=== PATIENT | female | born 1955 | race Caucasian/White ===

== ENCOUNTER → 2016-05-01 | Outpatient (CLI) | payer OTHER ==
[~2016-05-01] MED LIST: CONJ.6255 PO; HYZ/50125 PO
== END | disposition home or self-care (01) ==
LOC: C.LABSPEC 17:37
PROVIDERS: ATTEND Internal Medicine
DX: R39.9 Unspecified symptoms and signs involving the genitourinary system (principal)

== ENCOUNTER → 2016-05-29 | Outpatient (CLI) | payer OTHER | END | disposition home or self-care (01) | LOC: C.LABSPEC 17:26 | PROVIDERS: ATTEND Internal Medicine | DX: R35.0 Frequency of micturition (principal); R39.15 Urgency of urination; R39.9 Unspecified symptoms and signs involving the genitourinary system ==

== ENCOUNTER → 2016-07-30 | Outpatient (CLI) | payer OTHER ==
--- NOTE | 2016-07-31 12:48 | MAMMOGRAPHY REPORT ---
BILATERAL DIGITAL SCREENING MAMMOGRAM TOMOSYNTHESIS WITH CAD: 07/30/2016 CLINICAL HISTORY: Routine screening examination. TECHNIQUE: Breast tomosynthesis in addition to standard 2D mammography was performed. Current study was also evaluated with a Computer Aided Detection (CAD) system. COMPARISON: Comparison is made to exams dated: 07/27/2015 ultrasound, 07/27/2015 mammogram, 07/17/2015 m ammogram, 07/13/2014 mammogram, 07/12/2013 mammogram, and 07/08/2012 mammogram - [facility]. BREAST COMPOSITION: The tissue of both breasts is heterogeneously dense, which may obscure small ma sses. FINDINGS: The parenchymal pattern is unchanged. There are a few scattered and grouped punctate shree rocalcifications in the breasts. No developing mass, architectural distortion or cluster of suspici ous microcalcifications is seen in either breast. IMPRESSION: ACR BI-RADS CATEGORY 2: BENIGN There is no mammographic evidence of malignancy. A 1 year screening mammogram is recommended. The p atient will receive written notification of the results. Approximately 10% of breast cancers are not detected with mammography. A negative mammographic repor t should not delay biopsy if a clinically suggestive mass is present. Amanda Hill M.D. ay/:07/31/2016 07:39:46 Shot Tube Machine Tender: Shanta GREENBERG)(M), [facility] letter sent: Normal 1/2 BI-RADS Code: ACR BI-RADS Category 2: Benign
== END | disposition home or self-care (01) ==
LOC: C.MAMM 11:29
PROVIDERS: ATTEND Internal Medicine
DX: Z12.31 Encounter for screening mammogram for malignant neoplasm of breast (principal)

== ENCOUNTER → 2016-09-26 | Outpatient (CLI) | payer OTHER | END | disposition home or self-care (01) | LOC: C.PAPS 09:54 | PROVIDERS: ATTEND Obstetrics & Gynecology | DX: Z01.419 Encounter for gynecological examination (general) (routine) without abnormal findings (principal) ==

== ENCOUNTER → 2017-06-11 | Outpatient (CLI) | payer OTHER ==
--- NOTE | 2017-06-11 11:10 | DIAGNOSTIC IMAGING REPORT ---
CERVICAL SPINE 2 OR 3 VIEWS CLINICAL HISTORY: M54.2 Neck [id number] COMPARISON STUDY: No previous studies for comparison. FINDINGS: There is straightening of the normal cervical lordosis. There are moderate moderate multilevel degenerative changes. No fractures or traumatic subluxations are visualized. IMPRESSION: Moderate degenerative change. No fractures subluxations or destructive lesions are visualized Electronically signed by: Dayo Terrazas M.D. 06/11/2017 11:09 AM Dictated Date/Time: 06/11/2017 11:08 AM
== END | disposition home or self-care (01) ==
LOC: C.RAD1850 10:55
PROVIDERS: ATTEND Physician Assistant Medical
DX: M54.2 Cervicalgia (principal)

== ENCOUNTER → 2017-08-01 | Outpatient (CLI) | payer OTHER ==
[~2017-08-01] MED LIST changes: +OXYC1TAB3 PO; +PRED50TA PO
--- NOTE | 2017-08-04 07:44 | MAMMOGRAPHY REPORT ---
BILATERAL DIGITAL SCREENING MAMMOGRAM TOMOSYNTHESIS WITH CAD: 08/01/2017 CLINICAL HISTORY: Routine screening. Patient has no complaints. TECHNIQUE: Breast tomosynthesis in addition to standard 2D mammography was performed. Current study was also evaluated with a Computer Aided Detection (CAD) system. COMPARISON: Comparison is made to exams dated: 07/30/2016 mammogram, 07/27/2015 ultrasound, 07/27/2015 ma mmogram, 07/17/2015 mammogram, 07/13/2014 mammogram, and 07/12/2013 mammogram - [facility]. BREAST COMPOSITION: The tissue of both breasts is heterogeneously dense, which may obscure small mas ses. FINDINGS: There is a 7 mm focal asymmetry seen within the left inferior and slightly medial breast, f or which spot compression tomosynthesis views and possible breast ultrasound are recommended for furt her evaluation. The remainder of both breasts are stable compared to prior exams, without suspicious masses, calcific ations, or areas of architectural distortion noted. IMPRESSION: ACR BI-RADS CATEGORY 0: INCOMPLETE EVALUATION: NEED ADDITIONAL IMAGING EVALUATION Left breast focal asymmetry, for which additional imaging evaluation is recommended. The patient cal l be called to schedule an appointment. Approximately 10% of breast cancers are not detected with mammography. A negative mammographic report should not delay biopsy if a clinically suggestive mass is present. Daisy Bedoya M.D. /:08/01/2017 17:14:33 Law Writer: Shanta GREENBERG)(Agnes), [facility] letter sent: Addl Imaging 0 BI-RADS Code: ACR BI-RADS Category 0: Incomplete Evaluation: Need Additional Imaging Evaluation
== END | disposition home or self-care (01) ==
LOC: C.MAMM 11:12
PROVIDERS: ATTEND Internal Medicine
DX: Z12.31 Encounter for screening mammogram for malignant neoplasm of breast (principal); R92.8 Other abnormal and inconclusive findings on diagnostic imaging of breast

== ENCOUNTER 2017-08-11 19:52 | Emergency (ER) | payer OTHER ==
[~2017-08-11] VITALS: Ht 162.6 cm; Wt 51.1 kg
[~2017-08-11 19:52] MED LIST changes: -OXYC1TAB3 PO; -PRED50TA PO
[2017-08-11 20:05] VITALS: Ht 162.6 cm; Wt 51.1 kg
[2017-08-11 21:04] LABS: BASO % 0.3 %; BASO ABS # 0.02 K/uL (0-0.2); EOS % 1.2 %; EOS ABS # 0.09 K/uL (0-0.5); HEMATOCRIT 39.1 % (37-47); HEMOGLOBIN 13.4 g/dL (12.0-16.0); IG# 0.02 K/uL (0.00-0.02); LYMPH % 35.4 %; LYMPH ABS # 2.64 K/uL (1.2-3.4); MEAN CELL VOLUME 90.1 fL (80-100); MEAN CORPUSCULAR HEMOGLOBIN 30.9 pg (25-34); MEAN CORPUSCULAR HGB CONC 34.3 g/dl (32-36); MEAN PLATELET VOLUME 11.6 fL (7.4-10.4); MONO % 7.4 %; MONO ABS # 0.55 K/uL (0.11-0.59); NEUT % 55.4 %; NEUT ABS # 4.13 K/uL (1.4-6.5); PLATELET COUNT 199 K/uL (130-400); RED CELL DISTRIBUTION WIDTH CV 13.5 % (11.5-14.5); WHITE BLOOD COUNT 7.45 K/uL (4.8-10.8)
[2017-08-11 21:37] LABS: ALBUMIN 3.8 gm/dl (3.4-5.0); ALT/SGPT 15 U/L (12-78); AST/SGOT 11 U/L (15-37); BLOOD UREA NITROGEN 23 mg/dl (7-18); CALCIUM 8.6 mg/dl (8.5-10.1); CARBON DIOXIDE 32 mmol/L (21-32); CREATININE 0.74 mg/dl (0.60-1.20); GLUCOSE 93 mg/dl (70-99); LIPASE 172 U/L (73-393); POTASSIUM 3.4 mmol/L (3.5-5.1); SODIUM 140 mmol/L (136-145)
[2017-08-11 21:46] LABS: ALKALINE PHOSPHATASE 90 U/L (45-117); CKMB 0.5 ng/ml (0.5-3.6); TOTAL PROTEIN 7.3 gm/dl (6.4-8.2)
--- NOTE | 2017-08-11 21:58 | DIAGNOSTIC IMAGING REPORT ---
CERVICAL SPINE CT CT DOSE: 204.04 mGy.cm HISTORY: severe left arm pain, neck pain TECHNIQUE: Multiaxial CT images of the cervical spine were performed and reformatted in the sagittal and coronal plane without the use of contrast. A dose lowering technique was utilized adhering to the principles of ALARA. COMPARISON: None. FINDINGS: Fluid level within a single right mastoid air cells. Emphysema and biapical pleural-parenchymal scarlike densities are noted. No pneumothorax. Multinodular thyroid gland with the largest on the right measuring 6 mm. The visualized brain parenchyma is unremarkable. No fractures or subluxation within the cervical spine. Reversal of the normal lordotic curvature. Mild to moderate facet osteoarthritis throughout the cervical spine, left greater than right. There is mild disc space narrowing at C3-C4 and C5-C6. Moderate disc space narrowing at C4-C5 and C6-C7 with endplate osteophytes. This results in mild central canal narrowing at the C4-C5 and C6-C7 levels. Mild left-sided neural foraminal narrowing at C3-C4, C4-C5, and C6-C7. IMPRESSION: 1. No fracture or subluxation within the cervical spine. 2. Reversal of the normal lordotic curvature. 3. Degenerative changes as described above. 4. Additional findings as described above. Electronically signed by: Cesar Bolivar M.D. 08/11/2017 9:57 PM Dictated Date/Time: 08/11/2017 9:51 PM
[2017-08-11] MEDS ORDERED: PRED50TA PO (22:26)
[2017-08-11] MEDS ORDERED: OXYC1TAB3 PO (22:26)
[2017-08-11] MEDS ORDERED: OXYCODONE IR HOME PACK PO ONE (22:30)
--- NOTE | 2017-08-11 22:39 | EMERGENCY ROOM VISIT NOTE ---
History Report prepared by Katrina: Lorena Whalen Under the Supervision of: Dr. Tra Shin M.D. First contact with patient: 20:09 Chief Complaint: ARM PAIN Stated Complaint: ARM PAIN, BACK PAIN, NECK PAIN History of Present Illness The patient is a 62 year old female who presents to the Emergency Room with complaints of constant left arm pain beginning 2 weeks ago. The patient rates her pain at a 9/10. She describes the pain as an ache. The patient also complains of back pain and neck pain. She reports trying to use a heating pad, ice, and Biofreeze roll-on for the pain but that none of this has helped to alleviate her pain. The patient states that she has seen Dr. Canchola for her neck pain and had X-Rays done last month and was told she has arthritis in her neck. Pt denies LOC, headache, fevers, chills, diaphoresis, visual changes, chest pain, breathing difficulties, nausea, vomiting, abdominal pain, melena, hematochezia, urinary symptoms, numbness, weakness, lymphadenopathy, rash, or other complaints. Source of History: patient Onset: 2 weeks ago Position: arm (left) Symptom Intensity: rated at a 9/10 Quality: ache Timing: constant Associated Symptoms: + neck pain, + back pain, No fevers Review of Systems See HPI for pertinent positives and negatives. A total of ten systems were reviewed and were otherwise negative. Past Medical & Surgical Medical Problems: (1) Closed head injury (2) Hypertension Nos (3) Personal History Of Urinary Calculi Family History Cancer Diabetes mellitus Heart disease Hypertension Kidney disease Kidney stones Social History Smoking Status: Current Every Day Smoker Alcohol Use: none Drug Use: none Marital Status: single Housing Status: lives alone Occupation Status: retired Current/Historical Medications Scheduled Estrog Conj/Medryoxyprog Acet (Prempro 0.625MG/2.5MG), 1 TAB PO QPM Hctz/Losartan (Hyzaar 12.5MG/50MG), 1 TAB PO QAM Prednisone (Prednisone), 50 MG PO DAILY Scheduled PRN Oxycodone Ir (Roxicodone Ir), 1-2 TAB PO Q4H PRN for Pain Allergies Coded Allergies: Latex1 -Allergic Contact Dermititis (Verified Allergy, Unknown, SKIN IRRITATION, 03/24/16) Morphine (Verified Allergy, Unknown, ITCHING AND LUMP ON HAND, 03/24/16) [place] (Verified Allergy, Unknown, HIVES, 03/24/16) FROZEN STRAWBERRY Aspirin (Verified Adverse Reaction, Unknown, GI UPSET, 03/24/16) Physical Exam Vital Signs Date Time Temp Pulse Resp B/P (MAP) Pulse Ox O2 Delivery O2 Flow Rate FiO2 08/11/17 21:44 59 16 142/81 97 Room Air 08/11/17 20:50 63 08/11/17 20:49 Room Air 08/11/17 20:05 36.8 70 16 138/91 95 Room Air Physical Exam GENERAL: Awake, alert, mildly uncomfortable-appearing, in no distress HENT: Normocephalic, atraumatic. Oropharynx unremarkable. EYES: Normal conjunctiva. Sclera non-icteric. NECK: Supple but some discomfort noted with range of motion testing especially on the left side. No nuchal rigidity. FROM. No masses. RESPIRATORY: Clear to auscultation. No wheezes. No rales. Normal respiratory effort. CARDIAC: Normal rate. Normal rhythm. No murmurs. No rubs. Extremities warm and well perfused. Pulses equal. No JVD. GI: Soft, non-distended. No tenderness to palpation. No rebound or guarding. No masses. MUSCULOSKELETAL: Atraumatic. Chest examination reveals no tenderness. The back is symmetrical on inspection without obvious abnormality. There is no CVA tenderness to palpation. No joint edema. Normal range of motion of the left arm and left shoulder. No visible abnormality of the left bicep. LOWER EXTREMITIES: Calves are equal size bilaterally and non-tender. No edema. No discoloration. NEURO: Normal sensorium. No sensory or motor deficits noted. SKIN: No rash or jaundice noted. Medical Decision & Procedures ER Provider Diagnostic Interpretation: Radiology results as stated below per my review and radiologist interpretation: CERVICAL SPINE CT CT DOSE: 204.04 mGy.cm HISTORY: severe left arm pain, neck pain TECHNIQUE: Multiaxial CT images of the cervical spine were performed and reformatted in the sagittal and coronal plane without the use of contrast. A dose lowering technique was utilized adhering to the principles of ALARA. COMPARISON: None. FINDINGS: Fluid level within a single right mastoid air cells. Emphysema and biapical pleural-parenchymal scarlike densities are noted. No pneumothorax. Multinodular thyroid gland with the largest on the right measuring 6 mm. The visualized brain parenchyma is unremarkable. No fractures or subluxation within the cervical spine. Reversal of the normal lordotic curvature. Mild to moderate facet osteoarthritis throughout the cervical spine, left greater than right. There is mild disc space narrowing at C3-C4 and C5-C6. Moderate disc space narrowing at C4-C5 and C6-C7 with endplate osteophytes. This results in mild central canal narrowing at the C4-C5 and C6-C7 levels. Mild left-sided neural foraminal narrowing at C3-C4, C4-C5, and C6-C7. IMPRESSION: 1. No fracture or subluxation within the cervical spine. 2. Reversal of the normal lordotic curvature. 3. Degenerative changes as described above. 4. Additional findings as described above. Electronically signed by: Cesar Bolivar M.D. 08/11/2017 9:57 PM Dictated Date/Time: 08/11/2017 9:51 PM Laboratory Results 08/11/17 20:44 Red Blood Count 4.34, Mean Corpuscular Volume 90.1, Mean Corpuscular Hemoglobin 30.9, Mean Corpuscular Hemoglobin Concent 34.3, Mean Platelet Volume 11.6, Neutrophils (%) (Auto) 55.4, Lymphocytes (%) (Auto) 35.4, Monocytes (%) (Auto) 7.4, Eosinophils (%) (Auto) 1.2, Basophils (%) (Auto) 0.3, Neutrophils # (Auto) 4.13, Lymphocytes # (Auto) 2.64, Monocytes # (Auto) 0.55, Eosinophils # (Auto) 0.09, Basophils # (Auto) 0.02 08/11/17 20:44 Test 08/11/17 20:44 White Blood Count 7.45 K/uL (4.8-10.8) Red Blood Count 4.34 M/uL (4.2-5.4) Hemoglobin 13.4 g/dL (12.0-16.0) Hematocrit 39.1 % (37-47) Mean Corpuscular Volume 90.1 fL (80-100) Mean Corpuscular Hemoglobin 30.9 pg (25-34) Mean Corpuscular Hemoglobin Concent 34.3 g/dl (32-36) Platelet Count 199 K/uL (130-400) Mean Platelet Volume 11.6 fL (7.4-10.4) Neutrophils (%) (Auto) 55.4 % Lymphocytes (%) (Auto) 35.4 % Monocytes (%) (Auto) 7.4 % Eosinophils (%) (Auto) 1.2 % Basophils (%) (Auto) 0.3 % Neutrophils # (Auto) 4.13 K/uL (1.4-6.5) Lymphocytes # (Auto) 2.64 K/uL (1.2-3.4) Monocytes # (Auto) 0.55 K/uL (0.11-0.59) Eosinophils # (Auto) 0.09 K/uL (0-0.5) Basophils # (Auto) 0.02 K/uL (0-0.2) RDW Standard Deviation 45.0 fL (36.4-46.3) RDW Coefficient of Variation 13.5 % (11.5-14.5) Immature Granulocyte % (Auto) 0.3 % Immature Granulocyte # (Auto) 0.02 K/uL (0.00-0.02) Anion Gap 3.0 mmol/L (3-11) Est Creatinine Clear Calc Drug Dose 64.4 ml/min Estimated GFR () 101.3 Estimated GFR (Non- 87.4 BUN/Creatinine Ratio 30.3 (10-20) Calcium Level 8.6 mg/dl (8.5-10.1) Magnesium Level 1.9 mg/dl (1.8-2.4) Total Bilirubin 0.2 mg/dl (0.2-1) Direct Bilirubin < 0.1 mg/dl (0-0.2) Aspartate Amino Transf (AST/SGOT) 11 U/L (15-37) Alanine Aminotransferase (ALT/SGPT) 15 U/L (12-78) Alkaline Phosphatase 90 U/L (45-117) Total Creatine Kinase 52 U/L (26-192) Creatine Kinase MB 0.5 ng/ml (0.5-3.6) Creatine Kinase MB Ratio 1.0 (0-3.0) Troponin I < 0.015 ng/ml (0-0.045) Total Protein 7.3 gm/dl (6.4-8.2) Albumin 3.8 gm/dl (3.4-5.0) Lipase 172 U/L (73-393) Thyroid Stimulating Hormone (TSH) 2.220 uIu/ml (0.300-4.500) Laboratory results reviewed by me Medications Administered Medications (Trade) Dose Ordered Sig/Malik Route Start Time Stop Time Status Last Admin Dose Admin Prednisone (PredniSONE TAB) 60 mg NOW STAT PO 08/11/17 22:23 08/11/17 22:24 DC 08/11/17 22:43 60 MG ECG Per My Interpretation Indication: other (neck and arm pain ) Rate (beats per minute): 61 Rhythm: normal sinus Findings: no acute ischemic change, no ectopy ED Course 2019: The patient was evaluated in room C1B. A complete history and physical exam was performed. 2149: I checked on the patient. 2222: Ordered Prednisone 60 mg PO. 2229: Ordered Oxycodone HCl 1 homepack PO. 2235: I reevaluated the patient. Discussed results and discharge instructions: She verbalized understanding and agreement. The patient is ready for discharge. Medical Decision Prior records/ancillary studies reviewed. Outpatient x-ray imaging from the office revealed moderate degenerative changes. Triage Nursing notes reviewed and agree them. The patient's history was concerning for neck pain. Differential diagnosis: Etiologies such as degenerative disc disease, nerve radiculopathy, fracture, aortic disease, metastatic disease, cord compression, discitis, infection, renal colic, gastrointestinal, as well as others were entertained. Physical findings: As above. ER treatment provided: Oral prednisone Diagnostics interpreted by me: ECG: Normal The labs revealed a normal CBC and chemistry panel. Normal cardiac markers. Imaging studies: CT scan The patient has significant degenerative changes in the cervical spine. Given the pain in her neck, shoulder and into the upper arm I suspect that she has a radiculopathy. She does have neural foraminal narrowing on the left side. Steroids, pain medication and close follow-up with her PCP was recommended. The patient felt comfortable. I did review her images with her. By the evaluation outlined above emergent etiologies such as fracture, cardiac s as well as others were deemed relatively unlikely. The patient was informed about the findings as listed above. All questions were answered and she was pleased with the treatment. Return instructions were outlined and the patient was discharged in stable condition. Outpatient prescription management: Oxy IR 5mg 1-2 po Q4 hrs prn Prednisone Referral: The patient was referred back to her primary care physician for follow-up for a recheck of the current condition. [place] Drug Monitoring Program Search Results: patient reviewed within database, no issues identified Medication Reconcilliation Current Medication List: was personally reviewed by me Blood Pressure Screening Patient's blood pressure: Elevated blood pressure Blood pressure disposition: Referred to PCP Impression Primary Impression: Left arm pain Additional Impressions: DJD (degenerative joint disease) of cervical spine Radiculopathy Scribe Attestation The scribe's documentation has been prepared under my direction and personally reviewed by me in its entirety. I confirm that the note above accurately reflects all work, treatment, procedures, and medical decision making performed by me. Departure Information Dispostion Home / Self-Care Prescriptions Prednisone (Prednisone) 50 Mg Tab 50 MG PO DAILY for 4 Days, #4 TAB Prov: Tra Shin MD 08/11/17 Oxycodone Ir (Roxicodone Ir) 5 Mg Tab 1-2 TAB PO Q4H Y for Pain, #15 TAB Prov: Tra Shin MD 08/11/17 Referrals Allen Suresh M.D. (PCP) Forms HOME CARE DOCUMENTATION FORM, IMPORTANT VISIT INFORMATION Patient Instructions My [facility] Additional Instructions Prednisone 50mg: Once daily until the prescription is finished. It is best to take this earlier in the day as some patients note occasional difficulty falling asleep when taken in the late evening. Oxycodone (OxyIR) 5mg: Take 1-2 pills every four hours for breakthrough pain. Avoid alcohol, operating machinery or dangerous equipment, working on ladders or roofs, DRIVING, or situations where being under the influence may be dangerous. It is recommended to use an gvhb-eim-bixomqr stool softener such as Colace, 100mg twice daily while taking this medication to avoid constipation. Acetaminophen(Tylenol) may be used for fever or pain. Use 1000mg every six hours as needed. Avoid using more than 4000mg in a 24 hour period. This medication can be taken if you need to drive, work, or perform activities which may be dangerous when taking narcotic pain medication. Rest and avoid heavy lifting until your symptoms resolve and then gradually return to full activity. A heating pad, warm compresses, or a hot shower may help with tight muscles and can be done several times a day as needed. Continue current medications. Return to the ER immediately for any numbness, tingling, severe pain, loss of control of your bowels or bladder, inability to walk, worsening arm or neck pain , or as needed. Follow up with your primary care physician within 3-5 days for a recheck of your current condition. Problem Qualifiers
[2017-08-11 23:00] VITALS: BP 142/81; PULSE 59; TEMP 36.8; O2SAT 97
== END 2017-08-11 23:01 | disposition home or self-care (01) ==
LOC: C.EDB 19:53 → C.EDC 23:01
DX: M79.602 Pain in left arm (principal); M47.22 Other spondylosis with radiculopathy, cervical region; I10 Essential (primary) hypertension; F17.200 Nicotine dependence, unspecified, uncomplicated; Z87.442 Personal history of urinary calculi; Z91.040 Latex allergy status; Z88.5 Allergy status to narcotic agent; Z88.6 Allergy status to analgesic agent; Z91.018 Allergy to other foods; Z83.3 Family history of diabetes mellitus; Z82.49 Family history of ischemic heart disease and other diseases of the circulatory system; Z84.1 Family history of disorders of kidney and ureter

== ENCOUNTER → 2017-08-12 | Outpatient (CLI) | payer OTHER ==
[~2017-08-12] MED LIST changes: +OXYC1TAB3 PO; +PRED50TA PO
--- NOTE | 2017-08-12 14:24 | MAMMOGRAPHY REPORT ---
UNILATERAL LEFT DIGITAL DIAGNOSTIC MAMMOGRAM TOMOSYNTHESIS AND TARGETED LEFT ULTRASOUND: 08/12/2017 CLINICAL HISTORY: 62-year-old woman called back from screening mammography for a 7 mm focal asymmetry in the left inferior and slightly medial posterior breast. TECHNIQUE: Left CC and MLO tomosynthesis images were obtained. COMPARISON: Comparison is made to exams dated: 08/01/2017 mammogram, 07/30/2016 mammogram, 07/27/2015 ma mmogram, 07/17/2015 mammogram, and 07/12/2013 mammogram - [facility]. BREAST COMPOSITION: There are scattered areas of fibroglandular density in the left breast. FINDINGS: The supplemental spot compression tomosynthesis views of the left breast demonstrate a less conspicuous focal asymmetry in the slightly medial and inferior, posterior left breast. There is no definite focal area of architectural distortion, asymmetry or suspicious calcifications. Given the conspicuous nature on the 08/01/2017 screening exam, further evaluation with ultrasound was performed in the left breast. Real-time high resolution ultrasound was performed in the left breast. In the 6:00 axis, 1 cm from t he nipple, there is an oval, gently lobulated parallel hypoechoic solid versus cystic mass with mild posterior acoustic enhancement and no internal vascularity. This mass measures 4.5 x 2.1 x 4.6 mm. This most likely represents a cyst or complicated cyst and could possibly explain the mammographic fi nding. There is another anechoic benign simple cyst in the 6:00 periareolar left breast measuring 2. 4 x 3.2 x 2.4 mm, and a third probable cyst in the 2:00 left breast, 2 cm from the nipple which is ov al, circumscribed and parallel in orientation without internal vascularity. This cyst measures 3.9 x 1.8 x 4.0 mm. These findings are most compatible with benign fibrocystic changes. IMPRESSION: ACR-BI-RADS CATEGORY 3: PROBABLY BENIGN, TARGETED ULTRASOUND ACR-BI-RADS CATEGORY 3: PRO BABLY BENIGN There are scattered cysts/fibrocystic changes in the left breast seen on ultrasound. A probable comp licated cyst in the 6:00 left breast is thought to correspond with the mammographic focal asymmetry. Given that this lesion does not fit all of the criteria for a benign simple cyst on ultrasound, and the conspicuous nature of the mammographic finding, a short interval follow-up left diagnostic tomosy nthesis mammogram and possible repeat ultrasound is recommended to ensure stability in 6 months. These results and recommendations were discussed with the patient at the time of the exam. Approximately 10% of breast cancers are not detected with mammography. A negative mammographic report should not delay biopsy if a clinically suggestive mass is present. Amanda Hill M.D. ay/:08/12/2017 11:08:36 Load Dispatcher: Shanta SCHWAB(R)(M), [facility] letter sent: Follow Up Recommended 3 BI-RADS Code: ACR-BI-RADS Category 3: Probably Benign Ultrasound BI-RADS: ACR-BI-RADS Category 3: Pr obably Benign
== END | disposition home or self-care (01) ==
LOC: C.MAMM 09:44
PROVIDERS: ATTEND Internal Medicine
DX: N64.89 Other specified disorders of breast (principal)

== ENCOUNTER → 2017-11-27 | Outpatient (CLI) | payer OTHER ==
[~2017-11-27] MED LIST changes: +OXYC-90 PO; -OXYC1TAB3 PO; -PRED50TA PO
[2017-11-27 12:34] LABS: HEMATOCRIT 42.8 % (37-47); HEMOGLOBIN 14.9 g/dL (12.0-16.0); MEAN CELL VOLUME 90.1 fL (80-100); MEAN CORPUSCULAR HEMOGLOBIN 31.4 pg (25-34); MEAN CORPUSCULAR HGB CONC 34.8 g/dl (32-36); MEAN PLATELET VOLUME 12.5 fL (7.4-10.4); PLATELET COUNT 206 K/uL (130-400); RED CELL DISTRIBUTION WIDTH CV 13.5 % (11.5-14.5); RED CELL DISTRIBUTION WIDTH SD 44.8 fL (36.4-46.3); WHITE BLOOD COUNT 7.91 K/uL (4.8-10.8)
[2017-11-27 12:42] LABS: BLOOD UREA NITROGEN 13 mg/dl (7-18); CALCIUM 9.3 mg/dl (8.5-10.1); CARBON DIOXIDE 31 mmol/L (21-32); CREATININE 0.69 mg/dl (0.60-1.20); GLUCOSE 95 mg/dl (70-99); POTASSIUM 3.9 mmol/L (3.5-5.1); SODIUM 139 mmol/L (136-145)
== END | disposition home or self-care (01) ==
LOC: C.LABBFT 10:46
PROVIDERS: ATTEND Nurse Practitioner
DX: R07.89 Other chest pain (principal)

== ENCOUNTER → 2017-12-01 | Outpatient (CLI) | payer OTHER ==
--- NOTE | 2017-12-01 09:50 | DIAGNOSTIC IMAGING REPORT ---
CHEST 2 VIEWS ROUTINE CLINICAL HISTORY: R07.89 Chest [id number] dyspnea COMPARISON STUDY: 03/24/2016 FINDINGS: Moderate emphysematous change. No focal infiltrate. Diaphragms are flattened. A parenchymal density left pulmonary apex unchanged. IMPRESSION: Emphysematous change. Chronic change. No acute process. The above report was generated using voice recognition software. It may contain grammatical, syntax or spelling errors. Electronically signed by: Modesto Narayanan M.D. 12/01/2017 9:49 AM Dictated Date/Time: 12/01/2017 9:48 AM
== END | disposition home or self-care (01) ==
LOC: C.RAD1850 09:33
PROVIDERS: ATTEND Nurse Practitioner
DX: R07.89 Other chest pain (principal)

== ENCOUNTER 2018-11-04 08:29 | Inpatient (IN) ==
[2018-11-04] MEDS ORDERED: HYDROCODONE/ACETAMOPHEN 5/325MG TAB PO STA (08:48)
--- NOTE | 2018-11-04 08:53 | Emergency Department Note ---
History of Present Illness General Chief complaint: Ear Pain/Problem Stated complaint: BILAT EAR INFECTIONS Source: patient Mode of arrival: ambulatory Limitations: no limitations History of Present Illness Maximum Pain Intensity: 9 This patient is a 63-year-old female who presents to the emergency department complaining of bilateral ear pain and low back pain. The patient states that she has had pain in both of her ears for the past 2 weeks. She states that she saw her primary care provider and was placed on antibiotics which she completed 1 week ago. She states that there was no change in her pain when taking the antibiotics. She is unsure what antibiotic she was started on. She reports she was also treated for an upper respiratory infection and those symptoms have begun to improve. Patient additionally states that she injured her low back 2 months ago while at [facility]. She states that she tried to pull out a cart and the cart had no wheels and "went down." She states this caused her to twist and she has had gradually worsening back pain since then. She has been going to the chiropractor for this. She states the pain radiates across her lower back. There is no radiation into the legs. There is no numbness, weakness, bowel/bladder incontinence or urinary symptoms. Patient has been taking Aleve for her pain without significant improvement. She rates her discomfort a 9/10. She denies headaches, dizziness, neck pain, fevers, chest pain or shortness of breath. Home Medications Home Medications Medication Instructions Recorded Confirmed Type albuterol sulfate HFA 90 2 puff INHALATION QID PRN #1 gm 10/13/18 11/04/18 History mcg/actuation aerosol inhaler cetirizine 5 mg tablet 5 mg PO DAILY tab 10/13/18 11/04/18 History conj estrogen-medroxyprogesterone 1 tab PO DAILY 10/13/18 11/04/18 History 0.625 mg-2.5 mg tablet losartan 50 mg-hydrochlorothiazide 1 tab PO QAM #90 tab 10/13/18 11/04/18 History 12.5 mg tablet naproxen sodium [Aleve] 220 mg PO BID PRN 11/04/18 11/04/18 History Allergies Allergy/AdvReac Type Severity Reaction Status Date / Time latex Allergy Unknown SKIN Verified 11/04/18 09:14 IRRITATION morphine Allergy Unknown ITCHING Verified 11/04/18 09:14 AND LUMP ON HAND strawberry Allergy Unknown HIVES Verified 11/04/18 09:14 aspirin AdvReac Unknown GI UPSET Verified 11/04/18 09:14 Past Med/Surg History Medical History Hypertension (Chronic) Surgical History History of hemorrhoidectomy History of lithotripsy Renal Family History Brother Colon cancer Prostate cancer Colorectal cancer Sister Cervical cancer History of kidney cancer Ovarian cancer Lung cancer Family/Other Breast cancer Social History Preferred Language: Cambodian Communication Ability: Effective 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 Beliefs That Will Affect Care: None marital status: Single Current Living Situation: Alone current occupational status: disabled Other Information That Helps Us Care for You: No Feels Safe at Home: Yes Safety Concerns: Feels Safe At This Time Smoking Status: Current every day smoker Tobacco Type: cigarettes Cigarettes Per Day: 10 Do You Dip or Chew Tobacco: No Second Hand Exposure: No Tobacco Cessation Education Requested by Patient: No Hx Alcohol Use: No Hx Substance Use: No Childhood Exposure to Second-Hand Smoke: No caffeine: Yes Physical Activity Frequency: Does not Exercise Review of Systems A total of 10 systems reviewed and were otherwise negative Physical Exam Vital Signs Vital Signs - 24 hr 11/04/18 08:32 11/04/18 10:25 11/04/18 12:26 Temperature 36.8 C Temperature Source Oral Sepsis Recent Fever Within 48 Hours No Sepsis New/Unexplained Change in Mental Status No Sepsis Action Taken by Nursing No Action Required Pulse Rate 87 Pulse Rate [Right Finger] 78 78 Pulse Rhythm [Right Finger] Regular Pulse Strength [Right Finger] Normal Respiratory Rate 16 20 18 Respiratory Effort / Characteristics Non-Labored Spontaneous Non-Labored Spontaneous Respiratory Depth Normal Respiratory Pattern Regular Blood Pressure 162/95 H Blood Pressure [Right Arm] 170/90 H 165/94 H Blood Pressure Mean 117 Blood Pressure Mean [Right Arm] 116 117 Blood Pressure Position Sitting Pulse Oximetry 98 98 98 Oxygen Delivery Method Room Air Room Air Room Air VITALS: Vitals are noted on the nurse's note and reviewed by myself. Vital signs stable. GENERAL: This is a 63-year-old female, in no acute distress, nondiaphoretic, well-developed well-nourished. SKIN: The skin was without rashes. HEAD: Normocephalic atraumatic. EARS: There is a small amount of cerumen in the right external auditory canal. External auditory canals otherwise clear, tympanic membranes with mild effusion, no erythema and good light reflex bilaterally. EYES: Pupils equal round and reactive to light and accommodation. Conjunctivae without injection. NOSE: Patent, turbinates without inflammation or discharge. MOUTH: Mucous membranes moist. Tonsils are not enlarged. Pharynx without erythema or exudate. NECK: Supple without nuchal rigidity. No lymphadenopathy. HEART: Regular rate and rhythm without murmurs gallops or rubs. LUNGS: Clear to auscultation bilaterally without wheezes, rales or rhonchi. No retractions or accessory muscle use. MUSCULOSKELETAL: Generalized tenderness to palpation across the lumbar region of the back. Full range of motion throughout. NEURO: Patient was alert and oriented to person place and time. Distal sensation intact. Course Reevaluation(s) Reevaluation #1: I spoke with the patient regarding her x-ray results. She is agreeable to further work-up with CT scan. Reevaluation #2: Patient was informed of the findings on her CT scans. I recommended admission and patient was agreeable to this. Consultations Consultation #1: Dr. Albert - oncology I spoke with the oncologist on-call, who recommended that the patient be admitted for further evaluation. Consultation #2: Dr. Peña - [facility] [place] [facility] hospitalist Administered Medications Discontinued Medications Hydrocodone Bitart/Acetaminophen ([place] 5/325) 1 tab PO NOW STA Stop: 11/04/18 08:49 Last Admin: 11/04/18 08:53 Dose: 1 tab Documented by: [id number] Ioversol (Optiray 320 125ml) 90 ml IV ONCE PRN PRN Reason: Interaction Checking Stop: 11/08/18 11:24 Last Admin: 11/04/18 11:25 Dose: 90 ml Documented by: [id number] Medical Decision Making Differential Diagnosis Differential diagnosis includes upper respiratory infection, pneumonia, malignancy, lumbar back strain, compression fracture, among others. Home Medications Current Medication List: was personally reviewed by me Laboratory Data Attestation: I reviewed the patient's lab results. Result diagrams: 11/04/18 10:41 11/04/18 10:41 Lab Results 11/04/18 11/04/18 11/04/18 Range/Units 10:41 10:41 10:41 WBC 10.92 H (4.8-10.8) K/uL RBC 4.92 (4.2-5.4) M/uL Hgb 15.2 (12.0-16.0) g/dL POC Hgb (12.0-16.0) g/dl Hct 43.5 (37-47) % POC Hct (37-47) % MCV 88.4 (80-100) fL MCH 30.9 (25-34) pg MCHC 34.9 (32-36) g/dL RDW Std Deviation 43.9 (36.4-46.3) fL RDW Coeff of [place] 13.4 (11.5-14.5) % Plt Count 240 (130-400) K/uL MPV 11.3 H (7.4-10.4) fL Immature Gran % (Auto) 0.3 % Neut % (Auto) 77.6 % Lymph % (Auto) 12.6 % [place] % (Auto) 8.8 % Eos % (Auto) 0.5 % Baso % (Auto) 0.2 % Immature Gran # (Auto) 0.03 H (0.00-0.02) K/uL Neut # (Auto) 8.48 H (1.4-6.5) K/uL Lymph # (Auto) 1.38 (1.2-3.4) K/uL [place] # (Auto) 0.96 H (0.11-0.59) K/uL Eos # (Auto) 0.05 (0-0.5) K/uL Baso # (Auto) 0.02 (0-0.2) K/uL PT 10.6 (9.0-12.0) Seconds INR 1.0 (0.9-1.1) APTT 24.5 (21.0-31.0) Seconds PTT Ratio 0.9 POC Sodium (135-144) mEq/L Sodium 140 (136-145) mmol/L POC Potassium (3.3-5.0) mEq/L Potassium 3.9 (3.5-5.1) mmol/L POC Chloride (101-112) mEq/L Chloride 104 (98-107) mmol/L Carbon Dioxide 34 H (21-32) mmol/L POC Total CO2 (24-31) mEq/l Anion Gap 2.0 L (3-11) POC Anion Gap (16-25) mmol/L POC BUN (7-18) mg/dl BUN 19 H (7-18) mg/dl Creatinine 0.55 L (0.6-1.2) mg/dl POC Creatinine (0.6-1.3) mg/dl Est Cr Clr Drug Dosing 75.3 ml/min Est GFR ( Amer) 116.5 Est GFR (Non-Af Amer) 100.5 BUN/Creatinine Ratio 33.7 H (10-20) Glucose 89 (70-99) mg/dl POC Glucose (other) (70-99) mg/dl Calcium 9.6 (8.5-10.1) mg/dl POC Ioniz Calcium Ade (1.12-1.32) mmol/l Total Bilirubin 0.4 (0.2-1) mg/dl AST 20 (15-37) U/L ALT 22 (12-78) U/L Alkaline Phosphatase 152 H (45-117) U/L Total Protein 8.4 H (6.4-8.2) gm/dl Albumin 3.8 (3.4-5.0) gm/dl Globulin 4.6 H (2.5-4.0) gm/dl Albumin/Globulin Ratio 0.8 L (0.9-2) 11/04/18 Range/Units 10:49 WBC (4.8-10.8) K/uL RBC (4.2-5.4) M/uL Hgb (12.0-16.0) g/dL POC Hgb 16.0 (12.0-16.0) g/dl Hct (37-47) % POC Hct 47 (37-47) % MCV (80-100) fL MCH (25-34) pg MCHC (32-36) g/dL RDW Std Deviation (36.4-46.3) fL RDW Coeff of [place] (11.5-14.5) % Plt Count (130-400) K/uL MPV (7.4-10.4) fL Immature Gran % (Auto) % Neut % (Auto) % Lymph % (Auto) % [place] % (Auto) % Eos % (Auto) % Baso % (Auto) % Immature Gran # (Auto) (0.00-0.02) K/uL Neut # (Auto) (1.4-6.5) K/uL Lymph # (Auto) (1.2-3.4) K/uL [place] # (Auto) (0.11-0.59) K/uL Eos # (Auto) (0-0.5) K/uL Baso # (Auto) (0-0.2) K/uL PT (9.0-12.0) Seconds INR (0.9-1.1) APTT (21.0-31.0) Seconds PTT Ratio POC Sodium 141 (135-144) mEq/L Sodium (136-145) mmol/L POC Potassium 3.9 (3.3-5.0) mEq/L Potassium (3.5-5.1) mmol/L POC Chloride 100 L (101-112) mEq/L Chloride (98-107) mmol/L Carbon Dioxide (21-32) mmol/L POC Total CO2 29 (24-31) mEq/l Anion Gap (3-11) POC Anion Gap 17.0 (16-25) mmol/L POC BUN 19 H (7-18) mg/dl BUN (7-18) mg/dl Creatinine (0.6-1.2) mg/dl POC Creatinine 0.5 L (0.6-1.3) mg/dl Est Cr Clr Drug Dosing ml/min Est GFR ( Amer) Est GFR (Non-Af Amer) BUN/Creatinine Ratio (10-20) Glucose (70-99) mg/dl POC Glucose (other) 89 (70-99) mg/dl Calcium (8.5-10.1) mg/dl POC Ioniz Calcium Ade 1.21 (1.12-1.32) mmol/l Total Bilirubin (0.2-1) mg/dl AST (15-37) U/L ALT (12-78) U/L Alkaline Phosphatase (45-117) U/L Total Protein (6.4-8.2) gm/dl Albumin (3.4-5.0) gm/dl Globulin (2.5-4.0) gm/dl Albumin/Globulin Ratio (0.9-2) Imaging Data Attestation: I personally reviewed and interpreted this imaging study as follows: Radiologist's Impression: XR chest 2V routine FINDINGS: Consolidative infiltrate left upper lung. Slight parenchymal peribronchial prominence bilaterally. IMPRESSION: Consolidative left upper and left suprahilar parenchymal infiltrate. Follow-up to complete resolution is indicated. CT ANGIOGRAM OF THE CHEST FINDINGS: Within the upper abdomen, there are multiple space-occupying hepatic masses measuring up to 3.5 cm in diameter. Metastatic disease is felt likely.. There is mediastinal and bilateral hilar lymphadenopathy. There was no evidence of thoracic aortic dilatation. There were no pulmonary artery filling defects to indicate acute pulmonary embolism. There is a small left pleural effusion. There is a left upper lobe pulmonary mass with marked secondary narrowing of the left upper lobe bronchus. The mass is difficult to visualize due to adjacent pulmonary consolidation. The mass likely measures in excess of 4 cm. There is encasement and attenuation of left pulmonary artery and venous branches. There is a postobstructive left upper lobe pneumonia. There is underlying pulmonary emphysema. There is an irregular marginated pleural-based 13 mm right middle lobe pulmonary nodule. There is a second irregular marginated 11 mm right middle lobe pulmonary nodule. There is an 8 mm right lower lobe pulmonary nodule. There is additional 6 mm right lower lobe pulmonary nodule. There is a 5 mm subpleural left lower lobe pulmonary nodule There are lytic bone lesions present at the L2, L1, and T10 levels. Bony metastatic disease is deemed likely IMPRESSION: 1. Left upper lobe pulmonary mass measuring in excess of 4 cm with pulmonary artery and venous encasement with secondary narrowing. Marked narrowing of the left upper lobe bronchus with a postobstructive left upper lobe pneumonia 2. Pathologic mediastinal and hilar lymphadenopathy 3. Small left pleural effusion 4. Lytic bone disease is highly suspicious for skeletal metastasis 5. Hepatic masses highly suspicious for hepatic metastasis 6. Indeterminate right lung pulmonary nodules 7. No evidence of acute pulmonary embolism CT OF THE LUMBAR SPINE FINDINGS: Please note that the chest CT will be reported separately. A small left pleural effusion is noted. For purposes of numbering on this exam, the L5- S1 disc space is assigned to axial image 310 of 375. Alignment of lumbar spine is anatomic. Note is made of a lytic 2.4 cm lesion within the anterior aspect of the L2 vertebral body. There is additional smaller lytic lesion within the right upper aspect of the L2 vertebral body. There is a lytic lesion along the inferior endplate of L1 with mild loss of vertebral body height. There is also a 1.4 cm L3 lytic lesion. The central canal and neural foramen are suboptimally assessed by CT but there is no CT evidence for epidural extension of tumor. The sacroiliac joints are intact. There are multiple mild disc bulges. There is mild multilevel facet arthrosis. Several hepatic masses are partially imaged on this exam a right hepatic lobe mass measures at least 3.9 cm. A caudate lobe lesion is noted. There are small bilateral renal calculi. IMPRESSION: 1. Lytic lesions within the L1, L2 and L3 vertebral bodies consistent with metas tatic disease. Mild loss of height of the L1 vertebral body suggests a pathologic fracture. No epidural extension of tumor by CT. 2. Several hepatic metastases. Blood Pressure Blood Pressure Findings: Elevated blood pressure Blood Pressure Disposition: further management by hospitalist BIB Brower The patient is a 63-year-old female who presents today complaining of persistent earaches, URI symptoms and low back pain. Chest x-ray was initially performed which shows a left upper lobe infiltrate. Given the suspicious location as well as recent treatment with antibiotics, I did choose to further evaluate this area with a CT scan. This was performed which unfortunately shows a left upper lung mass with postobstructive pneumonia as well as evidence of bony and hepatic metastasis. CT of the lumbar spine was performed which also shows evidence of bony metastasis and pathologic fracture. Patient was informed of all of these findings. I spoke with the oncologist, who recommended the patient be admitted for biopsy and further work-up of this new diagnosis. Patient was agreeable with this. She was admitted to the [facility] medicine service for further evaluation and care. Impression & Plan Mass of left lung, Lumbar back pain, Postobstructive pneumonia Discharge Plan Visit Data *Final* Discharge Date/Time: 11/04/18 15:25 Chief Complaint: Ear Pain/Problem Stated Complaint: BILAT EAR INFECTIONS ED Provider: Lul Mac ED Midlevel Provider: Sabine Walls Discharge Problem: Mass of left lung, Lumbar back pain, Postobstructive pneumonia Patient Disposition: Admitted As Inpatient Discharge Instructions Interventions: ED Discharge Assessment Last Done: 11/04/18 15:25
--- NOTE | 2018-11-04 09:17 | XRay Report ---
XR chest 2V routine CLINICAL HISTORY: rib pain, cough dyspnea COMPARISON STUDY: 04/20/2012 FINDINGS: Consolidative infiltrate left upper lung. Slight parenchymal peribronchial prominence bilat erally. IMPRESSION: Consolidative left upper and left suprahilar parenchymal infiltrate. Follow-up to comple te resolution is indicated. The above report was generated using voice recognition software. It may contain grammatical, syntax or spelling errors. Electronically signed by: Modesto Narayanan M.D. 11/04/2018 9:16 AM
[2018-11-04 10:56] LABS: Basophils # (auto) 0.02 K/uL (0-0.2); Basophils % (auto) 0.2 %; Eosinophils # (auto) 0.05 K/uL (0-0.5); Eosinophils % (auto) 0.5 %; Hematocrit (blood only) 43.5 % (37-47); Hemoglobin 15.2 g/dL (12.0-16.0); Immature Granulocytes # (auto) 0.03 K/uL (0.00-0.02); Immature Granulocytes % (auto) 0.3 %; Lymphocytes # (auto) 1.38 K/uL (1.2-3.4); Lymphocytes % (auto) 12.6 %; Mean Corpuscular Hgb Conc 34.9 g/dL (32-36); Mean Corpuscular Volume 88.4 fL (80-100); Mean Platelet Volume 11.3 fL (7.4-10.4); Monocytes # (auto) 0.96 K/uL (0.11-0.59); Monocytes % (auto) 8.8 %; Neutrophils # (auto) 8.48 K/uL (1.4-6.5); Neutrophils % (auto) 77.6 %; Platelet Count 240 K/uL (130-400); RDW Coefficient of Variation 13.4 % (11.5-14.5); RDW Standard Deviation 43.9 fL (36.4-46.3); Red Blood Count 4.92 M/uL (4.2-5.4); White Blood Count 10.92 K/uL (4.8-10.8)
[2018-11-04 11:03] LABS: iSTAT Ionized Calcium 1.21 mmol/l (1.12-1.32)
[2018-11-04 11:07] LABS: Partial Thromboplastin Ratio 0.9; Partial Thromboplastin Time 24.5 Seconds (21.0-31.0); Prothrombin Time 10.6 Seconds (9.0-12.0)
[2018-11-04 11:14] LABS: Albumin Level 3.8 gm/dl (3.4-5.0); BUN Creatinine Ratio 33.7 (10-20); Calcium 9.6 mg/dl (8.5-10.1); Creatinine Clr Calc Pharmacy 75.3 ml/min; Est GFR (African American) 116.5; Est GFR (Non-African American) 100.5; Potassium 3.9 mmol/L (3.5-5.1)
[2018-11-04 11:16] LABS: Albumin Globulin Ratio 0.8 (0.9-2); Bilirubin,Total 0.4 mg/dl (0.2-1); Globulin 4.6 gm/dl (2.5-4.0); Total Protein 8.4 gm/dl (6.4-8.2)
[2018-11-04] MEDS ORDERED: OPTIRAY 320 125ml IV PRN (11:25)
--- NOTE | 2018-11-04 11:44 | CT Scan Report ---
CT ANGIOGRAM OF THE CHEST CLINICAL HISTORY: Abnormal chest x-ray. Cough. Shortness of breath. Pneumonia versus neoplasm versus pulmonary embolism. COMPARISON STUDY: Chest x-ray dated 11/04/2018 TECHNIQUE: Following the IV administration of 90 mL of Optiray-320, CT angiogram of the thorax was pe rformed from the thoracic inlet to the lung bases utilizing the pulmonary embolus protocol. Images ar e reviewed in the axial, sagittal, and coronal planes. IV contrast was administered without complicat ion. MIP imaging was performed. A dose lowering technique was utilized adhering to the principles of ALARA. CT DOSE: FINDINGS: Within the upper abdomen, there are multiple space-occupying hepatic masses measuring up to 3.5 cm in diameter. Metastatic disease is felt likely.. There is mediastinal and bilateral hilar lymphadenopathy. There was no evidence of thoracic aortic dilatation. There were no pulmonary artery filling defects to indicate acute pulmonary embolism. There is a small left pleural effusion. There is a left upper lobe pulmonary mass with marked secondary narrowing of the left upper lobe bron chus. The mass is difficult to visualize due to adjacent pulmonary consolidation. The mass likely remedios sures in excess of 4 cm. There is encasement and attenuation of left pulmonary artery and venous bran ches. There is a postobstructive left upper lobe pneumonia. There is underlying pulmonary emphysema. There is an irregular marginated pleural-based 13 mm right middle lobe pulmonary nodule. There is a s econd irregular marginated 11 mm right middle lobe pulmonary nodule. There is an 8 mm right lower lob e pulmonary nodule. There is additional 6 mm right lower lobe pulmonary nodule. There is a 5 mm subpl eural left lower lobe pulmonary nodule There are lytic bone lesions present at the L2, L1, and T10 levels. Bony metastatic disease is deemed likely IMPRESSION: 1. Left upper lobe pulmonary mass measuring in excess of 4 cm with pulmonary artery and venous encase ment with secondary narrowing. Marked narrowing of the left upper lobe bronchus with a postobstructiv e left upper lobe pneumonia 2. Pathologic mediastinal and hilar lymphadenopathy 3. Small left pleural effusion 4. Lytic bone disease is highly suspicious for skeletal metastasis 5. Hepatic masses highly suspicious for hepatic metastasis 6. Indeterminate right lung pulmonary nodules 7. No evidence of acute pulmonary embolism Electronically signed by: Dayo Terrazas M.D. 11/04/2018 11:43 AM
--- NOTE | 2018-11-04 11:50 | CT Scan Report ---
CT OF THE LUMBAR SPINE CLINICAL HISTORY: Low back pain. COMPARISON STUDY: Lumbar spine radiographs October 24, 2018. TECHNIQUE: Helical axial images of the lumbar spine were obtained without intravenous contrast. Sag ittal and coronal reconstructions were viewed. Automated exposure control was utilized for the study . A dose lowering technique was utilized adhering to the principles of ALARA. FINDINGS: Please note that the chest CT will be reported separately. A small left pleural effusion is noted. For purposes of numbering on this exam, the L5-S1 disc space is assigned to axial image 310 o f 375. Alignment of lumbar spine is anatomic. Note is made of a lytic 2.4 cm lesion within the anteri or aspect of the L2 vertebral body. There is additional smaller lytic lesion within the right upper a spect of the L2 vertebral body. There is a lytic lesion along the inferior endplate of L1 with mild l oss of vertebral body height. There is also a 1.4 cm L3 lytic lesion. The central canal and neural fo ramen are suboptimally assessed by CT but there is no CT evidence for epidural extension of tumor. Th e sacroiliac joints are intact. There are multiple mild disc bulges. There is mild multilevel facet a rthrosis. Several hepatic masses are partially imaged on this exam a right hepatic lobe mass measures at least 3.9 cm. A caudate lobe lesion is noted. There are small bilateral renal calculi. IMPRESSION: 1. Lytic lesions within the L1, L2 and L3 vertebral bodies consistent with metastatic disease. Mild l oss of height of the L1 vertebral body suggests a pathologic fracture. No epidural extension of tumor by CT. 2. Several hepatic metastases. Electronically signed by: Eriberto Buckley M.D. 11/04/2018 11:49 AM
--- NOTE | 2018-11-04 14:00 | History & Physical Report ---
Date of Service November 04, 2018 Assessment & Plan (1) Mass of left lung: CT findings highly concerning for malignancy, lung mass noted in EVE with additional lesions in liver and spine. Patient is an active smoker, 1/2 ppd x 40 years. She has a very strong family history of malignancy. She is one of 15 children and has multiple siblings with cancer. Patient was informed of all findings. Case discussed with her daughter, Stacy as well. CT suggests encasement of the pulmonary vasculature. Patient hemodynamically stable with adequate oxygenation on RA, no distress. Does not report hemoptysis. No clinical evidence of SVC syndrome or other oncologic emergency at this time. -Admit to medical floor -Control of pain and nausea -Contact Dr. Wilson for possible lung biopsy in AM. Patient is to be NPO after midnight. Holding DVT chemo-prophylaxis for now -Consult Oncology - appreciate assistance with this case -Nicotine patch provided Present on Admission?: Yes (2) Lumbar back pain: Most likely secondary to metastatic lesions. Patient is neurologically intact. Pathologic fracture of L1 -Consider Ortho referral outpatient for stabilization -Pain control with Oxy IR and Morphine PRN -Neuro checks - no evidence of cord compression at present Present on Admission?: Yes (3) Postobstructive pneumonia: Patient afebrile, hemodynamically stable, no respiratory distress -Levaquin 750mg daily -Thoracic consult as above for bronchoscopy. ?stenting Present on Admission?: Yes (4) Hypertension: Blood pressure elevated at present. Patient did not take her AM medication -Give Losartan/HCTZ now -Continue to monitor F/E/N - Heplock. Monitor electrolytes. Regular diet, NPO after midnight Ppx - SCDs and TEDS until biopsy then Lovenox Code - Full Dispo - Admit to medical floor History of Present Illness Chief Complaint: ear pain Primary Care Provider: Allen Suresh MD Margaux Gonsalez is a pleasant 63yo female presenting with bilateral ear pain that has been persistent for approximately 2 weeks. She denies hearing loss/tinnitus/drainage or fullness. She was seen by her PCP on 10/13/18 for this complaint and was prescribed Augmentin for bilateral otitis media with no improvement. Patient also with complaint of low back pain that has been present for 3-4 months. She states that she initially injured her back 2 months ago at [facility] after a fall and has been using Aleve to manage her pain. Also complaining of dry cough x 3 months, no sputum/hemoptysis. Upon arrival to the ER she was afebrile, hemodynamically stable, NAD. A CXR was obtained which revealed a consolidation in the EVE. A CT of the chest was obtained that revealed a 4cm EVE pulmonary mass with pulmonary artery and venous encasement with secondary narrowing. Marked narrowing of the EVE bronchus with a postobstructive EVE PNA. Concern for malignancy Er Course: Hydrocodone Allergies Allergy/AdvReac Type Severity Reaction Status Date / Time latex Allergy Unknown SKIN Verified 11/04/18 09:14 IRRITATION morphine Allergy Unknown ITCHING Verified 11/04/18 09:14 AND LUMP ON HAND strawberry Allergy Unknown HIVES Verified 11/04/18 09:14 aspirin AdvReac Unknown GI UPSET Verified 11/04/18 09:14 Home Medications Home Medications Medication Instructions Recorded Confirmed Type albuterol sulfate HFA 90 2 puff INHALATION QID PRN #1 gm 10/13/18 11/04/18 History mcg/actuation aerosol inhaler cetirizine 5 mg tablet 5 mg PO DAILY tab 10/13/18 11/04/18 History conj estrogen-medroxyprogesterone 1 tab PO DAILY 10/13/18 11/04/18 History 0.625 mg-2.5 mg tablet losartan 50 mg-hydrochlorothiazide 1 tab PO QAM #90 tab 10/13/18 11/04/18 History 12.5 mg tablet naproxen sodium [Aleve] 220 mg PO BID PRN 11/04/18 11/04/18 History Past Med/Surg History Medical History Hypertension (Chronic) Surgical History History of rhinoplasty History of hemorrhoidectomy History of lithotripsy Renal Family History Brother Colon cancer Prostate cancer Colorectal cancer Sister Cervical cancer History of kidney cancer Ovarian cancer Lung cancer Family/Other Breast cancer Sister Cholangiocarcinoma Social History Preferred Language: Amharic Communication Ability: Effective Non Clinical Advisor Required: No Beliefs That Will Affect Care: None marital status: Single Current Living Situation: Alone current occupational status: disabled Other Information That Helps Us Care for You: No Feels Safe at Home: Yes Safety Concerns: Feels Safe At This Time Smoking Status: Current every day smoker Tobacco Type: cigarettes Cigarettes Per Day: 10 Do You Dip or Chew Tobacco: No Second Hand Exposure: No Tobacco Cessation Education Requested by Patient: No Hx Alcohol Use: No Hx Substance Use: No Childhood Exposure to Second-Hand Smoke: No caffeine: Yes Physical Activity Frequency: Does not Exercise Review of Systems Review of Systems: +Dry cough +Pain in back Physical Exam Physical Exam: General: patient resting comfortably, NAD, non-toxic in appearance, AA&O x 4 Skin: warm, dry, intact, no rashes or lesions HEENT: NC/AT, PERRL, EOMI, anicteric sclera, conjunctiva without injection, external ear normal to inspection and nontender, nares patent, moist mucus membranes, dentition intact, no oropharyngeal lesions, neck supple, trachea midline, no LAD, no thyromegaly, no JVD Heart: +S1/S2, regular, no m/r/g Lungs: equal air entry bilaterally, no rales/rhonchi/wheezes Abd: +BS, soft, NT/ND, no masses/organomegaly/ascites Ext: warm, 2+ pulses in UE/LE bilaterally, no clubbing/cyanosis or edema Neuro: nonfocal, patient AA&O x 4, speech intact, no facial droop, moving all extremities on command with equal strength 5/5 Results & Data Vital Signs (Past 12 Hours) Vital Signs Temp Pulse Pulse Resp BP BP Pulse Ox 11/04/18 12:26 78 18 165/94 H 98 11/04/18 10:25 78 20 170/90 H 98 11/04/18 08:32 36.8 C 87 16 162/95 H 98 Laboratory Results Lab Results 11/04/18 11/04/18 11/04/18 Range/Units 10:41 10:41 10:41 WBC 10.92 H (4.8-10.8) K/uL RBC 4.92 (4.2-5.4) M/uL Hgb 15.2 (12.0-16.0) g/dL POC Hgb (12.0-16.0) g/dl Hct 43.5 (37-47) % POC Hct (37-47) % MCV 88.4 (80-100) fL MCH 30.9 (25-34) pg MCHC 34.9 (32-36) g/dL RDW Std Deviation 43.9 (36.4-46.3) fL RDW Coeff of [place] 13.4 (11.5-14.5) % Plt Count 240 (130-400) K/uL MPV 11.3 H (7.4-10.4) fL Immature Gran % (Auto) 0.3 % Neut % (Auto) 77.6 % Lymph % (Auto) 12.6 % Bond % (Auto) 8.8 % Eos % (Auto) 0.5 % Baso % (Auto) 0.2 % Immature Gran # (Auto) 0.03 H (0.00-0.02) K/uL Neut # (Auto) 8.48 H (1.4-6.5) K/uL Lymph # (Auto) 1.38 (1.2-3.4) K/uL Bond # (Auto) 0.96 H (0.11-0.59) K/uL Eos # (Auto) 0.05 (0-0.5) K/uL Baso # (Auto) 0.02 (0-0.2) K/uL PT 10.6 (9.0-12.0) Seconds INR 1.0 (0.9-1.1) APTT 24.5 (21.0-31.0) Seconds PTT Ratio 0.9 POC Sodium (135-144) mEq/L Sodium 140 (136-145) mmol/L POC Potassium (3.3-5.0) mEq/L Potassium 3.9 (3.5-5.1) mmol/L POC Chloride (101-112) mEq/L Chloride 104 (98-107) mmol/L Carbon Dioxide 34 H (21-32) mmol/L POC Total CO2 (24-31) mEq/l Anion Gap 2.0 L (3-11) POC Anion Gap (16-25) mmol/L POC BUN (7-18) mg/dl BUN 19 H (7-18) mg/dl Creatinine 0.55 L (0.6-1.2) mg/dl POC Creatinine (0.6-1.3) mg/dl Est Cr Clr Drug Dosing 75.3 ml/min Est GFR ( Amer) 116.5 Est GFR (Non-Af Amer) 100.5 BUN/Creatinine Ratio 33.7 H (10-20) Glucose 89 (70-99) mg/dl POC Glucose (other) (70-99) mg/dl Calcium 9.6 (8.5-10.1) mg/dl POC Ioniz Calcium Ade (1.12-1.32) mmol/l Total Bilirubin 0.4 (0.2-1) mg/dl AST 20 (15-37) U/L ALT 22 (12-78) U/L Alkaline Phosphatase 152 H (45-117) U/L Total Protein 8.4 H (6.4-8.2) gm/dl Albumin 3.8 (3.4-5.0) gm/dl Globulin 4.6 H (2.5-4.0) gm/dl Albumin/Globulin Ratio 0.8 L (0.9-2) // Range/Units 10:49 WBC (4.8-10.8) K/uL RBC (4.2-5.4) M/uL Hgb (12.0-16.0) g/dL POC Hgb 16.0 (12.0-16.0) g/dl Hct (37-47) % POC Hct 47 (37-47) % MCV (80-100) fL MCH (25-34) pg MCHC (32-36) g/dL RDW Std Deviation (36.4-46.3) fL RDW Coeff of [place] (11.5-14.5) % Plt Count (130-400) K/uL MPV (7.4-10.4) fL Immature Gran % (Auto) % Neut % (Auto) % Lymph % (Auto) % Bond % (Auto) % Eos % (Auto) % Baso % (Auto) % Immature Gran # (Auto) (0.00-0.02) K/uL Neut # (Auto) (1.4-6.5) K/uL Lymph # (Auto) (1.2-3.4) K/uL Bond # (Auto) (0.11-0.59) K/uL Eos # (Auto) (0-0.5) K/uL Baso # (Auto) (0-0.2) K/uL PT (9.0-12.0) Seconds INR (0.9-1.1) APTT (21.0-31.0) Seconds PTT Ratio POC Sodium 141 (135-144) mEq/L Sodium (136-145) mmol/L POC Potassium 3.9 (3.3-5.0) mEq/L Potassium (3.5-5.1) mmol/L POC Chloride 100 L (101-112) mEq/L Chloride (98-107) mmol/L Carbon Dioxide (21-32) mmol/L POC Total CO2 29 (24-31) mEq/l Anion Gap (3-11) POC Anion Gap 17.0 (16-25) mmol/L POC BUN 19 H (7-18) mg/dl BUN (7-18) mg/dl Creatinine (0.6-1.2) mg/dl POC Creatinine 0.5 L (0.6-1.3) mg/dl Est Cr Clr Drug Dosing ml/min Est GFR ( Amer) Est GFR (Non-Af Amer) BUN/Creatinine Ratio (10-20) Glucose (70-99) mg/dl POC Glucose (other) 89 (70-99) mg/dl Calcium (8.5-10.1) mg/dl POC Ioniz Calcium Ade 1.21 (1.12-1.32) mmol/l Total Bilirubin (0.2-1) mg/dl AST (15-37) U/L ALT (12-78) U/L Alkaline Phosphatase (45-117) U/L Total Protein (6.4-8.2) gm/dl Albumin (3.4-5.0) gm/dl Globulin (2.5-4.0) gm/dl Albumin/Globulin Ratio (0.9-2) Diagnostic Findings CT OF THE LUMBAR SPINE CLINICAL HISTORY: Low back pain. COMPARISON STUDY: Lumbar spine radiographs October 24, 2018. TECHNIQUE: Helical axial images of the lumbar spine were obtained without intravenous contrast. Sagittal and coronal reconstructions were viewed. Automated exposure control was utilized for the study. A dose lowering technique was utilized adhering to the principles of ALARA. FINDINGS: Please note that the chest CT will be reported separately. A small left pleural effusion is noted. For purposes of numbering on this exam, the L5- S1 disc space is assigned to axial image 310 of 375. Alignment of lumbar spine is anatomic. Note is made of a lytic 2.4 cm lesion within the anterior aspect of the L2 vertebral body. There is additional smaller lytic lesion within the right upper aspect of the L2 vertebral body. There is a lytic lesion along the inferior endplate of L1 with mild loss of vertebral body height. There is also a 1.4 cm L3 lytic lesion. The central canal and neural foramen are suboptimally assessed by CT but there is no CT evidence for epidural extension of tumor. The sacroiliac joints are intact. There are multiple mild disc bulges. There is mild multilevel facet arthrosis. Several hepatic masses are partially imaged on this exam a right hepatic lobe mass measures at least 3.9 cm. A caudate lobe lesion is noted. There are small bilateral renal calculi. IMPRESSION: 1. Lytic lesions within the L1, L2 and L3 vertebral bodies consistent with metastatic disease. Mild loss of height of the L1 vertebral body suggests a pathologic fracture. No epidural extension of tumor by CT. 2. Several hepatic metastases. Electronically signed by: Eriberto Buckley M.D. 11/04/2018 11:[address] ANGIOGRAM OF THE CHEST CLINICAL HISTORY: Abnormal chest x-ray. Cough. Shortness of breath. Pneumonia versus neoplasm versus pulmonary embolism. COMPARISON STUDY: Chest x-ray dated 11/04/2018 TECHNIQUE: Following the IV administration of 90 mL of Optiray-320, CT angiogram of the thorax was performed from the thoracic inlet to the lung bases utilizing the pulmonary embolus protocol. Images are reviewed in the axial, sagittal, and coronal planes. IV contrast was administered without complication. MIP imaging was performed. A dose lowering technique was utilized adhering to the principles of ALARA. CT DOSE: FINDINGS: Within the upper abdomen, there are multiple space-occupying hepatic masses measuring up to 3.5 cm in diameter. Metastatic disease is felt likely.. There is mediastinal and bilateral hilar lymphadenopathy. There was no evidence of thoracic aortic dilatation. There were no pulmonary artery filling defects to indicate acute pulmonary embolism. There is a small left pleural effusion. There is a left upper lobe pulmonary mass with marked secondary narrowing of the left upper lobe bronchus. The mass is difficult to visualize due to adjacent pulmonary consolidation. The mass likely measures in excess of 4 cm. There is encasement and attenuation of left pulmonary artery and venous branches. There is a postobstructive left upper lobe pneumonia. There is underlying pulmonary emphysema. There is an irregular marginated pleural-based 13 mm right middle lobe pulmonary nodule. There is a second irregular marginated 11 mm right middle lobe pulmonary nodule. There is an 8 mm right lower lobe pulmonary nodule. There is additional 6 mm right lower lobe pulmonary nodule. There is a 5 mm subpleural left lower lobe pulmonary nodule There are lytic bone lesions present at the L2, L1, and T10 levels. Bony metastatic disease is deemed likely IMPRESSION: 1. Left upper lobe pulmonary mass measuring in excess of 4 cm with pulmonary artery and venous encasement with secondary narrowing. Marked narrowing of the left upper lobe bronchus with a postobstructive left upper lobe pneumonia 2. Pathologic mediastinal and hilar lymphadenopathy 3. Small left pleural effusion 4. Lytic bone disease is highly suspicious for skeletal metastasis 5. Hepatic masses highly suspicious for hepatic metastasis 6. Indeterminate right lung pulmonary nodules 7. No evidence of acute pulmonary embolism Electronically signed by: Dayo Terrazas M.D. 11/04/2018 11:43 AM Dictated: 11/04/18 1127 Transcribed: 11/04/181126 XR chest 2V routine CLINICAL HISTORY: rib pain, cough dyspnea COMPARISON STUDY: 04/20/2012 FINDINGS: Consolidative infiltrate left upper lung. Slight parenchymal peribronchial prominence bilaterally. IMPRESSION: Consolidative left upper and left suprahilar parenchymal infiltrate. Follow-up to complete resolution is indicated. The above report was generated using voice recognition software. It may contain grammatical, syntax or spelling errors. Electronically signed by: Mdoesto Narayanan M.D. 11/04/2018 9:16 AM Dictated: 11/04/18913 Transcribed: 11/04/18913 Code Status & VTE Plan Code Status FULL VTE Prophylaxis Plan VTE Prophylaxis will be ordered: Yes PG Care Time/CCT Total # of Minutes Spent Total Time Spent with Patient: Total time spent is greater than 50% in coordination of care (as documented) at patient's floor/unit and/or counseling patient: 50 (1) Hypertension Hypertension type: essential hypertension Qualified Code(s): I10 - Essential (primary) hypertension
[2018-11-04] MEDS ORDERED: LOSARTAN/HCTZ 50/12.5MG TAB PO STA (16:51)
[2018-11-04] MEDS ORDERED: LOSARTAN/HCTZ 50/12.5MG TAB PO SCH (17:00)
[2018-11-04] MEDS ORDERED: ACETAMINOPHEN 325 MG TAB PO PRN (17:02)
[2018-11-04] MEDS: LEVOFLOXACIN/D5W 750 MG/150 ML BAG IV SCH (17:43)
[2018-11-04] MEDS: NICOTINE 21 MG/24 HR TDSY TD SCH (18:54)
--- NOTE | 2018-11-05 01:45 | Consultation Report ---
DATE OF CONSULTATION: 11/04/2018 REASON FOR CONSULTATION: Evaluate for lung mass. HISTORY OF PRESENT ILLNESS: This patient is a 63-year-old female who I actually know. She accompanies her sister who is a patient of mine to the office. The patient presented to the Emergency Room with bilateral fullness of her ears and also was complaining of a dry cough for the last 3-4 months with weight loss and back pain. The patient underwent a workup and has not only a large left upper lobe lung mass with marked mediastinal adenopathy, but also hepatic metastasis and bone metastasis to her lumbar spine and a right upper lobe lesion. I have been asked to evaluate her and to aid in diagnosis and management. The patient is a lifetime smoker. She started smoking 47 years ago and has smoked as much as a pack to a pack and a half although currently is smoking half a pack per day. She does not really have any symptoms of chronic obstructive pulmonary disease. The patient's really only history is hypertension. She also smoked cigarettes. She has had some minor surgeries including hemorrhoidectomy and "operation on my nose." She is normally followed by Dr. Allen Suresh. PAST MEDICAL HISTORY: 1. Hypertension. 2. Nephrolithiasis. 3. Hemorrhoids. 4. Long history of cigarette smoking. PAST SURGICAL HISTORY: 1. Hemorrhoidectomy. 2. Nasal surgery. MEDICATIONS: 1. Albuterol. 2. Cetirizine. 3. Estrogen and medroxyprogesterone. 4. Losartan and hydrochlorothiazide. 5. Naprosyn. ALLERGIES: LATEX CAUSES SKIN IRRITATION, MORPHINE CAUSES ITCHING, AND ASPIRIN CAUSES GASTROINTESTINAL UPSET. SOCIAL HISTORY: The patient lives alone. She has been raising her grandchildren. She grew up in the area. She is currently disabled although is unclear to the etiology. FAMILY MEDICAL HISTORY: The patient has 3 children and 5 grandchildren who are all healthy. The patient's mother and father both lived into their 80s although her father apparently had leukemia and then per medical problems. Her aunts and uncles on her father's side all lived into their 90s. Her mother in her late 80s from apparent congestive heart failure. The patient has several siblings who have . She had a brother with prostate cancer, a brother with colon cancer, another brother with a colorectal carcinoma, another sister with cervical cancer, another sister with ovarian cancer and I take care of her sister who has cancer. REVIEW OF SYSTEMS: The patient has not weighed herself, but states that she has lost a considerable amount of weight and this has concerned her. She is a fairly small woman. She has complained of back pain for the last few months and had attributed to a fall. She has also been on Augmentin for her bilateral otitis media. She has had a dry cough for about 3 months. She denies dyspnea on exertion or productive cough. This patient has had no skin breakdown. She had decreased hearing acuity because of apparent otitis media in both ears. She has had no visual changes. She denies palpitations. She really does not have chest pain. She does complain of some low back pain. She has had no gastrointestinal or genitourinary complaints. She has had no peripheral edema. She has had no joint swelling. She denies claudication. She has no chest pain. Neurologically, she is completely intact. She denies seizures or transient ischemic attacks or focal weakness. PHYSICAL EXAMINATION: GENERAL: This is a 5 feet 4 inches, 100-pound female who is awake, alert and oriented. HEENT: Her extraocular movements are intact. Pupils are equal, round and reactive. Sclerae are anicteric. Her teeth are in excellent repair. She has no oral mucosal lesions and her tongue is midline. Her oral mucosa is moist. NECK: Supple. I do not detect supraclavicular, cervical or axillary adenopathy. She has no carotid bruits. LUNGS: Actually do not sound bad to listen to. HEART: She has a regular rate and rhythm of her heart. ABDOMEN: Soft and nontender. She has no peripheral edema with excellent dorsalis pedis pulses. No joint effusions. NEUROLOGIC: She is completely intact. ASSESSMENT AND PLAN: Probable primary lung cancer with metastasis to bone and liver. I will discuss this case with radiology as it appears to me that she would probably be a candidate for a CT guided biopsy. If not, we can always do an endobronchial ultrasound. I did tell the patient that it does appear to me that she is dealing with a lung cancer.
[2018-11-05] MEDS: OXYCODONE HCL IR 5 MG TAB (IMMEDIATE RELEASE) PO PRN ×2 (08:00→15:42)
[2018-11-05] MEDS: LOSARTAN/HCTZ 50/12.5MG TAB PO SCH (08:00)
[2018-11-05] MEDS: NICOTINE 21 MG/24 HR TDSY TD SCH (08:02)
[2018-11-05] MEDS: fentaNYL 12 MCG/HR TDSY TD SCH (09:04)
[2018-11-05] MEDS: SENNA 8.6 MG TAB PO SCH (09:23)
[2018-11-05] MEDS ORDERED: LORazepam 0.5 MG/1 ML VIAL IV STA (09:33)
--- NOTE | 2018-11-05 09:44 | Progress Note ---
DATE: 11/05/2018 Margaux was seen today with a friend at the bedside. I have discussed this case with Dr. Dejan Albert from medical oncology as well as Dr. Humphrey Buckley from radiology. Dr. Buckley feels that a biopsy of the liver could be performed and we will do that under ultrasound guidance this afternoon. If we do not get any answer from that, I believe we should proceed with an endobronchial ultrasound which should give us an answer quite readily. When we do that, will depend on timing. I may be able to do it today if the OR has time.
--- NOTE | 2018-11-05 10:17 | Radiation OncologyConsultation ---
Date of Consultation November 05, 2018 Assessment & Plan (1) Mass of left lung: Assessment: Ms. Gonsalez is a 63-year-old female with likely metastatic lung cancer to liver with bone metastasis. The patient is scheduled to undergo a liver biopsy today to determine the pathologic tissue diagnosis. Dr. Albert from medical oncology has seen the patient and has recommended completion of the staging work-up including obtaining a tissue diagnosis and consideration of palliative external beam radiation therapy to the lumbar spine. Recommendation/Plan: 1. Completion of staging work-up including MRI of brain and obtaining tissue diagnosis. 2. Consideration of palliative external beam radiation therapy to lumbar spine after confirming diagnosis of metastatic lung cancer. Patient would like further time before making a decision. Radiation oncology team will come tomorrow morning to determine patient's decision. A tentative CT simulation will be scheduled if the patient is agreeable to radiation therapy. Radiation therapy would commence after at least a preliminary diagnosis. Additionally, we will review the MRI of brain results to determine if any other radiation therapy is indicated. 3. Medical oncology input appreciated. 4. Continue with current pain medication management given her lower back pain. 5. Continue all other medical management as per primary medical team. Rationale/Explanation of Treatment: We did explain the indications, alternatives, benefits, risks and side effects of external beam radiation therapy. We did explain the most common side effects including, but not limited to, skin erythema, skin breakdown, hyperpigmentation, telangiectasia, wound complications, perianal fistula development, fistula formation, bowel obstruction, bowel perforation, vaginal dryness, vaginal stenosis, dyspareunia, dysuria, increased urinary frequency, urgency, diarrhea, constipation, melena, hematochezia, hematuria, radiation cystitis, radiation proctitis, fatigue, decreased blood counts, wound complications from surgery, rectal incontinence, secondary malignancy development. We did explain the procedures and daily process of radiation therapy. The patient understands and would be willing to c onsent to treatment. The patient had multiple questions which were answered to their full satisfaction. Thank you for allowing us to participate in the care of this patient. This chart was completed in part utilizing [employer] Speech Voice Recognition software. Attempts were made to minimize the grammatical errors, random word insertions, pronoun errors and incomplete sentences. Any formal questions or concerns about the content, text or information contained within the body of this dictation should be directly addressed to the provider for clarification. Toni Napoles MD Department of Radiation Oncology [facility] History of Present Illness Attending Physician: Robbin Cruz History of Present Illness 10/24/2018. Lumbar spine x-ray. IMPRESSION: No fracture or subluxation within the lumbar spine. Slight progression of the mild degenerative changes as described above. 11/04/2018. Patient presents to emergency room with complaints of bilateral ear pain and low back pain. Patient previously went to primary care provider and was started on antibiotics and did have imaging studies which did not reveal any findings. Patient admitted to hospital for further work-up and evaluation. 11/04/2018. Chest x-ray. IMPRESSION: Consolidative left upper and left suprahilar parenchymal infiltrate. Follow-up to complete resolution is indicated. 11/04/2018. CTA of chest. IMPRESSION: 1. Left upper lobe pulmonary mass measuring in excess of 4 cm with pulmonary artery and venous encasement with secondary narrowing. Marked narrowing of the left upper lobe bronchus with a postobstructive left upper lobe pneumonia 2. Pathologic mediastinal and hilar lymphadenopathy 3. Small left pleural effusion 4. Lytic bone disease is highly suspicious for skeletal metastasis 5. Hepatic masses highly suspicious for h epatic metastasis 6. Indeterminate right lung pulmonary nodules 7. No evidence of acute pulmonary embolism. 11/04/2018. CT of lumbar spine. IMPRESSION: 1. Lytic lesions within the L1, L2 and L3 vertebral bodies consistent with metastatic disease. Mild loss of height of the L1 vertebral body suggests a pathologic fracture. No epidural extension of tumor by CT. 2. Several hepatic metastases. 11/04/2018. Thoracic surgery consultation by Dr. Wilson. Dr. Wilson has recommended CT-guided biopsy of liver metastasis or bronchoscopic biopsy. 11/05/2018. Medical oncology consultation by Dr. Albert, note pending. Dr. Albert has recommended obtaining a tissue diagnosis and consideration of palliative external beam radiation therapy to the lumbar spine. Currently, the patient does have some mid lower back pain which is much more well-tolerated since she has been started on pain medications. Patient otherwise has no significant complaints including dysphagia, fevers, chills, night sweats, cough, hemoptysis, dyspnea, weight loss. Allergies Allergy/AdvReac Type Severity Reaction Status Date / Time latex Allergy Unknown SKIN Verified 11/04/18 09:14 IRRITATION morphine Allergy Unknown ITCHING Verified 11/04/18 09:14 AND LUMP ON HAND strawberry Allergy Unknown HIVES Verified 11/04/18 09:14 aspirin AdvReac Unknown GI UPSET Verified 11/04/18 09:14 Home Medications Home Medications Medication Instructions Recorded Confirmed Type albuterol sulfate HFA 90 2 puff INHALATION QID PRN #1 gm 10/13/18 11/04/18 History mcg/actuation aerosol inhaler cetirizine 5 mg tablet 5 mg PO DAILY tab 10/13/18 11/04/18 History conj estrogen-medroxyprogesterone 1 tab PO DAILY 10/13/18 11/04/18 History 0.625 mg-2.5 mg tablet losartan 50 mg-hydrochlorothiazide 1 tab PO QAM #90 tab 10/13/18 11/04/18 History 12.5 mg tablet naproxen sodium [Aleve] 220 mg PO BID PRN 11/04/18 11/04/18 History Patient History Medical History Hypertension (Chronic) Surgical History History of rhinoplasty History of hemorrhoidectomy History of lithotripsy Renal Family History Brother Colon cancer Prostate cancer Colorectal cancer Sister Cervical cancer History of kidney cancer Ovarian cancer Lung cancer Family/Other Breast cancer Sister Cholangiocarcinoma Social History Preferred Language: Hebrew Communication Ability: Effective Beliefs That Will Affect Care: None marital status: Single Current Living Situation: Alone current occupational status: disabled Feels Safe at Home: Yes Smoking Status: Current every day smoker Tobacco Type: cigarettes Cigarettes Per Day: 10 Second Hand Exposure: No Hx Alcohol Use: No Hx Substance Use: No Childhood Exposure to Second-Hand Smoke: No caffeine: Yes Physical Activity Frequency: Does not Exercise Physical Exam Constitutional: WD/WN, vitals as above Eyes: PERRL, conjunctivae normal, anicteric sclerae ENMT: external ear and nose normal, oropharynx normal Neck: trachea midline, no thyromegaly Respiratory: normal respiratory effort, lungs clear to auscultation Cardiovascular: RRR, no murmur, no edema Musculoskeletal: no cyanosis or clubbing, extremities motor strength 5/5 Minimal tenderness to palpation in the lower lumbar spine Skin: no rashes, warm and dry Neurologic: patellar DTR's 2+ bilat, sensation intact and PERRL, EOMI, accommodation nl, no face palsy, no dysarthria Psychiatric: A+Ox3, euthymic affect Results Additional Studies 11/04/18 08:48 XR chest 2V routine Stat 11/04/18 10:36 CT angio chest PE protocol Stat 11/04/18 10:59 CT lumbar spine wo con Stat 11/05/18 08:17 MR brain wo/w con Routine 11/05/18 08:38 US FNA w/img 1st lesion Routine Time Spent Attending I spent 35 minutes for this consultation, which included obtaining clinical information, performing a physical exam, recommending a plan of action and answering questions. Greater than 50% of the time spent was direct face to face interaction with the patient.
[2018-11-05] MEDS ORDERED: GADOBUTROL 65ML VIAL IV PRN (11:15)
--- NOTE | 2018-11-05 11:42 | Magnetic Resonance Report ---
MR brain wo/w con CLINICAL HISTORY: Possible metastatic disease metastatic disease COMPARISON STUDY: No previous studies for comparison. TECHNIQUE: Utilizing a 1.5 Teresa magnet and dedicated coil, multiplanar, multiecho imaging of the br ain was performed pre and postcontrast administration. IV administration of 8.5 mL of Gadavist contr ast was uneventful. FINDINGS: Somewhat compromised exam due to patient motion. There are findings of mild age-related chr onic small vessel as well as cerebral atrophy. There is a 5 mm peripherally enhancing nodule anterior aspect right thalamus. This is consistent with a metastatic deposit. It shows partial postcontrast peripheral enhancement. The coronal images suggest the possibility of punctate foci of postcontrast enhancement in the fronta l lobe regions bilaterally. These are not duplicated, however on the transaxial postcontrast images s uggesting vascular artifact. The ventricular system is midline. There is slight bone marrow inhomogeneity although definite postco ntrast enhancement is not seen. IMPRESSION: 1. 5 mm enhancing lesion anterior right thalamus. 2. A metastatic composite is the diagnosis of exclusion. 3. Subtle bone marrow inhomogeneity with punctate foci of postcontrast enhancement of the frontal lob e regions bilaterally. These findings are most likely artifactual although this study again is compro mised due to motion artifact. The above report was generated using voice recognition software. It may contain grammatical, syntax or spelling errors. Electronically signed by: Modesto Narayanan M.D. 11/05/2018 11:41 AM
--- NOTE | 2018-11-05 14:17 | Consultation Report ---
DATE OF CONSULTATION: 11/05/2018 REASON FOR CONSULTATION: Metastatic carcinoma, primary unknown, suspect underlying lung cancer. HISTORY OF PRESENT ILLNESS: The patient is a very pleasant 63-year-old female who presents to [facility] Emergency Room with bilateral otalgia and low back pain. She was diagnosed with bilateral otitis media and prescribed Augmentin with no improvement. She also admits to lumbosacral pain which has persisted over the past 3-4 months. She utilized [id number] nonsteroidal anti-inflammatories for relief. The patient admits to diminished appetite and loss of at least 5 pounds over the past month or so. Upon presentation, a chest x-ray was performed revealing a consolidation in the left lower lobe. CTA of the chest again confirmed a 4 cm left lower lobe lesion as well as hepatic and bony metastatic disease. MRI of the lumbar spine was also performed revealing multiple bony lesions involving L1, L2, L3 vertebral bodies and loss of height of L1 suggesting a pathologic fracture which is most likely the origin of her current discomfort. Several hepatic lesions were also noted. I was contacted by the Emergency Room PA taking care of this unfortunate lady and advised her to admit to medical service and consult Dr. Rommel Wilson to pursue biopsy. I spoke to Dr. Wilson this morning. He discussed the case with Radiology and my understanding is they will attempt hepatic biopsy and if unsuccessful, then Dr. Wilson will have her undergo endobronchial ultrasound with biopsy. She is a lifelong smoker and thus the suspicion for underlying lung cancer is high. Lastly, the patient states that recently she has developed a persistent headache, but denies any gait disturbance or neurologic deficit otherwise. We will pursue MRI of the brain while she is here as well. PAST MEDICAL HISTORY: Positive for hypertension. PAST SURGICAL HISTORY: Status post rhinoplasty, hemorrhoidectomy and lithotripsy for renal lithiasis. MEDICATIONS: Prior to admission include albuterol 2 puffs inhaled q.i.d. p.r.n., cetirizine 5 mg p.o. daily, estrogen 1 tablet p.o. daily, losartan 50 mg p.o. daily, Naproxen Sodium p.o. b.i.d. p.r.n. ALLERGIES: INCLUDE LASIX, MORPHINE, STRAWBERRY AND ASPIRIN. 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 She is single. She is a current every day smoker, estimated 40-pack year history. Negative for alcohol or illicit drugs. FAMILY HISTORY: Sister suffers from lung cancer and brother with colorectal cancer. Mother succumbed to complications of congestive heart failure. REVIEW OF SYSTEMS: GENERAL: Positive for anorexia and weight loss. Denies fevers, chills or night sweats. SKIN: No rashes or lesions. No history of dermatoses. HEENT: She does confirm a bifrontal headache. No dizziness or vertigo. She has no acute visual or hearing deficits; however, she does complain of otalgia bilaterally. No history of sinusitis. No dysphagia or sore throat reported. LYMPH: No history of lymphoproliferative disease. CARDIAC: No history of coronary artery disease. No current angina or palpitations. PULMONARY: No history of COPD. Occasional nonproductive cough. No hemoptysis reported. She is not short of breath or dyspneic on exertion. GASTROINTESTINAL: Negative for abdominal pain, nausea, vomiting, diarrhea or constipation, hematochezia or melena stools. GENITOURINARY: No hematuria, dysuria, urinary incontinence. PSYCHIATRIC: Negative for anxiety, depression or psychoses. MUSCULOSKELETAL: Positive for persistent lumbosacral pain. No arthralgias by history. ENDOCRINE: Negative for diabetes or thyroid disease. NEUROLOGIC: Negative for seizure, stroke or migraine headaches. HEMATOLOGIC: Negative for anemia, thrombophilia or bleeding diathesis. PHYSICAL EXAMINATION: GENERAL: Thin 63-year-old female, in no acute distress. VITAL SIGNS: Temperature 36.8, pulse 78, respiratory rate 16, blood pressure 159/96. SKIN: Warm, dry, noncyanotic without petechia, rash or ecchymosis. HEENT: Head is atraumatic, normocephalic. Eyes: PERRLA, EOMI. Sclerae nonicteric. No conjunctival injection. Nares are patent without rhinorrhea or discharge. Throat is clear. Tongue is midline. Mucous membranes are moist. NECK: Supple. Trachea midline. No JVD or thyromegaly noted. LYMPH: No cervical or supraclavicular palpable nodes. HEART: Regular rate and rhythm. No clicks, rubs, murmurs or gallops. LUNGS: Clear to auscultation bilaterally. ABDOMEN: Firm, soft, nontender, nondistended, without palpable hepatosplenomegaly. EXTREMITIES: Musculoskeletal strength and pulses are equal in all 4 quadrants. No clubbing, cyanosis or edema otherwise. NEUROLOGICAL: She is awake, alert and oriented x3. Cranial nerves are grossly intact. LABORATORY DATA: WBC count 10,920, hemoglobin 15.2, platelet count 240,000. Sodium 140, potassium 3.9, chloride 104, carbon dioxide 34, BUN 19, creatinine 0.55. RADIOGRAPHIC DATA: As discussed in the HPI include CTA of the chest which reveals a 4 cm left lower lobe lesion. Lumbar spine MRI reveals multiple osseous lesions involving L1 through L3 with compression fracture of L1. Multiple hepatic mets are also noted. IMPRESSION: 1. Metastatic carcinoma, primary unknown, suspect underlying lung CA. 2. Lumbosacral pain. 3. Anorexia/weight loss. 4. Hypertension. PLAN: I visited with the patient at bedside this morning. This very pleasant but unfortunate lady has been battling with back pain and bilateral ear pain for several weeks. From a radiographic perspective, the patient is suffering from disseminated metastatic disease most likely lung in origin. Advised to consult for Dr. Wilson to obtain tissue for diagnosis. He has spoken with Radiology and plans are underway to obtain tissue from the patient's liver. Thus, I could not be definitive until diagnosis is confirmed and biomarkers obtained. In the meantime, focus should be on nutrition and pain management. I have taken the liberty of ordering a low dose fentanyl patch 12 mcg topically q. 72 hours. Additionally, I would like Radiation to consider palliative therapy to the lumbosacral spine. I have also recommended MRI of the brain to rule out intracerebral metastatic disease. Ultimately a plan to reconvene with the patient as outpatient within the next week or two to discuss therapeutic options. We will continue to follow her closely during admission. Thank you very much for allowing me to participate in her care. KAMILLE
--- NOTE | 2018-11-05 14:40 | Ultrasound Report ---
ULTRASOUND GUIDED FINE NEEDLE ASPIRATION OF A 3.7 CM RIGHT HEPATIC LOBE MASS CLINICAL HISTORY: liver mets COMPARISON STUDY: Chest CT November 04, 2018. PROCEDURE: Sonography of the liver demonstrated a 3.7 cm right hepatic lobe mass and a smaller caudat e lobe lesion. The right hepatic lobe mass was targeted for fine-needle aspiration. Procedure, risks and benefits were discussed with the patient and informed written consent was obtained. The procedure was performed by Dr. Buckley following a timeout. Skin was prepped and draped in sterile fashion a nd local anesthesia was achieved with 1% lidocaine. Under direct ultrasound guidance, 2 22-gauge fine needle aspirations utilizing Mason needles were performed. Malignant cells were noted on prelimin alejandro pathology. Samples were deemed preliminarily adequate. The patient tolerated the procedure well a nd no immediate complications were evident. IMPRESSION: Successful ultrasound guided fine needle aspiration of a 3.7 cm right hepatic lobe mass. Electronically signed by: Eriberto Buckley M.D. 11/05/2018 2:38 PM
[2018-11-05] MEDS: CHECK FENTANYL PATCH PLACEMENT SCH ×2 (15:44→23:56)
[2018-11-05] MEDS: LEVOFLOXACIN/D5W 750 MG/150 ML BAG IV SCH (15:45)
[2018-11-05] MEDS ORDERED: ONDANSETRON INJ 2 MG/ML 2 ML VIAL IV STA (18:38)
[2018-11-05] MEDS ORDERED: ONDANSETRON INJ 2 MG/ML 2 ML VIAL IV PRN (18:38)
[2018-11-05] MEDS ORDERED: ONDANSETRON INJ 2 MG/ML 2 ML VIAL ONE (18:41)
--- NOTE | 2018-11-05 23:05 | Hospitalist Progress Note ---
Date of Service November 05, 2018 Assessment & Plan (1) Mass of left lung: CT findings highly concerning for malignancy, lung mass noted in EVE with additional lesions in liver and spine. Patient is an active smoker, 1/2 ppd x 40 years. She has a very strong family history of malignancy. She is one of 15 children and has multiple siblings with cancer. Patient was informed of all findings. Case discussed with her daughter, Stacy as well. CT suggests encasement of the pulmonary vasculature. Patient hemodynamically stable with adequate oxygenation on RA, no distress. Does not report hemoptysis. No clinical evidence of SVC syndrome or other oncologic emergency at this time. -Admit to medical floor -Control of pain and nausea -Contact Dr. Wilson for possible lung biopsy in AM. Patient is to be NPO after midnight. Holding DVT chemo-prophylaxis for now -Consult Oncology - appreciate assistance with this case -Nicotine patch provided MRI of brain confirms possible mets. Patient has lesions in liver, lung as well as bone lesions. 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 Sadly given that patient has provided history of half pack a year of smoking she did not qualify for low dose ct scan screening. (I did not share this with patient as this would only make her feel worse). (2) Lumbar back pain: Most likely secondary to metastatic lesions. Patient is neurologically intact. Pathologic fracture of L1 -Consider Ortho referral outpatient for stabilization -Pain control with Oxy IR and Morphine PRN -Neuro checks - no evidence of cord compression at present (3) Postobstructive pneumonia: Patient afebrile, hemodynamically stable, no respiratory distress -Levaquin 750mg daily -Thoracic consult as above for bronchoscopy. ?stenting (4) Hypertension: Blood pressure elevated at present. Patient did not take her AM medication -Give Losartan/HCTZ now -Continue to monitor F/E/N - Heplock. Monitor electrolytes. Regular diet, NPO after midnight Ppx - SCDs and TEDS until biopsy then Lovenox Code - Full Subjective Patient reports no new complaints today. She is concerned about possiblity of cancer. Her daughter is at bedside. Patient states she smokes for half a pack a day for about 50 years whcih would equate to 25 pack years. Daughter states it is more likely 1 pack a year. Review of Systems Review of Systems: All systems reviewed & are unremarkable except as noted in HPI & below Physical Exam Physical Exam: General: patient resting comfortably, NAD, non-toxic in appe arance, AA&O x 4 Skin: warm, dry, intact, no rashes or lesions HEENT: NC/AT, PERRL, EOMI, anicteric sclera, conjunctiva without injection, external ear normal to inspection and nontender, nares patent, moist mucus membranes, dentition intact, no oropharyngeal lesions, neck supple, trachea midline, no LAD, no thyromegaly, no JVD Heart: +S1/S2, regular, no m/r/g Lungs: equal air entry bilaterally, no rales/rhonchi/wheezes Abd: +BS, soft, NT/ND, no masses/organomegaly/ascites Ext: warm, 2+ pulses in UE/LE bilaterally, no clubbing/cyanosis or edema Neuro: nonfocal, patient AA&O x 4, speech intact, no facial droop, moving all extremities on command with equal strength 5/5 Results & Data Vital Signs (Past 12 Hours) Vital Signs Temp Pulse Resp BP BP Pulse Ox 11/05/18 20:00 80 18 135/84 92 11/05/18 17:30 36.6 C 76 20 117/79 92 11/05/18 17:08 80 18 106/70 92 11/05/18 16:32 37.0 C 82 18 114/79 94 11/05/18 16:02 36.7 C 78 20 121/79 94 11/05/18 15:32 36.9 C 82 20 120/82 93 11/05/18 15:15 36.6 C 83 20 139/91 97 11/05/18 15:02 36.6 C 79 20 137/77 94 11/05/18 14:44 85 145/93 H 11/05/18 14:32 36.8 C 78 16 156/89 H 93 11/05/18 11:35 36.8 C 68 16 151/87 H 94 PG Care Time/CCT Total # of Minutes Spent Total Time Spent with Patient: Total time spent is greater than 50% in coordination of care (as documented) at patient's floor/unit and/or counseling patient: (1) Hypertension Hypertension type: essential hypertension Qualified Code(s): I10 - Essential (primary) hypertension
[2018-11-06] MEDS: SENNA 8.6 MG TAB PO SCH (07:54)
[2018-11-06] MEDS: CHECK FENTANYL PATCH PLACEMENT SCH ×3 (07:54→23:50)
[2018-11-06] MEDS: LOSARTAN/HCTZ 50/12.5MG TAB PO SCH (07:54)
[2018-11-06] MEDS: NICOTINE 21 MG/24 HR TDSY TD SCH (07:55)
--- NOTE | 2018-11-06 08:14 | Radiation Oncology Progress Nt ---
Date of Service November 06, 2018 Subjective The patient was seen today. She had been seen yesterday and offered her radiation therapy for palliation of pain of the spine. She had requested more time to make a decision. When seen today she once again stated that she would like more time to decide. She plans to talk to her family. She also stated that she may be moving to [place] to be with her sister and have treatment in [place]. I reported this to the nursing staff. Also stated that should she change her mind she can let us know and we could begin the process of treatment. Results & Data Vital Signs (Past 12 Hours) Vital Signs Temp Pulse Resp BP BP Pulse Ox 11/06/18 07:35 36.8 C 78 18 117/73 93 11/06/18 04:06 36.8 C 67 18 118/73 93 11/05/18 23:26 36.8 C 72 18 108/72 95
--- NOTE | 2018-11-06 09:17 | Progress Note ---
DATE: 11/06/2018 DIAGNOSES: 1. Metastatic nonsmall cell lung cancer. 2. Lumbosacral pain. 3. Anorexia/weight loss. 4. Hypertension. 5. Intracerebral metastatic disease. SUBJECTIVE: Margaux is a pleasant but unfortunate 63-year-old female patient who was admitted to [facility] in the last couple of days with bilateral otalgia and low back pain. She was worked up radiographically and found to have disseminated metastatic disease. Biopsy was carried out by radiology yesterday and preliminary indications she suffers from metastatic nonsmall cell lung cancer. Biomarkers are pending and thus cannot make definitive recommendations. MRI of the brain was performed revealing a 5 mm amina-thalamic lesion which is suspicious for mets. Additionally, radiation oncology is evaluating Margaux for palliative radiation therapy at lumbar spine. She was started on opioids which had been effecting and controlling her pain. She reports having an appetite today which is encouraging. Margaux is also contemplating moving to [place] to be with her sister. Nursing reports no overnight difficulties. PHYSICAL EXAMINATION: GENERAL: Very pleasant 63-year-old female in no acute distress. VITAL SIGNS: Temperature 36.8, pulse 78, respiratory rate 18, blood pressure 117/73. SKIN: Without rash or lesion. HEENT: Oral mucosa is moist without buccal lesions or ulcerations. NECK: Supple. Trachea midline. HEART: Regular rate and rhythm. LUNGS: Few scattered wheezes throughout all diaz. ABDOMEN: Soft, nontender, nondistended. EXTREMITIES: No clubbing, cyanosis or edema. NEUROLOGIC: Grossly intact. RADIOGRAPHIC DATA: Brain MRI, positive for a 5 mm enhancing lesion in the anterior right thalamus. IMPRESSION: 1. Stage IV nonsmall cell lung cancer. 2. Right thalamic brain met. 3. Osseous metastatic disease. 4. Lumbosacral pain. 5. Anorexia/weight loss. PLAN: Margaux is a pleasant 63-year-old female patient, recently diagnosed with nonsmall cell lung cancer. Biomarkers are pending. Hopefully, the lesion is a PD-L1-avid. Margaux states today she may be moving out of the area to be with her sister perhaps in [place]. She will let us know of her long-term plans and gather her medical data to transfer care to an oncology service where she will reside. For now, continue to manage her pain. We will ask radiation to consider SBRT on the solitary amina-thalamic met. Otherwise, continue medical management as ordered. We will continue to follow her and be more than happy to care for her once. She makes a decision to proceed. KAMILLE
--- NOTE | 2018-11-06 09:31 | Progress Note ---
DATE: 11/06/2018 Ms. Gonsalez underwent a liver biopsy yesterday which showed metastatic adenocarcinoma, which is poorly differentiated. This appears to be a lung primary with metastases to her bone and her spine as well as to her liver. She may also have metastases to her right thalamus. The patient states that she is considering relocating to [place] where she will have her treatment for this metastatic lung cancer.
[2018-11-06] MEDS: OXYCODONE HCL IR 5 MG TAB (IMMEDIATE RELEASE) PO PRN ×2 (09:48→19:45)
[2018-11-06] MEDS: LEVOFLOXACIN/D5W 750 MG/150 ML BAG IV SCH (16:36)
--- NOTE | 2018-11-06 18:11 | Hospitalist Progress Note ---
Date of Service November 06, 2018 Assessment & Plan (1) Mass of left lung: CT findings highly concerning for malignancy, lung mass noted in EVE with additional lesions in liver and spine. Patient is an active smoker, 1/2 ppd x 40 years. She has a very strong family history of malignancy. She is one of 15 children and has multiple siblings with cancer. Patient was informed of all findings. CT suggests encasement of the pulmonary vasculature. Patient hemodynamically stable with adequate oxygenation on RA, no distress. Does not report hemoptysis. No clinical evidence of SVC syndrome or other oncologic emergency at this time. -Control of pain and nausea - Ms. Gonsalez underwent a liver biopsy yesterday which showed metastatic adenocarcinoma, which is poorly differentiated. This appears to be a lung primary with metastases to her bone and her spine as well as to her liver. She may also have metastases to her right thalamus. The patient states that she is considering relocating to [place] where she will have her treatment for this metastatic lung cancer. -Consult Oncology - appreciate assistance with this case -Nicotine patch provided MRI of brain confirms possible mets. Patient has lesions in liver, lung as well as bone lesions. 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 Sadly given that patient has provided history of half pack a year of smoking she did not qualify for low dose ct scan screening. (I did not share this with patient as this would only make her feel worse). (2) Lumbar back pain: Most likely secondary to metastatic lesions. Patient is neurologically intact. Pathologic fracture of L1 -Consider Ortho referral outpatient for stabilization -Pain control with Oxy IR and Morphine PRN -Neuro checks - no evidence of cord compression at present (3) Postobstructive pneumonia: Patient afebrile, hemodynamically stable, no respiratory distress -Levaquin 750mg daily -Thoracic consult as above for bronchoscopy. ?stenting (4) Hypertension: Blood pressure elevated at present. Patient did not take her AM medication -Give Losartan/HCTZ now -Continue to monitor F/E/N - Heplock. Monitor electrolytes. Regular diet, NPO after midnight Ppx - SCDs and TEDS until biopsy then Lovenox Code - Full Subjective Pt seen and examined at the bedside. She is resting, apperas to be weak. Pt said she lost 7-10 lbs in the past several months. Pt appetite is . Pt denies fever, chills, chest pain, SOB, abdominal pain, frequency and urgency. Review of Systems Review of Systems: All systems reviewed & are unremarkable except as noted in HPI & below Physical Exam Constitutional: WD/WN, vitals as above + cachectic and + frail appearing Eyes: PERRL, conjunctivae normal, anicteric sclerae ENMT: external ear and nose normal, oropharynx normal Neck: trachea midline, no thyromegaly Respiratory: normal respiratory effort, + hyperresonance to percussion and + cough Auscultation: + wheezes Cardiovascular: RRR, no murmur, no edema Chest (Breasts): normal inspection/palpation of breasts Gastrointestinal (Abdomen): normal bowel sounds, soft, nontender, no hepatosplenomegaly Musculoskeletal: no cyanosis or clubbing, extremities motor strength 5/5 Skin: no rashes, warm and dry Neurologic: patellar DTR's 2+ bilat, sensation intact Psychiatric: A+Ox3, euthymic affect Genitourinary: no vaginal lesions, no adnexal mass Lymphatic: no cervical or axillary lymphadenopathy Results & Data Vital Signs (Past 12 Hours) Vital Signs Temp Pulse Resp BP BP Pulse Ox 11/06/18 15:13 37.0 C 70 18 107/69 94 11/06/18 07:35 36.8 C 78 18 117/73 93 PG Care Time/CCT Total # of Minutes Spent Total Time Spent with Patient: Total time spent is greater than 50% in coordination of care (as documented) at patient's floor/unit and/or counseling patient: (1) Hypertension Hypertension type: essential hypertension Qualified Code(s): I10 - Essential (primary) hypertension
[2018-11-06] MEDS ORDERED: LORazepam 0.5 MG TAB PO PRN (19:54)
[2018-11-06] MEDS ORDERED: LORazepam 0.5 MG TAB ONE (19:58)
[2018-11-06] MEDS: DOCUSATE SODIUM 100 MG CAP PO SCH (20:02)
[2018-11-07] MEDS ORDERED: SODIUM CHLORIDE 0.65% NA SOLN 45 ML (OCEAN) ONE (07:53)
[2018-11-07] MEDS: OXYCODONE HCL IR 5 MG TAB (IMMEDIATE RELEASE) PO PRN ×2 (07:55→17:18)
[2018-11-07] MEDS: LOSARTAN/HCTZ 50/12.5MG TAB PO SCH (08:51)
[2018-11-07] MEDS: SENNA 8.6 MG TAB PO SCH (08:52)
[2018-11-07] MEDS: DOCUSATE SODIUM 100 MG CAP PO SCH (08:52)
[2018-11-07] MEDS: CHECK FENTANYL PATCH PLACEMENT SCH ×2 (08:54→16:10)
[2018-11-07] MEDS: NICOTINE 21 MG/24 HR TDSY TD SCH (08:55)
--- NOTE | 2018-11-07 09:05 | Hospitalist Progress Note ---
Date of Service November 07, 2018 Assessment & Plan (1) Mass of left lung: CT findings highly concerning for malignancy, lung mass noted in EVE with additional lesions in liver and spine. Patient is an active smoker, 1/2 ppd x 40 years. She has a very strong family history of malignancy. She is one of 15 children and has multiple siblings with cancer. Patient was informed of all findings. CT suggests encasement of the pulmonary vasculature. Patient hemodynamically stable with adequate oxygenation on RA, no distress. Does reports small amount of hemoptysis today. 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 markers are still pending and the result will be available most likely on . Depending which markers are positive pt is going to be either on immunotherapy or chemo ( if none of the markers are positive)She will need radiation therapy to be scheduled next week for painful lesions in her spine. Pt is now accepting it. adenocarcinoma, which is poorly differentiated. -stat CXR for hemoptysis and CBC -Stat sputum cultures -Control of pain and nausea -Nicotine patch provided (2) Lumbar back pain: Secondary to metastatic lesions. Patient is neurologically intact. Pathologic fracture of L1 -Pt is referred to radiation therapy -which needs to be scheduled next week. -Pain control with Oxy IR and Morphine PRN -Neuro checks - no evidence of cord compression at present (3) Postobstructive pneumonia: Patient afebrile, hemodynamically stable, no respiratory distress -Levaquin 750mg daily (4) Hypertension: Blood pressure elevated at present. Patient did not take her AM medication -Give Losartan/HCTZ now -Continue to monitor -Discontinued Lovenox since pt has hemoptysis. Placed SCD-s bilaterally - F/E/N - Heplock. Monitor electrolytes. Regular diet, NPO after midnight - Ppx - SCDs and TEDS Code - Full Subjective Pt seen and examined at the bedside.Discussed in details options of treatment in consideration that markers are still pending from the liver biopsy. Discussed with medical oncology who will see the pt again today at 10 am. Pt and her family are in denial that she has a metastatic lung cancer diagnosis and t hey have difficult time to accept it. Pt is not prepared for it.No matter how much time we spend with her and her family explaining the findings of the liver biopsy, pt has doubts in it. Slowly improving PO intake. Pt is able to ambulate. Pt denies fever, chills, chest pain, SOB abdominal pain, frequency and urgency. Pt states that she most likely will not go to [place] for cancer treatment and will stay here. Pt also postponed yesterday radiation oncology recommendations stating that she needs to think about it. Today pt stated that she wants everything to be done after discussing her case with -oncologist including immunotherapy and radiation therapy. Pt said that she cough up some blood today, but it was very small amount. Review of Systems Review of Systems: All systems reviewed & are unremarkable except as noted in HPI & below Physical Exam Constitutional: WD/WN, vitals as above + cachectic and + frail appearing Eyes: PERRL, conjunctivae normal, anicteric sclerae ENMT: external ear and nose normal, oropharynx normal Neck: trachea midline, no thyromegaly Respiratory: normal respiratory effort, + hyperresonance to percussion and + cough Auscultation: + wheezes Cardiovascular: RRR, no murmur, no edema Chest (Breasts): normal inspection/palpation of breasts Gastrointestinal (Abdomen): normal bowel sounds, soft, nontender, no hepatosplenomegaly Musculoskeletal: no cyanosis or clubbing, extremities motor strength 5/5 Skin: no rashes, warm and dry Neurologic: patellar DTR's 2+ bilat, sensation intact Psychiatric: A+Ox3, euthymic affect Genitourinary: no vaginal lesions, no adnexal mass Lymphatic: no cervical or axillary lymphadenopathy Results & Data Vital Signs (Past 12 Hours) Vital Signs Temp Pulse Resp BP Pulse Ox 11/07/18 07:00 37.1 C 79 20 131/85 90 11/07/18 04:00 37 C 84 20 127/85 90 11/06/18 23:00 36.9 C 85 18 122/80 90 PG Care Time/CCT Total # of Minutes Spent Total Time Spent with Patient: Total time spent is greater than 50% in coordination of care (as documented) at patient's floor/unit and/or counseling patient: (1) Hypertension Hypertension type: essential hypertension Qualified Code(s): I10 - Essential (primary) hypertension
[2018-11-07] MEDS ORDERED: ENOXAPARIN INJ 40 MG/0.4 ML SYR SQ SCH (11:30)
[2018-11-07] MEDS: LEVOFLOXACIN/D5W 750 MG/150 ML BAG IV SCH (16:09)
[2018-11-07 17:45] LABS: Basophils # (auto) 0.01 K/uL (0-0.2); Basophils % (auto) 0.1 %; Eosinophils # (auto) 0.06 K/uL (0-0.5); Eosinophils % (auto) 0.5 %; Hematocrit (blood only) 40.9 % (37-47); Hemoglobin 14.2 g/dL (12.0-16.0); Immature Granulocytes # (auto) 0.04 K/uL (0.00-0.02); Immature Granulocytes % (auto) 0.3 %; Lymphocytes # (auto) 1.74 K/uL (1.2-3.4); Lymphocytes % (auto) 14.7 %; Mean Corpuscular Volume 87.6 fL (80-100); Mean Platelet Volume 10.8 fL (7.4-10.4); Neutrophils # (auto) 8.68 K/uL (1.4-6.5); Neutrophils % (auto) 73.4 %; Platelet Count 243 K/uL (130-400); RDW Coefficient of Variation 13.2 % (11.5-14.5); RDW Standard Deviation 42.3 fL (36.4-46.3); Red Blood Count 4.67 M/uL (4.2-5.4); White Blood Count 11.83 K/uL (4.8-10.8)
[2018-11-07 17:51] LABS: Mean Corpuscular Hgb Conc 34.7 g/dL (32-36)
--- NOTE | 2018-11-07 18:42 | XRay Report ---
XR chest PA, lat, obliques (4 views) CLINICAL HISTORY: Hemoptysis COMPARISON STUDY: 11/04/2018 FINDINGS: The cardiac and mediastinal contours remain stable. There is a persistent left upper lobe c entral pulmonary mass with a postobstructive pneumonia. There is an increasing left pleural effusion. There are developing interstitial opacities at the left lung base. The right lung remains clear.[ IMPRESSION: 1. Left upper lobe opacity consistent with the patient's known left upper lobe mass and postobstructi ve pneumonia 2. Increasing left pleural effusion 3. Developing interstitial left basilar opacities Electronically signed by: Dayo Terrazas M.D. 11/07/2018 6:40 PM
[2018-11-07] MEDS: cefTRIAXone SODIUM 2,000 MG in DEXTROSE 5% 50 ML IV SCH (20:04)
[2018-11-08] MEDS: CHECK FENTANYL PATCH PLACEMENT SCH ×3 (00:59→16:31)
[2018-11-08 07:00] LABS: Hematocrit (blood only) 44.7 % (37-47); Hemoglobin 15.8 g/dL (12.0-16.0); Mean Corpuscular Hgb Conc 35.3 g/dL (32-36); Mean Corpuscular Volume 88.5 fL (80-100); Mean Platelet Volume 11.7 fL (7.4-10.4); Platelet Count 247 K/uL (130-400); RDW Coefficient of Variation 13.1 % (11.5-14.5); RDW Standard Deviation 41.8 fL (36.4-46.3); Red Blood Count 5.05 M/uL (4.2-5.4); White Blood Count 11.98 K/uL (4.8-10.8)
[2018-11-08 07:24] LABS: Albumin Level 3.2 gm/dl (3.4-5.0); BUN Creatinine Ratio 29.5 (10-20); Calcium 9.7 mg/dl (8.5-10.1); Creatinine Clr Calc Pharmacy 69.1 ml/min; Est GFR (Non-African American) 96.6; Potassium 3.7 mmol/L (3.5-5.1)
[2018-11-08 07:27] LABS: Albumin Globulin Ratio 0.7 (0.9-2); Bilirubin,Total 0.6 mg/dl (0.2-1); Globulin 4.9 gm/dl (2.5-4.0); Total Protein 8.1 gm/dl (6.4-8.2)
[2018-11-08] MEDS: OXYCODONE HCL IR 5 MG TAB (IMMEDIATE RELEASE) PO PRN ×2 (07:37→18:04)
[2018-11-08] MEDS: LOSARTAN/HCTZ 50/12.5MG TAB PO SCH (07:38)
[2018-11-08] MEDS: SENNA 8.6 MG TAB PO SCH (07:39)
[2018-11-08] MEDS: DOCUSATE SODIUM 100 MG CAP PO SCH (07:40)
[2018-11-08] MEDS: PREMPRO PO SCH (07:40)
[2018-11-08] MEDS: NICOTINE 21 MG/24 HR TDSY TD SCH (07:40)
[2018-11-08] MEDS ORDERED: POLYETHYLENE (MIRALAX) 17 GM PACK PO PRN (08:21)
[2018-11-08] MEDS: fentaNYL 12 MCG/HR TDSY TD SCH (09:24)
--- NOTE | 2018-11-08 11:18 | Progress Note ---
DATE: 11/08/2018 MEDICAL ONCOLOGY PROGRESS NOTE DIAGNOSES: 1. Metastatic nonsmall cell lung cancer. 2. Lumbosacral pain. 3. Anorexia/weight loss. 4. Constipation. 5. Intracerebral metastatic disease. SUBJECTIVE: Margaux is a pleasant but unfortunate 63-year-old female patient admitted to [facility] with intractable back pain. She was subsequently diagnosed with nonsmall cell lung cancer. Margaux initially was considering moving to [place] with her sister, but has since decided to stay in the area. I engaged her and family members yesterday to discuss her diagnosis, prognosis and treatment options. Clinically, she is holding her own. Pain seems to be well controlled on opioids at present. She is constipated and thus will need a bowel regimen moving forward. She offers no complaints today otherwise. PHYSICAL EXAMINATION: GENERAL: Very pleasant, thin, 63-year-old female patient in no acute distress. VITAL SIGNS: Temperature 36.9, pulse 87, respiratory rate 18, blood pressure 106/70. SKIN: Without rash or lesion. HEENT: Oral mucosa without erythema or ulceration. HEART: Regular rate and rhythm. LUNGS: Clear to auscultation bilaterally. ABDOMEN: Soft, nontender, nondistended. EXTREMITIES: No clubbing, cyanosis or edema. NEUROLOGIC: Grossly intact. LABORATORY DATA: 11,980, hemoglobin 15.8, platelet count 247,000. Sodium 135, potassium 3.7, chloride 98, carbon dioxide 31, BUN 18, creatinine 0.62, albumin 3.2. IMPRESSION: 1. Metastatic nonsmall cell lung cancer. 2. Intractable lumbosacral pain. 3. Anorexia/weight loss. 4. Intracerebral metastatic disease. PLAN: As previously stated engaged Margaux and family members yesterday regarding her diagnosis, prognosis and treatment options. Margaux fully understands her disease is not curable and the goal of therapy moving forward is to extend her life while maintaining quality. I await biomarkers to decide the best therapeutic approach. If her disease is PD-L1 avid, we will most likely proceed with pembrolizumab. Her pain seems to be reasonably well controlled. She does need a bowel regimen. I would also maintain follow up with radiation oncology. In my opinion, she could probably be discharged home today and I will make arrangements for her to follow up in my office later on this week. Additionally, I have requested MediPort be placed to facilitate frequent laboratory draw and administration of chemotherapy. Thank you very much for allowing me to participate in her care.
--- NOTE | 2018-11-08 14:10 | Hospitalist Progress Note ---
Date of Service November 08, 2018 Assessment & Plan (1) Mass of left lung: CT findings highly concerning for malignancy, lung mass noted in EVE with additional lesions in liver and spine. Patient is an active smoker, 1/2 ppd x 40 years. She has a very strong family history of malignancy. She is one of 15 children and has multiple siblings with cancer. Patient was informed of all findings. CT suggests encasement of the pulmonary vasculature. Patient hemodynamically stable with adequate oxygenation on RA, no distress. 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 markers are still pending and the result will be available most likely on . Depending which markers are positive pt is going to be either on immunotherapy or chemo ( if none of the markers are positive).She will need radiation therapy to be scheduled next week for painful lesions in her spine and radiation onc informed to schedule her tomorrow. Referred to general surgery to place a Mediport tomorrow . NPO after midnight for the procedure. Allowed to take meds. adenocarcinoma, which is poorly differentiated. -Control of pain and nausea -Nicotine patch provided (2) Lumbar back pain: Secondary to metastatic lesions. Patient is neurologically intact. Pathologic fracture of L1 -Pt is referred to radiation therapy -which needs to be scheduled next week. -Pain control with Oxy IR and Morphine PRN -Neuro checks - no evidence of cord compression at present. (3) Postobstructive pneumonia: Patient afebrile, hemodynamically stable, no respiratory distress -Growing left pleural effusion(on the PA/Lat CXR)with hemoptysis. Discussed with , no intervention necessary at this time , but he will follow closely. -Hold Lovenox for hemoptysis. Encourage ambulation. Pt is aware that she is at risk of DVT and hypercoagulation due to the malignancy but in situation when she has hemoptysis , it is reasonable to hold anticoagulation to prevent hemotorax. -Levaquin 750mg daily (4) Hypertension: Blood pressure elevated at present. Patient did not take her AM medication -Give Losartan/HCTZ now -Continue to monitor -Discontinued Lovenox since pt has hemoptysis. Placed SCD-s bilaterally - F/E/N - Heplock. Monitor electrolytes. Regular diet, NPO after midnight - Ppx - SCDs and TEDS Code - Full Subjective Pt seen and examined at the bedside. She said she continued to have hemoptysis on several occasion,but very small amount of blood.Pt is active and ambulate with a walker. Po intake is somewhat better. Pt said she slept better last night. She did not have BM for 2 days, but passing gas. Pt denies fever, chills, chest pain, SOB, abdominal pain, Frequency and urgency. She is cachectic. We had family meeting yesterday with pt present her daughter Magnus and family friend with . Pt knows she has metastatic nonsmall cell lung cancer. she also knows that for Intractable lumbosacral pain she will need radiation therapy and she knows she has intracerebral metastatic disease. Pt fully understands her disease is not curable and the goal of therapy moving forward is to extend her life while maintaining quality. We are waiting for biomarkers to decide the best therapeutic approach. Per hem/onc if her disease is PD-L1 avid, the most likely he will proceed with pembrolizumab.Called -radiation onc and informed that pt is willing to have setup treatments. Also paged -general surgery for MediPort be placed to facilitate frequent laboratory draw and administration of chemotherapy and placed consult. Pt is NPO after midnight for the procedure. Pt states that she wants to go a full force with the all treatments necessary to prolong her life. Review of Systems Review of Systems: All systems reviewed & are unremarkable except as noted in HPI & below Physical Exam Constitutional: WD/WN, vitals as above + cachectic and + frail appearing Eyes: PERRL, conjunctivae normal, anicteric sclerae ENMT: external ear and nose normal, oropharynx normal Neck: trachea midline, no thyromegaly Respiratory: normal respiratory effort, + hyperresonance to percussion and + cough Auscultation: + wheezes Cardiovascular: RRR, no murmur, no edema Chest (Breasts): normal inspection/palpation of breasts Gastrointestinal (Abdomen): normal bowel sounds, soft, nontender, no hepatosplenomegaly Musculoskeletal: no cyanosis or clubbing, extremities motor strength 5/5 Skin: no rashes, warm and dry Neurologic: patellar DTR's 2+ bilat, sensation intact Psychiatric: A+Ox3, euthymic affect Genitourinary: no vaginal lesions, no adnexal mass Lymphatic: no cervical or axillary lymphadenopathy Results & Data Vital Signs (Past 12 Hours) Vital Signs Temp Pulse Resp BP Pulse Ox 11/08/18 07:24 36.9 C 87 18 106/70 90 11/08/18 04:00 37.3 C 83 18 133/85 90 PG Care Time/CCT Total # of Minutes Spent Total Time Spent with Patient: Total time spent is greater than 50% in coordination of care (as documented) at patient's floor/unit and/or counseling patient: (1) Hypertension Hypertension type: essential hypertension Qualified Code(s): I10 - Essential (primary) hypertension
--- NOTE | 2018-11-08 14:54 | Surgery Progress Note ---
Date of Service November 08, 2018 Subjective 63 y/o female with metastatic lung cancer. Is to see oncology later this week to discuss treatment. Would recommend A-port placement as an outpatient, can be seen in Dr. Mooney's clinic this week. Results & Data Vital Signs (Past 12 Hours) Vital Signs Temp Pulse Resp BP Pulse Ox 11/08/18 07:24 36.9 C 87 18 106/70 90 11/08/18 04:00 37.3 C 83 18 133/85 90
[2018-11-08] MEDS: LEVOFLOXACIN/D5W 750 MG/150 ML BAG IV SCH (16:30)
[2018-11-08] MEDS: cefTRIAXone SODIUM 2,000 MG in DEXTROSE 5% 50 ML IV SCH (19:26)
[2018-11-08] MEDS ORDERED: BISACODYL 10 MG SUPP PR PRN (19:43)
[2018-11-08] MEDS ORDERED: MIRTAZAPINE TAB 15 MG TAB PO SCH (21:00)
[2018-11-09] MEDS: CHECK FENTANYL PATCH PLACEMENT SCH ×2 (00:29→07:28)
[2018-11-09 06:35] LABS: Albumin Level 2.9 gm/dl (3.4-5.0); BUN Creatinine Ratio 30.4 (10-20); Calcium 9.4 mg/dl (8.5-10.1); Creatinine Clr Calc Pharmacy 76.5 ml/min; Est GFR (African American) 115.8; Est GFR (Non-African American) 99.9; Potassium 4.1 mmol/L (3.5-5.1)
[2018-11-09 06:38] LABS: Albumin Globulin Ratio 0.6 (0.9-2); Bilirubin,Total 0.5 mg/dl (0.2-1); Globulin 4.5 gm/dl (2.5-4.0); Total Protein 7.4 gm/dl (6.4-8.2)
[2018-11-09] MEDS: LOSARTAN/HCTZ 50/12.5MG TAB PO SCH (07:28)
[2018-11-09] MEDS: DOCUSATE SODIUM 100 MG CAP PO SCH (07:28)
[2018-11-09] MEDS: PREMPRO PO SCH (07:29)
[2018-11-09] MEDS: NICOTINE 21 MG/24 HR TDSY TD SCH (07:29)
[2018-11-09] MEDS: OXYCODONE HCL IR 5 MG TAB (IMMEDIATE RELEASE) PO PRN ×2 (07:32→14:19)
--- NOTE | 2018-11-09 08:12 | Progress Note ---
DATE: 11/09/2018 Ms. Gonsalez was seen today. She is having some sputum mixed with some blood. Her hemoglobin of course is stable. She is complaining of back pain. Hopefully, we will get her radiation therapy starting quickly with that. She is also going to have a Port-A-Cath placed soon. We are still waiting for genomic studies and in particular her PD-L1 will be very important. If we do not get enough tissue for that, we would consider an endobronchial ultrasound, but I do not think is going to come to that. We discussed that today.
[2018-11-09] MEDS: SENNA 8.6 MG TAB PO SCH (08:51)
[2018-11-09] MEDS ORDERED: POLYETHYLENE (MIRALAX) 17 GM PACK PO SCH (09:00)
[2018-11-09 09:43] LABS: Hematocrit (blood only) 39.9 % (37-47); Mean Corpuscular Hgb Conc 35.1 g/dL (32-36); Mean Corpuscular Volume 86.7 fL (80-100); Mean Platelet Volume 11.8 fL (7.4-10.4); Platelet Count 250 K/uL (130-400); RDW Coefficient of Variation 12.9 % (11.5-14.5)
--- NOTE | 2018-11-09 13:02 | Palliative Care Consultation ---
Date of Consultation November 09, 2018 Assessment & Plan (1) Palliative care encounter: Patient is a 63-year-old female with a past medical history of hypertension who presented to the ER with bilateral ear pain and low back pain that has been going on for a few months. Patient had x-ray performed which was abnormal and underwent CT scan. CT scan showed a left upper lobe mass of right upper lobe lesion as well as increased adenopathy, liver mets, bone mets and spine mets. Patient underwent liver biopsy on 11/05-was positive for adenocarcinoma. Patient was seen by Dr. Albert-she will follow-up as an outpatient once cancer markers are completed. Patient is a lifelong smoker, has multiple family members including siblings with cancer. 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 She has 3 children ages 34-40, describes herself as single, live s alone. Patient complains of left hip pain-radiates across her back. Patient describes it as "pulling". Pain is constant, increases with certain movements, some relief with opioid pain medications. Patient reports pain has been present approximately 4 to 5 months and has been getting worse. Patient with newly diagnosed non-small cell lung cancer, She is planned to start radiation therapy to her spinal mets. Patient to follow-up with oncology once tumor markers are completed-to review chemotherapy options. Patient given information regarding setting up outpatient follow-up in the palliative care clinic-discussed role of palliative care with management of pain and symptoms due to chemo as well as advanced care planning. - Palliative encounter-discussed with patient role of palliative medicine. Gave patient information to make follow-up appointment as needed in palliative clinic. - Cancer related pain-patient with mets to nodes, liver, bone, spine-L1-L3. Pain under control with fentanyl patch and PRN oxycodone. Patient to receive XRT to lumbar spinal mets. Can follow-up in outpatient clinic for further pain control if needed - Left lung mass-positive for non-small cell lung cancer-tumor markers pending. Further plans per oncology - Postobstructive pneumonia-patient on Rocephin-will be transition to p.o. Levaquin - Current smoker-encourage smoking cessation, continue nicotine patch - Constipation-patient will need to continue her regular bowel regime while on opioids. (2) Mass of left lung: (3) Postobstructive pneumonia: (4) Lumbar back pain: (5) Pain due to malignant neoplasm metastatic to bone: History of Present Illness Reason for Consultation: Established palliative care for outpatient pain management and follow-up Requesting Physician: SUSANNA Augustine Attending Physician: Praful Welch MD History of Present Illness Patient is a 63-year-old female with a past medical history of hypertension who presented to the ER with bilateral ear pain and low back pain that has been going on for a few months. Patient had x-ray performed which was abnormal and underwent CT scan. CT scan showed a left upper lobe mass of right upper lobe lesion as well as increased adenopathy, liver mets, bone mets and spine mets. Patient underwent liver biopsy on 11/05-was positive for adenocarcinoma. Patient was seen by Dr. Albert-she will follow-up as an outpatient once cancer markers are completed. Patient is a lifelong smoker, has multiple family members including siblings with cancer. 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 She has 3 children ages 34-40, describes herself as single, lives alone. Patient complains of left hip pain-radiates across her back. Patient describes it as "pulling". Pain is constant, increases with certain movements, some relief with opioid pain medications. Patient reports pain has been present approximately 4 to 5 months and has been getting worse. Patient was started on a Fentanyl patch on 11/05-pain is well controlled, she required only 2 PRN oxycodone at 5 mg in the past 24 hours. Patient with newly diagnosed non-small cell lung cancer, She is planned to start radiation therapy to her spinal mets. Patient to follow-up with oncology once tumor markers are completed-to review chemotherapy options. Patient given information regarding setting up outpatient follow-up in the palliative care clinic-discussed role of palliative care with management of pain and symptoms due to chemo as well as advanced care planning. Allergies Allergy/AdvReac Type Severity Reaction Status Date / Time latex Allergy Unknown SKIN Verified 11/04/18 09:14 IRRITATION morphine Allergy Unknown ITCHING Verified 11/04/18 09:14 AND LUMP ON HAND strawberry Allergy Unknown HIVES Verified 11/04/18 09:14 aspirin AdvReac Unknown GI UPSET Verified 11/04/18 09:14 Home Medications Home Medications Medication Instructions Recorded Confirmed Type albuterol sulfate HFA 90 2 puff INHALATION QID PRN #1 gm 10/13/18 11/04/18 History mcg/actuation aerosol inhaler cetirizine 5 mg tablet 5 mg PO DAILY tab 10/13/18 11/04/18 History conj estrogen-medroxyprogesterone 1 tab PO DAILY 10/13/18 11/04/18 History 0.625 mg-2.5 mg tablet losartan 50 mg-hydrochlorothiazide 1 tab PO QAM #90 tab 10/13/18 11/04/18 History 12.5 mg tablet naproxen sodium [Aleve] 220 mg PO BID PRN 11/04/18 11/04/18 History Patient History Medical History Hypertension (Chronic) Surgical History History of rhinoplasty History of hemorrhoidectomy History of lithotripsy Renal Family History Brother Colon cancer Prostate cancer Colorectal cancer Sister Cervical cancer History of kidney cancer Ovarian cancer Lung cancer Family/Other Breast cancer Sister Cholangiocarcinoma Social History Preferred Language: Guinean Communication Ability: Effective Beliefs That Will Affect Care: None marital status: Single Current Living Situation: Alone current occupational status: disabled Feels Safe at Home: Yes Smoking Status: Current every day smoker (HAS SMOKED FOR 47 YEARS) Tobacco Type: cigarettes Cigarettes Per Day: 10 Second Hand Exposure: No Hx Alcohol Use: No Hx Substance Use: No Childhood Exposure to Second-Hand Smoke: No caffeine: Yes Physical Activity Frequency: Does not Exercise Review of Systems Review of Systems: Negative for fever, chills, chest pain, increased shortness of breath, or abdominal pain Positive for weight loss Physical Exam Physical Exam: PE: NAD HEENT: EOMI, hearing within normal limits Neck: Supple Respirations: Clear breath sounds bilaterally CV: Regular rate, no edema Abdomen: Not distended Extremities: FROM, normal strength Neuro: Alert and oriented Psych:Appropriate mood, positive outlook Results & Data Vital Signs (Past 12 Hours) Vital Signs Temp Pulse Resp BP BP Pulse Ox 11/09/18 07:31 98.2 F 92 H 18 130/84 92 11/09/18 03:51 99.0 F 78 18 120/75 90 PG Care Time/CCT Total # of Minutes Spent Total Time Spent with Patient: Total time spent is greater than 50% in coordination of care (as documented) at patient's floor/unit and/or counseling patient: Time Spent Attending Total time spent 55 minutes with greater than 50% of the time spent at bedside discussing role of palliative care, assessing patient's pain control. Patient given information for outpatient follow-up.
--- NOTE | 2018-11-09 14:41 | Discharge Summary ---
Date of Service November 09, 2018 Admission HPI Per Admitting Provider Margaux Gonsalez is a pleasant 63yo female presenting with bilateral ear pain that has been persistent for approximately 2 weeks. She denies hearing loss/tinnitus/drainage or fullness. She was seen by her PCP on 10/13/18 for this complaint and was prescribed Augmentin for bilateral otitis media with no improvement. Patient also with complaint of low back pain that has been present for 3-4 months. She states that she initially injured her back 2 months ago at [facility] after a fall and has been using Aleve to manage her pain. Also complaining of dry cough x 3 months, no sputum/hemoptysis. Upon arrival to the ER she was afebrile, hemodynamically stable, NAD. A CXR was obtained which revealed a consolidation in the EVE. A CT of the chest was obtained that revealed a 4cm EVE pulmonary mass with pulmonary artery and venous encasement with secondary narrowing. Marked narrowing of the EVE bronchus with a postobstructive EVE PNA. Concern for malignancy Er Course: Hydrocodone Principal Diagnosis Lung cancer Discharge Exam Constitutional WD/WN, vitals as above Respiratory normal respiratory effort, lungs clear to auscultation Cardiovascular RRR, no murmur, no edema Gastrointestinal (Abdomen) Inspection/Auscultation: abdomen normal to inspection and normal bowel sounds; abdomen not distended Percussion/Palpation: abdomen soft; abdomen nontender Musculoskeletal no cyanosis or clubbing, extremities motor strength 5/5 Skin no rashes, warm and dry Neurologic moves all extremities and awake Psychiatric A+Ox3, euthymic affect Discharge Data Allergies Allergy/AdvReac Type Severity Reaction Status Date / Time latex Allergy Unknown SKIN Verified 11/04/18 09:14 IRRITATION morphine Allergy Unknown ITCHING Verified 11/04/18 09:14 AND LUMP ON HAND strawberry Allergy Unknown HIVES Verified 11/04/18 09:14 aspirin AdvReac Unknown GI UPSET Verified 11/04/18 09:14 Consultations 11/04/18 16:00 Consult Oncology Routine Consult Thoracic Surgery Routine 11/05/18 08:13 Consult Radiation Oncology Routine 11/07/18 17:33 Consult Nutrition Routine 11/08/18 14:10 Consult General Surgery Routine 11/09/18 12:04 Consult Palliative Care Routine Ordered Studies 11/04/18 10:36 CT angio chest PE protocol Stat 11/04/18 10:59 CT lumbar spine wo con Stat 11/05/18 08:17 MR brain wo/w con Routine 11/05/18 08:38 US FNA w/img 1st lesion Routine 11/09/18 CT guide rad therapy pelvis Routine Hospital Course (1) Mass of left lung: CT findings highly concerning for malignancy, lung mass noted in EVE with additional lesions in liver and spine. Patient is an active smoker, 1/2 ppd x 40 years. She has a very strong family history of malignancy. She is one of 15 children and has multiple siblings with cancer. Patient was informed of all findings. CT suggests encasement of the pulmonary vasculature. Patient hemodynamically stable with adequate oxygenation on RA, no distress. 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 markers are still pending and the result will be available most likely on . Depending which markers are positive pt is going to be either on immunotherapy or chemo ( if none of the markers are positive).She will need radiation therapy to be scheduled next week for painful lesions in her spine and radiation onc informed to schedule her tomorrow. Referred to general surgery to place a Med[facility] outpatient. -Control of pain and nausea -Nicotine patch provided - palliative care consulted - agree with current pain management regimen and will continue to see patient outpatient as well. - Dr. Albert was consulted and felt patient was ok to discharge - he will continue to follow her outpatient (2) Lumbar back pain: Secondary to metastatic lesions. Patient is neurologically intact. Pathologic fracture of L1 -Pt is referred to radiation therapy -which needs to be scheduled next week. -Pain control with Oxy IR and fentanyl patch. -Neuro checks - no evidence of cord compression at present. Ambulating independently without difficulty (3) Postobstructive pneumonia: Patient afebrile, hemodynamically stable, no respiratory distress. No leukocytosis. -Growing left pleural effusion(on the PA/Lat CXR)with hemoptysis. Discussed with , no intervention necessary at this time , but he will follow closely. Will have her follow outpatient with him. -Hold Lovenox for hemoptysis. Encourage ambulation. Pt is aware that she is at risk of DVT and hypercoagulation due to the malignancy but in situation when she has hemoptysis, it is reasonable to hold anticoagulation to prevent hemotorax. -Levaquin 750mg daily - tomorrow is the last day. (4) Hypertension: Blood pressure stable -Give Losartan/HCTZ now -Continue to monitor -Discontinued Lovenox since pt has hemoptysis. Placed SCD-s bilaterally - Ppx - SCDs and TEDS Code - Full Total Time Total Time Spent Total Time Spent (In Minutes): greater than 30 minutes Discharge Plan Discharge Items Reason For Visit: NEW MALIGNANCY ? Follow-up/Referrals: Allen Suresh III, MD [Primary Care Provider] - Rupesh Mooney MD [Surgeon] - (Call on Friday to make an appt to be seen for A-port placement) Marley Martinez MD [Physician] - 11/10/18 2:00 pm (Please, follow up with Dr. Marley Martinez, TOMORROW, FridayNovember 10 at 2:00 pm. *The office is located in the rear of this [facility]. You will park BEHIND the hospital in [address] and enter via [facility]. If you need to reschedule this appointment, call the office at [phone].) Diet: Regular Addtl Provider Instructions: You are due for your next fentanyl patch on Friday the . Please refer to the enclosed information concerning patch use and disposal. Heat can increase the amount of medicine released from the patch. Do not get the patch hot by using heating pads, heated water beds, electric blankets, and heat lamps. You can bathe or swim while using the patch. But, do not use a sauna or hot tub. Tell you doctor or health plant health care technician if you get a fever. Do not apply the patch to oily, broken, burned, cut, or irritated skin. Use only water to clean the area. Do not use soap or alcohol to clean the skin because this can increase the effects of the medicine. Please see your primary care provider this week. You will also need to see Dr. Albert with [facility] at the [facility]. If you don't hear from his office in the next couple of days, please call for an appt. You will need to follow with Dr. Napoles from [facility] for your next radiation treatment. Prescriptions: New nicotine [Nicoderm CQ] 21 mg/24 hr Patch 24 Hour 21 mg transdermal QAM Qty: 7 RF: 0 mirtazapine 15 mg Tablet 15 mg PO HS Qty: 30 RF: 0 levofloxacin 750 mg Tablet 750 mg PO Q24H Qty: 1 RF: 0 sennosides [Senokot] 8.6 mg Tablet 8.6 mg PO QAM Qty: 30 RF: 0 docusate sodium 100 mg Capsule 100 mg PO BID Qty: 30 RF: 0 oxycodone 5 mg Tablet 5 mg PO Q8H PRN (Reason: pain) Qty: 15 RF: 0 Continued Prempro 0.625-2.5 mg tablet 1 tab PO DAILY RF: 0 cetirizine 5 mg tablet 5 mg PO DAILY RF: 0 losartan-hydrochlorothiazide 50-12.5 mg tablet 1 tab PO QAM Qty: 90 RF: 0 albuterol sulfate 90 mcg/actuation HFA aerosol inhaler 2 puff inhalation QID PRN (Reason: shortness of breath/ wheezing) Qty: 1 RF: 0 naproxen sodium [Aleve] 220 mg Capsule 220 mg PO BID PRN (Reason: Pain) RF: 0 Stand-Alone Forms: [facility]/Other Patient Handouts: Fentanyl Transdermal patch - 72 hour, Oxycodone Hydrochloride Ibuprofen Oral tablet Admission Data Admit Date/Time: 11/04/18 13:50 Attending Provider: Praful Welch Admit Provider: Abby Peña Primary Care Provider: Allen Suresh III Other Providers: Dejan Albert V ; Rommel Wilson ; Danial Albright ; Lyly Padron ; Marley Martinez ; Rupesh Mooney ; Nicole Araiza Service: Medical
[2018-11-09] MEDS ORDERED: levoFLOXacin 750 MG TAB PO SCH (16:30)
== END 2018-11-09 16:45 | disposition home or self-care (01) | DRG 180 ==
LOC: ED 08:29 → SUATTDRO 13:50 → 4W 13:50

== ENCOUNTER 2018-11-23 08:39 | Inpatient (IN) ==
[2018-11-23] MEDS ORDERED: ONDANSETRON INJ 2 MG/ML 2 ML VIAL IV STA (09:16)
[2018-11-23 09:22] LABS: Basophils # (auto) 0.03 K/uL (0-0.2); Basophils % (auto) 0.3 %; Eosinophils # (auto) 0.16 K/uL (0-0.5); Eosinophils % (auto) 1.7 %; Hematocrit (blood only) 41.6 % (37-47); Hemoglobin 14.4 g/dL (12.0-16.0); Immature Granulocytes # (auto) 0.01 K/uL (0.00-0.02); Immature Granulocytes % (auto) 0.1 %; Lymphocytes % (auto) 7.3 %; Mean Corpuscular Hgb Conc 34.6 g/dL (32-36); Mean Corpuscular Volume 87.2 fL (80-100); Mean Platelet Volume 11.3 fL (7.4-10.4); Monocytes # (auto) 1.07 K/uL (0.11-0.59); Monocytes % (auto) 11.1 %; Neutrophils # (auto) 7.63 K/uL (1.4-6.5); Neutrophils % (auto) 79.5 %; Platelet Count 292 K/uL (130-400); RDW Coefficient of Variation 12.6 % (11.5-14.5); RDW Standard Deviation 40.6 fL (36.4-46.3); Red Blood Count 4.77 M/uL (4.2-5.4)
[2018-11-23] MEDS: SODIUM CHLORIDE 0.9% 1000ML 1,000 ML IV SCH ×3 (09:29→16:42)
[2018-11-23] MEDS: fentaNYL citrate 100 MCG/2 ML VIAL IV PRN ×3 (09:30→14:00)
[2018-11-23 09:38] LABS: Alanine Aminotransferase 13 U/L (12-78); Albumin Level 2.9 gm/dl (3.4-5.0); Aspartate Aminotransferase 21 U/L (15-37); BUN Creatinine Ratio 31.3 (10-20); Blood Urea Nitrogen 17 mg/dl (7-18); Calcium 9.3 mg/dl (8.5-10.1); Carbon Dioxide 31 mmol/L (21-32); Chloride 101 mmol/L (98-107); Est GFR (African American) 116.5; Est GFR (Non-African American) 100.5; Glucose 115 mg/dl (70-99); Potassium 3.8 mmol/L (3.5-5.1); Sodium 139 mmol/L (136-145)
--- NOTE | 2018-11-23 09:47 | XRay Report ---
XR chest 1V portable CLINICAL HISTORY: Dyspnea. Metastatic lung cancer. COMPARISON STUDY: Chest CT November 04, 2018. Chest radiograph November 07, 2018. FINDINGS: The known left upper lobe mass is obscured by left upper lobe airspace opacity which has in creased. There is left lung volume loss. A moderate left pleural effusion has increased in size. Ther e is no pneumothorax. There is no evidence for pulmonary edema. IMPRESSION: 1. Increasing hazy left upper lung opacity which may reflect postobstructive pneumonia or left upper lobe atelectasis due to the known left upper lobe mass. 2. Increase in size of a moderate left pleural effusion. Electronically signed by: Eriberto Buckley M.D. 11/23/2018 9:46 AM
[2018-11-23 09:49] LABS: Albumin Globulin Ratio 0.6 (0.9-2); Alkaline Phosphatase 130 U/L (45-117); Bilirubin,Total 0.6 mg/dl (0.2-1); Globulin 4.7 gm/dl (2.5-4.0); Total Protein 7.6 gm/dl (6.4-8.2); Troponin I < 0.015 ng/ml (0-0.045)
[2018-11-23 09:52] LABS: INR 1.2 (0.9-1.1); Partial Thromboplastin Time 26.2 Seconds (21.0-31.0); Prothrombin Time 11.8 Seconds (9.0-12.0)
[2018-11-23] MEDS ORDERED: OPTIRAY 320 125ml IV PRN (10:02)
--- NOTE | 2018-11-23 10:32 | CT Scan Report ---
CT ANGIOGRAPHY OF THE CHEST, PULMONARY EMBOLUS PROTOCOL CLINICAL HISTORY: Hemoptysis. Metastatic lung cancer. COMPARISON STUDY: Chest CT dated November 04, 2018. Chest radiograph performed earlier today. TECHNIQUE: Following IV administration of 120 mL of Optiray-320, helical axial images of the chest we re obtained utilizing the pulmonary embolus protocol. Maximal intensity projections and sagittal and coronal reformats were viewed on an independent 3D workstation. IV contrast was administered withou t complication. Automated exposure control was utilized for the study. A dose lowering technique wa s utilized adhering to the principles of ALARA. CT DOSE: 266.01 mGy.cm FINDINGS: No pulmonary emboli are identified. However, the left upper lobe mass results in narrowing of the left pulmonary artery and multiple branches of the left pulmonary artery. The mass is difficu lt to measure on this exam but measures approximately 5.3 cm. Extensive left upper lobe airspace opac ity has increased since exam of November 04, 2018. Occlusion of the left upper lobe bronchus is again not ed. Narrowing of the left lower lobe bronchus is noted. A moderate to large malignant left pleural ef fusion has significantly increased in size since CT of November 04, 2018. There is no pneumothorax. Moder ate emphysema is noted. A few right lung nodules have increased in size since prior CT. A right middl e lobe nodule measures 1.9 cm previously measured 1.3 cm. Enlarged mediastinal and bilateral hilar ly mph nodes are similar to prior exam. A small pericardial effusion is similar to prior exam. Multiple skeletal metastases have increased since exam of November 04, 2018. Pathologic fractures of T11 and L1 ar e noted. Several hepatic metastases have mildly increased in size since CT of November 04, 2018. Index ri ght hepatic lobe lesion measures 4.8 cm. It previously measured 4 cm. There is a possible left adrena l metastasis. IMPRESSION: 1. No pulmonary emboli identified. 2. Redemonstration of the left upper lobe lung cancer which measures approximately 5.3 cm. Increase i n extensive left upper lobe airspace opacity which suggests postobstructive pneumonia since CT of Oct. This mass narrows the left pulmonary artery and multiple branches and occludes the left s uperior pulmonary vein. 3. Significant increase in size of a moderate to large malignant left pleural effusion. 4. Mild increase in hepatic and skeletal metastases. Pathologic fractures of T11 and L1. 5. No change in mediastinal and bilateral hilar lymphadenopathy. Slight increase in several right luisa g nodules which favor metastatic disease. Electronically signed by: Eriberto Buckley M.D. 11/23/2018 10:30 AM
--- NOTE | 2018-11-23 12:46 | Emergency Department Note ---
Entered by Shannan Singleton acting as a scribe for History of Present Illness General Chief complaint: Vomiting Stated complaint: VOMITING Source: patient History of Present Illness Provider complaint: Coughing up blood Onset (ago): day(s) 3 Pain Consistency: + constant Maximum Pain Intensity: 7 Quality: + constant Associated symptoms: + cough (with blood), + loss of appetite and + other (Positive: difficulty swallowing. Negative: leg swelling ); no fever/chills (fever) and no nausea/vomiting (vomiting ) The patient is a 63 year old female who presents to the ED with complaints of constant cough with blood that started 3 days ago. Patient states she called her oncologist because the blood became more significant today. She was referred to the emergency department by Dr. Marshall. The patient reports she has difficulty swallowing. She notes she was recently diagnosed 2 weeks ago with metastatic lung cancer. Patient is receiving some radiation treatments and is scheduled to begin chemotherapy this coming week. The patient states she has loss of appetite. She reports she does not have history of blood transfusion. The patient denies vomiting, fever, or leg swelling. Home Medications Home Medications Medication Instructions Recorded Confirmed Type cetirizine 5 mg tablet 5 mg PO QAM tab 10/13/18 11/23/18 History conj estrogen-medroxyprogesterone 1 tab PO QAM 10/13/18 11/23/18 History 0.625 mg-2.5 mg tablet losartan 50 mg-hydrochlorothiazide 1 tab PO QAM #90 tab 10/13/18 11/23/18 History 12.5 mg tablet docusate sodium 100 mg PO BID #30 cap 11/09/18 11/23/18 Rx oxycodone 5 mg PO Q8H PRN #15 tab 11/09/18 11/23/18 Rx sennosides [Senokot] 8.6 mg PO QAM #30 tab 11/09/18 11/23/18 Rx promethazine 25 mg tablet 25 mg PO Q6H PRN #60 tab 11/11/18 11/23/18 Rx Allergies Allergy/AdvReac Type Severity Reaction Status Date / Time latex Allergy Unknown SKIN Verified 11/23/18 10:04 IRRITATION morphine Allergy Unknown ITCHING Verified 11/23/18 10:04 AND LUMP ON HAND strawberry Allergy Unknown HIVES Verified 11/23/18 10:04 aspirin AdvReac Unknown GI UPSET Verified 11/23/18 10:04 Past Med/Surg History Medical History Hemoptysis (Acute) Metastatic cancer to lung (Acute) Bony metastasis (Acute) Pathologic compression fracture of spine (Acute) Pleural effusion, left (Acute) 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) Hypertension (Chronic) Non-small cell carcinoma of lung Surgical History History of hemorrhoidectomy History of lithotripsy Renal History of rhinoplasty Family History Brother Colon cancer Prostate cancer Colorectal cancer Sister Cervical cancer History of kidney cancer Ovarian cancer Lung cancer Family/Other Breast cancer Sister Cholangiocarcinoma Social History Preferred Language: [place] Islander Communication Ability: Effective 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 Beliefs That Will Affect Care: None marital status: Single Current Living Situation: Alone current occupational status: disabled Other Information That Helps Us Care for You: No Feels Safe at Home: Yes Safety Concerns: Feels Safe At This Time Smoking Status: Former smoker (QUIT 10/2018; SMOKED FOR 47 YEARS) Tobacco Type: cigarettes ; Cigarettes Per Day: 10 ; Do You Dip or Chew Tobacco: No ; Second Hand Exposure: No ; Tobacco Cessation Education Requested by Patient: No Hx Alcohol Use: No Hx Substance Use: No Childhood Exposure to Second-Hand Smoke: No caffeine: Yes Physical Activity Frequency: Does not Exercise Review of Systems See HPI for pertinent positives & negatives. and A total of 10 systems reviewed and were otherwise negative Physical Exam Vital Signs Vital Signs - 24 hr 11/23/18 08:50 11/23/18 09:48 11/23/18 10:39 Temperature 37.0 C Temperature Source Oral Sepsis Recent Fever Within 48 Hours No Sepsis New/Unexplained Change in Mental Status No Sepsis Action Taken by Nursing No Action Required Pulse Rate 91 H Pulse Rate [Apical] 75 Respiratory Rate 16 16 Respiratory Effort / Characteristics Non-Labored Respiratory Depth Normal Blood Pressure 113/75 Blood Pressure [Left Arm] 114/67 Blood Pressure Mean 87 Blood Pressure Mean [Left Arm] 82 Blood Pressure Position Sitting Pulse Oximetry 92 96 96 Oxygen Delivery Method Room Air Nasal Cannula Nasal Cannula Oxygen Flow Rate 2 2 11/23/18 12:00 Temperature Temperature Source Sepsis Recent Fever Within 48 Hours Sepsis New/Unexplained Change in Mental Status Sepsis Action Taken by Nursing Pulse Rate Pulse Rate [Apical] 78 Respiratory Rate 16 Respiratory Effort / Characteristics Respiratory Depth Blood Pressure Blood Pressure [Left Arm] 114/67 Blood Pressure Mean Blood Pressure Mean [Left Arm] 82 Blood Pressure Position Pulse Oximetry 96 Oxygen Delivery Method Nasal Cannula Oxygen Flow Rate 2 Vital signs reviewed. General: chronically ill-appearing female, in no significant distress. HEENT: No scleral icterus, PERRLA, neck supple. Atraumatic. Cardiovascular: Regular rate and rhythm, no extra sounds. Pulmonary: Coarse breath sounds with diminished left breath sounds, normal work of breathing. Abdomen: Soft, nontender, nondistended, positive bowel sounds. Musculoskeletal: Atraumatic, no peripheral edema. Patient does have pain primarily in the back with movements. Neurologic: Patient awake alert and oriented x 3, full strength in all 4 extremities. Cranial nerves 2 through 12 grossly intact. Skin: Warm, dry, no rash Course 0909: The patient was evaluated in room A4B. A complete history and physical exam was performed. 1108: I discussed the patients case with Dr. Batres, [facility] Hospitalist. She will evaluate the patient for further management. 1113: Upon reevaluation, the patient is resting comfortably. I discussed laboratory and radiographic results with her. The patient verbalized agreement of the treatment plan. The patient will be evaluated for further management and care. Consultations Consultation #1: I discussed the patients case with Dr. Batres [facility] Hospitalist. She will evaluate the patient for further management. Time: 11:08 Administered Medications Cetirizine HCl (Zyrtec) 5 mg PO QAM PREM Stop: 12/23/18 15:59 Last Admin: 11/23/18 16:44 Dose: Not Given Documented by: [id number] Docusate Sodium (Colace) 100 mg PO BID PREM Stop: 12/23/18 20:59 Last Admin: 11/23/18 21:52 Dose: 100 mg Documented by: [id number] Sodium Chloride (Nss 1000ml) 1,000 mls @ 100 mls/hr IV .Q10H PREM Stop: 12/23/18 16:29 Last Admin: 11/24/18 02:21 Dose: 100 mls/hr Documented by: [id number] Infusion: 11/24/18 02:21 Dose: 100 mls/hr Documented by: [id number] Admin: 11/23/18 16:42 Dose: 100 mls/hr Documented by: [id number] Miscellaneous (Order Awaiting Action) 1 ea N/A QS [facility] Stop: 12/23/18 15:59 Last Admin: 11/23/18 23:48 Dose: Not Given Documented by: [id number] Admin: 11/23/18 15:59 Dose: Not Given Documented by: [id number] Oxycodone HCl (Roxicodone Immediate Rel) 5 mg PO Q4H PRN PRN Reason: moderate pain Stop: 12/07/18 21:32 Last Admin: 11/24/18 06:01 Dose: 5 mg Documented by: [id number] Admin: 11/24/18 02:21 Dose: 5 mg Documented by: [id number] Admin: 11/23/18 21:52 Dose: 5 mg Documented by: [id number] Sennosides (Senokot) 8.6 mg PO QAM [facility] Stop: 12/23/18 15:59 Last Admin: 11/23/18 16:43 Dose: 8.6 mg Documented by: [id number] Discontinued Medications Fentanyl Citrate (Fentanyl Citrate) 50 mcg IV Q15M PRN PRN Reason: Pain Stop: 12/07/18 09:16 Last Admin: 11/23/18 14:00 Dose: 50 mcg Documented by: [id number] Admin: 11/23/18 11:24 Dose: 50 mcg Documented by: [id number] Admin: 11/23/18 09:30 Dose: 50 mcg Documented by: [id number] Sodium Chloride (Nss 1000ml) 1,000 mls @ 100 mls/hr IV .Q10H [facility] Stop: 11/23/18 19:14 Last Admin: 11/23/18 16:29 Dose: Not Given Documented by: [id number] Infusion: 11/23/18 15:57 Dose: 0 mls/hr Documented by: [id number] Admin: 11/23/18 09:29 Dose: 150 mls/hr Documented by: [id number] Ioversol (Optiray 320 125ml) 120 ml IV ONCE PRN PRN Reason: Interaction Checking Stop: 11/27/18 10:01 Last Admin: 11/23/18 10:03 Dose: 120 ml Documented by: [id number] Ondansetron HCl (Zofran) 4 mg IV NOW STA Stop: 11/23/18 09:17 Last Admin: 11/23/18 09:30 Dose: 4 mg Documented by: [id number] Oxycodone HCl (Roxicodone Immediate Rel) 5 mg PO Q8H PRN PRN Reason: pain Stop: 12/07/18 15:15 Last Admin: 11/23/18 17:34 Dose: 5 mg Documented by: [id number] Medical Decision Making Differential Diagnosis Differential diagnosis: Etiologies such as infections, reactive airway disease, COPD, pneumonia, pleural effusion, pulmonary edema, ARDS, pneumothorax, CHF, cardiac ischemia, cardiac tamponade, dysrhythmia, anemia, pulmonary embolism, musculoskeletal, gastrointestinal process, bleeding lung mass, as well as others were entertained. Medical Records Attestation: I reviewed the patient's medical records. Home Medications Current Medication List: was personally reviewed by me Laboratory Data Attestation: I reviewed the patient's lab results. Result diagrams: 11/24/18 05:51 11/24/18 05:51 Lab Results 11/23/18 11/23/18 11/23/18 Range/Units 09:05 09:05 09:05 WBC 9.60 (4.8-10.8) K/uL RBC 4.77 (4.2-5.4) M/uL Hgb 14.4 (12.0-16.0) g/dL Hct 41.6 (37-47) % MCV 87.2 (80-100) fL MCH 30.2 (25-34) pg MCHC 34.6 (32-36) g/dL RDW Std Deviation 40.6 (36.4-46.3) fL RDW Coeff of [place] 12.6 (11.5-14.5) % Plt Count 292 (130-400) K/uL MPV 11.3 H (7.4-10.4) fL Immature Gran % (Auto) 0.1 % Neut % (Auto) 79.5 % Lymph % (Auto) 7.3 % [place] % (Auto) 11.1 % Eos % (Auto) 1.7 % Baso % (Auto) 0.3 % Immature Gran # (Auto) 0.01 (0.00-0.02) K/uL Neut # (Auto) 7.63 H (1.4-6.5) K/uL Lymph # (Auto) 0.70 L (1.2-3.4) K/uL [place] # (Auto) 1.07 H (0.11-0.59) K/uL Eos # (Auto) 0.16 (0-0.5) K/uL Baso # (Auto) 0.03 (0-0.2) K/uL PT Cancelled INR Cancelled APTT Cancelled PTT Ratio Cancelled Sodium 139 (136-145) mmol/L Potassium 3.8 (3.5-5.1) mmol/L Chloride 101 (98-107) mmol/L Carbon Dioxide 31 (21-32) mmol/L Anion Gap 7.0 (3-11) BUN 17 (7-18) mg/dl Creatinine 0.55 L (0.6-1.2) mg/dl Est Cr Clr Drug Dosing Not Reportable Est GFR ( Amer) 116.5 Est GFR (Non-Af Amer) 100.5 BUN/Creatinine Ratio 31.3 H (10-20) Glucose 115 H (70-99) mg/dl Calcium 9.3 (8.5-10.1) mg/dl Total Bilirubin 0.6 (0.2-1) mg/dl AST 21 (15-37) U/L ALT 13 (12-78) U/L Alkaline Phosphatase 130 H (45-117) U/L Troponin I < 0.015 (0-0.045) ng/ml Total Protein 7.6 (6.4-8.2) gm/dl Albumin 2.9 L (3.4-5.0) gm/dl Globulin 4.7 H (2.5-4.0) gm/dl Albumin/Globulin Ratio 0.6 L (0.9-2) Blood Type Antibody Screen 11/23/18 11/23/18 Range/Units 09:24 09:28 WBC (4.8-10.8) K/uL RBC (4.2-5.4) M/uL Hgb (12.0-16.0) g/dL Hct (37-47) % MCV (80-100) fL MCH (25-34) pg MCHC (32-36) g/dL RDW Std Deviation (36.4-46.3) fL RDW Coeff of [place] (11.5-14.5) % Plt Count (130-400) K/uL MPV (7.4-10.4) fL Immature Gran % (Auto) % Neut % (Auto) % Lymph % (Auto) % [place] % (Auto) % Eos % (Auto) % Baso % (Auto) % Immature Gran # (Auto) (0.00-0.02) K/uL Neut # (Auto) (1.4-6.5) K/uL Lymph # (Auto) (1.2-3.4) K/uL [place] # (Auto) (0.11-0.59) K/uL Eos # (Auto) (0-0.5) K/uL Baso # (Auto) (0-0.2) K/uL PT 11.8 INR 1.2 H APTT 26.2 PTT Ratio 1.0 Sodium (136-145) mmol/L Potassium (3.5-5.1) mmol/L Chloride (98-107) mmol/L Carbon Dioxide (21-32) mmol/L Anion Gap (3-11) BUN (7-18) mg/dl Creatinine (0.6-1.2) mg/dl Est Cr Clr Drug Dosing Est GFR ( Amer) Est GFR (Non-Af Amer) BUN/Creatinine Ratio (10-20) Glucose (70-99) mg/dl Calcium (8.5-10.1) mg/dl Total Bilirubin (0.2-1) mg/dl AST (15-37) U/L ALT (12-78) U/L Alkaline Phosphatase (45-117) U/L Troponin I (0-0.045) ng/ml Total Protein (6.4-8.2) gm/dl Albumin (3.4-5.0) gm/dl Globulin (2.5-4.0) gm/dl Albumin/Globulin Ratio (0.9-2) Blood Type B Positive Antibody Screen NEGATIVE Imaging Data Radiologist's Impression: Radiology results as stated below per my review and the radiologist's interpretation: XR chest 1V portable CLINICAL HISTORY: Dyspnea. Metastatic lung cancer. COMPARISON STUDY: Chest CT November 04, 2018. Chest radiograph November 07, 2018. FINDINGS: The known left upper lobe mass is obscured by left upper lobe airspace opacity which has increased. There is left lung volume loss. A moderate left pleural effusion has increased in size. There is no pneumothorax. There is no evidence for pulmonary edema. IMPRESSION: 1. Increasing hazy left upper lung opacity which may reflect postobstructive pneumonia or left upper lobe atelectasis due to the known left upper lobe mass. 2. Increase in size of a moderate left pleural effusion. Electronically signed by: Eriberto Buckley M.D. 11/23/2018 9:[address] ANGIOGRAPHY OF THE CHEST, PULMONARY EMBOLUS PROTOCOL CLINICAL HISTORY: Hemoptysis. Metastatic lung cancer. COMPARISON STUDY: Chest CT dated November 04, 2018. Chest radiograph performed earlier today. TECHNIQUE: Following IV administration of 120 mL of Optiray-320, helical axial images of the chest were obtained utilizing the pulmonary embolus protocol. Maximal intensity projections and sagittal and coronal reformats were viewed on an independent 3D workstation. IV contrast was administered without complication. Automated exposure control was utilized for the study. A dose lowering technique was utilized adhering to the principles of ALARA. CT DOSE: 266.01 mGy.cm FINDINGS: No pulmonary emboli are identified. However, the left upper lobe mass results in narrowing of the left pulmonary artery and multiple branches of the left pulmonary artery. The mass is difficult to measure on this exam but measures approximately 5.3 cm. Extensive left upper lobe airspace opacity has increased since exam of November 04, 2018. Occlusion of the left upper lobe bronchus is again noted. Narrowing of the left lower lobe bronchus is noted. A moderate to large malignant left pleural effusion has significantly increased in size since CT of November 04, 2018. There is no pneumothorax. Moderate emphysema is n oted. A few right lung nodules have increased in size since prior CT. A right middle lobe nodule measures 1.9 cm previously measured 1.3 cm. Enlarged mediastinal and bilateral hilar lymph nodes are similar to prior exam. A small pericardial effusion is similar to prior exam. Multiple skeletal metastases have increased since exam of November 04, 2018. Pathologic fractures of T11 and L1 are noted. Several hepatic metastases have mildly increased in size since CT of November 04, 2018. Index right hepatic lobe lesion measures 4.8 cm. It previously measured 4 cm. There is a possible left adrenal metastasis. IMPRESSION: 1. No pulmonary emboli identified. 2. Redemonstration of the left upper lobe lung cancer which measures approximately 5.3 cm. Increase in extensive left upper lobe airspace opacity which suggests postobstructive pneumonia since CT of November 04, 2018. This mass narrows the left pulmonary artery and multiple branches and occludes the left superior pulmonary vein. 3. Significant increase in size of a moderate to large malignant left pleural effusion. 4. Mild increase in hepatic and skeletal metastases. Pathologic fractures of T11 and L1. 5. No change in mediastinal and bilateral hilar lymphadenopathy. Slight increase in several right lung nodules which favor metastatic disease. Electronically signed by: Eriberto Buckley M.D. 11/23/2018 10:30 AM ECG Data Attestation: I personally reviewed and interpreted this ECG as follows: Indication: SOB/dyspnea Rate (beats per minute): 81 Rhythm: sinus rhythm Findings: + other (Short [place] interval) and + T-wave inversion (Anterior); no acute ischemic change and no ectopy Comparison ECG Date: from (08/11/17) Change: the following changes noted (Anterior T wave inversions are new ) Blood Pressure Blood Pressure Findings: Normal blood pressure Blood Pressure Disposition: did not require urgent referral MDM Narrative This patient was evaluated and appeared to be in no significant distress. Patient's vital signs were stable. Patient was able to maintain oxygen saturations on room air but was eventually placed on minimal nasal cannula supplementation. Patient is afebrile. Chest x-ray is read as above. CT with IV contrast was ordered in follow-up. Pulmonary mass is redemonstrated with left upper lobe airspace opacity as the mass narrows the left pulmonary artery and occludes the left superior pulmonary vein. Patient is afebrile and has no significant symptoms of pneumonia. She does have a large left pleural effusion. Case was discussed with the hospitalist service, Dr. Marshall of oncology and subsequently Dr. Wilson of thoracic surgery. She was evaluated for admission and further management. Patient is aware of the plan and agrees. Impression & Plan Hemoptysis, Metastatic cancer to lung, Bony metastasis, Pathologic compression fracture of spine, Pleural effusion, left Discharge Plan Visit Data *Final* Discharge Date/Time: 11/23/18 13:54 Chief Complaint: Vomiting Stated Complaint: VOMITING ED Provider: Anastasia Barraza Discharge Problem: Hemoptysis, Metastatic cancer to lung, Bony metastasis, Pathologic compression fracture of spine, Pleural effusion, left Patient Disposition: Admitted As Inpatient Discharge Instructions Interventions: ED Discharge Assessment Last Done: 11/23/18 13:54 Discharge Problem: Metastatic cancer to lung Qualifiers: Laterality: unspecified laterality Qualified Code(s): C78.00 - Secondary malignant neoplasm of unspecified lung Pathologic compression fracture of spine Qualifiers: Encounter type: initial encounter Qualified Code(s): M48.50XA - Collapsed vertebra, not elsewhere classified, site unspecified, initial encounter for fracture The scribe's documentation has been prepared under my direction and personally reviewed by me in its entirety. I confirm that the note above accurately reflects all work, treatment, procedures, and medical decision making performed by me.
[2018-11-23] MEDS ORDERED: PROMETHAZINE HCL 25 MG TAB PO PRN (15:16)
[2018-11-23] MEDS ORDERED: OXYCODONE HCL IR 5 MG TAB (IMMEDIATE RELEASE) PO PRN (15:16)
[2018-11-23] MEDS: SENNA 8.6 MG TAB PO SCH (16:43)
[2018-11-23] MEDS: CETIRIZINE HCL 10 MG TABLET PO SCH (16:44)
--- NOTE | 2018-11-23 19:34 | History & Physical Report ---
Date of Service November 23, 2018 Assessment & Plan (1) Hemoptysis: 63 y/o female with metastatic non-small cell ca of the lungs with hemoptysis. Pt has completed radiation therapy last week for the pathological fractures and pain caused by the growing metastatic tumor to her bones.She suppose to have placed a Port-A-Cath for chemo vs immunotherapy depending on the pathology report. Placement of a Port-A Cath is delayed since pt underwent radiation therapy and it was difficult to place the radiation beam to the lesions with having a port placed as well. Pathology report only partially resulted and showed :TTF-1 staining is strongly positive and this is consistent with a metastatic adenocarcinoma of lung primary. FISH analysis for ALK1, ROS1, EGFR and immunohistochemistry for PDL-1 is pending and will be reported separately. There are too few malignant cells for molecular analysis. Placed consult with oncology and GI -general surgery for a Port-A-cath placement( which was scheduled a week ago and then postponed). Present on Admission?: Yes (2) Metastatic cancer to lung: as the above Present on Admission?: Yes (3) Bony metastasis: as the above Present on Admission?: Yes (4) Pathologic compression fracture of spine: Present on Admission?: Yes (5) Pleural effusion, left: as the above Present on Admission?: Yes (6) Pain due to malignant neoplasm metastatic to bone: Present on Admission?: Yes (7) Hypertension: radiation therapy completed, continue pain management and bowel regimen Present on Admission?: Yes History of Present Illness Primary Care Provider: Allen Suresh MD Patient is a 63-year-old female with a past medical history of hypertension and metastatic non-small cell carcinoma of lung presents to the ER with c/o of ongoing hemoptysis. Pt just completed the radiation therapy for metastatic Pt has been coughing up blood for 2-3 weeks and it is approximately a teaspoonful each time 2-3 times a day. to the ER with bilateral ear pain and low back pain that has been going on for a few months. Patient had x-ray performed which was abnormal and underwent CT scan. CT scan showed a left upper lobe mass of right upper lobe lesion as well as increased adenopathy, liver mets, bone mets and spine mets. Patient underwent liver biopsy on 11/05-was positive for ad enocarcinoma. Patient was seen by Dr. Albert-she will follow-up as an outpatient once cancer markers are completed. Patient is a lifelong smoker, has multiple family members including siblings with cancer. 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 She has 3 children ages 34-40, describes herself as single, lives alone. Patient complains of left hip pain-radiates across her back. Patient describes it as "pulling". Pain is constant, increases with certain movements, some relief with opioid pain medications. Patient reports pain has been present approximately 4 to 5 months and has been getting worse. Patient with newly diagnosed non-small cell lung cancer, She is planned to start radiation therapy to her spinal mets. Patient to follow-up with oncology once tumor markers are completed-to review chemotherapy options. Patient given information regarding setting up outpatient follow-up in the palliative care clinic-discussed role of palliative care with management of pain and symptoms due to chemo as well as advanced care planning. - Palliative encounter-discussed with patient role of palliative medicine. Gave patient information to make follow-up appointment as needed in palliative clinic. - Cancer related pain-patient with mets to nodes, liver, bone, spine-L1-L3. Pain under control with fentanyl patch and PRN oxycodone. Patient to receive XRT to lumbar spinal mets. Can follow-up in outpatient clinic for further pain control if needed - Left lung mass-positive for non-small cell lung cancer-tumor markers pending. Further plans per oncology - Postobstructive pneumonia-patient on Rocephin-will be transition to p.o. Levaquin - Current smoker-encourage smoking cessation, continue nicotine patch - Constipation-patient will need to continue her regular bowel regime while on opioids. (2) Mass of left lung: (3) Postobstructive pneumonia: (4) Lumbar back pain: (5) Pain due to malignant neoplasm metastatic to bone: Allergies Allergy/AdvReac Type Severity Reaction Status Date / Time latex Allergy Unknown SKIN Verified 11/23/18 10:04 IRRITATION morphine Allergy Unknown ITCHING Verified 11/23/18 10:04 AND LUMP ON HAND strawberry Allergy Unknown HIVES Verified 11/23/18 10:04 aspirin AdvReac Unknown GI UPSET Verified 11/23/18 10:04 Home Medications Home Medications Medication Instructions Recorded Confirmed Type cetirizine 5 mg tablet 5 mg PO QAM tab 10/13/18 11/23/18 History conj estrogen-medroxyprogesterone 1 tab PO QAM 10/13/18 11/23/18 History 0.625 mg-2.5 mg tablet losartan 50 mg-hydrochlorothiazide 1 tab PO QAM #90 tab 10/13/18 11/23/18 Hi story 12.5 mg tablet docusate sodium 100 mg PO BID #30 cap 11/09/18 11/23/18 Rx oxycodone 5 mg PO Q8H PRN #15 tab 11/09/18 11/23/18 Rx sennosides [Senokot] 8.6 mg PO QAM #30 tab 11/09/18 11/23/18 Rx promethazine 25 mg tablet 25 mg PO Q6H PRN #60 tab 11/11/18 11/23/18 Rx Past Med/Surg History Medical History Hypertension (Chronic) Non-small cell carcinoma of lung Surgical History History of hemorrhoidectomy History of lithotripsy Renal History of rhinoplasty Family History Brother Colon cancer Prostate cancer Colorectal cancer Sister Cervical cancer History of kidney cancer Ovarian cancer Lung cancer Family/Other Breast cancer Sister Cholangiocarcinoma Social History Preferred Language: [place]ese Communication Ability: Effective Pathology Technologist Required: No Beliefs That Will Affect Care: None marital status: Single Current Living Situation: Alone current occupational status: disabled Other Information That Helps Us Care for You: No Feels Safe at Home: Yes Safety Concerns: Feels Safe At This Time Smoking Status: Current every day smoker Tobacco Type: cigarettes ; Cigarettes Per Day: 10 ; Do You Dip or Chew Tobacco: No ; Second Hand Exposure: No ; Tobacco Cessation Education Requested by Patient: No Hx Alcohol Use: No Hx Substance Use: No Childhood Exposure to Second-Hand Smoke: No caffeine: Yes Physical Activity Frequency: Does not Exercise Review of Systems Review of Systems: All systems reviewed & are unremarkable except as noted in HPI & below Pt reports cough Constitutional: + body aches, + fatigue, + malaise, + weakness and + weight loss Respiratory: + cough, + change in sputum and + hemoptysis Physical Exam Constitutional: WD/WN, vitals as above + cachectic, comfortable and + malnourished Eyes: PERRL, conjunctivae normal, anicteric sclerae ENMT: external ear and nose normal, oropharynx normal Neck: trachea midline, no thyromegaly Respiratory: normal respiratory effort Auscultation: + crackles, + rhonchi and + wheezes bilateral wheezes and crackles Cardiovascular: RRR, no murmur, no edema Chest (Breasts): normal inspection/palpation of breasts Gastrointestinal (Abdomen): normal bowel sounds, soft, nontender, no hepatosplenomegaly Musculoskeletal: no cyanosis or clubbing, extremities motor strength 5/5 Skin: no rashes, warm and dry Neurologic: patellar DTR's 2+ bilat, sensation intact Psychiatric: A+Ox3, euthymic affect Genitourinary: no vaginal lesions, no adnexal mass Lymphatic: no cervical or axillary lymphadenopathy Results & Data Vital Signs (Past 12 Hours) Vital Signs Temp Pulse Pulse Pulse Pulse Resp BP 11/23/18 19:18 37.1 C 70 18 11/23/18 17:20 81 11/23/18 15:12 36.7 C 76 18 11/23/18 12:00 78 16 11/23/18 10:39 75 16 11/23/18 09:48 11/23/18 08:50 37.0 C 91 H 16 113/75 BP Pulse Ox 11/23/18 19:18 119/79 95 11/23/18 17:20 11/23/18 15:12 119/75 97 11/23/18 12:00 114/67 96 11/23/18 10:39 114/67 96 11/23/18 09:48 96 11/23/18 08:50 92 Code Status & VTE Plan Code Status Full code VTE Prophylaxis Plan VTE Prophylaxis will be ordered: No Reason for no VTE drug order: Contraindicated (pt reports hemoptysis) PG Care Time/CCT Total # of Minutes Spent Total Time Spent with Patient: Total time spent is greater than 50% in coordination of care (as documented) at patient's floor/unit and/or counseling patient: (1) Metastatic cancer to lung Laterality: unspecified laterality Qualified Code(s): C78.00 - Secondary malignant neoplasm of unspecified lung (2) Pathologic compression fracture of spine Encounter type: initial encounter Qualified Code(s): M48.50XA - Collapsed vertebra, not elsewhere classified, site unspecified, initial encounter for fracture (3) Hypertension Hypertension type: essential hypertension Qualified Code(s): I10 - Essential (primary) hypertension
[2018-11-23] MEDS: OXYCODONE HCL IR 5 MG TAB (IMMEDIATE RELEASE) PO PRN (21:52)
[2018-11-23] MEDS: DOCUSATE SODIUM 100 MG CAP PO SCH (21:52)
[2018-11-24] MEDS: OXYCODONE HCL IR 5 MG TAB (IMMEDIATE RELEASE) PO PRN ×4 (02:21→19:18)
[2018-11-24] MEDS: SODIUM CHLORIDE 0.9% 1000ML 1,000 ML IV SCH ×3 (02:21→20:55)
[2018-11-24 06:34] LABS: Basophils # (auto) 0.04 K/uL (0-0.2); Basophils % (auto) 0.5 %; Eosinophils # (auto) 0.31 K/uL (0-0.5); Eosinophils % (auto) 3.8 %; Hematocrit (blood only) 35.8 % (37-47); Immature Granulocytes # (auto) 0.01 K/uL (0.00-0.02); Immature Granulocytes % (auto) 0.1 %; Lymphocytes % (auto) 9.8 %; Mean Corpuscular Hgb Conc 33.5 g/dL (32-36); Mean Corpuscular Volume 89.9 fL (80-100); Mean Platelet Volume 11.3 fL (7.4-10.4); Monocytes # (auto) 1.09 K/uL (0.11-0.59); Monocytes % (auto) 13.3 %; Neutrophils # (auto) 5.95 K/uL (1.4-6.5); Neutrophils % (auto) 72.5 %; Platelet Count 248 K/uL (130-400); RDW Coefficient of Variation 12.7 % (11.5-14.5); RDW Standard Deviation 42.2 fL (36.4-46.3); Red Blood Count 3.98 M/uL (4.2-5.4)
[2018-11-24 07:09] LABS: Albumin Level 2.5 gm/dl (3.4-5.0); BUN Creatinine Ratio 34.8 (10-20); Calcium 8.5 mg/dl (8.5-10.1); Creatinine Clr Calc Pharmacy 118.7 ml/min; Est GFR (African American) 132.7; Est GFR (Non-African American) 114.5; Potassium 4.3 mmol/L (3.5-5.1)
[2018-11-24 07:12] LABS: Albumin Globulin Ratio 0.6 (0.9-2); Bilirubin,Total 0.5 mg/dl (0.2-1); Globulin 3.9 gm/dl (2.5-4.0); Total Protein 6.4 gm/dl (6.4-8.2)
[2018-11-24] MEDS: SENNA 8.6 MG TAB PO SCH (08:19)
[2018-11-24] MEDS: DOCUSATE SODIUM 100 MG CAP PO SCH ×2 (08:19→20:56)
[2018-11-24] MEDS: CETIRIZINE HCL 10 MG TABLET PO SCH (08:19)
[2018-11-24] MEDS: LOSARTAN/HCTZ 50/12.5MG TAB PO SCH (08:20)
[2018-11-24] MEDS ORDERED: fentaNYL 25 MCG/HR TDSY TD SCH (09:00)
[2018-11-24] MEDS ORDERED: PIPERACILL/TAZOBAC CONSULT ACTIVE PRN (09:05)
[2018-11-24] MEDS ORDERED: HYDROmorphone INJ 1 MG/ML SYRINGE IV STA (09:13)
[2018-11-24] MEDS ORDERED: GUAIFENESIN/CODEINE 200MG/20MG 10ML UDC PO PRN (09:13)
[2018-11-24] MEDS ORDERED: PIPERACILLIN/TAZOBACTAM 3.375 GM in DEXTROSE 5% 100 ML IV ONE (09:45)
--- NOTE | 2018-11-24 10:39 | Consultation Report ---
DATE OF CONSULTATION: 11/24/2018 MEDICAL ONCOLOGY CONSULTATION HISTORY OF PRESENT ILLNESS: A 63-year-old female patient with recent diagnosis of metastatic nonsmall cell lung cancer presents to [facility] with subacute onset hemoptysis. Margaux was initially seen via consultation back in mid October when she was diagnosed with metastatic nonsmall cell lung cancer including osseous and hepatic mets. Biopsy of the liver confirmed the diagnosis. Awaiting biomarkers. Proposing to treat Margaux with pembrolizumab once PD-L1 status is confirmed. In the meantime, she had been receiving palliative radiation therapy to various painful osseous sites. I received a call on the day before admission with Margaux complaining of what appeared to be mild hemoptysis. Apparently, blood volume in her sputum increased significantly in the past 24 hours prompting her to visit our Emergency Room. Margaux also continues to struggle with skeletal pain. During her previous admission, was placed on fentanyl pain patch and unfortunately despite being ordered, she did not flower picker her pain patches and thus I believe her exacerbation is a manifestation of her not utilizing the pain medicines prescribed. Again, the patient recently completed palliative radiation therapy to various bony areas. Primary service is requesting assistance and guidance moving forward to control hemoptysis and once again regain control of Margaux's pain. PAST MEDICAL HISTORY: Essentially negative except for metastatic nonsmall cell lung cancer. PAST SURGICAL HISTORY: Ultrasound-guided FNA of the liver, lithotripsy, rhinoplasty, hemorrhoidectomy. MEDICATIONS: Prior to admission include cetirizine 5 mg p.o. q.a.m., Prempro 1 tablet p.o. q.a.m., losartan/hydrochlorothiazide 50/12.5 mg 1 p.o. q. daily, docusate sodium 100 mg b.i.d., oxycodone 5 mg p.o. q. 8 hours p.r.n., promethazine 25 mg q. 6 hours p.r.n., Senokot 8.6 mg p.o. q.a.m. ALLERGIES: LATEX, MORPHINE, STRAWBERRY AND ASPIRIN. 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 She is single. She is an everyday smoker until diagnosis, quit cold turkey on the day she was discharged from hospital, estimated at 71-ncty-obir history. Negative for alcohol or illicit drugs. FAMILY HISTORY: Sister also suffers from lung cancer, brother with colorectal cancer. Mother succumbed to complications of CHF. REVIEW OF SYSTEMS: As per HPI, most notably for intractable back pain and persistent cough with hemoptysis. GENERAL: Positive for anorexia and continued weight loss. No fevers, chills or sweats. SKIN: No rashes or lesions. No history of dermatoses. HEENT: Negative for headaches, lightheadedness or dizziness. No dysphagia or sore throat. LYMPH: No history of lymphadenopathy. CARDIAC: Negative for coronary artery disease, no angina or palpitations. PULMONARY: Negative for COPD formally, positive for occasional shortness of breath. Positive for hemoptysis. GASTROINTESTINAL: Negative for abdominal pain, nausea, vomiting, diarrhea or constipation. Positive for liver metastatic disease. No hematochezia or melena stools. GENITOURINARY: No hematuria, dysuria or urinary incontinence. PSYCHIATRIC: Negative for anxiety, depression or psychoses by history. MUSCULOSKELETAL: Positive for osseous metastatic disease. No arthralgias. NEUROLOGIC: Negative for seizure, stroke, or migraine headache. ENDOCRINE: Negative for diabetes or thyroid disease. HEMATOLOGIC: Positive for mild anemia. PHYSICAL EXAMINATION: GENERAL: A very pleasant 63-year-old thin-appearing female patient, awake, alert and appropriate, in no acute distress. VITAL SIGNS: Temperature 36.6, pulse 71, respiratory rate 16, blood pressure 106/69. SKIN: Without rash or lesion. HEENT: Oral mucosa without erythema or ulceration. HEAD: Atraumatic, normocephalic. Eyes: PERRLA, EOMI. Sclerae nonicteric. Nares are patent without rhinorrhea or discharge. Throat clear. Tongue midline. NECK: Supple without JVD or thyromegaly. LYMPH: No cervical or supraclavicular palpable nodes. HEART: Regular rate and rhythm. LUNGS: Clear to auscultation bilaterally. ABDOMEN: Soft, nontender, nondistended, without palpable hepatosplenomegaly. EXTREMITIES: No calf tenderness or swelling. No clubbing, cyanosis or edema. Pulses and strength are equal in all 4 quadrants. NEUROLOGICAL: She is awake, alert and oriented x3. Cranial nerves II-XII are intact. LABORATORY DATA: WBC count 8200, hemoglobin 12.0, platelet count 248,000. Coags are within normal limits. Sodium 140, potassium 4.3, chloride 105, carbon dioxide 32, creatinine 0.37, BUN 13, albumin 2.5. RADIOGRAPHIC DATA: CTA of the chest done on admission, negative for pulmonary emboli, but redemonstration of the left upper lobe lung cancer measuring 5.3, increase in extensive left upper lobe airspace opacities suggesting postobstructive pneumonia. This mass narrows the left pulmonary artery and multiple branches includes the left superior pulmonary vein, significant increase in size, moderate to large malignant left pleural effusion, mild increase in hepatic and skeletal metastasis, pathologic fractures of T11 and L1. IMPRESSION: 1. Hemoptysis. 2. Metastatic small cell lung cancer. 3. Hypoalbuminemia. 4. Moderate to large malignant left pleural effusion. PLAN: In summary, Margaux is a very pleasant 63-year-old unfortunate female recently diagnosed with disseminated metastatic nonsmall cell lung cancer, roughly 2 weeks ago, seen initially via inpatient consultation. At that time, she was receiving palliative radiation therapy and started on opioids to control her pain. Biopsy of the liver confirmed nonsmall cell lung cancer and await formal biomarkers. Proposing pembrolizumab as salvage. She was tentatively to begin tomorrow. Unfortunately, developed hemoptysis couple of days ago which has worsened. Clearly from a radiographic perspective, her disease has progressed now with the presence of pleural effusion, would strongly recommend having Dr. Wilson visit with Margaux to effectively take care of the effusion as well as consider bronchoscopy, sclerosing any active intrapulmonary hemorrhage. Her pain is poorly controlled. Apparently, there was some confusion upon discharge, she was prescribed fentanyl patches which were never picked up and therefore she has been maintained on p.r.n. oxycodone. I have restarted her fentanyl patch 25 mcg topical patch every 72 hours. Once she is squared away medically, we will begin salvage therapy. Her prognosis remains quite poor at the rate of progression, I do not suspect she will do well long-term. We will continue to follow her periodically during her stay. Thank you very much for allowing me to participate in her care. KAMILLE
--- NOTE | 2018-11-24 11:18 | Hospitalist Progress Note ---
Date of Service November 24, 2018 Assessment & Plan (1) Non-small cell lung cancer with metastasis: advancing quickly, d/w Dr. Albert, very aggressive cancer very poor prognosis now with hemoptysis, pneumonia, effusion, mets to spine, lung, liver plan for Port placement while inpatient, need to start salvage chemotherapy will discuss palliative consult with patient, perhaps get one tomorrow would help to determine goals of care, code status going forward, pain management (2) Hemoptysis: due to metastatic non small cell lung CA CT chest shows encroachment of the pulmonary arteries consult Dr. Wilson to consider bronchoscopy, cauterizing bleeding sites? will provide Robitussin to help patient sleep start on Zosyn to treat possible post obstructive pneumonia (3) Metastatic cancer to lung: evidence of local spread with pleural effusion plan to start salvage chemotherapy this week (4) Postobstructive pneumonia: left upper lobe no fever, normal WBC will treat with Zosyn for 5-7 days (5) Bony metastasis: just completed palliative radiation in severe pain resume Fentanyl 25mcg patch, Oxycodone PRN give a dose of Dilaudid this morning (6) Pathologic compression fracture of spine: pain control, see above (7) Pleural effusion, left: due to malignancy consult Dr. Wilson for recommendations, thoracentesis (8) Pain due to malignant neoplasm metastatic to bone: Fentanyl patch and Oxycodone will discuss palliative consult with patient to at least discuss pain control hold for today (9) Hypertension: (10) Anxiety: Subjective patient laying in bed today, coughing a lot, no hemoptysis this morning but she says it does happen every day discussed with Dr. Albert, he plans to try to start chemo this week, salvage and palliative in nature he is concerned with how rapidly her disease is progressing spoke with Dr. Napoles with radiation oncology, she has one more treatment for her spine, however, patient declined due to frequent cough going to have Dr. Wilson see the patient for pleural effusion, also see if she would be amenable to cauterizing bleeding patient in a lot of pain in spine, will give Dilaudid IV while waiting for Fentanyl patch discussed possible pneumonia, post obstructive, will start on Zosyn added Robitussin checked labs, Hb stable at 12 today, BMP shows normal Cr and stable electrolytes Review of Systems Review of Systems: All systems reviewed & are unremarkable except as noted in HPI & below Constitutional: no fever Respiratory: + cough, + hemoptysis and + pain with cough; no dyspnea and no dyspnea on exertion Cardiovascular: no chest pain and no edema Gastrointestinal: no abdominal pain, no nausea, no vomiting, no constipation and no diarrhea/loose stools Musculoskeletal: + back pain (severe, constant) Physical Exam Constitutional: well developed and + thin; no acute distress Eyes: PERRL, conjunctivae normal, anicteric sclerae ENMT: external ear and nose normal, oropharynx normal Neck: trachea midline, no thyromegaly Respiratory: normal respiratory effort; no respiratory distress Auscultation: + diminished lung sounds (left base) and + rhonchi (bilaterally); no rales and no wheezes Cardiovascular: RRR, no murmur, no edema Gastrointestinal (Abdomen): normal bowel sounds, soft, nontender, no hepatosplenomegaly Musculoskeletal: Head/Neck/Chest: normocephalic and head atraumatic Spine: + limited thoraco-lumbar ROM (due to pain) Extremities: extremities normal to inspection and strength 5/5 throughout Skin: no rashes, warm and dry Neurologic: patellar DTR's 2+ bilat, sensation intact and PERRL, EOMI, accommodation nl, no face palsy, no dysarthria Psychiatric: A+Ox3, euthymic affect Lymphatic: no cervical or axillary lymphadenopathy Results & Data Vital Signs (Past 12 Hours) Vital Signs Temp Pulse Pulse Resp BP BP Pulse Ox 11/24/18 07:49 36.6 C 71 16 106/69 94 11/24/18 03:00 36.8 C 75 18 94/61 L 94 11/23/18 23:33 82 Laboratory Results Laboratory Results - last 24 hr 11/24/18 11/24/18 05:51 05:51 WBC 8.20 RBC 3.98 L Hgb 12.0 Hct 35.8 L MCV 89.9 MCH 30.2 MCHC 33.5 RDW Std Deviation 42.2 RDW Coeff of [place] 12.7 Plt Count 248 MPV 11.3 H Immature Gran % (Auto) 0.1 Neut % (Auto) 72.5 Lymph % (Auto) 9.8 [place] % (Auto) 13.3 Eos % (Auto) 3.8 Baso % (Auto) 0.5 Immature Gran # (Auto) 0.01 Neut # (Auto) 5.95 Lymph # (Auto) 0.80 L [place] # (Auto) 1.09 H Eos # (Auto) 0.31 Baso # (Auto) 0.04 Sodium 140 Potassium 4.3 Chloride 105 Carbon Dioxide 32 Anion Gap 3.0 BUN 13 Creatinine 0.37 L Est Cr Clr Drug Dosing 118.7 Est GFR ( Amer) 132.7 Est GFR (Non-Af Amer) 114.5 BUN/Creatinine Ratio 34.8 H Glucose 88 Calcium 8.5 Total Bilirubin 0.5 AST 14 L ALT 12 Alkaline Phosphatase 102 Total Protein 6.4 Albumin 2.5 L Globulin 3.9 Albumin/Globulin Ratio 0.6 L Medications Administered Current Inpatient Medications Cetirizine HCl (Zyrtec) 5 mg PO QAM [facility] Stop: 12/23/18 15:59 Last Admin: 11/24/18 08:19 Dose: 5 mg Documented by: Docusate Sodium (Colace) 100 mg PO BID [facility] Stop: 12/23/18 20:59 Last Admin: 11/24/18 08:19 Dose: 100 mg Documented by: Fentanyl (Duragesic) 25 mcg TD Q3D@0900 [facility] Stop: 12/08/18 08:59 Last Admin: 11/24/18 09:27 Dose: 25 mcg Documented by: Guaifenesin/Codeine Phosphate (Robitussin-Ac Sugar Free) 10 ml PO Q6H PRN PRN Reason: Cough Stop: 12/24/18 09:12 HCTZ/Losartan Potassium (Hyzaar 50/12.5mg) 1 tab PO QAM [facility] Stop: 12/24/18 08:59 Last Admin: 11/24/18 08:20 Dose: 1 tab Documented by: Sodium Chloride (Nss 1000ml) 1,000 mls @ 100 mls/hr IV .Q10H [facility] Stop: 12/23/18 16:29 Last Admin: 11/24/18 02:21 Dose: 100 mls/hr Documented by: Piperacillin Sod/Tazobactam (Sod 3.375 gm/ Dextrose) 115 mls @ 28.75 mls/hr IV Q8H [facility]; Protocol Stop: 12/01/18 15:59 Miscellaneous (Order Awaiting Action) 1 ea N/A QS [facility] Stop: 12/23/18 15:59 Last Admin: 11/24/18 08:11 Dose: Not Given Documented by: Miscellaneous (Fentanyl Patch Check Placement) 1 ea N/A QS [facility] Stop: 12/24/18 15:59 Miscellaneous (Fentanyl Patch Remove & Waste) 1 ea N/A Q3D@0859 [facility] Stop: 12/27/18 08:58 Miscellaneous Information (Consult) 1 ea N/A UD PRN PRN Reason: Consult Stop: 12/24/18 09:04 Oxycodone HCl (Roxicodone Immediate Rel) 5 mg PO Q4H PRN PRN Reason: moderate pain Stop: 12/07/18 21:32 Last Admin: 11/24/18 06:01 Dose: 5 mg Documented by: Promethazine HCl (Phenergan) 25 mg PO Q6H PRN PRN Reason: nausea and vomiting Stop: 12/23/18 15:15 Sennosides (Senokot) 8.6 mg PO QAM [facility] Stop: 12/23/18 15:59 Last Admin: 11/24/18 08:19 Dose: 8.6 mg Documented by: PG Care Time/CCT Total # of Minutes Spent Total Time Spent with Patient: Total time spent is greater than 50% in coordination of care (as documented) at patient's floor/unit and/or counseling patient: (1) Metastatic cancer to lung Laterality: unspecified laterality Qualified Code(s): C78.00 - Secondary malignant neoplasm of unspecified lung (2) Pathologic compression fracture of spine Encounter type: initial encounter Qualified Code(s): M48.50XA - Collapsed vertebra, not elsewhere classified, site unspecified, initial encounter for fracture (3) Hypertension Hypertension type: essential hypertension Qualified Code(s): I10 - Essential (primary) hypertension
--- NOTE | 2018-11-24 11:31 | Pulmonary Consultation ---
Date of Consultation November 24, 2018 Assessment & Plan (1) Hemoptysis: Impression: A 63-year-old female with advanced non-small cell lung cancer status post palliative radiation to spinal mets presenting now with 3 to 4 days of hemoptysis, shortness of breath, cough, and increasing left pleural effusion. Plan: 1. Suspect hemoptysis is related to the pneumonic process in the patient's left upper lobe. We will pursue fiberoptic bronchoscopy in the a.m to define a source of bleeding and ensure no endobronchial lesion although I suspect that is less likely.. Patient n.p.o. after midnight. Agree with antibiotics for now as infection may be superimposed on the patient's current process. Consider holding anticoagulation. (2) Pleural effusion, left: Plan: 1. Suspect related to malignant process. Will perform diagnostic and therapeutic thoracentesis on the left. Fluid will be checked for cytology/malignancy. If the patient experiences relief, long-term solution such as a Pleurx catheter may be entertained. (3) Acute hypoxemic respiratory failure: Plan: 1. Related to lung cancer, malignancy, pleural effusion. Wean oxygen as tolerated. (4) Abnormal CT scan of lung: Plan: 1. See above. The patient is apparently pending initiation of chemothera py/immunotherapy under the direction of medical oncology. Palliative care input would be appropriate. History of Present Illness Reason for Consultation: Hemoptysis, pleural effusion, hypoxemic respiratory failure Requesting Physician: Rommel Wilson Attending Physician: Asim Basilio DO History of Present Illness Patient seen at the request of thoracic surgery for evaluation management of hemoptysis and pleural effusion with hypoxemic respiratory failure. History is obtained from discussion with the patient, discussion with Dr. Wilson and review of the electronic medical record. The patient is a pleasant 63-year-old female with a recent diagnosis of metastatic non-small cell cancer. She was diagnosed approximately 1 month ago when she presented with painful bony metastases and liver lesion. Biopsy of the liver lesion confirmed adenocarcinoma likely of a lung etiology. The patient has been seen by medical oncology and radiation oncology. She has been un dergoing radiation therapy to a right upper lobe lesion. She was to complete her last radiation therapy session yesterday but felt too ill to complete it. She is pending initiation of pembrolizumab therapy. The patient has had submassive hemoptysis going on for approximately 3 to 4 days. She states that she coughs fairly constantly throughout the day and night. Her cough tends to be worse when she is in a supine position. Total volume of hemoptysis is difficult to quantitate although it appears to be less than 100 mL's per day. She has not had any significant shortness of breath and denies any fevers chills or night sweats. Her appetite is been good. She is plagued by significant back pain which has been problematic to control and is definitely worse when she is coughing. Due to her hemoptysis and respiratory symptoms that she sought care in the emergency room and was admitted to the hospitalist. Thoracic surgery was consulted for consideration of drainage of an increasing pleural effusion and hemoptysis and has requested pulmonary evaluation. The patient is not undergone bronchoscopy or thoracentesis previously. Allergies Allergy/AdvReac Type Severity Reaction Status Date / Time latex Allergy Unknown SKIN Verified 11/23/18 10:04 IRRITATION morphine Allergy Unknown ITCHING Verified 11/23/18 10:04 AND LUMP ON HAND strawberry Allergy Unknown HIVES Verified 11/23/18 10:04 aspirin AdvReac Unknown GI UPSET Verified 11/23/18 10:04 Home Medications Home Medications Medication Instructions Recorded Confirmed Type cetirizine 5 mg tablet 5 mg PO QAM tab 10/13/18 11/23/18 History conj estrogen-medroxyprogesterone 1 tab PO QAM 10/13/18 11/23/18 History 0.625 mg-2.5 mg tablet losartan 50 mg-hydrochlorothiazide 1 tab PO QAM #90 tab 10/13/18 11/23/18 History 12.5 mg tablet docusate sodium 100 mg PO BID #30 cap 11/09/18 11/23/18 Rx oxycodone 5 mg PO Q8H PRN #15 tab 11/09/18 11/23/18 Rx sennosides [Senokot] 8.6 mg PO QAM #30 tab 11/09/18 11/23/18 Rx promethazine 25 mg tablet 25 mg PO Q6H PRN #60 tab 11/11/18 11/23/18 Rx Patient History Medical History Hemoptysis (Acute) Metastatic cancer to lung (Acute) Bony metastasis (Acute) Pathologic compression fracture of spine (Acute) Pleural effusion, left (Acute) 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) Hypertension (Chronic) Non-small cell carcinoma of lung Surgical History History of hemorrhoidectomy History of lithotripsy Renal History of rhinoplasty Family History Brother Colon cancer Prostate cancer Colorectal cancer Sister Cervical cancer History of kidney cancer Ovarian cancer Lung cancer Family/Other Breast cancer Sister Cholangiocarcinoma Social History Preferred Language: [place] Communication Ability: Effective Individual Small Group Instructor Required: No Beliefs That Will Affect Care: None marital status: Single Current Living Situation: Alone current occupational status: disabled Feels Safe at Home: Yes Smoking Status: Former smoker (QUIT 10/2018; SMOKED FOR 47 YEARS) Tobacco Type: cigarettes ; Cigarettes Per Day: 10 ; Second Hand Exposure: No ; Hx Alcohol Use: No Hx Substance Use: No Childhood Exposure to Second-Hand Smoke: No caffeine: Yes Physical Activity Frequency: Does not Exercise Review of Systems Review of Systems: All systems reviewed & are unremarkable except as noted in HPI & below Physical Exam Constitutional: well developed and + ill appearing ENMT: Mallampati Class: I Some old blood noted on the tongue. No evidence of bleeding in the mouth Neck: trachea midline, no thyromegaly Respiratory: Coarse breath sounds right upper lung diaz. No wheezing. Cardiovascular: RRR, no murmur, no edema Gastrointestinal (Abdomen): normal bowel sounds, soft, nontender, no hepatosplenomegaly Skin: no rashes, warm and dry Neurologic: Nonfocal exam Results & Data Vital Signs (Past 12 Hours) Vital Signs Temp Pulse Pulse Resp BP BP Pulse Ox 11/24/18 07:49 36.6 C 71 16 106/69 94 11/24/18 03:00 36.8 C 75 18 94/61 L 94 11/23/18 23:33 82 Laboratory Results 11/24/18 05:51 11/24/18 05:[address] ANGIOGRAPHY OF THE CHEST, PULMONARY EMBOLUS PROTOCOL CLINICAL HISTORY: Hemoptysis. Metastatic lung cancer. COMPARISON STUDY: Chest CT dated November 04, 2018. Chest radiograph performed earlier today. TECHNIQUE: Following IV administration of 120 mL of Optiray-320, helical axial images of the chest were obtained utilizing the pulmonary embolus protocol. Maximal intensity projections and sagittal and coronal reformats were viewed on an independent 3D workstation. IV contrast was administered without comp lication. Automated exposure control was utilized for the study. A dose lowering technique was utilized adhering to the principles of ALARA. CT DOSE: 266.01 mGy.cm FINDINGS: No pulmonary emboli are identified. However, the left upper lobe mass results in narrowing of the left pulmonary artery and multiple branches of the left pulmonary artery. The mass is difficult to measure on this exam but measures approximately 5.3 cm. Extensive left upper lobe airspace opacity has increased since exam of November 04, 2018. Occlusion of the left upper lobe bronchus is again noted. Narrowing of the left lower lobe bronchus is noted. A moderate to large malignant left pleural effusion has significantly increased in size since CT of November 04, 2018. There is no pneumothorax. Moderate emphysema is noted. A few right lung nodules have increased in size since prior CT. A right middle lobe nodule measures 1.9 cm previously measured 1.3 cm. Enlarged mediastinal and bilateral hilar lymph nodes are similar to prior exam. A small pericardial effusion is similar to prior exam. Multiple skeletal metastases have increased since exam of November 04, 2018. Pathologic fractures of T11 and L1 are noted. Several hepatic metastases have mildly increased in size since CT of November 04, 2018. Index right hepatic lobe lesion measures 4.8 cm. It previously measured 4 cm. There is a possible left adrenal metastasis. IMPRESSION: 1. No pulmonary emboli identified. 2. Redemonstration of the left upper lobe lung cancer which measures approximately 5.3 cm. Increase in extensive left upper lobe airspace opacity which suggests postobstructive pneumonia since CT of November 04, 2018. This mass narrows the left pulmonary artery and multiple branches and occludes the left superior pulmonary vein. 3. Significant increase in size of a moderate to large malignant left pleural effusion. 4. Mild increase in hepatic and skeletal metastases. Pathologic fractures of T11 and L1. 5. No change in mediastinal and bilateral hilar lymphadenopathy. Slight increase in several right lung nodules which favor metastatic disease. Electronically signed by: Eriberto Buckley M.D. 11/23/2018 10:30 AM PG Care Time/CCT Total # of Minutes Spent Total Time Spent with Patient: Total time spent is greater than 50% in coordination of care (as documented) at patient's floor/unit and/or counseling patient: 45 min exclusive of procedures
--- NOTE | 2018-11-24 11:55 | Surgery Consultation ---
Date of Consultation November 24, 2018 Assessment & Plan (1) Non-small cell lung cancer with metastasis: Will try to coordinate port placement during this admission either around her other procedures or along with if she will be going to the OR. Dr Nuno- discussed with pt, family and Dr Albert- pt requires urgent chemo- for tomorrow. we will see how she does and proceed with port next week at earliest. can follow as outpt if she goes earlier. follow for now Dr nuno History of Present Illness Attending Physician: Asim Basilio DO History of Present Illness 63 y/o female with metastatic lung CA has previously seen Dr. Mooney in clinic for scheduling of A-port, now admitted with hemoptysis, left pleural effusion. Allergies Allergy/AdvReac Type Severity Reaction Status Date / Time latex Allergy Unknown SKIN Verified 11/23/18 10:04 IRRITATION morphine Allergy Unknown ITCHING Verified 11/23/18 10:04 AND LUMP ON HAND strawberry Allergy Unknown HIVES Verified 11/23/18 10:04 aspirin AdvReac Unknown GI UPSET Verified 11/23/18 10:04 Home Medications Home Medications Medication Instructions Recorded Confirmed Type cetirizine 5 mg tablet 5 mg PO QAM tab 10/13/18 11/23/18 History conj estrogen-medroxyprogesterone 1 tab PO QAM 10/13/18 11/23/18 History 0.625 mg-2.5 mg tablet losartan 50 mg-hydrochlorothiazide 1 tab PO QAM #90 tab 10/13/18 11/23/18 History 12.5 mg tablet docusate sodium 100 mg PO BID #30 cap 11/09/18 11/23/18 Rx oxycodone 5 mg PO Q8H PRN #15 tab 11/09/18 11/23/18 Rx sennosides [Senokot] 8.6 mg PO QAM #30 tab 11/09/18 11/23/18 Rx promethazine 25 mg tablet 25 mg PO Q6H PRN #60 tab 11/11/18 11/23/18 Rx Patient History Medical History Hemoptysis (Acute) Metastatic cancer to lung (Acute) Bony metastasis (Acute) Pathologic compression fracture of spine (Acute) Pleural effusion, left (Acute) 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) Hypertension (Chronic) Non-small cell carcinoma of lung Surgical History History of hemorrhoidectomy History of lithotripsy Renal History of rhinoplasty Family History Brother Colon cancer Prostate cancer Colorectal cancer Sister Cervical cancer History of kidney cancer Ovarian cancer Lung cancer Family/Other Breast cancer Sister Cholangiocarcinoma Social History Preferred Language: Malawian Communication Ability: Effective Social Media Assistant Required: No Beliefs That Will Affect Care: None marital status: Single Current Living Situation: Alone current occupational status: disabled Feels Safe at Home: Yes Smoking Status: Former smoker (QUIT 10/2018; SMOKED FOR 47 YEARS) Tobacco Type: cigarettes ; Cigarettes Per Day: 10 ; Second Hand Exposure: No ; Hx Alcohol Use: No Hx Substance Use: No Childhood Exposure to Second-Hand Smoke: No caffeine: Yes Physical Activity Frequency: Does not Exercise Physical Exam Constitutional: + frail appearing Results & Data Vital Signs (Past 12 Hours) Vital Signs Temp Pulse Resp BP BP Pulse Ox 11/24/18 07:49 36.6 C 71 16 106/69 94 11/24/18 03:00 36.8 C 75 18 94/61 L 94 PG Care Time/CCT Total # of Minutes Spent Total Time Spent with Patient: Total time spent is greater than 50% in coordination of care (as documented) at patient's floor/unit and/or counseling patient:
--- NOTE | 2018-11-24 12:16 | XRay Report ---
SINGLE VIEW CHEST CLINICAL HISTORY: Status post thoracentesis. FINDINGS: An AP, portable, upright chest radiograph is compared to chest x-ray and chest CT dated 11/23. The examination is degraded by portable technique and patient rotation. The heart is enlarged and there is atherosclerotic calcification of the thoracic aorta. Pulmonary vasculature is nonconges angus. Advanced emphysema and chronic interstitial thickening are similar to previous. There is a layer ing left pleural effusion with associated consolidation. There is also dense airspace consolidation a nd pleural fluid at the left apex. The left pleural effusion has modestly decreased in size from yest erday. No definite pneumothorax is seen. The skeletal structures are osteopenic. The bony thorax is g rossly intact. IMPRESSION: 1. Cardiomegaly and emphysema. 2. Layering left pleural effusion with associated consolidation. The pleural effusion has modestly de creased in size as compared to yesterday. 3. No definite pneumothorax is seen post procedure. 4. Consolidation and pleural fluid is identified at the left apex. Electronically signed by: Froylan Muñiz M.D. 11/24/2018 12:15 PM
--- NOTE | 2018-11-24 13:29 | Procedure Note ---
Procedure Note Date of Service November 24, 2018 Procedure: Ultrasound-guided catheter thoracentesis on the left Consent: Signed by patient, obtained by physician Indication: Pleural effusion in patient with history of advanced non-small cell lung cancer Proceduralist: Liam Anesthesia: 10 mL's 1% lidocaine without epinephrine locally Procedure: Informed consent was obtained. This was verified with a timeout. Appropriate imaging studies have been reviewed prior to the procedure. The patient was placed in a seated position of the bedside. Limited thoracic ultrasound was performed bilaterally which demonstrated a moderate sized left pleural effusion. No significant right pleural effusion was identified. The site appropriate for thoracentesis was marked. Skin was cleaned with ChloraPrep and sterile field established. Skin was anesthetized with lidocaine and pleural fluid was aspirated using a finder needle without difficulty. A small skin kylee was made with the scalpel and the over the catheter needle apparatus was advanced through the skin into the pleural space. The needle was withdrawn and the catheter left indwelling in the pleural space. Using the syringe one-way valve system, a total of 900 mL's of serous yellow fluid was removed. The patient then complained of some slight chest pain and tightness. It was elected not to pursue any additional removal of fluid. The catheter was removed and observed to be intact. A sterile dressing was applied. Post procedure chest x- ray demonstrated persistent left pleural effusion with no evidence of pneumothorax. The patient tolerated the procedure well with no obvious complications. Estimated blood loss, less than 5 mL's Coding CPT Codes Pulmonary/Thoracic - Pulmonary and Thoracic: US, Chest, real time with imaging documentation ([id number]) Pulmonary/Thoracic - Pulmonary and Thoracic: Thoracentesis w imaging ([id number])
[2018-11-24] MEDS: CHECK FENTANYL PATCH PLACEMENT SCH ×2 (16:18→23:56)
[2018-11-24] MEDS: PIPERACILLIN/TAZOBACTAM 3.375 GM in DEXTROSE 5% 100 ML IV SCH ×2 (16:18→23:56)
--- NOTE | 2018-11-24 21:48 | Consultation Report ---
DATE OF CONSULTATION: 11/24/2018 DATE OF CONSULTATION: 11/24/2018 REASON FOR CONSULTATION: Hemoptysis in the setting of lung cancer. HISTORY OF PRESENT ILLNESS: This is a patient who is known to Dr. Wilson. The patient was seen in the past by Dr. Wilson and was found to have a large mass of the left upper lobe with a marked mediastinal adenopathy along with hepatic and bony metastasis. This was diagnosed by CT-guided needle biopsy on 11/05/2018. The patient was ultimately referred to Dr. Dejan Albert for oncologic care. The patient has been admitted to [facility] yesterday secondary to hemoptysis. She notes that her mouth has been going on for approximately 3-4 days and she has been having nearly constant cough with some associated shortness of breath. She was unable to quantitate the amount of hemoptysis but does note that has decreased since her hospitalization. In addition, she has been noting some significant back pain. Due to her hemoptysis and shortness of breath, she presented to the Emergency Department yesterday. In the Emergency Department, the patient did undergo a CT scan, which did not identify any evidence of pulmonary emboli. She was noted to have a moderate to large right pleural effusion and again the left upper lobe lung mass was noted. Skeletal and hepatic mets were noted. Again, the patient was admitted to the hospital. Laboratory studies included a CBC where hemoglobin and white blood cell count normal, platelet count noted to be within normal range. INR was noted to be 1.2. Chemistry profile showed sodium, potassium and BUN were normal. Creatinine was actually low at 0.37. At the time of my exam, the patient was resting comfortably in bed. PAST MEDICAL HISTORY: Includes 1. Nonsmall cell lung cancer with metastases to the bone and liver. 2. Hypertension. PAST SURGICAL HISTORY: Includes: 1. Hemorrhoidectomy. 2. History of lithotripsy. 3. Rhinoplasty. 4. History of a CT guided needle biopsy of the liver. FAMILY HISTORY: Includes colon and prostate cancer. SOCIAL HISTORY: The patient quit smoking in 2019, but did smoke for 47 years. PHYSICAL EXAMINATION: VITAL SIGNS: The patient states blood pressure is 102/74, pulse 72 and regular, respirations are 20 and unlabored. She is afebrile, temperature 37.1. Her pulse ox 94% on 1 liter. GENERAL: She is alert. She is oriented x3. She did appear anxious, but was in no distress. HEENT: There are no signs of head trauma. EYES: Her sclerae were nonicteric. Her mouth had moist mucous membranes. NECK: Supple without tracheal shift. CARDIOVASCULAR: Regular rate and rhythm. LUNGS: Revealed she was not using accessory muscles to aid in respiration. ABDOMEN: Nondistended. DIAGNOSTIC DATA: As noted above. IMPRESSION: A 63-year-old female with metastatic non-small cell lung cancer. PLAN: The patient has been seen by Dr. Wheeler of pulmonary. She has undergone a thoracentesis already. We will continue to follow along for reaccumulation of fluid and will be available to place a PleurX if needed. Due to her hemoptysis, pulmonary has tentatively been asked to do a bronchoscopy and this is planned for tomorrow. In addition, she will continue to follow along with Dr. Albert for oncologic care and general surgery has been asked to see to place a port, so her chemotherapy can be initiated. We will continue to follow along while she is in the hospital. KAMILLE
[2018-11-25 06:06] LABS: Basophils # (auto) 0.03 K/uL (0-0.2); Basophils % (auto) 0.4 %; Eosinophils # (auto) 0.21 K/uL (0-0.5); Eosinophils % (auto) 2.6 %; Hematocrit (blood only) 34.2 % (37-47); Hemoglobin 11.4 g/dL (12.0-16.0); Immature Granulocytes # (auto) 0.02 K/uL (0.00-0.02); Immature Granulocytes % (auto) 0.2 %; Lymphocytes # (auto) 0.53 K/uL (1.2-3.4); Lymphocytes % (auto) 6.5 %; Mean Corpuscular Hgb Conc 33.3 g/dL (32-36); Mean Corpuscular Volume 88.8 fL (80-100); Monocytes % (auto) 13.5 %; Neutrophils # (auto) 6.25 K/uL (1.4-6.5); Neutrophils % (auto) 76.8 %; Platelet Count 216 K/uL (130-400); RDW Coefficient of Variation 12.7 % (11.5-14.5); RDW Standard Deviation 41.1 fL (36.4-46.3); Red Blood Count 3.85 M/uL (4.2-5.4); White Blood Count 8.14 K/uL (4.8-10.8)
[2018-11-25] MEDS: SODIUM CHLORIDE 0.9% 1000ML 1,000 ML IV SCH (06:41)
[2018-11-25 06:51] LABS: Albumin Level 2.1 gm/dl (3.4-5.0); BUN Creatinine Ratio 21.3 (10-20); Calcium 8.1 mg/dl (8.5-10.1); Creatinine Clr Calc Pharmacy 138.4 ml/min; Est GFR (African American) 139.2; Est GFR (Non-African American) 120.1; Potassium 3.3 mmol/L (3.5-5.1)
[2018-11-25 06:54] LABS: Albumin Globulin Ratio 0.6 (0.9-2); Bilirubin,Total 0.5 mg/dl (0.2-1); Globulin 3.4 gm/dl (2.5-4.0); Total Protein 5.5 gm/dl (6.4-8.2)
[2018-11-25] MEDS: POTASSIUM CHLORIDE 40 MEQ in SODIUM CHLORIDE 0.9% 1000ML 1,000 ML IV SCH ×2 (07:44→22:53)
[2018-11-25] MEDS: PIPERACILLIN/TAZOBACTAM 3.375 GM in DEXTROSE 5% 100 ML IV SCH ×2 (07:44→16:17)
[2018-11-25] MEDS: CHECK FENTANYL PATCH PLACEMENT SCH ×2 (07:44→16:18)
[2018-11-25] MEDS: SENNA 8.6 MG TAB PO SCH (08:41)
[2018-11-25] MEDS: DOCUSATE SODIUM 100 MG CAP PO SCH ×2 (08:41→21:10)
[2018-11-25] MEDS: LOSARTAN/HCTZ 50/12.5MG TAB PO SCH (08:41)
[2018-11-25] MEDS: CETIRIZINE HCL 10 MG TABLET PO SCH (08:41)
[2018-11-25 08:45] LABS: Appearance Urine Clear (Clear); Bacteria Urine Automated Negative (Negative); Bilirubin Urine Negative (Negative); Blood Urine Trace (Negative); Color Urine Yellow; Epithelial Cell Urine Auto >30 /lpf (0-5); Glucose Urine UA Negative (Negative); Ketones Urine 2+ (Negative); Leukocyte Esterase Urine Negative (Negative); Nitrite Urine Negative (Negative); Protein Urine Negative (Negative); RBC Urine Automated 0-4 /hpf (0-4); Specific Gravity Urine 1.018 (1.000-1.030); Urobilinogen Urine Negative (Negative)
--- NOTE | 2018-11-25 09:53 | Pre Anesthesia Assessment ---
Date of Service November 25, 2018 Pre Sedation Assessment Vital Signs Temp Pulse Pulse Resp BP BP Pulse Ox 11/25/18 09:50 83 16 139/88 97 11/25/18 09:45 84 20 146/79 H 98 11/25/18 09:35 84 18 124/79 96 11/25/18 06:59 37.0 C 79 20 103/67 93 11/25/18 03:52 36.4 C L 72 18 114/71 93 11/25/18 00:31 64 11/24/18 22:56 37.1 C 65 18 110/71 95 11/24/18 19:19 37.0 C 71 20 104/69 94 11/24/18 15:41 84 11/24/18 15:40 36.9 C 71 18 124/83 94 11/24/18 12:21 37.1 C 73 20 102/74 94 Cardiovascular RRR, no murmur, no edema Respiratory Additional Comments: coarse BS on R Pre-Sedation Airway Assessment Smoking Status: Former smoker (QUIT 10/2018; SMOKED FOR 47 YEARS) Hx Sleep Apnea: No Short, Thick Neck: No Thyromental Distance: > or= 3.5 Finger Breadths Oral Cavity: + WNL Mallampati Class: II ASA: ASA2 NPO Status Date of Last Intake of Fluids: 11/24/18 Time of Last Intake of Fluids: 17:00 Date of Last Intake of Solid Food: 11/24/18 Time of Last Intake of Solid Foods: 17:00 Procedure Planning Contraindications for Sedation: none Current Medications Reviewed: Yes Notes The planned sedation has been discussed with the patient. Informed Consent was obtained. I have identified the patient, determined the appropriateness of sedation and have assessed the patient immediately prior to the procedure. All medicine(s) and interventions are by my order.
[2018-11-25] MEDS ORDERED: LIDOCAINE HCL VISCOUS SOLN 2% 15 ML UDC TOP ONE (10:10)
[2018-11-25] MEDS ORDERED: OXYMETAZOLINE 0.05% 30 ML BTL NAE ONE (10:10)
[2018-11-25] MEDS ORDERED: MIDAZOLAM HCL 1 MG/ML 2ML VIAL IV STA (10:10)
[2018-11-25] MEDS ORDERED: fentaNYL citrate 100 MCG/2 ML VIAL IV ONE (10:10)
[2018-11-25] MEDS ORDERED: LIDOCAINE 4% INH SOLN 4 ML BTL NAE ONE (10:10)
[2018-11-25] MEDS ORDERED: LIDOCAINE HCL 2% (LOCAL) INJ 50 ML VIAL INSTIL ONE (10:10)
--- NOTE | 2018-11-25 10:18 | Procedure Note ---
Procedure Note Date of Service November 25, 2018 Note Procedure: Fiberoptic bronchoscopy Conscious sedation Provider: Srinivas Wheeler MD Consent: Signed by patient and timeout verified prior to procedure. Sedation start: 949 Sedation end: 1005 Conscious sedation: 3 mg versed, 75 mcg fent, topical lidocaine per RT protocol Procedure: Patient was brought to the bronchoscopy suite. Consent was verified. Appropriate radiographic studies had been reviewed prior to the procedure. Standard monitoring was applied. Oxygen was administered. After topical anesthesia of the airways per respiratory therapy protocol, the fiberoptic scope was advanced through the . Oropharynx was unremarkable. Vocal cords were visualized and were abnormal, L cord paretic and fixed. Topical anesthesia of the cords was achieved with instillation of lidocaine through the scope. Scope was then passed through the vocal cords. The trachea was midline and significant blood was noted in the trachea. Main brant was normal. Anesthesia of the lower airways was achieved with instillation of lidocaine through the scope. A sequential and systematic examination of the lower airways was conducted. The right-sided airways were filled with bloody secretions which were aspirated free. Once the airways were cleared, the mucosa was evaluated and the mucosa appeared normal. Once the right-sided examination was completed, the scope was directed into the left-sided airways. Significant bloody se cretions were noted throughout the left mainstem bronchus extending down into the left lower lobe. These were cleared with extensive saline lavage. Once the airways were cleared, and and inspection revealed markedly abnormal mucosa extending from the left mainstem bronchus down. There appeared to be submucosal lymphatic involvement of malignancy. The left upper lobe and secondary brant between the left upper lobe and left lower lobe were significantly splayed and abnormal. Bleeding appeared to be emanating from the left lower lobe as well as the left upper lower. No active ongoing bleeding was identified however the mucosa was extremely friable. The bronchoscope was then removed from the airways. The patient tolerated the procedure well without obvious complication. Patient was returned to the recovery room. Impression: 1. 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 2. Extensive left-sided malignancy involving the LC 1 and extending into the left upper lobe and left lower lobe with significant extrinsic compression. No endobronchial lesions were identified. Srinivas Wheeler MD Coding CPT Codes Sedation/Anesthesia - Sedation/Anesthesia: Mod Sedation by the same physician;Init15 Min Child Age 5 & Up ([id number]) Sedation/Anesthesia - Sedation/Anesthesia: Mod Sedation by the same physician; Ea [id number] Minutes ([id number]) Pulmonary/Thoracic - Pulmonary and Thoracic: Dx bronchoscopy/wash ([id number])
--- NOTE | 2018-11-25 10:21 | Post Anesthesia Assessment ---
Date of Service November 25, 2018 Post Sedation Assessment Vital Signs Temp Pulse Pulse Resp BP BP Pulse Ox 11/25/18 10:10 76 16 103/66 96 11/25/18 10:05 79 18 102/71 97 11/25/18 10:00 79 16 106/68 97 11/25/18 09:55 79 16 90/58 L 96 11/25/18 09:50 83 16 139/88 97 11/25/18 09:45 84 20 146/79 H 98 11/25/18 09:35 84 18 124/79 96 11/25/18 06:59 37.0 C 79 20 103/67 93 11/25/18 03:52 36.4 C L 72 18 114/71 93 11/25/18 00:31 64 11/24/18 22:56 37.1 C 65 18 110/71 95 11/24/18 19:19 37.0 C 71 20 104/69 94 11/24/18 15:41 84 11/24/18 15:40 36.9 C 71 18 124/83 94 11/24/18 12:21 37.1 C 73 20 102/74 94 Recovery Score Activity: Moves 4 extremities Respiration: Deep Breath/Cough Circulation: +/-20-49% PreAnes Value Consciousness: Arouseable (by name) Oxygen Saturation: O2 needed for >90% Post Anesthesia Score: 7 Post Sedation Plan On clinical assessment, the patient appears to have tolerated the sedation w ithout complications. Patient is recovering as anticipated. Patient will continue to be monitored by nursing and may be discharged when sedation discharge criteria are met per below protocol. Upon Completions of procedure and additional 15 minutes continue every 5 minute vital signs and the P.A.R. score; then discharge to a Phase I or Fast Track to Phase II per the following guidelines: * Discharge Patient to appropriate Phase II area if PAR is 8 or greater or return to pre- procedure baseline. The post - procedure orders will be as directed. * If PAR score is less than 8 or not return to pre-procedure baseline then patient will follow Phase I monitoring till PAR is reached for Phase II. The Phase I may be done in procedure room or may call to secure a Phase I area. * If naloxone or flumazenil are used for reversal, hold in Phase I for continued monitoring from when last reversal dose was given for a minimum of 60 minutes or longer pending the nurse and/or physician discretion of patient condition before discharge to Phase II. Please call the Sedation Physician to re-evaluate and complete post-note for discharge to Phase II area. Do NOT discharge from procedure sedation or Phase 1 until post- sedation evaluation note is complete by procedure /sedation MD Sedation Discharge Instructions to be given to the patient at discharge to home.
[2018-11-25] MEDS ORDERED: LIDOCAINE HCL 2% (LOCAL) INJ 50 ML VIAL INSTIL STA (10:33)
[2018-11-25] MEDS ORDERED: LIDOCAINE 4% INH SOLN 4 ML BTL NAE STA (10:33)
[2018-11-25] MEDS ORDERED: LIDOCAINE HCL VISCOUS SOLN 2% 15 ML UDC TOP STA (10:33)
[2018-11-25] MEDS ORDERED: SODIUM CHLORIDE 0.9% 1000ML 1,000 ML IV ONE (10:44)
--- NOTE | 2018-11-25 10:56 | Pulmonology Progress Note ---
Date of Service November 25, 2018 Assessment & Plan (1) Hemoptysis: Impression: A 63-year-old female with advanced non-small cell lung cancer status post palliative radiation to spinal mets presenting now with 3 to 4 days of hemoptysis, shortness of breath, cough, and increasing left pleural effusion. Plan: 1. Bronchoscopy today revealed bleeding emanating from the left upper lobe and left lower lobe with no evidence of an endobronchial lesion. There is extensive submucosal involvement of tumor extending up through the left mainstem bronchus. There is no significant intervention available from an endobronchial standpoint as the bleeding appears fairly diffuse. Recommend holding all anticoagulation and following. If bleeding continues to be problematic, may consider evaluation by interventional radiology with a guided angiogram and possible embolization. I doubt radiation therapy would be beneficial. (2) Pleural effusion, left: Plan: 1. Suspect related to malignant process. Will perform diagnostic and therapeutic thoracentesis on the left. Fluid will be checked for cytology/malignancy. If the patient experiences relief, long-term solution such as a Pleurx catheter may be entertained. (3) Acute hypoxemic respiratory failure: Plan: 1. Awaiting cytology on pleural fluid. If it [place] accumulates, consideration for a Pleurx catheter as palliative treatment may be appropriate. (4) Abnormal CT scan of lung: Plan: 1. See above. Would strongly consider palliative medicine consultation and defining goals of therapy. Subjective No significant changes overnight. Patient continues to experience mild hemoptysis. She did feel better after the thoracentesis. She had some referred left shoulder pain. Review of Systems Review of Systems: Unchanged from prior Physical Exam Constitutional: well developed and + ill appearing ENMT: Mallampati Class: II Neck: trachea midline, no thyromegaly Cardiovascular: RRR, no murmur, no edema Gastrointestinal (Abdomen): normal bowel sounds, soft, nontender, no hepatosplenomegaly Skin: no rashes, warm and dry Results & Data Vital Signs (Past 12 Hours) Vital Signs Temp Pulse Pulse Resp BP BP Pulse Ox 11/25/18 10:30 84 18 99/62 L 96 11/25/18 10:20 80 18 94/61 L 96 11/25/18 10:15 80 18 91/58 L 96 11/25/18 10:10 76 16 103/66 96 11/25/18 10:05 79 18 102/71 97 11/25/18 10:00 79 16 106/68 97 11/25/18 09:55 79 16 90/58 L 96 11/25/18 09:50 83 16 139/88 97 11/25/18 09:45 84 20 146/79 H 98 11/25/18 09:35 84 18 124/79 96 11/25/18 06:59 37.0 C 79 20 103/67 93 11/25/18 03:52 36.4 C L 72 18 114/71 93 11/25/18 00:31 64 11/24/18 22:56 37.1 C 65 18 110/71 95 Laboratory Results 11/25/18 05:48 11/25/18 05:48 Diagnostic Findings See bronchoscopy note PG Care Time/CCT Total # of Minutes Spent Total Time Spent with Patient: Total time spent is greater than 50% in coordination of care (as documented) at patient's floor/unit and/or counseling patient:
--- NOTE | 2018-11-25 11:19 | Progress Note ---
DATE: 11/25/2018 DIAGNOSES: 1. Hemoptysis. 2. Intractable skeletal pain. 3. Progressing metastatic small cell lung cancer. 4. Hypoalbuminemia. 5. Moderate to large malignant left pleural effusion. SUBJECTIVE: The patient was seen and examined at bedside. Pain seems to be reasonably well controlled. She underwent thoracentesis yielding 900 mL of fluid. She also is pending bronchoscopy today to investigate ongoing hemoptysis. CTA of the chest was performed, rapidly progressive disease including the primary lesion in the left upper lobe measuring 5.3 cm. Tumor is actually encroaching the left pulmonary artery at multiple branches and occludes the left superior pulmonary vein. There was also a moderate to large malignant left pleural effusion noted, which is progressive since diagnosis. Finally obtained PD-L1 information. The patient unfortunately is a low expresser of PD-L1 and thus have decided not to proceed with pembrolizumab; however, I believe she does need to be treated expediently and I have decided to proceed with combination of paclitaxel, carboplatin and bevacizumab. The patient offers no specific complaints today again. Reviewed side effect profile and treatment schedule with the patient. Informed consent was signed and will begin chemotherapy after her procedure today. Nursing reports no overnight difficulties. OBJECTIVE: GENERAL: The patient is in no acute distress. VITAL SIGNS: Temperature 37, pulse 84, respiratory rate 18, blood pressure 99/62. SKIN: Without rash or lesion. HEENT: Oral mucosa without erythema or ulceration. NECK: Supple. Trachea midline. HEART: Regular rate and rhythm. LUNGS: Breath sounds have improved specifically in the left. ABDOMEN: Soft, nontender, nondistended. EXTREMITIES: No clubbing, cyanosis or edema. NEUROLOGIC: Grossly intact. LABORATORY DATA: WBC count 8140, hemoglobin 11.4, platelet count 216,000. Sodium 138, potassium 3.3, chloride 102, carbon dioxide 31, creatinine 0.32, BUN 7. Her albumin measures 2.1 today. IMPRESSION: 1. Rapidly progressing metastatic nonsmall cell lung cancer. 2. Hemoptysis. 3. Malignant pleural effusion. 4. Hypoalbuminemia. 5. Intractable skeletal pain. PLAN: Based on CTA done during admission, her disease is rapidly progressing. My fear is erosion into one of the major pulmonary vessels and treatment should be administered immediately. PD-L1 expression is 1%. Therefore, I prefer not to chance minimal response utilizing pembrolizumab, a novel anti PD-L1 inhibitor and thus will proceed with combination of carboplatin, paclitaxel and bevacizumab. Side effects including alopecia, myelosuppression, peripheral neuropathy, nausea and vomiting, thrombocytopenia, and infusion reaction were discussed in detail. She will receive premedications, particularly corticosteroids and H2 blockers as well as IV antiemetics to avoid side effects. The patient unfortunately suffers from aggressive disease and there are many issues that need to be addressed including pain management and nutritional support. I anticipate the patient remain hospitalized for the next 2-3 days. We will continue to monitor daily post chemotherapy until discharge. The patient understands the risks of high dose paclitaxel and carboplatin. She has signed informed consent and has agreed to proceed. Family members have been engaged to understand the gravity of her situation. Thank you very much for allowing us to participate in her care. MTDD
[2018-11-25] MEDS ORDERED: HYDROmorphone INJ 1 MG/ML SYRINGE ONE ×2 (11:53→11:59)
[2018-11-25] MEDS ORDERED: HYDROmorphone INJ 1 MG/ML SYRINGE IV PRN (11:54)
[2018-11-25] MEDS ORDERED: HYDROmorphone INJ 1 MG/ML SYRINGE IV STA (12:01)
[2018-11-25] MEDS: fentaNYL 50 MCG/HR TDSY TD SCH (12:53)
--- NOTE | 2018-11-25 14:31 | Hospitalist Progress Note ---
Date of Service November 25, 2018 Assessment & Plan (1) Non-small cell lung cancer with metastasis: advancing quickly, d/w Dr. Albert, very aggressive cancer very poor prognosis now with hemoptysis, pneumonia, effusion, mets to spine, lung, liver and brain will start salvage chemotherapy today, see how she tolerates if she does okay then plan on placing Port while here will formally involve palliative care starting tomorrow patient is DNR status will assist in POLST completion, hospice/support at home, answering questions for family members (2) Hemoptysis: due to metastatic non small cell lung CA CT chest shows encroachment of the pulmonary arteries bronchoscopy by Dr. Wheeler today, extensive malignant tissue blood oozing in several areas will continue to have hemoptysis will provide Robitussin to help patient sleep continue Zosyn to treat possible post obstructive pneumonia (3) Metastatic cancer to lung: evidence of local spread with pleural effusion salvage chemo starting today (4) Postobstructive pneumonia: left upper lobe no fever, normal WBC yesterday and today will treat with Zosyn for 7 days, today is day 2 (5) Bony metastasis: just completed palliative radiation still in severe pain increase Fentanyl to 50mcg patch, Oxycodone PRN Dilaudid 1mg IV PRN for breakthrough palliative consult tomorrow, can assist in pain control (6) Pathologic compression fracture of spine: pain control, see above (7) Pleural effusion, left: due to malignancy Dr. Wheeler with pulmonary drained 900mL yesterday patient had pain so procedure stopped may be candidate for PleurX (8) Pain due to malignant neoplasm metastatic to bone: Fentanyl patch and Oxycodone Dilaudid PRN (9) Hypertension: radiation therapy completed, continue pain management and bowel regimen (10) Anxiety: (11) Hypotension: occurred after bronch allow patient to lay flat NSS bolus given stop Losartan/HCTZ (12) Hypokalemia: 3.3, will add K to IV fluids Subjective patient seen this morning after bronchoscopy she was sleepy after anesthesia she complained of pain in back no dyspnea but continues with cough, hemoptysis discussed case with Dr. Wheeler with pulmonary who performed thoracentesis and bronchoscopy poor prognosis, any treatment is palliative he agreed with plan to formally involve palliative care discussed with Dr. Albert, he agreed with this as well, will go forward with first chemotherapy treatment this afternoon spoke with Mellisa Sims with palliative team, she will see patient tomorrow long talk with the patient's daughter she and family aware that the situation is grim, no hope for cure her mom has repeatedly stated that her priority is quality of life, not quantity she states that she is a DNR, DNI the patient has a sister who also has cancer the patient plans to live with her sister and other family members after discharge arranging for hospital bed at home Review of Systems Review of Systems: All systems reviewed & are unremarkable except as noted in HPI & below Constitutional: + fatigue and + weakness; no fever Respiratory: + cough, + dyspnea, + dyspnea on exertion, + hemoptysis, + pain with cough and + sputum production Cardiovascular: no chest pain, no syncope and no edema Gastrointestinal: no abdominal pain, no nausea, no vomiting, no constipation and no diarrhea/loose stools Musculoskeletal: + back pain (severe) Physical Exam Constitutional: well developed and + thin; no acute distress Eyes: PERRL, conjunctivae normal, anicteric sclerae ENMT: external ear and nose normal, oropharynx normal Neck: trachea midline, no thyromegaly Respiratory: normal respiratory effort; no respiratory distress Auscultation: + diminished lung sounds (left base) and + rhonchi (bilaterally); no rales and no wheezes Cardiovascular: RRR, no murmur, no edema Gastrointestinal (Abdomen): normal bowel sounds, soft, nontender, no hepatosp lenomegaly Musculoskeletal: Head/Neck/Chest: normocephalic and head atraumatic Spine: + limited thoraco-lumbar ROM (due to pain) Extremities: extremities normal to inspection and strength 5/5 throughout Skin: no rashes, warm and dry Neurologic: patellar DTR's 2+ bilat, sensation intact and PERRL, EOMI, accommodation nl, no face palsy, no dysarthria Psychiatric: A+Ox3, euthymic affect Lymphatic: no cervical or axillary lymphadenopathy Results & Data Vital Signs (Past 12 Hours) Vital Signs Temp Pulse Pulse Resp BP BP Pulse Ox 11/25/18 13:07 74 20 96/61 L 96 11/25/18 12:37 36.9 C 73 16 95/60 L 90 11/25/18 11:15 37.1 C 75 20 104/66 95 11/25/18 10:30 84 18 99/62 L 96 11/25/18 10:20 80 18 94/61 L 96 11/25/18 10:15 80 18 91/58 L 96 11/25/18 10:10 76 16 103/66 96 11/25/18 10:05 79 18 102/71 97 11/25/18 10:00 79 16 106/68 97 11/25/18 09:55 79 16 90/58 L 96 11/25/18 09:50 83 16 139/88 97 11/25/18 09:45 84 20 146/79 H 98 11/25/18 09:35 84 18 124/79 96 11/25/18 06:59 37.0 C 79 20 103/67 93 11/25/18 03:52 36.4 C L 72 18 114/71 93 Laboratory Results Laboratory Results - last 24 hr 11/25/18 11/25/18 11/25/18 05:48 05:48 08:20 WBC 8.14 RBC 3.85 L Hgb 11.4 L Hct 34.2 L MCV 88.8 MCH 29.6 MCHC 33.3 RDW Std Deviation 41.1 RDW Coeff of [place] 12.7 Plt Count 216 MPV 11.0 H Immature Gran % (Auto) 0.2 Neut % (Auto) 76.8 Lymph % (Auto) 6.5 [place] % (Auto) 13.5 Eos % (Auto) 2.6 Baso % (Auto) 0.4 Immature Gran # (Auto) 0.02 Neut # (Auto) 6.25 Lymph # (Auto) 0.53 L [place] # (Auto) 1.10 H Eos # (Auto) 0.21 Baso # (Auto) 0.03 Sodium 138 Potassium 3.3 L D Chloride 102 Carbon Dioxide 31 Anion Gap 5.0 BUN 7 D Creatinine 0.32 L Est Cr Clr Drug Dosing 138.4 Est GFR ( Amer) 139.2 Est GFR (Non-Af Amer) 120.1 BUN/Creatinine Ratio 21.3 H Glucose 87 Calcium 8.1 L Total Bilirubin 0.5 AST 15 ALT 10 L Alkaline Phosphatase 94 Total Protein 5.5 L Albumin 2.1 L Globulin 3.4 Albumin/Globulin Ratio 0.6 L Urine Color Yellow Urine Appearance Clear Urine pH 5.0 Ur Specific [place] 1.018 Urine Protein Negative Urine Glucose (UA) Negative Urine Ketones 2+ H Urine Blood Trace H Urine Nitrite Negative Urine Bilirubin Negative Urine Urobilinogen Negative Ur Leukocyte Esterase Negative Urine WBC (Auto) 1-5 Urine RBC (Auto) 0-4 U Hyaline Cast (Auto) 1-5 U Epithel Cells (Auto) >30 H Urine Bacteria (Auto) Negative Medications Administered Current Inpatient Medications Cetirizine HCl (Zyrtec) 5 mg PO QAM [facility] Stop: 12/23/18 15:59 Last Admin: 11/25/18 08:41 Dose: Not Given Documented by: Diphenhydramine HCl (Benadryl) 50 mg IV TODAY@1600 [facility] Stop: 11/25/18 23:59 Docusate Sodium (Colace) 100 mg PO BID [facility] Stop: 12/23/18 20:59 Last Admin: 11/25/18 08:41 Dose: Not Given Documented by: Estrogens Conjugated (Premarin) 0.625 mg PO DAILY [facility] Stop: 12/26/18 08:59 Fentanyl (Duragesic) 50 mcg TD Q3D@1230 [facility] Stop: 12/09/18 12:29 Last Admin: 11/25/18 12:53 Dose: 50 mcg Documented by: Guaifenesin/Codeine Phosphate (Robitussin-Ac Sugar Free) 10 ml PO Q6H PRN PRN Reason: Cough Stop: 12/24/18 09:12 HCTZ/Losartan Potassium (Hyzaar 50/12.5mg) 1 tab PO [facility] Stop: 12/24/18 08:59 Last Admin: 11/25/18 08:41 Dose: Not Given Documented by: Hydromorphone HCl (Dilaudid) 1 mg IV Q4 PRN PRN Reason: Pain Stop: 12/09/18 11:53 Piperacillin Sod/Tazobactam (Sod 3.375 gm/ Dextrose) 115 mls @ 28.75 mls/hr IV Q8H [facility]; Protocol Stop: 12/01/18 15:59 Last Infusion: 11/25/18 12:04 Dose: Infused Documented by: Potassium Chloride 40 meq/ (Sodium Chloride) 1,020 mls @ 80 mls/hr IV .[id number] [facility] Stop: 12/25/18 07:29 Last Admin: 11/25/18 07:44 Dose: 80 mls/hr Documented by: Palonosetron 0.25 mg/ Syringe 5 mls @ 10 mls/min IV TODAY@1600 [facility] Stop: 11/25/18 23:59 Dexamethasone 20 mg/ Dextrose 27 mls @ 0.833 mls/min IV TODAY@1600 [facility] Stop: 11/25/18 23:59 Famotidine 20 mg/ Syringe 5 mls @ 2.5 mls/min IV TODAY@1600 [facility] Stop: 11/25/18 23:59 Bevacizumab 690 mg/ Sodium (Chloride) 100 mls @ 200 mls/hr IV TODAY@1700 [facility]; Protocol Stop: 11/25/18 23:59 Paclitaxel 245 mg/ Sodium (Chloride) 590.8333 mls @ 197 mls/hr IV TODAY@1730 [facility]; Protocol Stop: 11/25/18 23:59 Carboplatin 600 mg/ Sodium (Chloride) 560 mls @ 999 mls/hr IV TODAY@2030 [facility]; Protocol Stop: 11/26/18 04:00 Medroxyprogesterone Acetate (Provera) 2.5 mg PO DAILY [facility] Stop: 12/26/18 08:59 Miscellaneous (Fentanyl Patch Check Placement) 1 ea N/A QS [facility] Stop: 12/24/18 15:59 Last Admin: 11/25/18 07:44 Dose: 1 ea Documented by: Miscellaneous (Fentanyl Patch Remove & Waste) 1 ea N/A Q3D@1229 [facility] Stop: 12/28/18 12:28 Miscellaneous Information (Consult) 1 ea N/A UD PRN PRN Reason: Consult Stop: 12/24/18 09:04 Oxycodone HCl (Roxicodone Immediate Rel) 5 mg PO Q4H PRN PRN Reason: moderate pain Stop: 12/07/18 21:32 Last Admin: 11/24/18 19:18 Dose: 5 mg Documented by: Promethazine HCl (Phenergan) 25 mg PO Q6H PRN PRN Reason: nausea and vomiting Stop: 12/23/18 15:15 Sennosides (Senokot) 8.6 mg PO QAM [facility] Stop: 12/23/18 15:59 Last Admin: 11/25/18 08:41 Dose: Not Given Documented by: PG Care Time/CCT Total # of Minutes Spent Total Time Spent with Patient: Total time spent is greater than 50% in coordination of care (as documented) at patient's floor/unit and/or counseling patient: (1) Metastatic cancer to lung Laterality: unspecified laterality Qualified Code(s): C78.00 - Secondary malignant neoplasm of unspecified lung (2) Pathologic compression fracture of spine Encounter type: initial encounter Qualified Code(s): M48.50XA - Collapsed vertebra, not elsewhere classified, site unspecified, initial encounter for fracture (3) Hypertension Hypertension type: essential hypertension Qualified Code(s): I10 - Essential (primary) hypertension
[2018-11-25] MEDS ORDERED: DiphenhydrAMINE HCL 50 MG/ML VIAL IV SCH (16:00)
[2018-11-25] MEDS ORDERED: dexAMETHasone 20 MG in DEXTROSE 5% 25 ML IV SCH (16:00)
[2018-11-25] MEDS ORDERED: PALONOSETRON 0.25 MG in SYRINGE 0 ML IV SCH (16:00)
[2018-11-25] MEDS ORDERED: FAMOTIDINE 20 MG in SYRINGE 3 ML IV SCH (16:00)
[2018-11-25] MEDS ORDERED: BISACODYL 10 MG SUPP PR STA (16:09)
[2018-11-25] MEDS ORDERED: HYDROmorphone INJ 0.5 MG/0.5 ML SYR IV PRN (16:09)
--- NOTE | 2018-11-25 16:28 | Progress Note ---
DATE: 11/25/2018 Ms. Gonsalez started chemotherapy under the direction of Dr. Albert today. I have discussed this case with Dr. Albert as well as Dr. Srinivas Wheeler from Pulmonary. The results of today's bronchoscopy are worrisome. Not surprisingly, her pleural fluid is positive for metastatic adenocarcinoma. I would like to wait to see her response to the chemotherapy before deciding whether or not to put a PleurX catheter and unless her symptoms warrant such. She has rapidly progressive disease and has had dismal prognosis.
[2018-11-25] MEDS ORDERED: SODIUM CHLORIDE 0.9% IV SCH ×2 (17:00→20:30)
[2018-11-25] MEDS ORDERED: BEVACIZUMAB IV SCH (17:00)
[2018-11-25] MEDS ORDERED: SOD CHL IV SCH (17:30)
[2018-11-25] MEDS ORDERED: POLYOLEFIN IV SCH (17:30)
[2018-11-25] MEDS ORDERED: PACLITAXEL IV SCH (17:30)
[2018-11-25] MEDS ORDERED: CARBOPLATIN IV SCH (20:30)
[2018-11-26] MEDS: CHECK FENTANYL PATCH PLACEMENT SCH ×4 (00:04→23:33)
[2018-11-26] MEDS: PIPERACILLIN/TAZOBACTAM 3.375 GM in DEXTROSE 5% 100 ML IV SCH ×2 (00:04→08:04)
[2018-11-26 07:36] LABS: Hematocrit (blood only) 33.9 % (37-47); Hemoglobin 11.6 g/dL (12.0-16.0); Immature Granulocytes # (auto) 0.01 K/uL (0.00-0.02); Immature Granulocytes % (auto) 0.1 %; Lymphocytes # (auto) 0.24 K/uL (1.2-3.4); Lymphocytes % (auto) 3.6 %; Mean Corpuscular Hgb Conc 34.2 g/dL (32-36); Mean Corpuscular Volume 86.3 fL (80-100); Mean Platelet Volume 11.8 fL (7.4-10.4); Monocytes # (auto) 0.41 K/uL (0.11-0.59); Monocytes % (auto) 6.1 %; Neutrophils # (auto) 6.05 K/uL (1.4-6.5); Neutrophils % (auto) 90.2 %; Platelet Count 226 K/uL (130-400); RDW Coefficient of Variation 12.5 % (11.5-14.5); RDW Standard Deviation 39.8 fL (36.4-46.3); Red Blood Count 3.93 M/uL (4.2-5.4); White Blood Count 6.71 K/uL (4.8-10.8)
[2018-11-26] MEDS: POTASSIUM CHLORIDE 40 MEQ in SODIUM CHLORIDE 0.9% 1000ML 1,000 ML IV SCH (08:04)
[2018-11-26] MEDS: ESTROGENS, CONJUGATED 0.625 MG TAB PO SCH (08:05)
[2018-11-26] MEDS: SENNA 8.6 MG TAB PO SCH (08:05)
[2018-11-26] MEDS: DOCUSATE SODIUM 100 MG CAP PO SCH ×2 (08:05→20:13)
[2018-11-26] MEDS: MEDROXYPROGESTERONE ACETATE 2.5 MG TAB PO SCH (08:05)
[2018-11-26 08:07] LABS: Albumin Level 2.1 gm/dl (3.4-5.0); BUN Creatinine Ratio 18.3 (10-20); Calcium 8.4 mg/dl (8.5-10.1); Creatinine Clr Calc Pharmacy 114.9 ml/min; Est GFR (African American) 129.4; Est GFR (Non-African American) 111.6; Potassium 3.7 mmol/L (3.5-5.1)
[2018-11-26 08:10] LABS: Albumin Globulin Ratio 0.5 (0.9-2); Bilirubin,Total 0.5 mg/dl (0.2-1); Total Protein 6.1 gm/dl (6.4-8.2)
[2018-11-26] MEDS: CETIRIZINE HCL 10 MG TABLET PO SCH (08:42)
--- NOTE | 2018-11-26 10:09 | Palliative Care Consultation ---
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 Patient was just recently in the hospital for original complaint of ear pain and back pain. X-ray was abnormal so she underwent a CT scan. CT scan showed a left upper lobe mass of right upper lobe lesion as well as increased adenopathy, liver mets, bone mets and spine mets. Patient underwent liver biopsy on 11/05-was positive for adenocarcinoma of the lung primary. Patient was seen by Dr. Albert, was waiting for biomarkers to result and was sent home. Patient had another CTA chest during this admission which showed large left pleural effusion and progression of disease. She has been seen by our bakery worker conveyor line who performed thoracentesis and bronchoscopy. Bronch revealed very friable tissue but no active bleeding during the procedure. She is now being monitored for any further bleeding, reaccumulation of fluid, or any discomfort. Patient was started on chemotherapy while inpatient yesterday 11/25. She received carboplatin, Bevacizumab, and paclitaxel. She tolerated well so far. Patient has been experiencing back pain from the metastatic disease as well, she is now on fentanyl patch. Given patient's extensive and incurable disease, palliative care is consulted to discuss goals and help manage symptoms. -Met with patient this morning after she had a visit from Dr. Wheeler. Patient awake, alert and oriented x4. It has been noted by nursing staff that patient is somewhat forgetful. -Patient stated to me that she received some bad news-- that her cancer is not curable and will eventually take her life. Stated, "I thought I was going to go into remission." Patient has two adult sisters who she will be living will. She also has two daughters and a son. -Patient is requesting to not know her prognosis as far as time frame. Her daughter has been updated by providers about patient's prognosis given patient's slight "wiftiness" and forgetfulness. -Patient's goal is to continue to fight this disease. She states that her mikel in God is strong and she is leaving it in his hands. Patient wants to continue treatment as long as she is able to. -We did discuss CODE STATUS, but patient is not ready to make a decision on that. Dr. Wheeler also addressed code status with her. At some point, preferably sooner than later, a discussion with patient and her family is warranted to discuss such things. -Continue fentanyl patch at 50mcg/hr as patient's pain level is 0/10 today and she is not drowsy at all. -Palliative care will certainly following during any hospitalization. Palliative care is available as outpatient if her pain/symptoms worsen. Addendum: Of note, patient was completed AA&O x4 during my visit. However, just a few hours later, she could not recall my visit and told the heel caser that she didn't remember speaking with me. (2) Non-small cell lung cancer with metastasis: (3) Bony metastasis: (4) Hemoptysis: Supervising Physician Co-Signing Physician Notes Pt known to our service from prior admission. Chart reviewed, pt seen and briefly examined - Case management at bedside Collaborated with SUSANNA Martini PE: NAD, awake and alert HEENT: EOMI, hearing WNL Resp: unlabored CV: appears well perfused Neuro: + memory deficits Agree with above note, assessment and plan as per SUSANNA Martini - will cont to follow while inpt, offered outpt f/u History of Present Illness Reason for Consultation: Goals of care Requesting Physician: Dr. 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 Patient was just recently in the hospital for original complaint of ear pain and back pain. X-ray was abnormal so she underwent a CT scan. CT scan showed a left upper lobe mass of right upper lobe lesion as well as increased adenopathy, liver mets, bone mets and spine mets. Patient underwent liver biopsy on 11/05-was positive for adenocarcinoma of the lung primary. Patient was seen by Dr. Albert, was waiting for biomarkers to result and was sent home. Patient had another CTA chest during this admission which showed large left pleural effusion and progression of disease. She has been seen by our bakery worker conveyor line who performed thoracentesis and bronchoscopy. Bronch revealed very friable tissue but no active bleeding during the procedure. She is now being monitored for any further bleeding, reaccumulation of fluid, or any discomfort. Patient was started on chemotherapy while inpatient yesterday 11/25. She received carboplatin, Bevacizumab, and paclitaxel. She tolerated well so far. Patient has been experiencing back pain from the metastatic disease as well, she is now on fentanyl patch. Given patient's extensive and incurable disease, palliative care is consulted to discuss goals and help manage symptoms. Thank you kindly for this consult. I will follow as needed. Allergies Allergy/AdvReac Type Severity Reaction Status Date / Time latex Allergy Unknown SKIN Verified 11/23/18 10:04 IRRITATION morphine Allergy Unknown ITCHING Verified 11/23/18 10:04 AND LUMP ON HAND strawberry Allergy Unknown HIVES Verified 11/23/18 10:04 aspirin AdvReac Unknown GI UPSET Verified 11/23/18 10:04 Home Medications Home Medications Medication Instructions Recorded Confirmed Type cetirizine 5 mg tablet 5 mg PO QAM tab 10/13/18 11/23/18 History conj estrogen-medroxyprogesterone 1 tab PO QAM 10/13/18 11/23/18 History 0.625 mg-2.5 mg tablet losartan 50 mg-hydrochlorothiazide 1 tab PO QAM #90 tab 10/13/18 11/23/18 History 12.5 mg tablet docusate sodium 100 mg PO BID #30 cap 11/09/18 11/23/18 Rx oxycodone 5 mg PO Q8H PRN #15 tab 11/09/18 11/23/18 Rx sennosides [Senokot] 8.6 mg PO QAM #30 tab 11/09/18 11/23/18 Rx promethazine 25 mg tablet 25 mg PO Q6H PRN #60 tab 11/11/18 11/23/18 Rx Patient History Medical History Hemoptysis (Acute) Metastatic cancer to lung (Acute) Bony metastasis (Acute) Pathologic compression fracture of spine (Acute) Pleural effusion, left (Acute) 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) Hypertension (Chronic) Non-small cell carcinoma of lung Surgical History History of hemorrhoidectomy History of lithotripsy Renal History of rhinoplasty Family History Brother Colon cancer Prostate cancer Colorectal cancer Sister Cervical cancer History of kidney cancer Ovarian cancer Lung cancer Family/Other Breast cancer Sister Cholangiocarcinoma Social History Preferred Language: Bruneian Communication Ability: Effective 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 Beliefs That Will Affect Care: None marital status: Single Current Living Situation: Alone current occupational status: disabled Feels Safe at Home: Yes Smoking Status: Former smoker (QUIT 10/2018; SMOKED FOR 47 YEARS) Tobacco Type: cigarettes ; Cigarettes Per Day: 10 ; Second Hand Exposure: No ; Hx Alcohol Use: No Hx Substance Use: No Childhood Exposure to Second-Hand Smoke: No caffeine: Yes Physical Activity Frequency: Does not Exercise Review of Systems Constitutional: no weakness and no anorexia Ear, Nose, Mouth, Throat: no dysphagia Respiratory: + cough and + hemoptysis; no dyspnea Cardiovascular: no chest pain and no edema Gastrointestinal: no abdominal pain and no nausea Musculoskeletal: + back pain Neurologic: no confusion Psychiatric: no anxiety Physical Exam Constitutional: + thin ENMT: external ear and nose normal, oropharynx normal Neck: normal visual inspection Respiratory: normal respiratory effort; no labored breathing Auscultation: + diminished lung sounds Cardiovascular: RRR, no murmur, no edema Gastrointestinal (Abdomen): Inspection/Auscultation: abdomen normal to inspection Percussion/Palpation: abdomen soft Skin: normal turgor Neurologic: moves all extremities and awake Psychiatric: Orientation: alert and oriented x 3 Results & Data Vital Signs (Past 12 Hours) Vital Signs Temp Pulse Pulse Resp BP BP Pulse Ox 11/26/18 07:07 36.7 C 75 18 148/90 H 93 11/26/18 04:00 36.7 C 78 20 165/89 H 92 11/26/18 01:10 70 11/25/18 23:00 36.7 C 62 18 145/85 H 95 PG Care Time/CCT Total # of Minutes Spent Total Time Spent with Patient: Total time spent is greater than 50% in coordination of care (as documented) at patient's floor/unit and/or counseling patient: Time Spent Midlevel 50 minutes with >50% of the time spent at bedside with patient discussing condition and GOC.
--- NOTE | 2018-11-26 11:09 | Progress Note ---
DATE: 11/26/2018 MEDICAL ONCOLOGY PROGRESS NOTE DIAGNOSES: 1. Hemoptysis. 2. Intractable skeletal pain. 3. Progressing metastatic nonsmall cell lung cancer. 4. Hypoalbuminemia. 5. Moderate to large malignant left pleural effusion. SUBJECTIVE: Margaux was seen and examined at bedside this morning. She received her first course of salvage paclitaxel, carboplatin and bevacizumab yesterday. Surprisingly, she was up eating breakfast and actually reports feeling quite well. I appreciate pulmonary services clinical note and findings on bronchoscopy. Apparently, there is diffuse bleeding throughout her lung diaz. Areas are too numerous to manage through a local means. It is also felt radiation would be of little benefit moving forward. Appropriately, all anticoagulants for potential blood thinners have been discontinued. Again, I opted to go with traditional chemotherapy because of low PD-L1 expression. Time will tell whether this maneuver was beneficial. The patient feels well today. Nursing reports no overnight difficulties otherwise. Her pain seems to be reasonably controlled as well. OBJECTIVE: GENERAL: Very pleasant 63-year-old female patient in no acute distress. VITAL SIGNS: Temperature 36.7, pulse 75, respiratory rate 18, blood pressure 148/90. SKIN: Without rash or lesion. HEENT: Oral mucosa without erythema or ulceration. HEART: Regular rate and rhythm. LUNGS: Clear to auscultation. ABDOMEN: Soft, nontender, nondistended. EXTREMITIES: No clubbing, cyanosis or edema. NEUROLOGIC: Grossly intact. LABORATORY DATA: WBC count, 6710, hemoglobin 11.6, platelet count 226,000. Sodium 140, potassium 3.7, chloride 106, carbon dioxide 31, creatinine 0.4, BUN 7, albumin 2.1. IMPRESSION: 1. Status post cycle 1 carboplatin, paclitaxel and bevacizumab. 2. Hemoptysis. 3. Rapidly progressing metastatic nonsmall cell lung cancer. 4. Hypoalbuminemia. 5. Malignant pleural effusion. 6. Intractable skeletal pain. PLAN: Margaux received her initial course of chemotherapy. As long as she is stable in the next 24 hours, would recommend sending her home with the appropriate antiemetics, Zofran 8 mg p.o. t.i.d. p.r.n. and provide Compazine 10 mg p.o. q. 6 hours as well. Again, Margaux and family members were informed of the severity and potential risk of disease progression, particularly exsanguination. Agree with pulmonary service, probably very little can be done and hopefully starting cytotoxic chemotherapy will prove to be beneficial. Her pain seems to be well controlled and again I was surprised how well she appeared this morning, which I think some of that may be dexamethasone effect. That said, we will continue to follow her closely during her stay. Dr. Calloway will cover over the weekend should she remain in house. I have nothing further to add at this time. Thank you again for allowing me to participate in her care.
--- NOTE | 2018-11-26 12:54 | Hospitalist Progress Note ---
Date of Service November 26, 2018 Assessment & Plan (1) Non-small cell lung cancer with metastasis: advancing quickly, d/w Dr. Albert, very aggressive cancer very poor prognosis now with hemoptysis, pneumonia, effusion, mets to spine, lung, liver and brain received initial dose of chemotherapy on 11/25, tolerated well, no immediate side effects would not need further treatment for 3 weeks can follow up with Dr. Albert for port placement okay with Dr. Albert if she goes home tomorrow morning, follow up with Dr. Albert in the office palliative care to see today patient is DNR status will assist in POLST completion, hospice/support at home, answering questions for family members (2) Hemoptysis: due to metastatic non small cell lung CA CT chest shows encroachment of the pulmonary arteries bronchoscopy by Dr. Wheeler today, extensive malignant tissue blood oozing in several areas will continue to have hemoptysis will provide Robitussin to help patient sleep continue Zosyn to treat possible post obstructive pneumonia (3) Metastatic cancer to lung: evidence of local spread with pleural effusion salvage chemo given on 11/25 (4) Postobstructive pneumonia: left upper lobe no fever, normal WBC yesterday and today will treat with Zosyn for 7 days, today is day 3 change to Augmentin BID on discharge (5) Bony metastasis: just completed palliative radiation still in severe pain increased Fentanyl to 50mcg patch, Oxycodone PRN Dilaudid 1mg IV PRN for breakthrough pain is much improved today, likely from Fentanyl patch palliative will see today, can give further recs (6) Pathologic compression fracture of spine: pain control, see above (7) Pleural effusion, left: due to malignancy Dr. Wheeler with pulmonary drained 900mL on 11/24 patient had pain so procedure stopped may be candidate for PleurX in future since effusion will continue to accumulate (8) Pain due to malignant neoplasm metastatic to bone: Fentanyl patch and Oxycodone Dilaudid PRN (9) Hypertension: radiation therapy completed, continue pain management and bowel regimen (10) Anxiety: (11) Hypotension: occurred after bronch allow patient to lay flat NSS bolus given stop Losartan/HCTZ BP better today likely stop at least the HCTZ on discharge, perhaps Losartan as well if BP acceptable she will be prone to dehydration with chemo and want to avoid TREVA (12) Hypokalemia: resolved, up to 3.7 today stop IV fluids Subjective patient feeling better today, says pain is improved RN said that she got up OOB today without issues, walked to bathroom patient wants to take a walk in the hallway today still with cough and hemoptysis, sputum a little thinner today she tolerated chemotherapy well yesterday, no immediate side effects reviewed labs, CBC shows normal WBC and Hb is 11, stable BMP shows normal Cr and electrolytes discussed with Dr. Albert, would observe patient additional 24 hours and if still feeling well would send home will discuss with Dr. Wheeler discussed with patient that palliative care will see today discuss plans for POLST, goals of care patient understands that any treatment is palliative in nature, trying to give her more time she agrees with quality over quantity of life Review of Systems Review of Systems: All systems reviewed & are unremarkable except as noted in HPI & below Constitutional: + weight loss; no fever, no chills, no sweats, no fatigue, no weakness and no anorexia Respiratory: + cough, + dyspnea on exertion, + hemoptysis and + sputum production Cardiovascular: no chest pain and no edema Gastrointestinal: no abdominal pain, no nausea, no vomiting, no constipation and no diarrhea/loose stools Musculoskeletal: + back pain (better today) Physical Exam Constitutional: well developed and + thin; no acute distress Eyes: PERRL, conjunctivae normal, anicteric sclerae ENMT: external ear and nose normal, oropharynx normal Neck: trachea midline, no thyromegaly Respiratory: normal respiratory effort; no respiratory distress Auscultation: + diminished lung sounds (left base) and + rhonchi (bilaterally); no rales and no wheezes Cardiovascular: RRR, no murmur, no edema Gastrointestinal (Abdomen): normal bowel sounds, soft, nontender, no hepatosplenomegaly Musculoskeletal: Head/Neck/Chest: normocephalic and head atraumatic Spine: + limited thoraco-lumbar ROM (due to pain) Extremities: extremities normal to inspection and strength 5/5 throughout Skin: no rashes, warm and dry Neurologic: patellar DTR's 2+ bilat, sensation intact and PERRL, EOMI, accommodation nl, no face palsy, no dysarthria Psychiatric: A+Ox3, euthymic affect Lymphatic: no cervical or axillary lymphadenopathy Results & Data Vital Signs (Past 12 Hours) Vital Signs Temp Pulse Pulse Resp BP BP Pulse Ox 11/26/18 11:29 36.7 C 66 20 119/76 93 11/26/18 07:07 36.7 C 75 18 148/90 H 93 11/26/18 04:00 36.7 C 78 20 165/89 H 92 11/26/18 01:10 70 Laboratory Results Laboratory Results - last 24 hr 11/26/18 11/26/18 07:11 07:11 WBC 6.71 RBC 3.93 L Hgb 11.6 L Hct 33.9 L MCV 86.3 MCH 29.5 MCHC 34.2 RDW Std Deviation 39.8 RDW Coeff of [place] 12.5 Plt Count 226 MPV 11.8 H Immature Gran % (Auto) 0.1 Neut % (Auto) 90.2 Lymph % (Auto) 3.6 [place] % (Auto) 6.1 Eos % (Auto) 0.0 Baso % (Auto) 0.0 Immature Gran # (Auto) 0.01 Neut # (Auto) 6.05 Lymph # (Auto) 0.24 L [place] # (Auto) 0.41 Eos # (Auto) 0.00 Baso # (Auto) 0.00 Sodium 140 Potassium 3.7 Chloride 106 Carbon Dioxide 31 Anion Gap 3.0 BUN 7 Creatinine 0.40 L Est Cr Clr Drug Dosing 114.9 Est GFR ( Amer) 129.4 Est GFR (Non-Af Amer) 111.6 BUN/Creatinine Ratio 18.3 Glucose 113 H Calcium 8.4 L Total Bilirubin 0.5 AST 21 ALT 13 Alkaline Phosphatase 125 H Total Protein 6.1 L Albumin 2.1 L Globulin 4.0 Albumin/Globulin Ratio 0.5 L Medications Administered Current Inpatient Medications Cetirizine HCl (Zyrtec) 5 mg PO QAM [facility] Stop: 12/23/18 15:59 Last Admin: 11/26/18 08:42 Dose: Not Given Documented by: Docusate Sodium (Colace) 100 mg PO BID PREM Stop: 12/23/18 20:59 Last Admin: 11/26/18 08:05 Dose: 100 mg Documented by: Estrogens Conjugated (Premarin) 0.625 mg PO DAILY PREM Stop: 12/26/18 08:59 Last Admin: 11/26/18 08:05 Dose: 0.625 mg Documented by: Fentanyl (Duragesic) 50 mcg TD Q3D@1230 [facility] Stop: 12/09/18 12:29 Last Admin: 11/25/18 12:53 Dose: 50 mcg Documented by: Guaifenesin/Codeine Phosphate (Robitussin-Ac Sugar Free) 10 ml PO Q6H PRN PRN Reason: Cough Stop: 12/24/18 09:12 Hydromorphone HCl (Dilaudid) 0.5 mg IV Q4 PRN PRN Reason: Pain Stop: 12/09/18 11:53 Piperacillin Sod/Tazobactam (Sod 3.375 gm/ Dextrose) 115 mls @ 28.75 mls/hr IV Q8H [facility]; Protocol Stop: 12/01/18 15:59 Last Infusion: 11/26/18 12:44 Dose: Infused Documented by: Medroxyprogesterone Acetate (Provera) 2.5 mg PO DAILY [facility] Stop: 12/26/18 08:59 Last Admin: 11/26/18 08:05 Dose: 2.5 mg Documented by: Miscellaneous (Fentanyl Patch Check Placement) 1 ea N/A QS [facility] Stop: 12/24/18 15:59 Last Admin: 11/26/18 08:04 Dose: 1 ea Documented by: Miscellaneous (Fentanyl Patch Remove & Waste) 1 ea N/A Q3D@1229 [facility] Stop: 12/28/18 12:28 Miscellaneous Information (Consult) 1 ea N/A UD PRN PRN Reason: Consult Stop: 12/24/18 09:04 Oxycodone HCl (Roxicodone Immediate Rel) 5 mg PO Q4H PRN PRN Reason: moderate pain Stop: 12/07/18 21:32 Last Admin: 11/24/18 19:18 Dose: 5 mg Documented by: Promethazine HCl (Phenergan) 25 mg PO Q6H PRN PRN Reason: nausea and vomiting Stop: 12/23/18 15:15 Sennosides (Senokot) 8.6 mg PO QAM [facility] Stop: 12/23/18 15:59 Last Admin: 11/26/18 08:05 Dose: 8.6 mg Documented by: PG Care Time/CCT Total # of Minutes Spent Total Time Spent with Patient: Total time spent is greater than 50% in coordination of care (as documented) at patient's floor/unit and/or counseling patient: (1) Metastatic cancer to lung Laterality: unspecified laterality Qualified Code(s): C78.00 - Secondary malignant neoplasm of unspecified lung (2) Pathologic compression fracture of spine Encounter type: initial encounter Qualified Code(s): M48.50XA - Collapsed vertebra, not elsewhere classified, site unspecified, initial encounter for fracture (3) Hypertension Hypertension type: essential hypertension Qualified Code(s): I10 - Essential (primary) hypertension
--- NOTE | 2018-11-26 13:43 | Pulmonology Progress Note ---
Date of Service November 26, 2018 Assessment & Plan (1) Hemoptysis: Impression: A 63-year-old female with advanced non-small cell lung cancer status post palliative radiation to spinal mets presenting now with 3 to 4 days of hemoptysis, shortness of breath, cough, and increasing left pleural effusion. Plan: 1. Unfortunately limited options exist for the patient's hemoptysis. If it becomes severe progressive, consideration for angiography with potential embolization may be appropriate although that is not available at this facility and would require transfer which the patient is not particularly enthusiastic about. Continue to avoid anticoagulation at this point in time. It does seem reasonable to complete a course of oral antibiotics in the event there is infection. The patient is at risk for postobstructive pneumonia. A 10-day course of Augmentin would be appropriate.. (2) Pleural effusion, left: Plan: 1. Malignant cells identified on pleural fluid. We discussed options to include Pleurx catheter placement versus serial thoracentesis. The patient states that she feels well currently and does not want to avoid additional procedures for now. This seems reasonable. I would be happy to see her back in clinic and arrange for an outpatient Pleurx catheter if needed. (3) Acute hypoxemic respiratory failure: Plan: 1. Wean oxygen as tolerated. The patient may require supplemental oxygen at discharge. (4) Abnormal CT scan of lung: Plan: 1. Palliative care meeting with patient. I discussed with the patient that her malignancy is not curable but is treatable. It is reasonable to pursue palliation of symptoms especially her back pain. She expressed understanding that this malignancy will likely take her life. She is contemplating CODE STATUS and will discuss with her family. Subjective Patient states that she is feeling markedly better. She continues to experience mild intermittent hemoptysis. This is not significantly changed from pre- bronchoscopy. She feels her shortness of breath is better and she is ambulating. She received her first dose of chemotherapy and tolerated it well. Her medical history and review of systems are otherwise unchanged. Review of Systems Review of Systems: Unchanged from prior Physical Exam Constitutional: well developed and + ill appearing ENMT: Mallampati Class: II Neck: trachea midline, no thyromegaly Cardiovascular: RRR, no murmur, no edema Gastrointestinal (Abdomen): normal bowel sounds, soft, nontender, no hepatosplenomegaly Skin: no rashes, warm and dry Results & Data Vital Signs (Past 12 Hours) Vital Signs Temp Pulse Resp BP BP Pulse Ox 11/26/18 11:29 36.7 C 66 20 119/76 93 11/26/18 07:07 36.7 C 75 18 148/90 H 93 11/26/18 04:00 36.7 C 78 20 165/89 H 92 PG Care Time/CCT Total # of Minutes Spent Total Time Spent with Patient: Total time spent is greater than 50% in coordination of care (as documented) at patient's floor/unit and/or counseling patient: Critical Care Time: Yes Total Critical Care Time: 40 40 minutes critical care time including end-of-life discussions.
[2018-11-26] MEDS ORDERED: TRAMADOL HCL 50 MG TABLET PO PRN (14:27)
[2018-11-26] MEDS ORDERED: TRAMADOL HCL 50 MG TABLET ONE (14:31)
[2018-11-26] MEDS: AMOXICILLIN/CLAVULANATE 875 MG TAB PO SCH (18:01)
--- NOTE | 2018-11-26 20:33 | Progress Note ---
DATE: 11/26/2018 Ms. Gonsalez was seen today on 11/26/2018. I discussed this case in detail with Dr. Albert. The patient is going to be treated with chemotherapy for palliation. I discussed her hemoptysis and stated that there would be very little for us to do. At this point, I really do not have anything to offer her other than offering her a PleurX catheter if necessary. We will follow along.
[2018-11-27] MEDS: AMOXICILLIN/CLAVULANATE 875 MG TAB PO SCH (05:51)
[2018-11-27 06:44] LABS: Eosinophils # (auto) 0.04 K/uL (0-0.5); Eosinophils % (auto) 0.5 %; Hematocrit (blood only) 33.1 % (37-47); Hemoglobin 11.3 g/dL (12.0-16.0); Immature Granulocytes # (auto) 0.02 K/uL (0.00-0.02); Immature Granulocytes % (auto) 0.2 %; Lymphocytes # (auto) 0.46 K/uL (1.2-3.4); Lymphocytes % (auto) 5.3 %; Mean Corpuscular Hgb Conc 34.1 g/dL (32-36); Mean Corpuscular Volume 88.5 fL (80-100); Mean Platelet Volume 11.8 fL (7.4-10.4); Monocytes # (auto) 0.22 K/uL (0.11-0.59); Monocytes % (auto) 2.5 %; Neutrophils # (auto) 7.98 K/uL (1.4-6.5); Neutrophils % (auto) 91.5 %; Platelet Count 179 K/uL (130-400); RDW Coefficient of Variation 12.7 % (11.5-14.5); RDW Standard Deviation 40.9 fL (36.4-46.3); Red Blood Count 3.74 M/uL (4.2-5.4); White Blood Count 8.72 K/uL (4.8-10.8)
[2018-11-27 07:21] LABS: BUN Creatinine Ratio 37.6 (10-20); Calcium 8.1 mg/dl (8.5-10.1); Creatinine Clr Calc Pharmacy 179.2 ml/min; Est GFR (African American) 149.1; Est GFR (Non-African American) 128.6; Potassium 3.3 mmol/L (3.5-5.1)
[2018-11-27 07:24] LABS: Albumin Globulin Ratio 0.6 (0.9-2); Bilirubin,Total 0.4 mg/dl (0.2-1); Globulin 3.5 gm/dl (2.5-4.0); Total Protein 5.5 gm/dl (6.4-8.2)
[2018-11-27] MEDS: DOCUSATE SODIUM 100 MG CAP PO SCH ×2 (07:55→20:13)
[2018-11-27] MEDS: SENNA 8.6 MG TAB PO SCH (07:56)
[2018-11-27] MEDS: CETIRIZINE HCL 10 MG TABLET PO SCH (07:56)
[2018-11-27] MEDS: MEDROXYPROGESTERONE ACETATE 2.5 MG TAB PO SCH (07:56)
[2018-11-27] MEDS: ESTROGENS, CONJUGATED 0.625 MG TAB PO SCH (07:56)
--- NOTE | 2018-11-27 07:58 | XRay Report ---
XR chest 1V portable HISTORY: 63 years-old Female Hypoxia increased congestion? Acute hypoxia COMPARISON: Chest radiograph 11/24/2018, CTA of the chest 11/23/2018. TECHNIQUE: Portable AP view of the chest FINDINGS: Progressive opacities of the left hemithorax, now with near complete opacification. Midline mediastin al structures. Calcified plaque of the thoracic aorta. Additionally, there are progressive alveolar o pacities of the right upper lobe. Emphysema. No pneumothorax. Unchanged subtle opacities of the media l right lung base redemonstrated. Cardiac silhouette is unchanged. Bones appear grossly intact. IMPRESSION: 1. Progressive opacities of the left hemithorax, now with near complete opacification secondary to an admixture of alveolar disease with pleural effusion. 2. Worsened alveolar opacities of the right upper lobe. 3. Emphysema. The above report was generated using voice recognition software. It may contain grammatical, syntax o r spelling errors. Electronically signed by: Francesco Lazar M.D. 11/27/2018 7:57 AM
[2018-11-27] MEDS: CHECK FENTANYL PATCH PLACEMENT SCH ×3 (09:06→23:26)
--- NOTE | 2018-11-27 10:04 | Palliative Care Progress Note ---
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 Patient was just recently in the hospital for original complaint of ear pain and back pain. X-ray was abnormal so she underwent a CT scan. CT scan showed a left upper lobe mass of right upper lobe lesion as well as increased adenopathy, liver mets, bone mets and spine mets. Patient underwent liver biopsy on 11/05-was positive for adenocarcinoma of the lung primary. Patient was seen by Dr. Albert, was waiting for biomarkers to result and was sent home. Patient had another CTA chest during this admission which showed large left pleural effusion and progression of disease. She has been seen by our slat basket maker machine who performed thoracentesis and bronchoscopy. Bronch revealed very friable tissue but no active bleeding during the procedure. She is now being monitored for any further bleeding, reaccumulation of fluid, or any discomfort. Patient was started on chemotherapy while inpatient yesterday 11/25. She received carboplatin, Bevacizumab, and paclitaxel. She tolerated well so far. Patient has been experiencing back pain from the metastatic disease as well, she is now on fentanyl patch. Given patient's extensive and incurable disease, palliative care is consulted to discuss goals and help manage symptoms. -I met with patient in room 251-1. Patient had just ambulated from the bathroom with the PAPER GRADER and returned to her bed. -Patient states "Some days I feel like I am getting better, and some days I feel that I am getting worse" -Patient states that her pain continues to be well controlled - continue Fentanyl patch 50mcg/hour . Would be hesitant at this point to decrease Fentanyl patch to determine if it is causing drowsiness since her pain is well controlled. Will monitor. -Patient is on oxymask at 9L which is an increased need from yesterday. Pt SPO2 90% at rest. Patient having intermittent hemoptysis. -We discussed CODE STATUS, explaining DNR, etc. Patient asked "do you want to make me comfortable now?" Expressed we would not resuscitate in the event she lost a pulse or was not breathing and make her comfortable, but right now she is a full code and explained what that means. She paused and stated she wanted to talk to her daughters about it. She did phone one of her daughters and requested privacy, hospitalist spoke with the daughters thereafter along with one of the sisters and confirmed DNR status. -Patient does not have an official POA documented; however, had a discussion with the hospitalist appointing Stacy as her appointed decision maker. Although the patient can have meaningful conversation, the complexity of her illness appears to be causing confusion for her. -Patient appears oriented today, but mostly talking with her eyes closed. -Plan was for discharge today, with her worsening breathing and oxygen needs, I see that she has declined more rapidly than anticipated, with a likely demise in the hospital. -The patients CXR is worsening and pulmonary saw the patient and performed a thoracentesis with a pleur-x catheter placement. -The patients condition has shown marked decline, although patient is relatively comfortable with her breathing. -As the patient has Morphine listed as an allergy, could consider Roxicodone 5mg SL Q2 PRN for pain/air hunger if needed. Likely, unless Morphine caused anaphylaxis, could be used towards end of life. -Would have a low threshold to start a Morphine (if patient family is comfortable) or Dilaudid drip if the PRN does not provide relief. -PPS: 20% (2) Non-small cell lung cancer with metastasis: (3) Bony metastasis: (4) Hemoptysis: Subjective Patient states today that she is 'really tired'. She does not have an appetite today and continues to experience intermittent hemoptysis. Patient received her first dose of chemotherapy on 11/25 Patient states her breathing is no worse nor better in her opinion today. No family at bedside for visit. See A/P for further details. Review of Systems Respiratory: + cough and + hemoptysis Musculoskeletal: + back pain Physical Exam Constitutional: + ill appearing, + thin and + lethargic Eyes: PERRL, conjunctivae normal, anicteric sclerae ENMT: external ear and nose normal, oropharynx normal Respiratory: symmetric chest movement Auscultation: + rhonchi Cardiovascular: RRR, no murmur, no edema Gastrointestinal (Abdomen): normal bowel sounds, soft, nontender, no hepatosplenomegaly Skin: normal turgor Psychiatric: Orientation: alert, oriented x 3 and cooperative Affect: + flat affect Insight: + limited insight Judgement: + limited judgement Genitourinary: DTV ambulates to bathroom Lymphatic: no cervical or axillary lymphadenopathy Results & Data Vital Signs (Past 12 Hours) Vital Signs Temp Pulse Pulse Resp BP BP Pulse Ox 11/27/18 06:52 37.2 C 77 17 123/73 90 11/27/18 04:05 91 11/27/18 03:10 20 90 11/27/18 02:44 36.8 C 88 16 135/75 79 L 11/26/18 23:35 68 11/26/18 23:15 37.2 C 76 19 127/72 91 Supervising Physician Co-Signing Physician Notes Patient seen and examined on 2 separate occasions today. On first visit patient had her sister and 2 nieces at bedside, and second visit she had 3 sisters present and a niece. Patient's medical decision maker is her daughter Stacy, patient's sisters may receive information and provide support for the daughter. Offered to show the sisters her x-rays if they wished-the did want to see them-reviewed her chest x- ray from October compared to her CT angiogram as well as her x-rays from earlier this morning and after her pleural tap. Her x-rays illustrate the rapid progression of her disease. Patient's sisters were appreciative of the information and have a better understanding of her current condition and prognosis. This allowed the family to make decisions as far as providing support and staying locally at this time. PE: Patient arousable, appears comfortable on O2 at 9 L via oxygen mask HEENT: EOMI, hearing within normal limits Respirations: Unlabored, diminished breath sounds all diaz CV: Regular rate Agree with above note, assessment and plan as per SUSANNA Booth-will provide support to family with medical decision making. Dr. Basilio spoke with daughter regarding CODE STATUS-patient is now a DNR. PG Care Time/CCT Total # of Minutes Spent Total Time Spent with Patient: Total time spent is greater than 50% in coordination of care (as documented) at patient's floor/unit and/or counseling patient: 35 Prolonged Care Time Prolonged Care Time: Yes Total Prolonged Care Time: 40 Time Spent Midlevel Total time spent 35 minutes with > 50% of that time spent assessing the patient and discussing symptom management Attending Spent 40 minutes on 2 separate visits in addition to the 35 minutes spent by INTERNET DESIGNER for a total of 75 minutes with greater than 50% of the time spent at bedside discussing patient's current condition and prognosis with family. Critical Care Time Prolonged Care Time Prolonged Care Time: Yes Total Prolonged Care Time: 40 75
--- NOTE | 2018-11-27 11:07 | Progress Note ---
DATE: 11/27/2018 MEDICAL ONCOLOGY PROGRESS NOTE DIAGNOSES: 1. Hemoptysis. 2. Intractable skeletal pain, improved. 3. Progressing metastatic pmg-ohabm-udou lung cancer. 4. Hypoalbuminemia. 5. Malignant left pleural effusion. SUBJECTIVE: Margaux was seen and examined at bedside this morning. According to Margaux, had a rough night with persistent cough, production of bloody sputum. She was also put on a nonrebreather. Pulse ox presently in the low 90s. The patient is now status post day 2 of carboplatin, paclitaxel, and bevacizumab. She admits to not sleeping well overnight because of persistent cough. Patient reports no overnight difficulties. OBJECTIVE: GENERAL: Pleasant 63-year-old female in no acute distress. VITAL SIGNS: Temperature WNL,pulse 77, respiratory rate 17, pulse ox 90% on 9 liters per minute, blood pressure 123/73. SKIN: Without rash. HEENT: Oral mucosa is dry. No buccal lesions or ulcerations. HEART: Regular rate and rhythm. LUNGS: Coarse rhonchi heard throughout all lung diaz, more prevalently in the right. ABDOMEN: Soft, nontender, nondistended. EXTREMITIES: No clubbing, cyanosis, or edema. NEUROLOGIC: Grossly intact. LABORATORY DATA: WBC count 8720, hemoglobin 10.3, platelet count 179, sodium 142, potassium 3.3, chloride 105, carbon dioxide 33, BUN 10, creatinine 0.26, albumin 2. IMPRESSION: 1. Hypoxia. 2. Worsening hemoptysis. 3. Intractable skeletal pain. 4. Progressive metastatic zgn-ielas-nwnk lung cancer. 5. Hypoalbuminemia. 6. Malignant left pleural effusion. PLAN: Margaux had a rough evening with persistent cough and watery hemoptysis as she describes it. Her auscultated exam is markedly abnormal today. We will obtain stat chest x-ray. Perhaps bronchodilators, nebulized, may be helpful. She denies feeling nauseated. No overnight fever is reported. Continue supportive care including supplemental oxygen as prescribed. We will discuss with hospitalist service sometime today. Thank you again for allowing me to participate in her care. KAMILLE
--- NOTE | 2018-11-27 12:09 | Pre Anesthesia Assessment ---
Date of Service November 27, 2018 Pre Sedation Assessment Vital Signs Temp Pulse Pulse Pulse Pulse Pulse Pulse 11/27/18 12:00 81 11/27/18 11:55 82 11/27/18 11:50 83 11/27/18 11:45 82 11/27/18 11:40 81 11/27/18 11:35 81 11/27/18 11:30 80 11/27/18 11:25 81 11/27/18 11:23 82 11/27/18 11:16 36.9 C 89 11/27/18 06:52 37.2 C 77 11/27/18 04:05 11/27/18 03:10 11/27/18 02:44 36.8 C 88 11/26/18 23:35 68 11/26/18 23:15 37.2 C 76 11/26/18 19:00 36.7 C 83 11/26/18 17:19 72 11/26/18 16:13 76 89 69 76 11/26/18 14:47 36.6 C 69 Resp Resp Resp Resp Resp BP BP 11/27/18 12:00 16 112/66 11/27/18 11:55 18 116/86 11/27/18 11:50 18 121/72 11/27/18 11:45 18 102/83 11/27/18 11:40 16 113/77 11/27/18 11:35 16 123/77 11/27/18 11:30 16 123/77 11/27/18 11:25 18 152/82 H 11/27/18 11:23 18 133/82 11/27/18 11:16 20 134/76 11/27/18 06:52 17 123/73 11/27/18 04:05 11/27/18 03:10 20 11/27/18 02:44 16 135/75 11/26/18 23:35 11/26/18 23:15 19 127/72 11/26/18 19:00 24 154/89 H 11/26/18 17:19 11/26/18 16:13 16 22 16 16 11/26/18 14:47 20 131/81 Pulse Ox Pulse Ox Pulse Ox Pulse Ox Pulse Ox 11/27/18 12:00 92 11/27/18 11:55 92 11/27/18 11:50 91 08/09/19 11:45 92 11/27/18 11:40 92 11/27/18 11:35 92 11/27/18 11:30 92 11/27/18 11:25 90 11/27/18 11:23 92 11/27/18 11:16 92 11/27/18 06:52 90 11/27/18 04:05 91 11/27/18 03:10 90 11/27/18 02:44 79 L 11/26/18 23:35 11/26/18 23:15 91 11/26/18 19:00 92 11/26/18 17:19 11/26/18 16:13 92 90 93 79 L 11/26/18 14:47 94 Pre-Sedation Airway Assessment Smoking Status: Former smoker (QUIT 10/2018; SMOKED FOR 47 YEARS) Hx Sleep Apnea: No Short, Thick Neck: No Thyromental Distance: > or= 3.5 Finger Breadths Oral Cavity: + WNL Mallampati Class: II ASA: ASA2 NPO Status Date of Last Intake of Fluids: 11/27/18 Time of Last Intake of Fluids: 17:00 Last Oral Intake of Fluids Comment: some sips with medication Date of Last Intake of Solid Food: 11/27/18 Time of Last Intake of Solid Foods: 00:00 Notes The planned sedation has been discussed with the patient. Informed Consent was obtained. I have identified the patient, determined the appropriateness of s edation and have assessed the patient immediately prior to the procedure. All medicine(s) and interventions are by my order.
--- NOTE | 2018-11-27 12:10 | Post Anesthesia Assessment ---
Date of Service November 27, 2018 Post Sedation Assessment Vital Signs Temp Pulse Pulse Pulse Pulse Pulse Pulse 11/27/18 12:00 81 11/27/18 11:55 82 11/27/18 11:50 83 11/27/18 11:45 82 11/27/18 11:40 81 11/27/18 11:35 81 11/27/18 11:30 80 11/27/18 11:25 81 11/27/18 11:23 82 11/27/18 11:16 36.9 C 89 11/27/18 06:52 37.2 C 77 11/27/18 04:05 11/27/18 03:10 11/27/18 02:44 36.8 C 88 11/26/18 23:35 68 11/26/18 23:15 37.2 C 76 11/26/18 19:00 36.7 C 83 11/26/18 17:19 72 11/26/18 16:13 76 89 69 76 11/26/18 14:47 36.6 C 69 Resp Resp Resp Resp Resp BP BP 11/27/18 12:00 16 112/66 11/27/18 11:55 18 116/86 11/27/18 11:50 18 121/72 11/27/18 11:45 18 102/83 11/27/18 11:40 16 113/77 11/27/18 11:35 16 123/77 11/27/18 11:30 16 123/77 11/27/18 11:25 18 152/82 H 11/27/18 11:23 18 133/82 11/27/18 11:16 20 134/76 11/27/18 06:52 17 123/73 11/27/18 04:05 11/27/18 03:10 20 11/27/18 02:44 16 135/75 11/26/18 23:35 11/26/18 23:15 19 127/72 11/26/18 19:00 24 154/89 H 11/26/18 17:19 11/26/18 16:13 16 22 16 16 11/26/18 14:47 20 131/81 Pulse Ox Pulse Ox Pulse Ox Pulse Ox Pulse Ox 11/27/18 12:00 92 11/27/18 11:55 92 11/27/18 11:50 91 08/09/19 11:45 92 11/27/18 11:40 92 11/27/18 11:35 92 11/27/18 11:30 92 11/27/18 11:25 90 11/27/18 11:23 92 11/27/18 11:16 92 11/27/18 06:52 90 11/27/18 04:05 91 11/27/18 03:10 90 11/27/18 02:44 79 L 11/26/18 23:35 11/26/18 23:15 91 11/26/18 19:00 92 11/26/18 17:19 11/26/18 16:13 92 90 93 79 L 11/26/18 14:47 94 Recovery Score Activity: Moves 4 extremities Respiration: Deep Breath/Cough Circulation: +/-20% PreAnes Value Consciousness: Arouseable (by name) Oxygen Saturation: O2 needed for >90% Post Anesthesia Score: 8 Post Sedation Plan On clinical assessment, the patient appears to have tolerated the sedation without complications. Patient is recovering as anticipated. Patient will continue to be monitored by nursing and may be discharged when sedation discharge criteria are met per below protocol. Upon Completions of procedure and additional 15 minutes continue every 5 minute vital signs and the P.A.R. score; then discharge to a Phase I or Fast Track to Phase II per the following guidelines: * Discharge Patient to appropriate Phase II area if PAR is 8 or greater or return to pre- procedure baseline. The post - procedure orders will be as directed. * If PAR score is less than 8 or not return to pre-procedure baseline then patient will follow Phase I monitoring till PAR is reached for Phase II. The Phase I may be done in procedure room or may call to secure a Phase I area. * If naloxone or flumazenil are used for reversal, hold in Phase I for continued monitoring from when last reversal dose was given for a minimum of 60 minutes or longer pending the nurse and/or physician discretion of patient condition before discharge to Phase II. Please call the Sedation Physician to re-evaluate and complete post-note for discharge to Phase II area. Do NOT discharge from procedure sedation or Phase 1 until post- sedation evaluation note is complete by procedure /sedation MD Sedation Discharge Instructions to be given to the patient at discharge to home.
--- NOTE | 2018-11-27 12:14 | Procedure Note ---
Procedure Note Date of Service November 27, 2018 Procedure: Ultrasound guided left Pleurx catheter placement. Indication: Recurrent malignant effusion Consent: Signed by patient and verified with timeout prior to procedure. Anesthesia: 15 mL's 1% lidocaine without epinephrine locally. Sedation: 75 mcg fentanyl, 2 mg Versed. Sedation start: 1125 AM Sedation and: 12:15 PM Retail Analytics Manager: Dr. Srinivas Wheeler Procedure: The patient was brought to the sedation unit. Standard monitoring was applied. Appropriate radiographic films have been reviewed prior to commencement of the procedure. Risks and benefits were again discussed with patient consent was verified. The patient was placed in the left side up lateral decubitus position. Limited thoracic ultrasound was performed which revealed a large left-sided pleural effusion with atelectatic flapping along. Site appropriate for the pleurotomy was marked. Skin was prepped and draped in normal sterile fashion. Using 1% lidocaine, the skin and soft tissues down to the pleura were anesthetized. A tract extending approximately 8 to 10 cm anteriorly under the left breast was al so infiltrated and a site appropriate for the exit of the Pleurx catheter was marked. A 1 cm skin kylee was made at the posterior site. The catheter over the needle apparatus was advanced into the pleural space with pleural fluid easily aspirated. A wire was passed through the catheter after the needle was removed. The Pleurx catheter was then loaded on the dilating mechanism. A 1cm skin incision was made at the anterior chlorax exit site. Pleurx catheter was then passed over the dilator from the anterior incision back through the posterior incision. Serial dilatation was then performed over the wire with the pull-away catheter being left in place. The Pleurx was removed from the dilating mechanism and advanced through the peel-away catheter. The catheter was then removed. The Pleurx catheter course was palpated and no kinks were felt. It was attached to wall suction and a total of 1200 mL's was removed. Using 1-0 silk, 2 stitches were placed at the exit Pleurx site and the catheter secured in place. 2 small Vicryl sutures were used to close the posterior incision. A sterile dressing was applied. The patient tolerated the procedure well without obvious complication. Post procedure x-ray is pending. Estimated blood loss: Less than 10 mL'sOperator: Dr. Srinivas Wheeler Procedure: The patient was brought to the sedation unit. Standard monitoring was applied. Appropriate radiographic films have been reviewed prior to commencement of the procedure. Risks and benefits were again discussed with patient consent was verified. The patient was placed in the left side up lateral decubitus position. Limited thoracic ultrasound was performed which revealed a large left-sided pleural effusion with atelectatic flapping along. Site appropriate for the pleurotomy was marked. Skin was prepped and draped in normal sterile fashion. Using 1% lidocaine, the skin and soft tissues down to the pleura were anesthetized. A tract extending approximately 8 to 10 cm anteriorly under the left breast was also infiltrated and a site appropriate for the exit of the Pleurx catheter was marked. A 1 cm skin kylee was made at the posterior site. The catheter over the needle apparatus was advanced into the pleural space with pleural fluid easily aspirated. A wire was passed through the catheter after the needle was removed. The Pleurx catheter was then loaded on the dilating mechanism. A 1cm skin incision was made at the anterior chlorax exit site. Pleurx catheter was then passed over the dilator from the anterior incision back through the posterior incision. Serial dilatation was then performed over the wire with the pull-away catheter being left in place. The Pleurx was removed from the dilating mechanism and advanced through the peel-away catheter. The catheter was then removed. The Pleurx catheter course was palpated and no kinks were felt. It was attached to wall suction and a total of 1200 mL's was removed. Using 1-0 silk, 2 stitches were placed at the exit Pleurx site and the catheter secured in place. 2 small Vicryl sutures were used to close the posterior incision. A sterile dressing was applied. The patient tolerated the procedure well without obvious complication. Post procedure x-ray is pending. Estimated blood loss: Less than 10 mL's Coding CPT Codes Sedation/Anesthesia - Sedation/Anesthesia: Mod Sedation by the same physician;Init15 Min Child Age 5 & Up ([id number]) Sedation/Anesthesia - Sedation/Anesthesia: Mod Sedation by the same physician; Ea [id number] Minutes ([id number]) Pulmonary/Thoracic - Pulmonary and Thoracic: Insert pleural cathereter w/cuff ([id number]) Pulmonary/Thoracic - Pulmonary and Thoracic: US, Chest, real time with imaging documentation ([id number])
[2018-11-27] MEDS ORDERED: fentaNYL citrate 100 MCG/2 ML VIAL IV ONE (12:18)
[2018-11-27] MEDS ORDERED: MIDAZOLAM HCL 5 MG/ML VIAL IV STA (12:18)
--- NOTE | 2018-11-27 12:29 | Pulmonology Progress Note ---
Date of Service November 27, 2018 Assessment & Plan (1) Hemoptysis: Impression: A 63-year-old female with advanced non-small cell lung cancer status post palliative radiation to spinal mets presenting now with 3 to 4 days of hemoptysis, shortness of breath, cough, and increasing left pleural effusion. Plan: 1. Unfortunately limited options exist for the patient's hemoptysis. Completing antibiotics would be reasonable but I do not think there are other interventions available for this patient. I discussed briefly with thoracic surgery who agrees with my assessment. Angiography would be difficult at best. I think given the extensive nature of her disease, radiation therapy would be difficult as the field would have to be extremely large. (2) Pleural effusion, left: Plan: 1. Malignant cells identified on pleural fluid. The pleural fluid is reaccumulated. I discussed a Pleurx catheter with the patient when she was in agreement. This was placed today. She now has a slight pneumo ex vacuo as the lung is unlikely to expand due to intrinsic tumor. Can continue to drain for palliative reasons. (3) Acute hypoxemic respiratory failure: Plan: 1. Oxygen requirements of increased. We will see how she does with drainage of the pleural fluid but I am not optimistic. She now appears to be developing an infiltrate in the right upper lobe consistent with pneumonia. Continue antibiotics. (4) Abnormal CT scan of lung: Plan: 1. Palliative care meeting with patient. I believe the patient's condition is likely to progress. I doubt that chemotherapy is going to be highly effective in improving her functional outcome. It is unclear if the patient will make it out of the hospital at this point in time. Agree with continued palliative care efforts. I think should the patient developed harris respiratory failure, mechanical ventilation and intubation would not likely be beneficial with regards to her long-term prognosis and outcome. DNR/DNI status would be appropriate. Subjective Notified by hospitalist the patient had a change in her x-ray. I reviewed the x-ray which reveals a whiteout of the left hemithorax. The patient has had an increasing requirement and oxygen. Earlier this morning she complained of some mild tightness in her chest. She is having continued hemoptysis. She reports no significant discomfort and does not feel that her breathing is any worse although her oxygen requirement has increased. She has not had fevers chills or sweats. Review of Systems Review of Systems: Unchanged from prior Physical Exam Constitutional: well developed and + ill appearing ENMT: Mallampati Class: II Neck: trachea midline, no thyromegaly Cardiovascular: RRR, no murmur, no edema Gastrointestinal (Abdomen): normal bowel sounds, soft, nontender, no hepatosplenomegaly Skin: no rashes, warm and dry Results & Data Vital Signs (Past 12 Hours) Vital Signs Temp Pulse Pulse Resp BP BP Pulse Ox 11/27/18 12:15 85 18 125/85 92 11/27/18 12:10 91 H 18 143/78 H 94 11/27/18 12:05 90 18 119/82 93 11/27/18 12:00 81 16 112/66 92 11/27/18 11:55 82 18 116/86 92 11/27/18 11:50 83 18 121/72 91 11/27/18 11:45 82 18 102/83 92 11/27/18 11:40 81 16 113/77 92 11/27/18 11:35 81 16 123/77 92 11/27/18 11:30 80 16 123/77 92 11/27/18 11:25 81 18 152/82 H 90 11/27/18 11:23 82 18 133/82 92 11/27/18 11:16 36.9 C 89 20 134/76 92 11/27/18 06:52 37.2 C 77 17 123/73 90 11/27/18 04:05 91 11/27/18 03:10 20 90 11/27/18 02:44 36.8 C 88 16 135/75 79 L PG Care Time/CCT Total # of Minutes Spent Total Time Spent with Patient: Total time spent is greater than 50% in coordination of care (as documented) at patient's floor/unit and/or counseling patient:
--- NOTE | 2018-11-27 12:33 | XRay Report ---
XR chest 1V not portable HISTORY: 63 years-old Female S/P left PleurX catheter placement status post placement of a left-side d chest tube. Pleural effusion. COMPARISON: Chest radiograph 11/27/2018 TECHNIQUE: Portable AP view of the chest FINDINGS: Cardiomediastinal and hilar silhouettes are unchanged. Decreased size of the left pleural effusion st atus post placement of a left-sided chest tube, distal tip projected adjacent to left lung apex. No p neumothorax identified. Trace right pleural effusion. Persistent opacities of the right upper lobe wi th multifocal opacities throughout the left lung. Interval development of pulmonary vascular congesti on with mixed interstitial and alveolar opacities about the right midlung and right lung base. Bones appear grossly intact. IMPRESSION: 1. Decreased size of the left pleural effusion status post placement of a left-sided chest tube. 2. No pneumothorax identified. 3. Progressive opacities about the right midlung and right lung base suspicious for developing pulmon alejandro edema. The above report was generated using voice recognition software. It may contain grammatical, syntax o r spelling errors. Electronically signed by: Francesco Lazar M.D. 11/27/2018 12:32 PM
[2018-11-27] MEDS ORDERED: PIPERACILL/TAZOBAC CONSULT ACTIVE PRN (14:32)
[2018-11-27] MEDS ORDERED: VANCOMYCIN CONSULT ACTIVE PRN (14:32)
[2018-11-27] MEDS ORDERED: VANCOMYCIN HCL 1,250 MG in SODIUM CHLORIDE 0.9% 250 ML IV STA (14:56)
[2018-11-27] MEDS ORDERED: PIPERACILLIN/TAZOBACTAM 3.375 GM in DEXTROSE 5% 100 ML IV ONE (15:00)
--- NOTE | 2018-11-27 15:03 | Pharmacy Report ---
Pharmacy Abx Dose Short Note - Date of Service November 27, 2018 - Assessment & Plan A/P Vancomycin/Zosyn being started for pulmonary source. Renal fxn has been stable during this admission. Pt population p'kinetics: t1/2=6.6, ke=0.104. I have ordered a MRSA nasal swab. Vancomycin 1250mg (25mg/kg) IV x1 then vancomycin 750mg (15mg/kg) q8 Goal trough: 15-20mcg/mL Early trough ordered for 11/28 @1530 to ensure we are achieving adequate levels. Zosyn is dosed appropriately Pharmacy will continue to follow and will adjust dose/frequency as necessary. Thank you.
[2018-11-27] MEDS ORDERED: BISACODYL 10 MG SUPP PR STA (15:08)
[2018-11-27] MEDS ORDERED: GUAIFENESIN/CODEINE 200MG/20MG 10ML UDC PO PRN (15:14)
[2018-11-27] MEDS ORDERED: LORazepam 1 MG/2 ML VIAL IV PRN (15:14)
[2018-11-27] MEDS ORDERED: MoRPHine SULFATE 2 MG/ML CARP IV PRN (15:16)
--- NOTE | 2018-11-27 16:02 | Hospitalist Progress Note ---
Date of Service November 27, 2018 Assessment & Plan (1) Acute hypoxemic respiratory failure: due to pneumonia, effusion, malignancy worsening over night, now on 9L via mask due to mouth breathing not in a great deal of distress treat pneumonia with antibiotics effusion drained today with PleurX (2) Non-small cell lung cancer with metastasis: advancing quickly, d/w Dr. Albert, very aggressive cancer very poor prognosis, likely less than 2 months to live now with hemoptysis, pneumonia, effusion, mets to spine, lung, liver and brain received initial dose of chemotherapy on 11/25, tolerated well, no immediate side effects would not need further treatment for 3 weeks can follow up with Dr. Albert for port placement worsening respiratory status today due to effusion on left and worsening pneumonia unsure she will leave hospital at this point re-evaluate every day (3) Bilateral pneumonia: developed overnight, evidence of infiltrate in right upper lobe in addition to left upper lobe repeat CXR with worsening infiltrates in lower lobes on right will stop Augmentin resume Zosyn IV, add LevaquinIV and Vanco IV coughing up blood and mucous, no fever, WBC normal (4) Hemoptysis: due to metastatic non small cell lung CA CT chest shows encroachment of the pulmonary arteries bronchoscopy by Dr. Wheeler, extensive malignant tissue blood oozing in several areas will continue to have hemoptysis will provide Robitussin to help patient sleep (5) Metastatic cancer to lung: evidence of local spread with pleural effusion salvage chemo given on 11/25 (6) Postobstructive pneumonia: left upper lobe no fever, normal WBC yesterday and today will treat with Zosyn for 7 days, today is day 3 change to Augmentin BID on discharge (7) Bony metastasis: just completed palliative radiation still in severe pain increased Fentanyl to 50mcg patch, Oxycodone PRN Dilaudid 1mg IV PRN for breakthrough pain is much improved today, likely from Fentanyl patch palliative will see today, can give further recs (8) Pathologic compression fracture of spine: pain control, see above (9) Pleural effusion, left: due to malignancy Dr. Wheeler with pulmonary drained 900mL on 11/24 patient had pain so procedure stopped may be candidate for PleurX in future since effusion will continue to accumulate (10) Pain due to malignant neoplasm metastatic to bone: Fentanyl patch and Oxycodone Dilaudid PRN (11) Hypertension: radiation therapy completed, continue pain management and bowel regimen (12) Anxiety: (13) Hypotension: occurred after bronch allow patient to lay flat NSS bolus given stop Losartan/HCTZ BP better today likely stop at least the HCTZ on discharge, perhaps Losartan as well if BP acceptable she will be prone to dehydration with chemo and want to avoid TREVA (14) Hypokalemia: 3.3 today, oral replacement (15) Goals of care, counseling/discussion: spent 60 minutes combined talking with patient and family members today discussed code status, hospice, poor prognosis see Subjective for full details Subjective patient started to desaturate over night, noted that she was up to 9L via mask this morning visited with patient, not in distress, lungs were coarse bilaterally, coughing up phlegm and blood sent for 2 view CXR, showed white out on left with recurrent pleural effusion, worsening infiltrate in right upper lobe discussed with Dr. Wheeler, he took patient for PleurX and successfully drained post procedure CXR showed improved aeration left base, however, increased infiltrates in right lung, now diffuse palliative care met with the patient this morning, the patient had a difficult time grasping what was discussed she became upset, was calling family members telling them she had days to live, did not understand that they just wanted to discuss goals of care, realistic expectations I called patient's daughter Stacy afterwards, she asked that I talk with the patient, assure her that we would continue to treat her if that is what she desired met with patient with a friend in the room, patient gave me permission to speak in front of the visitor I asked her who she would want to designate to make medical decisions on her behalf, she stated without hesitation that she would want Stacy to be that person, her daughter I explained that we were treating the effusion with another catheter but that she has worsening pneumonia later in the day I discussed with Dr. Wheeler, he expressed concerns for the patient's breathing, that it could get worse throughout the day he was concerned about her getting well enough to even leave the hospital I then visited patient in the room, discussed what was going on she said that she did not want to know further details, that she did not want to know about the cancer, if it was getting worse etc I spoke with the patient's sister who just arrived from [place] to help take care of her we spoke privately about the gravity of the situation, about her code status, about hospice the sister was worried about being able to take care of her at home, discussed that she may get to the point that she is on hospice in the hospital sister said that the patient should be DNR, she had stated before that "I will go when God takes me" spoke again at length with patient's daughter Stacy about the situation explained that she may not make it out of the hospital, may end up needing inpatient hospice daughter in process of completing the official POA paperwork, I told her that her mom had designated her as the decision maker daughter said that the patient's biggest fear was suffocating, she did not want to like that explained that we could use Morphine, she said she was allergic, knew her hand swelled and became itchy Review of Systems Review of Systems: All systems reviewed & are unremarkable except as noted in HPI & below Constitutional: + fatigue and + weakness; no fever Respiratory: + cough, + dyspnea, + hemoptysis, + pain with cough, + sputum production and + wheezing Cardiovascular: + chest pain (site of PleurX on the left) Gastrointestinal: + early satiety (not eating anything all day) and + constipation; no abdominal pain, no nausea, no vomiting and no diarrhea/loose stools Neurologic: + confusion (per daughter and sister, she is confused at times) Psychiatric: + anxiety Physical Exam Constitutional: well developed, + acute distress (mild respiratory distress) and + thin Eyes: PERRL, conjunctivae normal, anicteric sclerae ENMT: external ear and nose normal, oropharynx normal Neck: trachea midline, no thyromegaly Respiratory: + respiratory distress (mild) and + labored breathing Auscultation: + diminished lung sounds (left base) and + rhonchi (bilaterally, more coarse today); no rales and no wheezes Cardiovascular: RRR, no murmur, no edema Gastrointestinal (Abdomen): normal bowel sounds, soft, nontender, no hepatosplenomegaly Musculoskeletal: Head/Neck/Chest: normocephalic and head atraumatic Spine: + limited thoraco-lumbar ROM (due to pain) Extremities: extremities normal to inspection and strength 5/5 throughout Skin: no rashes, warm and dry Neurologic: patellar DTR's 2+ bilat, sensation intact and PERRL, EOMI, accommodation nl, no face palsy, no dysarthria Psychiatric: Orientation: oriented x 3; + not alert (tired) Affect: + anxious affect Lymphatic: no cervical or axillary lymphadenopathy Results & Data Vital Signs (Past 12 Hours) Vital Signs Temp Pulse Pulse Resp BP BP Pulse Ox 11/27/18 13:53 36.7 C 83 18 133/83 91 11/27/18 13:20 36.9 C 81 17 125/78 91 11/27/18 12:55 82 19 131/81 93 11/27/18 12:50 36.9 C 80 18 132/81 94 11/27/18 12:20 83 18 126/75 93 11/27/18 12:15 85 18 125/85 92 11/27/18 12:10 91 H 18 143/78 H 94 11/27/18 12:05 90 18 119/82 93 11/27/18 12:00 81 16 112/66 92 11/27/18 11:55 82 18 116/86 92 11/27/18 11:50 83 18 121/72 91 11/27/18 11:45 82 18 102/83 92 11/27/18 11:40 81 16 113/77 92 11/27/18 11:35 81 16 123/77 92 11/27/18 11:30 80 16 123/77 92 11/27/18 11:25 81 18 152/82 H 90 11/27/18 11:23 82 18 133/82 92 11/27/18 11:16 36.9 C 89 20 134/76 92 11/27/18 06:52 37.2 C 77 17 123/73 90 11/27/18 04:05 91 Laboratory Results Laboratory Results - last 24 hr 11/27/18 11/27/18 06:17 06:17 WBC 8.72 RBC 3.74 L Hgb 11.3 L Hct 33.1 L MCV 88.5 MCH 30.2 MCHC 34.1 RDW Std Deviation 40.9 RDW Coeff of [place] 12.7 Plt Count 179 MPV 11.8 H Immature Gran % (Auto) 0.2 Neut % (Auto) 91.5 Lymph % (Auto) 5.3 [place] % (Auto) 2.5 Eos % (Auto) 0.5 Baso % (Auto) 0.0 Immature Gran # (Auto) 0.02 Neut # (Auto) 7.98 H Lymph # (Auto) 0.46 L [place] # (Auto) 0.22 Eos # (Auto) 0.04 Baso # (Auto) 0.00 Sodium 142 Potassium 3.3 L Chloride 105 Carbon Dioxide 33 H Anion Gap 4.0 BUN 10 Creatinine 0.26 L Est Cr Clr Drug Dosing 179.2 Est GFR ( Amer) 149.1 Est GFR (Non-Af Amer) 128.6 BUN/Creatinine Ratio 37.6 H Glucose 93 Calcium 8.1 L Total Bilirubin 0.4 AST 22 ALT 13 Alkaline Phosphatase 102 Total Protein 5.5 L Albumin 2.0 L Globulin 3.5 Albumin/Globulin Ratio 0.6 L Diagnostic Findings XR chest 1V not portable HISTORY: 63 years-old Female S/P left PleurX catheter placement status post placement of a left-sided chest tube. Pleural effusion. COMPARISON: Chest radiograph 11/27/2018 TECHNIQUE: Portable AP view of the chest FINDINGS: Cardiomediastinal and hilar silhouettes are unchanged. Decreased size of the left pleural effusion status post placement of a left-sided chest tube, distal tip projected adjacent to left lung apex. No pneumothorax identified. Trace right pleural effusion. Persistent opacities of the right upper lobe with multifocal opacities throughout the left lung. Interval development of pulmonary vascular congestion with mixed interstitial and alveolar opacities about the right midlung and right lung base. Bones appear grossly intact. IMPRESSION: 1. Decreased size of the left pleural effusion status post placement of a left- sided chest tube. 2. No pneumothorax identified. 3. Progressive opacities about the right midlung and right lung base suspicious for developing pulmonary edema. Medications Administered Current Inpatient Medications Cetirizine HCl (Zyrtec) 5 mg PO QAM [facility] Stop: 12/23/18 15:59 Last Admin: 11/27/18 07:56 Dose: 5 mg Documented by: Docusate Sodium (Colace) 100 mg PO BID [facility] Stop: 12/23/18 20:59 Last Admin: 11/27/18 07:55 Dose: 100 mg Documented by: Estrogens Conjugated (Premarin) 0.625 mg PO DAILY [facility] Stop: 12/26/18 08:59 Last Admin: 11/27/18 07:56 Dose: 0.625 mg Documented by: Fentanyl (Duragesic) 50 mcg TD Q3D@1230 [facility] Stop: 12/09/18 12:29 Last Admin: 11/25/18 12:53 Dose: 50 mcg Documented by: Guaifenesin/Codeine Phosphate (Robitussin-Ac Sugar Free) 10 ml PO Q6H PRN PRN Reason: Cough Stop: 12/27/18 15:13 Hydromorphone HCl (Dilaudid) 0.5 mg IV Q4 PRN PRN Reason: Pain Stop: 12/09/18 11:53 Levofloxacin/Dextrose (Levaquin/D5w) 750 mg in 150 mls @ 100 mls/hr IV Q24H [facility]; Protocol Stop: 12/04/18 15:59 Piperacillin Sod/Tazobactam (Sod 3.375 gm/ Dextrose) 115 mls @ 28.75 mls/hr IV Q8H [facility] Stop: 12/04/18 21:59 Vancomycin HCl 750 mg/ Sodium (Chloride) 265 mls @ 125 mls/hr IV Q8H [facility] Stop: 12/05/18 00:00 Vancomycin HCl 1,250 mg/ (Sodium Chloride) 275 mls @ 125 mls/hr IV NOW STA Stop: 11/27/18 17:07 Lorazepam (Ativan) 1 mg in 2 mls @ 2 mls/min IV Q4H PRN PRN Reason: Anxiety/Agitation Stop: 12/27/18 15:13 Medroxyprogesterone Acetate (Provera) 2.5 mg PO DAILY [facility] Stop: 12/26/18 08:59 Last Admin: 11/27/18 07:56 Dose: 2.5 mg Documented by: Miscellaneous (Fentanyl Patch Check Placement) 1 ea N/A QS [facility] Stop: 12/24/18 15:59 Last Admin: 11/27/18 09:06 Dose: 1 ea Documented by: Miscellaneous (Fentanyl Patch Remove & Waste) 1 ea N/A Q3D@1229 [facility] Stop: 12/28/18 12:28 Miscellaneous Information (Consult) 1 ea N/A UD PRN PRN Reason: Consult Stop: 12/27/18 14:31 Miscellaneous Information (Consult) 1 ea N/A UD PRN PRN Reason: Consult Stop: 12/27/18 14:31 Morphine Sulfate (Morphine Sulfate) 2 mg IV Q4H PRN PRN Reason: Dyspnea Stop: 12/11/18 15:15 Oxycodone HCl (Roxicodone Immediate Rel) 5 mg PO Q4H PRN PRN Reason: moderate pain Stop: 12/07/18 21:32 Last Admin: 11/24/18 19:18 Dose: 5 mg Documented by: Promethazine HCl (Phenergan) 25 mg PO Q6H PRN PRN Reason: nausea and vomiting Stop: 12/23/18 15:15 Sennosides (Senokot) 8.6 mg PO QAM [facility] Stop: 12/23/18 15:59 Last Admin: 11/27/18 07:56 Dose: 8.6 mg Documented by: Tramadol HCl (Ultram) 50 mg PO Q4H PRN PRN Reason: Pain Stop: 12/26/18 14:26 PG Care Time/CCT Total # of Minutes Spent Total Time Spent: 90 Total Time Spent with Patient: Total time spent is greater than 50% in coordination of care (as documented) at patient's floor/unit and/or counseling patient: Critical Care Time: No Prolonged Care Time Prolonged Care Time: Yes Total Prolonged Care Time: 30 (1) Metastatic cancer to lung Laterality: unspecified laterality Qualified Code(s): C78.00 - Secondary malignant neoplasm of unspecified lung (2) Pathologic compression fracture of spine Encounter type: initial encounter Qualified Code(s): M48.50XA - Collapsed vertebra, not elsewhere classified, site unspecified, initial encounter for fracture (3) Hypertension Hypertension type: essential hypertension Qualified Code(s): I10 - Essential (primary) hypertension
[2018-11-27] MEDS: LEVOFLOXACIN/D5W 750 MG/150 ML BAG IV SCH (16:08)
[2018-11-27] MEDS: ONDANSETRON INJ 2 MG/ML 2 ML VIAL IV PRN (18:41)
[2018-11-27] MEDS: PROCHLORPERAZINE 10 MG in SYRINGE 8 ML IV PRN (20:13)
[2018-11-27] MEDS: PIPERACILLIN/TAZOBACTAM 3.375 GM in DEXTROSE 5% 100 ML IV SCH (22:01)
[2018-11-27] MEDS: VANCOMYCIN HCL 750 MG in SODIUM CHLORIDE 0.9% 250 ML IV SCH (23:25)
[2018-11-28] MEDS: PIPERACILLIN/TAZOBACTAM 3.375 GM in DEXTROSE 5% 100 ML IV SCH ×3 (05:27→21:18)
--- NOTE | 2018-11-28 07:30 | XRay Report ---
SINGLE VIEW CHEST CLINICAL HISTORY: Hypoxia. FINDINGS: An AP, portable, upright chest radiograph is compared to chest x-ray and chest CT dated 11/23. The examination is degraded by portable technique and patient rotation. A chest tube is again seen at the left apex. The heart is enlarged and there is atherosclerotic calcification of the thorac ic aorta. Pulmonary vasculature has improved from previous. Advanced emphysema and chronic interstiti al thickening are again noted. There are layering pleural effusions, left larger than right with left basilar consolidation. There is also left greater than right bilateral upper lobe consolidation. No definite pneumothorax is seen. The skeletal structures are osteopenic. The bony thorax is grossly in tact. IMPRESSION: 1. Cardiomegaly and emphysema. Pulmonary vascular congestion has improved from yesterday. 2. There are left larger right pleural effusions and left basilar consolidation. 3. There is bilateral upper lobe consolidation, left greater than right. 4. No definite pneumothorax is identified. Electronically signed by: Froylan Muñiz M.D. 11/28/2018 7:29 AM
[2018-11-28] MEDS: CHECK FENTANYL PATCH PLACEMENT SCH ×3 (08:00→22:59)
[2018-11-28] MEDS: NSS + 20MEQ KCL 20 MEQ/1,000 ML BAG IV SCH ×2 (08:15→16:36)
[2018-11-28] MEDS: VANCOMYCIN HCL 750 MG in SODIUM CHLORIDE 0.9% 250 ML IV SCH (08:16)
[2018-11-28 08:45] LABS: Basophils # (auto) 0.01 K/uL (0-0.2); Basophils % (auto) 0.1 %; Eosinophils # (auto) 0.01 K/uL (0-0.5); Eosinophils % (auto) 0.1 %; Hematocrit (blood only) 34.4 % (37-47); Hemoglobin 11.6 g/dL (12.0-16.0); Immature Granulocytes # (auto) 0.01 K/uL (0.00-0.02); Immature Granulocytes % (auto) 0.1 %; Lymphocytes # (auto) 0.17 K/uL (1.2-3.4); Lymphocytes % (auto) 1.7 %; Mean Corpuscular Hgb Conc 33.7 g/dL (32-36); Mean Corpuscular Volume 87.3 fL (80-100); Mean Platelet Volume 12.3 fL (7.4-10.4); Neutrophils # (auto) 9.51 K/uL (1.4-6.5); Platelet Count 159 K/uL (130-400); RDW Coefficient of Variation 12.6 % (11.5-14.5); RDW Standard Deviation 41.1 fL (36.4-46.3); Red Blood Count 3.94 M/uL (4.2-5.4); White Blood Count 9.81 K/uL (4.8-10.8)
[2018-11-28 09:21] LABS: Albumin Level 1.9 gm/dl (3.4-5.0); BUN Creatinine Ratio 32.9 (10-20); Calcium 8.3 mg/dl (8.5-10.1); Creatinine Clr Calc Pharmacy 141.2 ml/min; Est GFR (African American) 137.8; Est GFR (Non-African American) 118.9; Potassium 3.5 mmol/L (3.5-5.1)
[2018-11-28 09:24] LABS: Albumin Globulin Ratio 0.5 (0.9-2); Bilirubin,Total 0.6 mg/dl (0.2-1); Globulin 3.7 gm/dl (2.5-4.0); Total Protein 5.6 gm/dl (6.4-8.2)
[2018-11-28] MEDS: DOCUSATE SODIUM 100 MG CAP PO SCH ×2 (09:49→21:18)
[2018-11-28] MEDS: ESTROGENS, CONJUGATED 0.625 MG TAB PO SCH (09:50)
[2018-11-28] MEDS: SENNA 8.6 MG TAB PO SCH (09:50)
[2018-11-28] MEDS: MEDROXYPROGESTERONE ACETATE 2.5 MG TAB PO SCH (09:50)
[2018-11-28] MEDS: CETIRIZINE HCL 10 MG TABLET PO SCH (09:50)
--- NOTE | 2018-11-28 10:02 | XRay Report ---
SINGLE VIEW CHEST CLINICAL HISTORY: Status post thoracentesis. FINDINGS: An AP, portable, upright chest radiograph is compared to chest x-ray performed earlier the same day 11/28/2018. Correlation is made with chest CT dated 11/23/2018. The examination is degraded by portable technique. A chest tube is again seen at the left apex. The heart is enlarged and there is a therosclerotic calcification of the thoracic aorta. Mild pulmonary vasculature persists. Advanced emp hysema and chronic interstitial thickening are again noted. There are layering pleural effusions, lef t larger than right with left basilar consolidation. There is also left greater than right bilateral upper lobe consolidation. No definite pneumothorax is seen. The skeletal structures are osteopenic. The bony thorax is grossly intact. IMPRESSION: 1. No definite pneumothorax is identified post procedure. 2. Cardiomegaly and emphysema. Mild pulmonary vascular congestion is similar to today's earlier exami nation. 3. Again seen are left larger right pleural effusions and left basilar consolidation. 4. Left greater than right upper lobe consolidation is again noted. Electronically signed by: Froylan Muñiz M.D. 11/28/2018 10:01 AM
--- NOTE | 2018-11-28 10:08 | Progress Note ---
DATE: 11/28/2018 The patient was seen today with her family members. She had 2 sisters present at bedside. The patient has an extremely high A-a gradient. She also has rhonchi on both sides. Having said that, I think her x-ray looks a bit better than it did yesterday. We are going to drain this PleurX on a daily basis while the patient is here and I have asked and we have ordered that to be done. Her productive cough of green and yellow sputum mixed with blood has decreased over the last 24 hours. I had a long talk with the patient and explained that she is nearing end of life. Unfortunately, we really have nothing to offer her for her hemoptysis. There is not a vessel that is being eroded into that can be embolized. She had this as general mucosal involvement. They understand. The patient also understands. If she has made comfort measures or hospice, she could go home with PleurX in place.
[2018-11-28] MEDS ORDERED: ALBUT/IPRATROP 3MG/0.5MG NEB 3 ML VIAL NEB PRN (10:24)
--- NOTE | 2018-11-28 11:19 | Hematology/Oncology Prog Note ---
Date of Service November 28, 2018 Assessment & Plan (1) Non-small cell lung cancer with metastasis: Ms. Gonsalez looks better today than she apparently did yesterday, based on reports. She is breathing comfortably on high-flow O2 and has noticed a decrease in her cough. She's also had less hemoptysis in the last 24 hours. Some of her improvement is likely related to ongoing drainage from her Pleur-x catheter. She also is on antibiotics and may be improving from treatment of a pneumonia. Typically non-small cell lung cancers do not respond so quickly to treatment, but it is also possible we are seeing some effect of the chemotherapy. I would continue with supportive care as per her primary team. Her counts will likely start to fall this upcoming week, so careful attention to her infectious issues will be critical. Her overall prognosis remains poor, in light of her extensive and aggressive disease and her low albumin. Present on Admission?: Yes (2) Constipation: She describes not having moved her bowels in close to a week. She is on opiates and is at risk for opiate-induced constipation. She has no symptoms of fecal impaction or obstruction. I would increase her bowel regimen to make sure she has a bowel movement soon. Present on Admission?: Yes Subjective Ms. Gonsalez was comfortable in bed today. She has not had any hemoptysis today. She is still coughing, but less. She has some mild nausea, but it responds well to anti-emetics. She has not moved her bowels in close to a week, though she is passing gas. She denies any bloating or abdominal pain. Review of Systems Constitutional: + fatigue; no fever Respiratory: as per Subjective / HPI Cardiovascular: no chest pain and no palpitations Gastrointestinal: + nausea and + constipation; no abdominal pain Musculoskeletal: Her pain is better controlled today. Neurologic: no dizziness and no headache(s) Physical Exam Constitutional: + thin and comfortable; no acute distress Eyes: + anicteric sclerae and EOM intact bilaterally Respiratory: no respiratory distress and does not use accessory muscles A uscultation: + rhonchi (coarse, in all diaz bilaterally) Cardiovascular: RRR, no murmur, no edema Gastrointestinal (Abdomen): Inspection/Auscultation: abdomen not distended Percussion/Palpation: abdomen soft; abdomen nontender Musculoskeletal: Extremities: extremities normal to inspection Skin: no rashes, warm and dry Psychiatric: A+Ox3, euthymic affect Results & Data Vital Signs (Past 12 Hours) Vital Signs Temp Pulse Pulse Resp BP BP Pulse Ox 11/28/18 08:38 37.0 C 86 18 123/71 95 11/28/18 04:01 37.2 C 102 H 19 148/86 H 89 L 11/28/18 01:55 104 H 11/27/18 23:51 36.8 C 97 H 18 94/61 L 92 Laboratory Results Laboratory Results - last 24 hr 11/27/18 11/28/18 11/28/18 18:45 08:18 08:18 WBC 9.81 RBC 3.94 L Hgb 11.6 L Hct 34.4 L MCV 87.3 MCH 29.4 MCHC 33.7 RDW Std Deviation 41.1 RDW Coeff of [place] 12.6 Plt Count 159 MPV 12.3 H Immature Gran % (Auto) 0.1 Neut % (Auto) 97.0 Lymph % (Auto) 1.7 [place] % (Auto) 1.0 Eos % (Auto) 0.1 Baso % (Auto) 0.1 Immature Gran # (Auto) 0.01 Neut # (Auto) 9.51 H Lymph # (Auto) 0.17 L [place] # (Auto) 0.10 L Eos # (Auto) 0.01 Baso # (Auto) 0.01 Sodium 141 Potassium 3.5 Chloride 102 Carbon Dioxide 33 H Anion Gap 6.0 BUN 11 Creatinine 0.33 L Est Cr Clr Drug Dosing 141.2 Est GFR ( Amer) 137.8 Est GFR (Non-Af Amer) 118.9 BUN/Creatinine Ratio 32.9 H Glucose 109 H Calcium 8.3 L Total Bilirubin 0.6 AST 20 ALT 11 L Alkaline Phosphatase 102 Total Protein 5.6 L Albumin 1.9 L Globulin 3.7 Albumin/Globulin Ratio 0.5 L Nasal Screen MRSA (PCR) Negative Diagnostic Findings Her chest x-ray appears better aerated today. (1) Constipation Constipation type: unspecified constipation type Qualified Code(s): K59.00 - Constipation, unspecified
--- NOTE | 2018-11-28 11:32 | Pulmonology Progress Note ---
Date of Service November 28, 2018 Assessment & Plan (1) Hemoptysis: Impression: A 63-year-old female with advanced non-small cell lung cancer status post palliative radiation to spinal mets presenting now with 3 to 4 days of hemoptysis, shortness of breath, cough, and increasing left pleural effusion. Plan: 1. Unfortunately limited options exist for the patient's hemoptysis. Would complete course of antibiotics. Discussed with thoracic surgery and no real bronchoscopic options exist for the patient should she have massive or submassive hemoptysis. Unclear if interventional radiology would have any options for embolization. Palliative care appropriate (2) Pleural effusion, left: Plan: 1. Patient is status post left Pleurx catheter placement. Chest x-ray looks slightly better today. Continue to drain on a daily basis. (3) Acute hypoxemic respiratory failure: Plan: 1. Wean oxygen as tolerated.. She now appears to be developing an infiltrate in the right upper lobe consistent with pneumonia. Continue antibiotics. (4) Abnormal CT scan of lung: Plan: 1. End-of-life discussions appropriate. Subjective Patient is status post left Pleurx catheter placement yesterday. The catheter was drained today and the patient believes that she does feel symptomatically better with drainage of the effusion. No pain on the chest. Review of Systems Review of Systems: Unchanged from prior Physical Exam Constitutional: well developed and + ill appearing ENMT: Mallampati Class: II Neck: trachea midline, no thyromegaly Cardiovascular: RRR, no murmur, no edema Gastrointestinal (Abdomen): normal bowel sounds, soft, nontender, no hepatosplenomegaly Skin: no rashes, warm and dry Results & Data Vital Signs (Past 12 Hours) Vital Signs Temp Pulse Pulse Resp BP BP Pulse Ox 11/28/18 08:38 37.0 C 86 18 123/71 95 11/28/18 04:01 37.2 C 102 H 19 148/86 H 89 L 11/28/18 01:55 104 H 11/27/18 23:51 36.8 C 97 H 18 94/61 L 92 PG Care Time/CCT Total # of Minutes Spent Total Time Spent with Patient: Total time spent is greater than 50% in coordination of care (as documented) at patient's floor/unit and/or counseling patient:
[2018-11-28] MEDS: fentaNYL 50 MCG/HR TDSY TD SCH (12:29)
--- NOTE | 2018-11-28 13:21 | Hospitalist Progress Note ---
Date of Service November 28, 2018 Assessment & Plan (1) Acute hypoxemic respiratory failure: due to pneumonia, effusion, malignancy worsened over night on 11/27, placed on 9L via mask due to mouth breathing treat pneumonia with antibiotics effusion to be drained daily with PleurX improved on 11/28, breathing easy, less coughing still on 9L via mask but could likely titrate down (2) Non-small cell lung cancer with metastasis: advancing quickly, d/w Dr. Albert, very aggressive cancer very poor prognosis, likely less than 2 months to live now with hemoptysis, pneumonia, effusion, mets to spine, lung, liver and brain received initial dose of chemotherapy on 11/25, tolerated well, no immediate side effects would not need further treatment for 3 weeks can follow up with Dr. Albert for port placement d/w Dr. Calloway on 11/28 recommends treating the pneumonia cautiously optimistic that she will recover and have enough strength for second round of chemo three weeks from now (3) Bilateral pneumonia: developed overnight on 11/27, evidence of infiltrate in right upper lobe in addition to left upper lobe on CXR on 11/27 treated with Zosyn IV, Levaquin IV and Vanco IV MRSA swab negative, stop Vanco on 11/28 CXR on 11/28 shows improvement/clearing in right lung breathing better, less coughing, afebrile, WBC normal would continue Zosyn and Levaquin for now, consider taper to single antibiotic in 1-2 days (4) Hemoptysis: due to metastatic non small cell lung CA CT chest shows encroachment of the pulmonary arteries bronchoscopy by Dr. Wheeler, extensive malignant tissue blood oozing in several areas will continue to have hemoptysis will provide Robitussin to help patient sleep, worked well last night (5) Metastatic cancer to lung: evidence of local spread with pleural effusion salvage chemo given on 11/25 (6) Postobstructive pneumonia: left upper lobe no fever, normal WBC as above, treating with Zosyn and Levaquin stopped Vanco with negative MRSA swab (7) Bony metastasis: just completed palliative radiation still in severe pain increased Fentanyl to 50mcg patch, Oxycodone PRN Dilaudid 1mg IV PRN for breakthrough pain is much improved for several days, likely from Fentanyl patch make sure she has Fentanyl patch at 50mcg on discharge (8) Pathologic compression fracture of spine: pain control, see above (9) Pleural effusion, left: due to malignancy Dr. Wheeler with pulmonary drained 900mL on 11/24 patient had pain so procedure stopped PleurX placed on 11/27 orders placed to drain daily (10) Pain due to malignant neoplasm metastatic to bone: Fentanyl patch and Oxycodone Dilaudid PRN (11) Hypertension: radiation therapy completed, continue pain management and bowel regimen (12) Anxiety: (13) Hypotension: occurred after bronch resolved for two days (14) Hypokalemia: resolved, 3.5 today (15) Goals of care, counseling/discussion: discussed code status, hospice, poor prognosis patient wants to continue treatment, get strong enough to go through chemo patient's daughter and her sisters support her although they have more realistic outlook on prognosis patient has stated that she does not want many details, does not want to be given a time frame for prognosis patient unrealistic in saying that her goal is remission oncology, pulmonology, thoracic surgery and myself have stated that remission is not realistic large left pulmonary mass with bleeding, malignant effusion, liver and bone and brain mets the patient has also experienced altered mental status, memory loss she met with palliative care for 60 minutes on 11/26 and then two hours later denied ever seeing them, could not recall conversation when pressed about code status the patient has stated she would want everything done in a vague sense, wants to fight this but then has also stated that the situation is in God's hands, when it is her time she will go she told me on 11/27 that she wants her daughter Stacy to make decisions on her behalf Stacy is contact for family, she wants patient to be DNR, she truly understands futility of the situation if she would code two closest sisters also support the DNR, DNI status based on my conversations with patient I feel that she lacks the capacity to make complex medical decisions she can state in vague sense that she wants to fight her cancer and we will honor these wishes by treating pneumonia, giving chemotherapy, pain control but given her brain mets, intermittent confusion, memory loss I feel she lacks understanding that coding her or placing her on ventilator would be futile I have deferred to Stacy and her family and they wish her to be DNR Subjective patient did better over night than expected she was able to get some rest, sleeping more upright helped with cough as well as Robitussin coughing much less today, minimal hemoptysis no fever, HR up in 100s but hypertensive no respiratory distress, saturations into the mid 90's CXR this morning improved, less infiltrates on right, nearly gone, looked at films personally some pleural fluid accumulation in left base Dr. Wilson visited with patient, ordered daily draining of fluid on left Dr. Calloway rounded on patient, discussed with him, he is hopeful she can get second chemo session in three weeks reviewed labs, WBC 9, Hb 11.6, Cr 0.33, K 3.5 albumin low at 1.9 still not eating at all, will give IV fluids updated family members at the bedside Review of Systems Review of Systems: All systems reviewed & are unremarkable except as noted in HPI & below Constitutional: + fatigue and + weakness; no fever, no chills and no sweats Respiratory: + cough, + dyspnea, + hemoptysis and + sputum production; no chest congestion, no pain on inspiration and no pain with cough Cardiovascular: no chest pain, no syncope and no edema Gastrointestinal: + early satiety (very poor appetite) and + nausea; no abdominal pain, no vomiting, no constipation and no diarrhea/loose stools Musculoskeletal: + back pain (much improved) Physical Exam Constitutional: well developed and + thin; no acute distress Eyes: PERRL, conjunctivae normal, anicteric sclerae ENMT: external ear and nose normal, oropharynx normal Neck: trachea midline, no thyromegaly Respiratory: normal respiratory effort; no respiratory distress and no labored breathing Auscultation: + diminished lung sounds (left base) and + rhonchi (bilaterally, far less today); no rales and no wheezes Cardiovascular: RRR, no murmur, no edema Gastrointestinal (Abdomen): normal bowel sounds, soft, nontender, no hepatosplenomegaly Musculoskeletal: Head/Neck/Chest: normocephalic and head atraumatic Spine: + limited thoraco-lumbar ROM (due to pain) Extremities: extremities normal to inspection and strength 5/5 throughout Skin: no rashes, warm and dry Neurologic: patellar DTR's 2+ bilat, sensation intact and PERRL, EOMI, accommodation nl, no face palsy, no dysarthria Psychiatric: A+Ox3, euthymic affect Lymphatic: no cervical or axillary lymphadenopathy Results & Data Vital Signs (Past 12 Hours) Vital Signs Temp Pulse Pulse Resp BP BP Pulse Ox 11/28/18 08:38 37.0 C 86 18 123/71 95 11/28/18 04:01 37.2 C 102 H 19 148/86 H 89 L 11/28/18 01:55 104 H Laboratory Results Laboratory Results - last 24 hr 11/27/18 11/28/18 11/28/18 18:45 08:18 08:18 WBC 9.81 RBC 3.94 L Hgb 11.6 L Hct 34.4 L MCV 87.3 MCH 29.4 MCHC 33.7 RDW Std Deviation 41.1 RDW Coeff of [place] 12.6 Plt Count 159 MPV 12.3 H Immature Gran % (Auto) 0.1 Neut % (Auto) 97.0 Lymph % (Auto) 1.7 [place] % (Auto) 1.0 Eos % (Auto) 0.1 Baso % (Auto) 0.1 Immature Gran # (Auto) 0.01 Neut # (Auto) 9.51 H Lymph # (Auto) 0.17 L [place] # (Auto) 0.10 L Eos # (Auto) 0.01 Baso # (Auto) 0.01 Sodium 141 Potassium 3.5 Chloride 102 Carbon Dioxide 33 H Anion Gap 6.0 BUN 11 Creatinine 0.33 L Est Cr Clr Drug Dosing 141.2 Est GFR ( Amer) 137.8 Est GFR (Non-Af Amer) 118.9 BUN/Creatinine Ratio 32.9 H Glucose 109 H Calcium 8.3 L Total Bilirubin 0.6 AST 20 ALT 11 L Alkaline Phosphatase 102 Total Protein 5.6 L Albumin 1.9 L Globulin 3.7 Albumin/Globulin Ratio 0.5 L Nasal Screen MRSA (PCR) Negative Diagnostic Findings SINGLE VIEW CHEST IMPRESSION: 1. Cardiomegaly and emphysema. Pulmonary vascular congestion has improved from yesterday. 2. There are left larger right pleural effusions and left basilar consolidation. 3. There is bilateral upper lobe consolidation, left greater than right. 4. No definite pneumothorax is identified. Medications Administered Current Inpatient Medications Albuterol (Duoneb) 3 ml NEB Q2R PRN PRN Reason: Dyspnea Stop: 12/28/18 10:23 Cetirizine HCl (Zyrtec) 5 mg PO QAM [facility] Stop: 12/23/18 15:59 Last Admin: 11/28/18 09:50 Dose: Not Given Documented by: Docusate Sodium (Colace) 100 mg PO BID [facility] Stop: 12/23/18 20:59 Last Admin: 11/28/18 09:49 Dose: Not Given Documented by: Estrogens Conjugated (Premarin) 0.625 mg PO DAILY [facility] Stop: 12/26/18 08:59 Last Admin: 11/28/18 09:50 Dose: Not Given Documented by: Fentanyl (Duragesic) 50 mcg TD Q3D@1230 [facility] Stop: 12/09/18 12:29 Last Admin: 11/28/18 12:29 Dose: 50 mcg Documented by: Guaifenesin/Codeine Phosphate (Robitussin-Ac Sugar Free) 10 ml PO Q6H PRN PRN Reason: Cough Stop: 12/27/18 15:13 Hydromorphone HCl (Dilaudid) 0.5 mg IV Q4 PRN PRN Reason: Pain Stop: 12/09/18 11:53 Levofloxacin/Dextrose (Levaquin/D5w) 750 mg in 150 mls @ 100 mls/hr IV Q24H [facility]; Protocol Stop: 12/04/18 15:59 Last Infusion: 11/27/18 18:03 Dose: Infused Documented by: Piperacillin Sod/Tazobactam (Sod 3.375 gm/ Dextrose) 115 mls @ 28.75 mls/hr IV Q8H [facility] Stop: 12/04/18 21:59 Last Infusion: 11/28/18 09:50 Dose: Infused Documented by: Lorazepam (Ativan) 1 mg in 2 mls @ 2 mls/min IV Q4H PRN PRN Reason: Anxiety/Agitation Stop: 12/27/18 15:13 Prochlorperazine 10 mg/ (Syringe) 10 mls @ 5 mls/min IV Q6H PRN PRN Reason: Nausea And Vomiting Stop: 12/27/18 19:36 Last Admin: 11/27/18 20:13 Dose: 5 mls/min Documented by: Potassium Chloride/Sodium Chloride (Normal Saline W/20 Meq Kcl) 20 meq in 1,000 mls @ 100 mls/hr IV .Q10H [facility] Stop: 12/28/18 07:29 Last Admin: 11/28/18 08:15 Dose: 100 mls/hr Documented by: Medroxyprogesterone Acetate (Provera) 2.5 mg PO DAILY [facility] Stop: 12/26/18 08:59 Last Admin: 11/28/18 09:50 Dose: Not Given Documented by: Miscellaneous (Fentanyl Patch Check Placement) 1 ea N/A QS [facility] Stop: 12/24/18 15:59 Last Admin: 11/28/18 08:00 Dose: 1 ea Documented by: Miscellaneous (Fentanyl Patch Remove & Waste) 1 ea N/A Q3D@1229 [facility] Stop: 12/28/18 12:28 Last Admin: 11/28/18 12:31 Dose: 1 ea Documented by: Miscellaneous Information (Consult) 1 ea N/A UD PRN PRN Reason: Consult Stop: 12/27/18 14:31 Ondansetron HCl (Zofran) 4 mg IV Q4H PRN PRN Reason: Nausea Stop: 12/27/18 18:26 Last Admin: 11/27/18 18:41 Dose: 4 mg Documented by: Oxycodone HCl (Roxicodone Immediate Rel) 5 mg PO Q4H PRN PRN Reason: moderate pain Stop: 12/07/18 21:32 Last Admin: 11/24/18 19:18 Dose: 5 mg Documented by: Sennosides (Senokot) 8.6 mg PO QAM [facility] Stop: 12/23/18 15:59 Last Admin: 11/28/18 09:50 Dose: Not Given Documented by: Tramadol HCl (Ultram) 50 mg PO Q4H PRN PRN Reason: Pain Stop: 12/26/18 14:26 PG Care Time/CCT Total # of Minutes Spent Total Time Spent with Patient: Total time spent is greater than 50% in coordination of care (as documented) at patient's floor/unit and/or counseling patient: (1) Metastatic cancer to lung Laterality: unspecified laterality Qualified Code(s): C78.00 - Secondary malignant neoplasm of unspecified lung (2) Pathologic compression fracture of spine Encounter type: initial encounter Qualified Code(s): M48.50XA - Collapsed vertebra, not elsewhere classified, site unspecified, initial encounter for fracture (3) Hypertension Hypertension type: essential hypertension Qualified Code(s): I10 - Essential (primary) hypertension
[2018-11-28] MEDS ORDERED: VANCOMYCIN TROUGH ONE (15:30)
[2018-11-28] MEDS: LEVOFLOXACIN/D5W 750 MG/150 ML BAG IV SCH (16:35)
[2018-11-29] MEDS: NSS + 20MEQ KCL 20 MEQ/1,000 ML BAG IV SCH ×3 (02:24→20:51)
[2018-11-29] MEDS: PIPERACILLIN/TAZOBACTAM 3.375 GM in DEXTROSE 5% 100 ML IV SCH ×3 (05:06→20:53)
[2018-11-29 05:57] LABS: Basophils # (auto) 0.01 K/uL (0-0.2); Basophils % (auto) 0.1 %; Eosinophils # (auto) 0.08 K/uL (0-0.5); Eosinophils % (auto) 0.9 %; Hematocrit (blood only) 33.8 % (37-47); Hemoglobin 11.4 g/dL (12.0-16.0); Immature Granulocytes # (auto) 0.01 K/uL (0.00-0.02); Immature Granulocytes % (auto) 0.1 %; Lymphocytes # (auto) 0.23 K/uL (1.2-3.4); Lymphocytes % (auto) 2.7 %; Mean Corpuscular Hgb Conc 33.7 g/dL (32-36); Mean Corpuscular Volume 88.3 fL (80-100); Mean Platelet Volume 11.9 fL (7.4-10.4); Monocytes # (auto) 0.08 K/uL (0.11-0.59); Monocytes % (auto) 0.9 %; Neutrophils # (auto) 8.18 K/uL (1.4-6.5); Neutrophils % (auto) 95.3 %; Platelet Count 131 K/uL (130-400); RDW Coefficient of Variation 12.7 % (11.5-14.5); RDW Standard Deviation 41.2 fL (36.4-46.3); Red Blood Count 3.83 M/uL (4.2-5.4); White Blood Count 8.59 K/uL (4.8-10.8)
[2018-11-29 06:36] LABS: BUN Creatinine Ratio 45.8 (10-20); Blood Urea Nitrogen 10 mg/dl (7-18); Calcium 7.9 mg/dl (8.5-10.1); Carbon Dioxide 32 mmol/L (21-32); Chloride 104 mmol/L (98-107); Creatinine Clr Calc Pharmacy 211.8 ml/min; Est GFR (African American) > 150.0; Est GFR (Non-African American) 135.9; Glucose 97 mg/dl (70-99); Potassium 3.9 mmol/L (3.5-5.1); Sodium 141 mmol/L (136-145)
[2018-11-29] MEDS: CHECK FENTANYL PATCH PLACEMENT SCH ×3 (07:59→23:28)
--- NOTE | 2018-11-29 11:03 | Hospitalist Progress Note ---
Date of Service November 29, 2018 Assessment & Plan (1) Acute hypoxemic respiratory failure: due to pneumonia, effusion, malignancy worsened over night on 11/27, placed on 9L via mask due to mouth breathing Now improved, no distress, remains on 9L OxyMask-advised RN to attempt to wean down if possible -continue to treat pneumonia with antibiotics -effusion to be drained daily with PleurX (2) Non-small cell lung cancer with metastasis: advancing quickly, d/w Dr. Albert, very aggressive cancer very poor prognosis, likely less than 2 months to live now with hemoptysis, pneumonia, effusion, mets to spine, lung, liver and brain received initial dose of chemotherapy on 11/25, tolerated well, no immediate side effects would not need further treatment for 3 weeks can follow up with Dr. Albert for port placement d/w Dr. Calloway on 11/28 recommends treating the pneumonia cautiously optimistic that she will recover and have enough strength for second round of chemo three weeks from now -continue IVFs and decrease rate to 70mL/hr until taking better po -continue antiemetics prn (3) Bilateral pneumonia: developed overnight on 11/27, evidence of infiltrate in right upper lobe in addition to left upper lobe on CXR on 11/27 treated with Zosyn IV, Levaquin IV and Vanco IV MRSA swab negative, stopped Vanco on 11/28 CXR on 11/28 shows improvement/clearing in right lung breathing better, less coughing, afebrile, WBC normal would continue Zosyn and Levaquin for now, consider taper to single antibiotic in 1-2 days -follow CXR periodically -Appreciate Pulm consult (4) Hemoptysis: due to metastatic non small cell lung CA CT chest shows encroachment of the pulmonary arteries bronchoscopy by Dr. Wheeler, extensive malignant tissue blood oozing in several areas will continue to have hemoptysis-11/29 blood is darker, scant, mixed with sputum -continue Robitussin to help patient sleep, working well (5) Metastatic cancer to lung: evidence of local spread with pleural effusion salvage chemo given on 11/25 (6) Postobstructive pneumonia: left upper lobe no fever, normal WBC as above, treating with Zosyn and Levaquin stopped Vanco with negative MRSA swab (7) Bony metastasis: just completed palliative radiation Was still in severe pain -increased Fentanyl to 50mcg patch, Oxycodone PRN -pain now resolved/controlled -continue Dilaudid 1mg IV PRN for breakthrough -make sure she has Fentanyl patch at 50mcg on discharge (8) Pathologic compression fracture of spine: pain control, see above (9) Pleural effusion, left: due to malignancy Dr. Wheeler with pulmonary drained 900mL on 11/24 patient had pain so procedure stopped PleurX placed on 11/27 orders placed to drain daily-continue to do so (10) Pain due to malignant neoplasm metastatic to bone: Fentanyl patch and Oxycodone Dilaudid PRN (11) Hypertension: previous dx, not currently on meds for this BPs are a bit elevated -turning rate down on IVFs (12) Anxiety: prn ativan (13) Hypotension: occurred after bronch resolved (14) Hypokalemia: resolved, replaced in IVFs -follow BMP (15) Goals of care, counseling/discussion: As per previous Hospitalist: discussed code status, hospice, poor prognosis patient wants to continue treatment, get strong enough to go through chemo patient's daughter and her sisters support her although they have more realistic outlook on prognosis patient has stated that she does not want many details, does not want to be given a time frame for prognosis patient unrealistic in saying that her goal is remission oncology, pulmonology, thoracic surgery and myself have stated that remission is not realistic large left pulmonary mass with bleeding, malignant effusion, liver and bone and brain mets the patient has also experienced altered mental status, memory loss she met with palliative care for 60 minutes on 11/26 and then two hours later denied ever seeing them, could not recall conversation when pressed about code status the patient has stated she would want everything done in a vague sense, wants to fight this but then has also stated that the situation is in God's hands, when it is her time she will go she told me on 11/27 that she wants her daughter Stacy to make decisions on her behalf Stacy is contact for family, she wants patient to be DNR, she truly understands futility of the situation if she would code two closest sisters also support the DNR, DNI status based on conversations with patient, it is felt that she lacks the capacity to make complex medical decisions she can state in vague sense that she wants to fight her cancer and we will honor these wishes by treating pneumonia, giving chemotherapy, pain control but given her brain mets, intermittent confusion, memory loss I feel she lacks understanding that coding her or placing her on ventilator would be futile Decisions deferred to Stacy and her family and they wish her to be DNR Continued care at this time Subjective Pt feels comfortable with her breathing. Still some small amounts of dark red blood being coughed up, denies chest pain. No abd pain, no BM. Is fearful of choking because she has been so sick with PNA and feels weak. Encouraged her to sit completely upright and try some liquids today. Daughter and sister at bedside today. Requesting Speech eval. feels back pain is completely resolved now Review of Systems Review of Systems: All systems reviewed & are unremarkable except as noted in HPI & below (no joint pains or calf tenderness) Physical Exam Constitutional: + thin; no acute distress Eyes: PERRL, conjunctivae normal, anicteric sclerae ENMT: Ears: no external ear abnormality Mouth: + oropharynx abnormality (tongue a bit dry) Neck: trachea midline, no thyromegaly Respiratory: normal respiratory effort (Oxy Mask in place; PleurX in place on left) Auscultation: + diminished lung sounds (left base), + crackles (left base) and + wheezes (exp wheeze left upper lung field) Cardiovascular: RRR, no murmur, no edema Extremities: no calf tenderness Gastrointestinal (Abdomen): normal bowel sounds, soft, nontender, no hepatosplenomegaly Musculoskeletal: Extremities: extremities normal to inspection; no cyanosis and no clubbing Skin: no rashes, warm and dry Neurologic: moves all extremities and awake; no focal motor deficits Psychiatric: Orientation: alert, oriented to person and cooperative Results & Data Vital Signs (Past 12 Hours) Vital Signs Temp Pulse Resp BP Pulse Ox 11/29/18 08:00 36.4 C L 99 H 18 152/79 H 90 11/29/18 03:08 36.6 C 84 18 162/90 H 92 11/28/18 23:33 36.5 C 93 H 20 153/92 H 91 Laboratory Results 11/29/18 11/29/18 Range/Units 05:38 05:38 WBC 8.59 (4.8-10.8) K/uL RBC 3.83 L (4.2-5.4) M/uL Hgb 11.4 L (12.0-16.0) g/dL Hct 33.8 L (37-47) % MCV 88.3 (80-100) fL MCH 29.8 (25-34) pg MCHC 33.7 (32-36) g/dL RDW Std Deviation 41.2 (36.4-46.3) fL RDW Coeff of [place] 12.7 (11.5-14.5) % Plt Count 131 (130-400) K/uL MPV 11.9 H (7.4-10.4) fL Immature Gran % (Auto) 0.1 % Neut % (Auto) 95.3 % Lymph % (Auto) 2.7 % [place] % (Auto) 0.9 % Eos % (Auto) 0.9 % Baso % (Auto) 0.1 % Immature Gran # (Auto) 0.01 (0.00-0.02) K/uL Neut # (Auto) 8.18 H (1.4-6.5) K/uL Lymph # (Auto) 0.23 L (1.2-3.4) K/uL [place] # (Auto) 0.08 L (0.11-0.59) K/uL Eos # (Auto) 0.08 (0-0.5) K/uL Baso # (Auto) 0.01 (0-0.2) K/uL Sodium 141 (136-145) mmol/L Potassium 3.9 (3.5-5.1) mmol/L Chloride 104 (98-107) mmol/L Carbon Dioxide 32 (21-32) mmol/L Anion Gap 5.0 (3-11) BUN 10 (7-18) mg/dl Creatinine 0.22 L (0.6-1.2) mg/dl Est Cr Clr Drug Dosing 211.8 ml/min Est GFR ( Amer) > 150.0 Est GFR (Non-Af Amer) 135.9 BUN/Creatinine Ratio 45.8 H (10-20) Glucose 97 (70-99) mg/dl Calcium 7.9 L (8.5-10.1) mg/dl PG Care Time/CCT Total # of Minutes Spent Total Time Spent with Patient: Total time spent is greater than 50% in coordination of care (as documented) at patient's floor/unit and/or counseling patient: (1) Metastatic cancer to lung Laterality: unspecified laterality Qualified Code(s): C78.00 - Secondary malignant neoplasm of unspecified lung (2) Pathologic compression fracture of spine Encounter type: initial encounter Qualified Code(s): M48.50XA - Collapsed vertebra, not elsewhere classified, site unspecified, initial encounter for fracture (3) Hypertension Hypertension type: essential hypertension Qualified Code(s): I10 - Essential (primary) hypertension
[2018-11-29] MEDS: SENNA 8.6 MG TAB PO SCH (11:08)
[2018-11-29] MEDS: DOCUSATE SODIUM 100 MG CAP PO SCH ×2 (11:08→20:51)
[2018-11-29] MEDS: MEDROXYPROGESTERONE ACETATE 2.5 MG TAB PO SCH (11:08)
[2018-11-29] MEDS: CETIRIZINE HCL 10 MG TABLET PO SCH (11:08)
[2018-11-29] MEDS: ESTROGENS, CONJUGATED 0.625 MG TAB PO SCH (11:08)
[2018-11-29] MEDS: LEVOFLOXACIN/D5W 750 MG/150 ML BAG IV SCH (15:35)
[2018-11-30] MEDS: PIPERACILLIN/TAZOBACTAM 3.375 GM in DEXTROSE 5% 100 ML IV SCH ×3 (05:15→21:27)
[2018-11-30] MEDS: ONDANSETRON INJ 2 MG/ML 2 ML VIAL IV PRN (07:39)
[2018-11-30 07:45] LABS: Basophils # (auto) 0.02 K/uL (0-0.2); Basophils % (auto) 0.5 %; Eosinophils # (auto) 0.08 K/uL (0-0.5); Eosinophils % (auto) 1.9 %; Hematocrit (blood only) 32.8 % (37-47); Hemoglobin 11.1 g/dL (12.0-16.0); Immature Granulocytes # (auto) 0.03 K/uL (0.00-0.02); Immature Granulocytes % (auto) 0.7 %; Lymphocytes # (auto) 0.18 K/uL (1.2-3.4); Lymphocytes % (auto) 4.2 %; Mean Corpuscular Hgb Conc 33.8 g/dL (32-36); Mean Corpuscular Volume 88.2 fL (80-100); Mean Platelet Volume 11.7 fL (7.4-10.4); Monocytes # (auto) 0.07 K/uL (0.11-0.59); Monocytes % (auto) 1.6 %; Neutrophils # (auto) 3.92 K/uL (1.4-6.5); Neutrophils % (auto) 91.1 %; Platelet Count 106 K/uL (130-400); RDW Coefficient of Variation 12.8 % (11.5-14.5); RDW Standard Deviation 41.4 fL (36.4-46.3); Red Blood Count 3.72 M/uL (4.2-5.4)
[2018-11-30] MEDS: NSS + 20MEQ KCL 20 MEQ/1,000 ML BAG IV SCH ×2 (07:46→21:27)
[2018-11-30] MEDS: CHECK FENTANYL PATCH PLACEMENT SCH ×2 (07:47→16:19)
--- NOTE | 2018-11-30 08:09 | XRay Report ---
SINGLE VIEW CHEST CLINICAL HISTORY: Hypoxia. FINDINGS: An AP, portable, upright chest radiograph is compared to chest x-ray dated 11/28/2018. Corre lation is made with chest CT dated 11/23/2018. The examination is degraded by portable technique and pa tient rotation. A chest tube is again seen at the left apex. The heart is enlarged and there is ath erosclerotic calcification of the thoracic aorta. Mild pulmonary vasculature persists. Advanced emphy sema and chronic interstitial thickening are again noted. There are layering pleural effusions, left larger than right with left basilar consolidation. There is also left greater than right bilateral up per lobe consolidation. No definite pneumothorax is seen. The skeletal structures are osteopenic. Th e bony thorax is grossly intact. IMPRESSION: 1. No significant change from 11/28/2018. 2. Cardiomegaly and emphysema. Mild pulmonary vascular congestion persists. 3. Again seen are left larger than right pleural effusions and left basilar consolidation. 4. Left greater than right upper lobe consolidation is again noted. Electronically signed by: Froylan Muñiz M.D. 11/30/2018 8:08 AM
[2018-11-30 08:17] LABS: BUN Creatinine Ratio 47.1 (10-20); Blood Urea Nitrogen 10 mg/dl (7-18); Calcium 8.3 mg/dl (8.5-10.1); Carbon Dioxide 32 mmol/L (21-32); Chloride 107 mmol/L (98-107); Creatinine Clr Calc Pharmacy 236.2 ml/min; Est GFR (African American) > 150.0; Est GFR (Non-African American) 140.2; Glucose 102 mg/dl (70-99); Potassium 3.9 mmol/L (3.5-5.1); Sodium 144 mmol/L (136-145)
[2018-11-30] MEDS: PROCHLORPERAZINE 10 MG in SYRINGE 8 ML IV PRN (08:41)
--- NOTE | 2018-11-30 08:43 | Progress Note ---
DATE: 11/30/2018 MEDICAL ONCOLOGY PROGRESS NOTE DIAGNOSES: 1. Nonsmall cell lung cancer. 2. Hemoptysis. 3. Nausea and vomiting. 4. Anorexia. 5. Malignant left pleural effusion. 6. Intractable skeletal pain. SUBJECTIVE: Margaux was seen and examined at bedside this morning. Chemotherapy seems to have hit her pretty hard at this juncture. She has not really eaten in the last couple of days, which again is not terribly surprising. She reports hemoptysis, especially in the morning which seems to improve throughout the day. Pain is well controlled at this point. Her activity level is minimal and encouraged the manage hospitalist to engage physical and occupational therapy to get her up and around. Hopefully, Margaux has reached her dawson in regards to chemo effects and should be on the upswing within a day or two. Still cautiously optimistic to get her through this first round and plan to re-administer in a couple of weeks. Nursing reports no overnight difficulties otherwise. PHYSICAL EXAMINATION: GENERAL: A very pleasant 63-year-old female patient in no acute distress. VITAL SIGNS: Temperature 37.1, pulse 83, respiratory rate 16, blood pressure 154/87. SKIN: Without rash or lesion. HEENT: Buccal mucosa is dry, no erythema or ulceration. NECK: Supple. HEART: Regular rate and rhythm. No clicks, rubs or murmurs. LUNGS: Clear to auscultation bilaterally. ABDOMEN: Soft, nontender, nondistended. EXTREMITIES: No clubbing, cyanosis or edema. NEUROLOGIC: Grossly intact. LABORATORY DATA: WBC count 4300, hemoglobin 11.1, platelet count 106,000. Sodium 144, potassium 3.9, chloride 107, carbon dioxide 32, BUN 10, creatinine 0.2. RADIOGRAPHIC DATA: Chest x-ray, no significant change since 28 of November, cardiomegaly and emphysema noted, again the left larger than right pleural effusion, bibasilar consolidation. IMPRESSION: 1. Acute hypoxemic respiratory failure/pneumonia. 2. Metastatic nonsmall cell lung cancer. 3. Osseous metastatic disease. 4. Malignant pleural effusion. 5. Status post PleurX catheter placement. PLAN: Margaux again appears to have a setback over the weekend, again not totally unexpected. She received a large dose paclitaxel and carboplatin, and is now feeling the effects manifested by asthenia, anorexia and nausea. I am hoping she begins to improve here over the next couple of days. Perhaps adding a synergistic dexamethasone with each dose of Zofran 4 mg with an 8 mg Zofran dose usually slices. We also encourage a bit more activity during the day, perhaps have physical therapy work with her at bedside and get Margaux moving around a little bit more. Her pain seems to be well controlled. Obviously remain cautiously optimistic with Margaux. Her clinical situation remains tenuous. We will continue to follow her periodically during her stay. Thank you very much for allowing me to participate in her care.
[2018-11-30] MEDS: DOCUSATE SODIUM 100 MG CAP PO SCH ×2 (10:08→20:30)
[2018-11-30] MEDS: ESTROGENS, CONJUGATED 0.625 MG TAB PO SCH (10:08)
[2018-11-30] MEDS: SENNA 8.6 MG TAB PO SCH (10:09)
[2018-11-30] MEDS: MEDROXYPROGESTERONE ACETATE 2.5 MG TAB PO SCH (10:09)
[2018-11-30] MEDS: CETIRIZINE HCL 10 MG TABLET PO SCH (10:09)
--- NOTE | 2018-11-30 11:14 | Hospitalist Progress Note ---
Date of Service November 30, 2018 Assessment & Plan (1) Acute hypoxemic respiratory failure: due to pneumonia, effusion, malignancy worsened over night on 11/27, placed on 9L via mask due to mouth breathing Now improved, no distress, is weaned down to 4 L OxyMask-continue to wean as tolerated to keep pulse ox greater than 92% -Will need a two-step oxygen test prior to discharge to determine home oxygen needs -continue to treat pneumonia with antibiotics -effusion to be drained daily with PleurX (2) Non-small cell lung cancer with metastasis: advancing quickly, d/w Dr. Albert, very aggressive cancer very poor prognosis, likely less than 2 months to live now with hemoptysis, pneumonia, effusion, mets to spine, lung, liver and brain received initial dose of chemotherapy on 11/25, now having side effects of profound fatigue, nausea, poor appetite -Would not need further treatment for 3 weeks -Can follow up with Dr. Albert for port placement d/w Dr. Calloway on 11/28 recommends treating the pneumonia cautiously optimistic that she will recover and have enough strength for second round of chemo three weeks from now -continue IVFs until taking better po -continue antiemetics prn -Follow blood counts-starting to drop (3) Bilateral pneumonia: developed overnight on 11/27, evidence of infiltrate in right upper lobe in addition to left upper lobe on CXR on 11/27 treated with Zosyn IV, Levaquin IV and Vanco IV MRSA swab negative, stopped Vanco on 11/28 CXR on 11/28 shows improvement/clearing in right lung breathing better, less coughing, afebrile, WBC normal -Continue Zosyn and Levaquin for now, consider taper to single antibiotic tomorrow -follow CXR periodically-stable today -Appreciate Pulm consult (4) Hemoptysis: due to metastatic non small cell lung CA CT chest shows encroachment of the pulmonary arteries bronchoscopy by Dr. Wheeler, extensive malignant tissue blood oozing in several areas will continue to have hemoptysis-11/29 blood is darker, scant, mixed with sputum -continue Robitussin to help patient sleep, working well (5) Metastatic cancer to lung: evidence of local spread with pleural effusion salvage chemo given on 11/25 (6) Postobstructive pneumonia: left upper lobe no fever, normal WBC as above, treating with Zosyn and Levaquin as above stopped Vanco with negative MRSA swab (7) Bony metastasis: just completed palliative radiation, has lytic bone lesions in L1, L2, L3 vertebrae, with pathologic fracture of L1 Was still in severe pain which is now resolved with increased fentanyl patch dosing -Continue fentanyl 50mcg patch, Oxycodone PRN -continue Dilaudid 1mg IV PRN for breakthrough -make sure she has Fentanyl patch at 50mcg on discharge (8) Pathologic compression fracture of spine: L1-pain control, see above (9) Pleural effusion, left: due to malignancy Dr. Wheeler with pulmonary drained 900mL on 11/24 patient had pain so procedure stopped PleurX placed on 11/27 orders placed to drain daily-continue to do so-has had 250-400 out the last 2 days (10) Pain due to malignant neoplasm metastatic to bone: Fentanyl patch and Oxycodone Dilaudid PRN (11) Hypertension: previous dx, not currently on meds for this BPs are a bit elevated, asymptomatic Continue to monitor (12) Anxiety: prn ativan (13) Hypotension: occurred after bronch resolved (14) Hypokalemia: resolved, continues to be replaced in IVFs -follow BMP (15) Constipation: -No bowel movement in several days, now on opioid therapy -Has had very minimal p.o. intake -will add bisacodyl suppository [place] as needed (16) Postmenopausal hormone replacement therapy: Continue estrogen and progesterone therapy although would consider discontinuing this given her high risk for VTE-we will discuss with her (17) DVT prophylaxis: SCDs added, BRANDON lee, no chemical means due to ongoing hemoptysis (18) Goals of care, counseling/discussion: As per previous Hospitalist: discussed code status, hospice, poor prognosis patient wants to continue treatment, get strong enough to go through chemo patient's daughter and her sisters support her although they have more realistic outlook on prognosis patient has stated that she does not want many details, does not want to be given a time frame for prognosis patient unrealistic in saying that her goal is remission oncology, pulmonology, thoracic surgery and myself have stated that remission is not realistic large left pulmonary mass with bleeding, malignant effusion, liver and bone and brain mets the patient has also experienced altered mental status, memory loss she met with palliative care for 60 minutes on 11/26 and then two hours later denied ever seeing them, could not recall conversation when pressed about code status the patient has stated she would want everything done in a vague sense, wants to fight this but then has also stated that the situation is in God's hands, when it is her time she will go she told previous hospitalist on 11/27 that she wants her daughter Stacy to make decisions on her behalf Stacy is contact for family, she wants patient to be DNR, she truly understands futility of the situation if she would code two closest sisters also support the DNR, DNI status based on conversations with patient, it is felt that she lacks the capacity to make complex medical decisions she can state in vague sense that she wants to fight her cancer and we will honor these wishes by treating pneumonia, giving chemotherapy, pain control but given her brain mets, intermittent confusion, memory loss I feel she lacks understanding that coding her or placing her on ventilator would be futile Decisions deferred to Stacy and her family and they wish her to be DNR Continued care at this time Subjective Patient is very fatigued today. She did swallow some pudding and sips of water with the speech therapist and had no troubles at all with choking as she had previously feared. She denies headache or lightheadedness, denies chest pain or shortness of breath. She has been weaned down to 4 L via oxygen mask down from 9 L yesterday. She denies abdominal pain, does have some mild nausea. Denies any other issues. She is still having some mild hemoptysis. Drained 400 mL's at a Pleurx yesterday as per nursing Review of Systems Review of Systems: All systems reviewed & are unremarkable except as noted in HPI & below Physical Exam Constitutional: + thin; no acute distress Eyes: PERRL, conjunctivae normal, anicteric sclerae ENMT: Ears: no external ear abnormality Mouth: + oropharynx abnormality (tongue a bit dry) Neck: trachea midline, no thyromegaly Respiratory: normal respiratory effort (Oxy Mask in place; PleurX in place on left) Auscultation: + diminished lung sounds (left base), + crackles (left base) and + wheezes (exp wheeze left upper lung field) Cardiovascular: RRR, no murmur, no edema Extremities: no calf tenderness Gastrointestinal (Abdomen): normal bowel sounds, soft, nontender, no hepatosplenomegaly Musculoskeletal: Extremities: extremities normal to inspection; no cyanosis and no clubbing Skin: no rashes, warm and dry Neurologic: moves all extremities and awake; no focal motor deficits Psychiatric: Orientation: alert (But closes her eyes through most of the interview), oriented to person and cooperative Results & Data Vital Signs (Past 12 Hours) Vital Signs Temp Pulse Resp BP Pulse Ox Pulse Ox 11/30/18 07:02 37.1 C 83 16 154/87 H 93 11/30/18 05:19 93 11/30/18 04:01 36.6 C 82 18 152/85 H 91 11/29/18 23:38 36.9 C 76 18 145/82 H 93 11/29/18 23:30 93 Laboratory Results 11/30/18 11/30/18 Range/Units 07:20 07:20 WBC 4.30 L (4.8-10.8) K/uL RBC 3.72 L (4.2-5.4) M/uL Hgb 11.1 L (12.0-16.0) g/dL Hct 32.8 L (37-47) % MCV 88.2 (80-100) fL MCH 29.8 (25-34) pg MCHC 33.8 (32-36) g/dL RDW Std Deviation 41.4 (36.4-46.3) fL RDW Coeff of [place] 12.8 (11.5-14.5) % Plt Count 106 L (130-400) K/uL MPV 11.7 H (7.4-10.4) fL Immature Gran % (Auto) 0.7 % Neut % (Auto) 91.1 % Lymph % (Auto) 4.2 % [place] % (Auto) 1.6 % Eos % (Auto) 1.9 % Baso % (Auto) 0.5 % Immature Gran # (Auto) 0.03 H (0.00-0.02) K/uL Neut # (Auto) 3.92 (1.4-6.5) K/uL Lymph # (Auto) 0.18 L (1.2-3.4) K/uL [place] # (Auto) 0.07 L (0.11-0.59) K/uL Eos # (Auto) 0.08 (0-0.5) K/uL Baso # (Auto) 0.02 (0-0.2) K/uL Sodium 144 (136-145) mmol/L Potassium 3.9 (3.5-5.1) mmol/L Chloride 107 (98-107) mmol/L Carbon Dioxide 32 (21-32) mmol/L Anion Gap 5.0 (3-11) BUN 10 (7-18) mg/dl Creatinine 0.20 L (0.6-1.2) mg/dl Est Cr Clr Drug Dosing 236.2 ml/min Est GFR ( Amer) > 150.0 Est GFR (Non-Af Amer) 140.2 BUN/Creatinine Ratio 47.1 H (10-20) Glucose 102 H (70-99) mg/dl Calcium 8.3 L (8.5-10.1) mg/dl Diagnostic Findings Chest x-ray image personally reviewed by me and agree with the following report: SINGLE VIEW CHEST CLINICAL HISTORY: Hypoxia. FINDINGS: An AP, portable, upright chest radiograph is compared to chest x-ray dated 11/28/2018. Correlation is made with chest CT dated 11/23/2018. The examination is degraded by portable technique and patient rotation. A chest tube is again seen at the left apex. The heart is enlarged and there is atherosclerotic calcification of the thoracic aorta. Mild pulmonary vasculature persists. Advanced emphysema and chronic interstitial thickening are again noted. There are layering pleural effusions, left larger than right with left basilar consolidation. There is also left greater than right bilateral upper lobe consolidation. No definite pneumothorax is seen. The skeletal structures are osteopenic. The bony thorax is grossly intact. IMPRESSION: 1. No significant change from 11/28/2018. 2. Cardiomegaly and emphysema. Mild pulmonary vascular congestion persists. 3. Again seen are left larger than right pleural effusions and left basilar consolidation. 4. Left greater than right upper lobe consolidation is again noted. PG Care Time/CCT Total # of Minutes Spent Total Time Spent with Patient: Total time spent is greater than 50% in coordination of care (as documented) at patient's floor/unit and/or counseling patient: (1) Metastatic cancer to lung Laterality: unspecified laterality Qualified Code(s): C78.00 - Secondary malignant neoplasm of unspecified lung (2) Pathologic compression fracture of spine Encounter type: initial encounter Qualified Code(s): M48.50XA - Collapsed vertebra, not elsewhere classified, site unspecified, initial encounter for fracture (3) Hypertension Hypertension type: essential hypertension Qualified Code(s): I10 - Essential (primary) hypertension (4) Constipation Constipation type: unspecified constipation type Qualified Code(s): K59.00 - Constipation, unspecified
--- NOTE | 2018-11-30 13:24 | Palliative Care Progress Note ---
Date of Service November 30, 2018 Assessment & Plan (1) Goals of care, counseling/discussion: -Patient had a difficult weekend. Continued hemoptysis. Side effects of chemotherapy hit hard: increased weakness and not eating/drinking, lethargy. -Is now on oxymask, 4LNC. Hemoptysis reportedly is darker in color. H/H stable. -Patient was made DNR over weekend by her daughter, patient unable to make complex medical decisions. -Prognosis is poor. But hoping patient will improve if her chemo side effects have peaked. -Palliative care will continue to follow. (2) Non-small cell lung cancer with metastasis: (3) Bony metastasis: (4) Hemoptysis: Subjective Patient had a difficult weekend. Continued hemoptysis. Side effects of chemotherapy hit hard: increased weakness and not eating/drinking, lethargy. Review of Systems Review of Systems: unable to obtain-- patient finally sleeping and family asked not to wake her. Physical Exam Constitutional: + thin; no acute distress Respiratory: normal respiratory effort (shallow breathing); no labored breathing Cardiovascular: Rate/Rhythm: regular rate and regular rhythm Neurologic: sleeping during visit Results & Data Vital Signs (Past 12 Hours) Vital Signs Temp Pulse Resp BP Pulse Ox Pulse Ox 11/30/18 11:17 37.0 C 77 14 150/86 H 93 11/30/18 07:02 37.1 C 83 16 154/87 H 93 11/30/18 05:19 93 11/30/18 04:01 36.6 C 82 18 152/85 H 91 Supervising Physician Co-Signing Physician Notes Patient seen and examined-patient has improved since last exam on 11/27. Patient has been weaned from 9 L oxygen mask down to 4 L, patient much more awake and alert. Patient reports hemoptysis has slightly improved. Patient's checks x-ray is improved compared to 11/27. PE: Patient more awake and alert, appears comfortable HEENT: EOMI, hearing within normal limits Respiratory: Unlabored CV: Regular rate Extremities: No edema Neuro: More alert Agree with above note, assessment and plan as per SUSANNA Martini-will continue to follow and assist patient and family with medical decision making as needed. PG Care Time/CCT Total # of Minutes Spent Total Time Spent with Patient: Total time spent is greater than 50% in coordination of care (as documented) at patient's floor/unit and/or counseling patient: Time Spent Midlevel 25 minutes with >50% of the time spent at bedside with patient and family discussing condition and GOC.
--- NOTE | 2018-11-30 15:57 | Pulmonology Progress Note ---
Date of Service November 30, 2018 Assessment & Plan (1) Non-small cell lung cancer with metastasis: The patient is difficult to evaluate at present. Would suggest continuing the antibiotics which includes Zosyn and levofloxacin. We will try to treat anything that is readily treatable. We will need to watch her CBCs as she may be having side effects from chemotherapy. Continue to drain pleural fluid through the Pleurx catheter. Certainly prognosis is guarded at best. (2) Hemoptysis: (3) Pleural effusion, left: (4) Postobstructive pneumonia: Subjective The patient is currently sleeping very heavily. Her sister was with her during this evaluation. There has been somewhat of a decline in her alertness today according to her sister. However when the patient does awaken she is well oriented and recognizes her surroundings and understand she is in the. According to her sister she has coughed up a little bit of blood today. She has eaten very little. Further review of systems could not be undertaken at this time. Physical Exam Physical Exam: The patient is a 63-year-old female who was sleeping heavily. She did not awaken despite the exam. Temperature is 37 degrees. She has had no fevers. Nasal cannula is in place. No lymph nodes palpable. Cardiac rate 80/min. Rhythm regular. Blood pressure elevated at 165/90. Auscultation of the left lung reveals diffuse rales and rhonchi. Breath sounds are better heard on the right and there are less adventitious sounds. Respiratory rate 18. Saturation 94% on 3 L. Extremities showed no cyanosis clubbing or edema. Results & Data Vital Signs (Past 12 Hours) Vital Signs Temp Pulse Resp BP Pulse Ox Pulse Ox 11/30/18 15:13 37 C 80 18 165/90 H 94 11/30/18 11:17 37.0 C 77 14 150/86 H 93 11/30/18 07:02 37.1 C 83 16 154/87 H 93 11/30/18 05:19 93 11/30/18 04:01 36.6 C 82 18 152/85 H 91 Laboratory Results White count today is 4.3. This reflects a decrease from yesterday when it was 8.59. White counts will need to be watched carefully. Hemoglobin 11.1. Platelets 106,000. They are also decreased from yesterday at 131,002 days ago whenever 159,000. Electrolytes show sodium 144 potassium 3.9 chloride 107 bicarb 32. BUN is 10 with creatinine 0.2. This would suggest very poor nutrition. Blood sugar 102. Calcium 8.3. Albumin was 1.9. Total protein only 5.6. PG Care Time/CCT Total # of Minutes Spent Total Time Spent with Patient: Total time spent is greater than 50% in coord ination of care (as documented) at patient's floor/unit and/or counseling patient:
[2018-11-30] MEDS: levoFLOXacin 750 MG TAB PO SCH (16:03)
[2018-12-01] MEDS: CHECK FENTANYL PATCH PLACEMENT SCH ×3 (00:21→16:35)
[2018-12-01] MEDS: PIPERACILLIN/TAZOBACTAM 3.375 GM in DEXTROSE 5% 100 ML IV SCH ×3 (05:49→21:48)
[2018-12-01 07:08] LABS: Hemoglobin 11.6 g/dL (12.0-16.0); Mean Corpuscular Hgb Conc 33.1 g/dL (32-36); Mean Corpuscular Volume 89.1 fL (80-100); RDW Coefficient of Variation 12.8 % (11.5-14.5); RDW Standard Deviation 41.3 fL (36.4-46.3); Red Blood Count 3.93 M/uL (4.2-5.4); White Blood Count 2.72 K/uL (4.8-10.8)
[2018-12-01 07:33] LABS: Basophils # (auto) 0.03 K/uL (0-0.2); Basophils % (auto) 1.1 %; Eosinophils % (auto) 3.7 %; Giant Platelets 1+; Immature Granulocytes # (auto) 0.01 K/uL (0.00-0.02); Immature Granulocytes % (auto) 0.4 %; Lymphocytes # (auto) 0.29 K/uL (1.2-3.4); Lymphocytes % (auto) 10.7 %; Mean Platelet Volume 11.6 fL (7.4-10.4); Monocytes # (auto) 0.07 K/uL (0.11-0.59); Monocytes % (auto) 2.6 %; Neutrophils # (auto) 2.22 K/uL (1.4-6.5); Neutrophils % (auto) 81.5 %; Platelet Count 97 K/uL (130-400); Platelet Estimate Decreased (Normal)
[2018-12-01] MEDS: BISACODYL 10 MG SUPP PR PRN (07:40)
[2018-12-01 07:44] LABS: Blood Urea Nitrogen 10 mg/dl (7-18); Calcium 8.2 mg/dl (8.5-10.1); Carbon Dioxide 34 mmol/L (21-32); Chloride 107 mmol/L (98-107); Est GFR (African American) > 150.0; Est GFR (Non-African American) 130.3; Glucose 98 mg/dl (70-99); Magnesium 1.8 mg/dl (1.8-2.4); Potassium 4.4 mmol/L (3.5-5.1); Sodium 145 mmol/L (136-145)
[2018-12-01] MEDS: SENNA 8.6 MG TAB PO SCH (08:39)
[2018-12-01] MEDS: MEDROXYPROGESTERONE ACETATE 2.5 MG TAB PO SCH (08:40)
[2018-12-01] MEDS: CETIRIZINE HCL 10 MG TABLET PO SCH (08:40)
[2018-12-01] MEDS: ESTROGENS, CONJUGATED 0.625 MG TAB PO SCH (08:41)
[2018-12-01] MEDS: DOCUSATE SODIUM 100 MG CAP PO SCH ×2 (08:42→21:49)
--- NOTE | 2018-12-01 09:08 | Progress Note ---
DATE: 12/01/2018 MEDICAL ONCOLOGY PROGRESS NOTE DIAGNOSES: 1. Metastatic xbg-xjnit-ejjs lung cancer. 2. Hemoptysis. 3. Intractable nausea and vomiting. 4. Anorexia. 5. Malignant left pleural effusion. 6. Intractable skeletal pain. SUBJECTIVE: Margaux was seen and examined again at bedside this morning. Today, she looks a bit brighter both mentally and physically. She is regaining her appetite somewhat. Ambulation remains minimal. According to nursing, physical and occupational therapy is working with her, hopefully moving her towards discharge. She has now been weaned off of nonrebreather and is on oxygen via nasal cannula. All these are optimistic signs that she may be responding to current therapy. She offers no complaints and nursing offers no overnight difficulties. Palliative care actually saw Margaux yesterday. The patient has decided to proceed with DNR status. OBJECTIVE: GENERAL: A very pleasant 63-year-old female patient in no acute distress. VITAL SIGNS: Temperature 37, pulse is 80, respiratory rate 18, blood pressure 151/79. SKIN: Without rash or lesion. HEENT: Oral mucosa without erythema or ulceration. HEART: Regular rate and rhythm. LUNGS: Blunted breath sounds in the posterior bases bilaterally. No rales or rhonchi appreciated. ABDOMEN: Soft, nontender, nondistended. EXTREMITIES: No clubbing, cyanosis, or edema. NEUROLOGIC: She is grossly intact. LABORATORY DATA: WBC count 2720, hemoglobin 11.6, platelet count 97,000. Sodium 145, potassium 4.4, chloride 107, carbon dioxide 34, BUN 10, creatinine 0.25. RADIOGRAPHIC DATA: Chest x-ray from yesterday reveals no significant change. Left greater than right pleural effusions are noted. IMPRESSION: 1. Acute hypoxemic respiratory failure. 2. Metastatic ian-khlsj-zywj lung cancer. 3. Status post cycle 1 carboplatin, paclitaxel, and bevacizumab. 4. Hypoalbuminemia. 5. Intractable skeletal pain. 6. Bilateral pneumonia. 7. Status post PleurX catheter placement. PLAN: Margaux seems to be making slow but steady progress. Work on her ambulation and proceed towards discharge. I would prefer to give her a second cycle of chemotherapy as outpatient. Agree with current medical management. Her pain management seems to be going well and hopefully over the next couple of days, she picks up her appetite as I anticipate. We will continue to follow her during her hospital stay. Overall, could not be more pleased with her progress and hopefully she continues to do improve.
[2018-12-01] MEDS: NSS + 20MEQ KCL 20 MEQ/1,000 ML BAG IV SCH (12:02)
[2018-12-01] MEDS: fentaNYL 50 MCG/HR TDSY TD SCH (12:03)
--- NOTE | 2018-12-01 16:07 | Progress Note ---
DATE: 12/01/2018 Ms. Gonsalez looks much better today. Her A-a gradient has improved. She feels better and actually has been up walking a bit. I have to say that I am impressed that she looked so bad a few days ago. I assume this patient was probably suffering from a pneumonia which is now improved. Her white count today is 2720 with a platelet count that is now below 100,000. At this point, I would continue doing what we are doing. It is my hope that this patient responds to chemotherapy.
--- NOTE | 2018-12-01 16:26 | Hospitalist Progress Note ---
Date of Service December 01, 2018 Assessment & Plan (1) Acute hypoxemic respiratory failure: due to pneumonia, effusion, malignancy worsened over night on 11/27, placed on 9L via mask due to mouth breathing Now improved, no distress, is weaned down to 3LNC-continue to wean as tolerated to keep pulse ox greater than 92% -Will need a two-step oxygen test prior to discharge to determine home oxygen needs -continue to treat pneumonia with antibiotics -effusion to be drained daily with PleurX (2) Non-small cell lung cancer with metastasis: advancing quickly, d/w Dr. Albert, very aggressive cancer very poor prognosis, likely less than 2 months to live now with hemoptysis, pneumonia, effusion, mets to spine, lung, liver and brain received initial dose of chemotherapy on 11/25, now having side effects of profound fatigue, nausea, poor appetite -Would not need further treatment for 3 weeks -Can follow up with Dr. Albert for port placement d/w Dr. Calloway on 11/28 recommends treating the pneumonia cautiously optimistic that she will recover and have enough strength for second round of chemo three weeks from now -continue IVFs until taking better po -continue antiemetics prn -Follow blood counts-starting to drop but no transfusion needed (3) Bilateral pneumonia: developed overnight on 11/27, evidence of infiltrate in right upper lobe in addition to left upper lobe on CXR on 11/27 treated with Zosyn IV, Levaquin IV and Vanco IV MRSA swab negative, stopped Vanco on 11/28 CXR on 11/28 shows improvement/clearing in right lung breathing better, less coughing, afebrile, WBC normal -Continue Zosyn and will now dc Levaquin -follow CXR periodically-stable on 11/30 -Appreciate Pulm consult (4) Hemoptysis: due to metastatic non small cell lung CA CT chest shows encroachment of the pulmonary arteries bronchoscopy by Dr. Wheeler, extensive malignant tissue blood oozing in several areas will continue to have hemoptysis- blood continues to be darker, scant, mixed with sputum -continue Robitussin to help patient sleep, working well (5) Metastatic cancer to lung: evidence of local spread with pleural effusion salvage chemo given on 11/25 (6) Postobstructive pneumonia: Bilat upper lobes no fever, normal WBC as above, treating with abx stopped Vanco with negative MRSA swab (7) Bony metastasis: just completed palliative radiation, has lytic bone lesions in L1, L2, L3 vertebrae, with pathologic fracture of L1 Was still in severe pain which is now resolved with increased fentanyl patch dosing -Continue fentanyl 50mcg patch, Oxycodone PRN -continue Dilaudid 1mg IV PRN for breakthrough -make sure she has Fentanyl patch at 50mcg on discharge (8) Pathologic compression fracture of spine: L1-pain control, see above (9) Pleural effusion, left: due to malignancy Dr. Wheeler with pulmonary drained 900mL on 11/24 patient had pain so procedure stopped PleurX placed on 11/27 orders placed to drain daily-continue to do so-has had 400 out the last 2 days (10) Pain due to malignant neoplasm metastatic to bone: Fentanyl patch and Oxycodone Dilaudid PRN (11) Hypertension: previous dx, not currently on meds for this BPs are a bit elevated, asymptomatic Continue to monitor (12) Anxiety: prn ativan (13) Hypotension: occurred after bronch resolved (14) Hypokalemia: resolved, continues to be replaced in IVFs -follow BMP (15) Constipation: -No bowel movement in many days except a very small BM after suppository, is on opioid therapy -Has had very minimal p.o. intake - bisacodyl suppository TX as needed -add senna/docusate and Miralax (16) Postmenopausal hormone replacement therapy: Continue estrogen and progesterone therapy although would consider discontinuing this given her high risk for VTE-we will discuss with her (17) DVT prophylaxis: SCDs, BRANDON hose, no chemical means due to ongoing hemoptysis (18) Goals of care, counseling/discussion: As per previous Hospitalist: discussed code status, hospice, poor prognosis patient wants to continue treatment, get strong enough to go through chemo patient's daughter and her sisters support her although they have more realistic outlook on prognosis patient has stated that she does not want many details, does not want to be given a time frame for prognosis patient unrealistic in saying that her goal is remission oncology, pulmonology, thoracic surgery and myself have stated that remission is not realistic large left pulmonary mass with bleeding, malignant effusion, liver and bone and brain mets the patient has also experienced altered mental status, memory loss she met with palliative care for 60 minutes on 11/26 and then two hours later denied ever seeing them, could not recall conversation when pressed about code status the patient has stated she would want everything done in a vague sense, wants to fight this but then has also stated that the situation is in God's hands, when it is her time she will go she told previous hospitalist on 11/27 that she wants her daughter Stacy to make decisions on her behalf Stacy is contact for family, she wants patient to be DNR, she truly understands futility of the situation if she would code two closest sisters also support the DNR, DNI status based on conversations with patient, it is felt that she lacks the capacity to make complex medical decisions she can state in vague sense that she wants to fight her cancer and we will honor these wishes by treating pneumonia, giving chemotherapy, pain control but given her brain mets, intermittent confusion, memory loss I feel she lacks understanding that coding her or placing her on ventilator would be futile Decisions deferred to Stacy and her family and they wish her to be DNR Continued care at this time, but getting closer to discharge-perhaps in 1-2 days Subjective Pt was OOB with PT yesterday, did eat dwain eeggs fo rbreakfast today. Now napping and having nausea. No vomiting. Still coughing up some blood. Denies SOB or CP. Is weaned to 3L NC on O2 Review of Systems Review of Systems: All systems reviewed & are unremarkable except as noted in HPI & below Physical Exam Constitutional: + thin; no acute distress ENMT: Ears: no external ear abnormality Neck: trachea midline, no thyromegaly Respiratory: normal respiratory effort (NC in place; PleurX in place on left) Auscultation: + diminished lung sounds (left base), + crackles (left base) and + wheezes (exp wheeze left upper lung field) Cardiovascular: RRR, no murmur, no edema Extremities: no calf tenderness Gastrointestinal (Abdomen): normal bowel sounds, soft, nontender, no hepatosplenomegaly Inspection/Auscultation: + abdomen distended (mild) Musculoskeletal: Extremities: extremities normal to inspection; no cyanosis and no clubbing Skin: no rashes, warm and dry Neurologic: moves all extremities and awake; no focal motor deficits Psychiatric: Orientation: alert (But closes her eyes through most of the interview), oriented to person and cooperative Results & Data Vital Signs (Past 12 Hours) Vital Signs Temp Pulse Resp BP Pulse Ox Pulse Ox 12/01/18 14:54 37.1 C 73 16 152/77 H 97 12/01/18 12:16 36.9 C 76 18 163/89 H 93 12/01/18 09:55 91 12/01/18 07:36 37.0 C 80 18 151/79 H 91 12/01/18 05:00 91 Laboratory Results 12/01/18 12/01/18 Range/Units 06:41 06:41 WBC 2.72 L (4.8-10.8) K/uL RBC 3.93 L (4.2-5.4) M/uL Hgb 11.6 L (12.0-16.0) g/dL Hct 35.0 L (37-47) % MCV 89.1 (80-100) fL MCH 29.5 (25-34) pg MCHC 33.1 (32-36) g/dL RDW Std Deviation 41.3 (36.4-46.3) fL RDW Coeff of [place] 12.8 (11.5-14.5) % Plt Count 97 L (130-400) K/uL MPV 11.6 H (7.4-10.4) fL Immature Gran % (Auto) 0.4 % Neut % (Auto) 81.5 % Lymph % (Auto) 10.7 % [place]ole % (Auto) 2.6 % Eos % (Auto) 3.7 % Baso % (Auto) 1.1 % Immature Gran # (Auto) 0.01 (0.00-0.02) K/uL Neut # (Auto) 2.22 (1.4-6.5) K/uL Lymph # (Auto) 0.29 L (1.2-3.4) K/uL [place]ole # (Auto) 0.07 L (0.11-0.59) K/uL Eos # (Auto) 0.10 (0-0.5) K/uL Baso # (Auto) 0.03 (0-0.2) K/uL Hyposegmented Neuts 2+ Platelet Estimate Decreased L (Normal) Giant Platelets 1+ Sodium 145 (136-145) mmol/L Potassium 4.4 (3.5-5.1) mmol/L Chloride 107 (98-107) mmol/L Carbon Dioxide 34 H (21-32) mmol/L Anion Gap 3.0 (3-11) BUN 10 (7-18) mg/dl Creatinine 0.25 L (0.6-1.2) mg/dl Est Cr Clr Drug Dosing 189.0 ml/min Est GFR ( Amer) > 150.0 Est GFR (Non-Af Amer) 130.3 BUN/Creatinine Ratio 39.0 H (10-20) Glucose 98 (70-99) mg/dl Calcium 8.2 L (8.5-10.1) mg/dl Magnesium 1.8 (1.8-2.4) mg/dl PG Care Time/CCT Total # of Minutes Spent Total Time Spent with Patient: Total time spent is greater than 50% in coordination of care (as documented) at patient's floor/unit and/or counseling patient: (1) Metastatic cancer to lung Laterality: unspecified laterality Qualified Code(s): C78.00 - Secondary malignant neoplasm of unspecified lung (2) Pathologic compression fracture of spine Encounter type: initial encounter Qualified Code(s): M48.50XA - Collapsed vertebra, not elsewhere classified, site unspecified, initial encounter for fracture (3) Hypertension Hypertension type: essential hypertension Qualified Code(s): I10 - Essential (primary) hypertension (4) Constipation Constipation type: unspecified constipation type Qualified Code(s): K59.00 - Constipation, unspecified
[2018-12-01] MEDS: ONDANSETRON INJ 2 MG/ML 2 ML VIAL IV PRN (16:33)
[2018-12-01] MEDS: PROCHLORPERAZINE 10 MG in SYRINGE 8 ML IV PRN (18:11)
[2018-12-01] MEDS: DOCUSATE SODIUM/SENNA 50/8.6MG TAB PO SCH ×2 (18:13→21:49)
[2018-12-01] MEDS: levoFLOXacin 750 MG TAB PO SCH (18:13)
--- NOTE | 2018-12-01 18:13 | Palliative Care Progress Note ---
Date of Service December 01, 2018 Assessment & Plan (1) Goals of care, counseling/discussion: Patient is a 63-year-old female with widely metastatic non-small cell lung cancer with mets to the spine, lung, liver, brain. Patient received chemo on 11/25-continues to have intermittent nausea and poor p.o. intake. -Goals of care-patient does not want to know prognosis, daughter named as her POA-patient is currently a DNR -Metastatic non-small cell lung cancer-mets to spine, lung, liver and brain- status post palliative XRT to spinal lesions for pain control. Pain currently being well controlled on fentanyl at 50 mics-has not required any PRN pain medication for breakthrough pain. -Pleural effusion-patient has a Pleurx catheter placed-nursing drains PRN -Hemoptysis-continues, hemoglobin stable at 11.6 -bronchoscopy on 11/25 showed friable tissue in the airway in the left lower lobe and left upper lobe bronchi -Hypoxia-improving, patient now on O2 at 3 L. Continue to wean O2 as tolerated. Will continue to follow and assist family with medical decision making and providing support to both patient and family. (2) Non-small cell lung cancer with metastasis: (3) Pleural effusion, left: (4) Acute hypoxemic respiratory failure: (5) Hemoptysis: Subjective Patient awake, fatigued-reportedly was up with PT/OT earlier today. Patient now complaining of nausea, patient's daughter, son and sister at bedside Patient did not require any PRN medications in the last 24 hours for pain or anxiety. Patient is currently on a 50 mcg fentanyl patch for pain. Review of Systems Review of Systems: Patient denies fever, chills, increased shortness of breath, or abdominal pain Positive for nausea and hemoptysis, positive for weakness Physical Exam Physical Exam: PE: Mild distress due to nausea and fatigue HEENT: EOMI, hearing within normal limits Respirations: Unlabored, on O2 at 3 L nasal cannula CV: Regular rate Abdomen: Not distended Neuro: Positive memory deficits Results & Data Vital Signs (Past 12 Hours) Vital Signs Temp Pulse Resp BP Pulse Ox Pulse Ox 12/01/18 14:54 98.8 F 73 16 152/77 H 97 12/01/18 12:16 98.4 F 76 18 163/89 H 93 12/01/18 09:55 91 12/01/18 07:36 98.6 F 80 18 151/79 H 91 PG Care Time/CCT Total # of Minutes Spent Total Time Spent with Patient: Total time spent is greater than 50% in coordination of care (as documented) at patient's floor/unit and/or counseling patient: Time Spent Attending Total time spent 25 minutes with greater than 50% of the time spent at bedside assessing patient's current condition and collaborating with attending physician
[2018-12-01] MEDS: POLYETHYLENE (MIRALAX) 17 GM PACK PO SCH (18:14)
[2018-12-02] MEDS: CHECK FENTANYL PATCH PLACEMENT SCH ×4 (00:02→23:21)
[2018-12-02] MEDS: NSS + 20MEQ KCL 20 MEQ/1,000 ML BAG IV SCH (01:47)
[2018-12-02] MEDS: PIPERACILLIN/TAZOBACTAM 3.375 GM in DEXTROSE 5% 100 ML IV SCH ×3 (05:23→20:50)
--- NOTE | 2018-12-02 07:20 | XRay Report ---
XR chest 1V portable CLINICAL HISTORY: lung cancer COMPARISON STUDY: 11/30/2018 FINDINGS: The cardiac and mediastinal contours remain stable. There is a left-sided chest tube unchan ged in position. There is no pneumothorax. There are bilateral pleural effusions. There is radiograph ic evidence of congestive failure and interstitial edema. There are improving left basilar airspace o pacities. There are persistent left upper lung zone airspace opacities.[ IMPRESSION: 1. Radiographic evidence of pulmonary edema with bilateral pleural effusions 2. No change in the left-sided chest tube. No pneumothorax 3. Improving aeration of the left lower lung zone Electronically signed by: Dayo Terrazas M.D. 12/02/2018 7:18 AM
[2018-12-02 07:52] LABS: Hematocrit (blood only) 32.9 % (37-47); Hemoglobin 10.9 g/dL (12.0-16.0); Mean Corpuscular Hgb Conc 33.1 g/dL (32-36); Mean Corpuscular Volume 88.4 fL (80-100); RDW Coefficient of Variation 12.9 % (11.5-14.5); RDW Standard Deviation 41.6 fL (36.4-46.3); Red Blood Count 3.72 M/uL (4.2-5.4); White Blood Count 2.12 K/uL (4.8-10.8)
[2018-12-02 08:18] LABS: Basophils # (auto) 0.02 K/uL (0-0.2); Basophils % (auto) 0.9 %; Eosinophils # (auto) 0.15 K/uL (0-0.5); Eosinophils % (auto) 7.1 %; Giant Platelets 1+; Immature Granulocytes # (auto) 0.01 K/uL (0.00-0.02); Immature Granulocytes % (auto) 0.5 %; Lymphocytes % (auto) 9.4 %; Mean Platelet Volume 11.5 fL (7.4-10.4); Monocytes # (auto) 0.08 K/uL (0.11-0.59); Monocytes % (auto) 3.8 %; Neutrophils # (auto) 1.66 K/uL (1.4-6.5); Neutrophils % (auto) 78.3 %; Platelet Count 77 K/uL (130-400)
[2018-12-02 08:23] LABS: Creatinine Clr Calc Pharmacy 169.4 ml/min; Est GFR (African American) 145.5; Est GFR (Non-African American) 125.5; Potassium 4.1 mmol/L (3.5-5.1)
[2018-12-02] MEDS: POLYETHYLENE (MIRALAX) 17 GM PACK PO SCH (09:19)
[2018-12-02] MEDS: ESTROGENS, CONJUGATED 0.625 MG TAB PO SCH (09:20)
[2018-12-02] MEDS: MEDROXYPROGESTERONE ACETATE 2.5 MG TAB PO SCH (09:20)
[2018-12-02] MEDS: DOCUSATE SODIUM/SENNA 50/8.6MG TAB PO SCH ×2 (09:21→20:52)
[2018-12-02] MEDS: SENNA 8.6 MG TAB PO SCH (09:21)
[2018-12-02] MEDS: CETIRIZINE HCL 10 MG TABLET PO SCH (09:21)
[2018-12-02] MEDS: DOCUSATE SODIUM 100 MG CAP PO SCH (09:25)
[2018-12-02] MEDS: SODIUM CHLORIDE 0.45 % 1,000 ML IV SCH ×2 (09:40→20:50)
--- NOTE | 2018-12-02 09:50 | Progress Note ---
DATE: 12/02/2018 DIAGNOSES: 1. Metastatic nonsmall cell lung cancer. 2. Hemoptysis. 3. Intractable nausea and vomiting. 4. Anorexia. 5. Malignant left pleural effusion, status post PleurX catheter insertion. 6. Intractable skeletal pain. SUBJECTIVE: The patient was seen and examined at bedside accompanied by her sister. She continues to make slow but steady improvement. Her appetite is slow return and the pain seems to be well controlled. Physical and Occupational Therapy work with her yesterday and hopefully moving towards discharge. I briefly spoke to Dr. Hammonds, current hospitalist managing the patient's care. From my standpoint, she is due for her next round of chemotherapy on 12/15/2018 and we will make arrangements to see her in followup. Nursing offers no overnight difficulties. OBJECTIVE: GENERAL: Pleasant 63-year-old female patient in no acute distress. VITAL SIGNS: Temperature 36.6, pulse 102, respiratory rate 22, blood pressure 178/86. SKIN: Without rash or lesion. HEENT: Oral mucosa without buccal lesions or ulcerations. HEART: Tachy, but regular. LUNGS: Scattered rhonchi heard in all diaz. ABDOMEN: Soft, nontender, nondistended. EXTREMITIES: No clubbing, cyanosis or edema. NEUROLOGICAL: Grossly intact. LABORATORY DATA: WBC count 2120, hemoglobin 10.9, platelet count 77,000. Sodium 146, potassium 4.1, chloride 108, carbon dioxide 33, creatinine 0.28, BUN 12. RADIOGRAPHIC DATA: Chest x-ray done this morning, radiographic evidence of pulmonary edema and bilateral pleural effusions. IMPRESSION: 1. Status post cycle 1 carboplatin, paclitaxel and bevacizumab received 8 days ago. 2. Acute hypoxemic respiratory failure. 3. Metastatic nonsmall cell lung cancer. 4. Hypoalbuminemia. 5. Bilateral pneumonia. 6. Intractable skeletal pain. PLAN: I spoke to Dr. Hammonds this morning. If the patient is cleared medically, she will be discharged within the next 24 hours or so. She did ambulate with assistance yesterday. She additionally is regaining her appetite being slow. I think clinically she is holding her own and cautiously optimistic. She will proceed with her second course of chemotherapy on 12/15/2018. We will make arrangements to have her seen back in the clinic as an outpatient. Agree with medical management otherwise. Hopefully, her cytopenias will begin to improve as she progresses towards her next cycle of treatment. I have nothing further to add today. Thank you again for allowing me to participate in the patient's care.
--- NOTE | 2018-12-02 14:51 | Pulmonology Progress Note ---
Date of Service December 02, 2018 Assessment & Plan (1) Non-small cell lung cancer with metastasis: The patient is continuing to be followed by . Further chemo is planned. She is showing hematologic changes secondary to chemotherapy. (2) Hemoptysis: The patient is having minimal hemoptysis at present and it does not appear to be fresh bleeding. (3) Pleural effusion, left: Plan: 1. Patient is status post left Pleurx catheter placement. Chest x-ray looks slightly better today. Continue to drain on a daily basis. Reportedly 800 mL's were removed in the past 24 hours. (4) Postobstructive pneumonia: Patient remains on Zosyn and levofloxacin. Augmentin is to be considered when the Zosyn is to be discontinued. Respiratory status fairly stable. Will see again if specifically requested. Subjective Patient is slowly feeling a bit better. Today she is awake and able to give me a good history. When I saw her 2 days ago she was sleeping heavily and unable to verbalize. Her breathing is somewhat improved. She is able to ambulate utilizing oxygen without too much difficulty. She is still having small amounts of intermittent hemoptysis. The hemoptysis is dark in color and somewhat thickened up. This would suggest it is not fresh. Her appetite is improving somewhat. Physical Exam Physical Exam: The patient is a 63-year-old female who was cooperative alert and oriented. She was in no distress at rest. Nasal cannula was again in place. Palpation of the neck reveals no lymph nodes. Mouth exam unremarkable. Cardiac rate 76/min. Rhythm is regular. Blood pressure 148/98. Lung diaz revealed diffuse rales and rhonchi bilaterally greater on the left than the right. The breath sounds were better heard on the right. Respiratory rate 20. Saturation 97% on 4 L Nasal cannula. Extremities showed no cyanosis clubbing or edema. Results & Data Vital Signs (Past 12 Hours) Vital Signs Temp Pulse Resp BP Pulse Ox 12/02/18 11:31 37.0 C 76 18 148/98 H 97 12/02/18 09:19 37.0 C 70 19 137/87 96 12/02/18 05:44 36.6 C 102 H 22 178/86 H 90 12/02/18 03:19 36.7 C 68 20 104/60 96 Laboratory Results Today's white blood cell count 2.12. It has been steadily declining. Hemoglobin 10.9. Yesterday was 11.6. Platelets down to 77,000. Yesterday the platelet count was 97,000. It has decreased consecutively every day for the past 5 days. Sodium 146 potassium 4.1 chloride 108 bicarb 33. BUN is 12 with a creatinine of 0.28. Blood sugar 97. Calcium 8.0. Diagnostic Findings Chest x-ray done today shows a left Pleurx catheter. There is haziness in the left upper lung field which I suspect reflects atelectasis. There appears to be diffuse increased interstitial markings. It is difficult to determine if these may be vascular or not. There are some air bronchograms noted mainly on the left. One could not exclude lymphangitic spread. There is some effusion at the right base. The aeration at the left base has improved somewhat compared with 2 days ago. PG Care Time/CCT Total # of Minutes Spent Total Time Spent with Patient: Total time spent is greater than 50% in coordination of care (as documented) at patient's floor/unit and/or counseling patient:
--- NOTE | 2018-12-02 16:07 | Hospitalist Progress Note ---
Date of Service December 02, 2018 Assessment & Plan (1) Acute hypoxemic respiratory failure: due to pneumonia, effusion, malignancy worsened over night on 11/27, placed on 9L via mask due to mouth breathing Now much improved, no distress, is weaned down to 3LNC-continue to wean as tolerated to keep pulse ox greater than 92% CXR is stable to improved on 12/02 -Will need a two-step oxygen test prior to discharge to determine home oxygen needs -continue to treat pneumonia with antibiotics -effusion to be drained daily with PleurX (2) Non-small cell lung cancer with metastasis: advancing quickly, d/w Dr. Albert, very aggressive cancer very poor prognosis, likely less than 2 months to live now with hemoptysis, pneumonia, effusion, mets to spine, lung, liver and brain received initial dose of chemotherapy on 11/25, now having side effects of profoun d fatigue, nausea, poor appetite--> however, improved today -Would not need further treatment for 3 weeks -Can follow up with Dr. Albert, no port placement needed yet he thinks -continue IVFs until taking better po -continue antiemetics prn -Follow blood counts-starting to drop but no transfusion needed (3) Bilateral pneumonia: developed overnight on 11/27, evidence of infiltrate in right upper lobe in addition to left upper lobe on CXR on 11/27 treated with Zosyn IV, Levaquin IV and Vanco IV MRSA swab negative, stopped Vanco on 11/28 CXR on 11/28 shows improvement/clearing in right lung breathing better, less coughing, afebrile, WBC normal -Continue Zosyn and will now dc Levaquin -follow CXR periodically-stable on 12/02 -Appreciate Pulm consult (4) Hemoptysis: due to metastatic non small cell lung CA CT chest shows encroachment of the pulmonary arteries bronchoscopy by Dr. Wheeler, extensive malignant tissue blood oozing in several areas will continue to have hemoptysis- blood continues to be darker, scant, mixed with sputum -continue Robitussin to help patient sleep, working well (5) Metastatic cancer to lung: evidence of local spread with pleural effusion salvage chemo given on 11/25 (6) Postobstructive pneumonia: Bilat upper lobes no fever, normal WBC as above, treating with abx stopped Vanco with negative MRSA swab (7) Bony metastasis: just completed palliative radiation, has lytic bone lesions in L1, L2, L3 vertebrae, with pathologic fracture of L1 Was still in severe pain which is now resolved with increased fentanyl patch dosing -Continue fentanyl 50mcg patch, Oxycodone PRN -continue Dilaudid 1mg IV PRN for breakthrough -make sure she has Fentanyl patch at 50mcg on discharge (8) Pathologic compression fracture of spine: L1-pain control, see above (9) Pleural effusion, left: due to malignancy Dr. Wheeler with pulmonary drained 900mL on 11/24 patient had pain so procedure stopped PleurX placed on 11/27 orders placed to drain daily-continue to do so-has had 400 out daily the last few days (10) Pain due to malignant neoplasm metastatic to bone: Fentanyl patch and Oxycodone Dilaudid PRN (11) Hypertension: BPs elevated, has not had her losartan HCTZ since admission as had lower BPs on admission -restart losartan but not HCTZ (12) Anxiety: prn ativan (13) Hypotension: occurred after bronch resolved (14) Hypokalemia: resolved (15) Constipation: Now with small BM on 12/01 -Has had very minimal p.o. intake but this is now improving - bisacodyl suppository OR as needed -addws senna/docusate and Miralax (16) Postmenopausal hormone replacement therapy: Continue estrogen and progesterone therapy-has tried to wean off in the past and had bad hot flashes -ok to continue but did discuss increased risk of VTE given ongoing malignancy (17) DVT prophylaxis: SCDs, BRANDON hose, no chemical means due to ongoing hemoptysis Dispo-improving, likely dc to home tomorrow 2 step O2 test tomorrow, gave CM Rx for rolling walker with seat. Daughter arranging for hospital bed at home. Also will get home health and PleurX teaching for at home (18) Goals of care, counseling/discussion: As per previous Hospitalist: discussed code status, hospice, poor prognosis patient wants to continue treatment, get strong enough to go through chemo patient's daughter and her sisters support her although they have more realistic outlook on prognosis patient has stated that she does not want many details, does not want to be given a time frame for prognosis patient unrealistic in saying that her goal is remission oncology, pulmonology, thoracic surgery and myself have stated that remission is not realistic large left pulmonary mass with bleeding, malignant effusion, liver and bone and brain mets the patient has also experienced altered mental status, memory loss she met with palliative care for 60 minutes on 11/26 and then two hours later denied ever seeing them, could not recall conversation when pressed about code status the patient has stated she would want everything done in a vague sense, wants to fight this but then has also stated that the situation is in God's hands, when it is her time she will go she told previous hospitalist on 11/27 that she wants her daughter Stacy to make decisions on her behalf Stacy is contact for family, she wants patient to be DNR, she truly understands futility of the situation if she would code two closest sisters also support the DNR, DNI status based on conversations with patient, it is felt that she lacks the capacity to make complex medical decisions she can state in vague sense that she wants to fight her cancer and we will honor these wishes by treating pneumonia, giving chemotherapy, pain control but given her brain mets, intermittent confusion, memory loss I feel she lacks understanding that coding her or placing her on ventilator would be futile Decisions deferred to Stacy and her family and they wish her to be DNR Continued care at this time, but getting closer to discharge-perhaps in 1-2 days Subjective Pt feeling much better today. No nausea, is eating more. Denies CP or SOB.Has some dark red blood in sputum, small amount. Denies abd pain. Did have a small BM yesterday that was incontinent. SHe ambulated in the halls today and is not drowsy, is in better spirits. I discussed her care with Oncology and Thoracic Surgery Review of Systems Review of Systems: All systems reviewed & are unremarkable except as noted in HPI & below Physical Exam Constitutional: + thin; no acute distress ENMT: Ears: no external ear abnormality Neck: trachea midline, no thyromegaly Respiratory: normal respiratory effort (NC in place; PleurX in place on left) Auscultation: + diminished lung sounds (left base), + crackles (left base) and + wheezes (exp wheeze left upper lung field) Cardiovascular: RRR, no murmur, no edema Extremities: no calf tenderness Gastrointestinal (Abdomen): normal bowel sounds, soft, nontender, no hepatosplenomegaly Musculoskeletal: Extremities: extremities normal to inspection; no cyanosis and no clubbing Skin: no rashes, warm and dry Neurologic: moves all extremities and awake; no focal motor deficits Psychiatric: Orientation: alert, oriented x 3 and cooperative Results & Data Vital Signs (Past 12 Hours) Vital Signs Temp Pulse Resp BP Pulse Ox 12/02/18 11:31 37.0 C 76 18 148/98 H 97 12/02/18 09:19 37.0 C 70 19 137/87 96 12/02/18 05:44 36.6 C 102 H 22 178/86 H 90 Laboratory Results 12/02/18 12/02/18 Range/Units 07:25 07:25 WBC 2.12 L (4.8-10.8) K/uL RBC 3.72 L (4.2-5.4) M/uL Hgb 10.9 L (12.0-16.0) g/dL Hct 32.9 L (37-47) % MCV 88.4 (80-100) fL MCH 29.3 (25-34) pg MCHC 33.1 (32-36) g/dL RDW Std Deviation 41.6 (36.4-46.3) fL RDW Coeff of [place] 12.9 (11.5-14.5) % Plt Count 77 L (130-400) K/uL MPV 11.5 H (7.4-10.4) fL Immature Gran % (Auto) 0.5 % Neut % (Auto) 78.3 % Lymph % (Auto) 9.4 % [place] % (Auto) 3.8 % Eos % (Auto) 7.1 % Baso % (Auto) 0.9 % Immature Gran # (Auto) 0.01 (0.00-0.02) K/uL Neut # (Auto) 1.66 (1.4-6.5) K/uL Lymph # (Auto) 0.20 L (1.2-3.4) K/uL [place] # (Auto) 0.08 L (0.11-0.59) K/uL Eos # (Auto) 0.15 (0-0.5) K/uL Baso # (Auto) 0.02 (0-0.2) K/uL Giant Platelets 1+ Sodium 146 H (136-145) mmol/L Potassium 4.1 (3.5-5.1) mmol/L Chloride 108 H (98-107) mmol/L Carbon Dioxide 33 H (21-32) mmol/L Anion Gap 5.0 (3-11) BUN 12 (7-18) mg/dl Creatinine 0.28 L (0.6-1.2) mg/dl Est Cr Clr Drug Dosing 169.4 ml/min Est GFR ( Amer) 145.5 Est GFR (Non-Af Amer) 125.5 BUN/Creatinine Ratio 42.0 H (10-20) Glucose 97 (70-99) mg/dl Calcium 8.0 L (8.5-10.1) mg/dl Diagnostic Findings CXR image reviewed personally and agree with the following report: XR chest 1V portable CLINICAL HISTORY: lung cancer COMPARISON STUDY: 11/30/2018 FINDINGS: The cardiac and mediastinal contours remain stable. There is a left- sided chest tube unchanged in position. There is no pneumothorax. There are bilateral pleural effusions. There is radiographic evidence of congestive failure and interstitial edema. There are improving left basilar airspace opacities. There are persistent left upper lung zone airspace opacities.[ IMPRESSION: 1. Radiographic evidence of pulmonary edema with bilateral pleural effusions 2. No change in the left-sided chest tube. No pneumothorax 3. Improving aeration of the left lower lung zone PG Care Time/CCT Total # of Minutes Spent Total Time Spent with Patient: Total time spent is greater than 50% in coordination of care (as documented) at patient's floor/unit and/or counseling patient: (1) Metastatic cancer to lung Laterality: unspecified laterality Qualified Code(s): C78.00 - Secondary malignant neoplasm of unspecified lung (2) Pathologic compression fracture of spine Encounter type: initial encounter Qualified Code(s): M48.50XA - Collapsed vertebra, not elsewhere classified, site unspecified, initial encounter for fracture (3) Hypertension Hypertension type: essential hypertension Qualified Code(s): I10 - Essential (primary) hypertension (4) Constipation Constipation type: unspecified constipation type Qualified Code(s): K59.00 - Constipation, unspecified
[2018-12-02] MEDS: LOSARTAN POTASSIUM 50 MG TAB PO SCH (17:36)
--- NOTE | 2018-12-02 21:03 | Progress Note ---
DATE: 12/02/2018 Ms. Gonsalez seen today on 12/02/2018. She looks a lot better. She is only on 2 liters O2. Saturation 94%. She is ambulating in the hallway. She is eating a little bit better. Her PleurX catheter drained 600 mL yesterday, but her x-ray looks better and she sounds better. We are going to continue our current therapy. I am pleasantly surprised at how well she looks. OFED
[2018-12-03] MEDS: PIPERACILLIN/TAZOBACTAM 3.375 GM in DEXTROSE 5% 100 ML IV SCH ×3 (05:15→21:43)
--- NOTE | 2018-12-03 07:04 | XRay Report ---
XR chest 1V portable CLINICAL HISTORY: increased oxygen demand dyspnea COMPARISON STUDY: 12/02/2018 FINDINGS: Left-sided chest tube unchanged in position. Moderate increase in volume of a left pleural effusion. Persistent prominent pulmonary vasculature. Trace pleural fluid right lateral calcific angle. Unchang ed findings of pulmonary edema. IMPRESSION: 1. Unchanged findings of pulmonary edema. 2. Mildly progressive left basilar pleural effusion. 3. Trace pleural effusion right base. The above report was generated using voice recognition software. It may contain grammatical, syntax or spelling errors. Electronically signed by: Modesto Narayanan M.D. 12/03/2018 7:02 AM
[2018-12-03 07:05] LABS: Basophils # (auto) 0.04 K/uL (0-0.2); Basophils % (auto) 1.5 %; Eosinophils # (auto) 0.21 K/uL (0-0.5); Eosinophils % (auto) 7.7 %; Hematocrit (blood only) 34.2 % (37-47); Hemoglobin 11.4 g/dL (12.0-16.0); Immature Granulocytes # (auto) 0.01 K/uL (0.00-0.02); Immature Granulocytes % (auto) 0.4 %; Lymphocytes # (auto) 0.44 K/uL (1.2-3.4); Lymphocytes % (auto) 16.1 %; Mean Corpuscular Hgb Conc 33.3 g/dL (32-36); Mean Corpuscular Volume 87.9 fL (80-100); Mean Platelet Volume 12.1 fL (7.4-10.4); Monocytes # (auto) 0.23 K/uL (0.11-0.59); Monocytes % (auto) 8.4 %; Neutrophils % (auto) 65.9 %; Platelet Count 80 K/uL (130-400); RDW Coefficient of Variation 12.8 % (11.5-14.5); RDW Standard Deviation 41.1 fL (36.4-46.3); Red Blood Count 3.89 M/uL (4.2-5.4); White Blood Count 2.73 K/uL (4.8-10.8)
[2018-12-03 07:26] LABS: Alanine Aminotransferase 15 U/L (12-78); Albumin Level 1.8 gm/dl (3.4-5.0); Aspartate Aminotransferase 24 U/L (15-37); BUN Creatinine Ratio 42.3 (10-20); Blood Urea Nitrogen 9 mg/dl (7-18); Calcium 7.7 mg/dl (8.5-10.1); Carbon Dioxide 32 mmol/L (21-32); Chloride 102 mmol/L (98-107); Creatinine Clr Calc Pharmacy 215.6 ml/min; Est GFR (African American) > 150.0; Est GFR (Non-African American) 135.9; Glucose 94 mg/dl (70-99); Potassium 3.8 mmol/L (3.5-5.1); Sodium 140 mmol/L (136-145)
[2018-12-03 07:27] LABS: Toxic Granulation 1+
[2018-12-03 07:29] LABS: Albumin Globulin Ratio 0.6 (0.9-2); Alkaline Phosphatase 116 U/L (45-117); Bilirubin,Total 0.9 mg/dl (0.2-1); Globulin 3.2 gm/dl (2.5-4.0)
--- NOTE | 2018-12-03 07:56 | Hospitalist Progress Note ---
Date of Service December 03, 2018 Assessment & Plan (1) Acute hypoxemic respiratory failure: Secondary to pneumonia, effusion, malignancy worsened over night on 11/27, placed on 9L via mask due to mouth breathing -Then was much improved, no distress, and weaned down to 3LNC On morning of 12/03, she had worsening again-chest x-ray more consistent with pulmonary edema and may be secondary to volume overload from receiving IV fluids -Give Lasix 20 mg IV x1 now -DC IV fluids -Continue to wean as tolerated to keep pulse ox greater than 92% -Will need a two-step oxygen test prior to discharge to determine home oxygen needs -continue to treat pneumonia with antibiotics -effusion to be drained daily with PleurX (2) Non-small cell lung cancer with metastasis: advancing quickly, d/w Dr. Albert, very aggressive cancer very poor prognosis, likely less than 2 months to live now with hemoptysis, pneumonia, effusion, mets to spine, lung, liver and brain received initial dose of chemotherapy on 11/25, now having side effects of profound fatigue, nausea, poor appetite--> however, improved today other than her breathing as above -Next dose due on 12/15 -Can follow up with Dr. Albert, no port placement needed yet he thinks -DC IV fluids -continue antiemetics prn -Follow blood counts-slight drop in all cell lines is now stabilizing, no transfusions needed (3) Bilateral pneumonia: developed overnight on 11/27, evidence of infiltrate in right upper lobe in addition to left upper lobe on CXR on 11/27 treated with Zosyn IV, Levaquin IV and Vanco IV MRSA swab negative, stopped Vanco on 11/28 CXR on 11/28 shows improvement/clearing in right lung breathing better, less coughing, afebrile, WBC normal -Continue Zosyn and have since discontinued Levaquin -follow CXR periodically-slightly worse pulmonary edema on 12/03, but pneumonia is stable to improved -Appreciate Pulm consult (4) Hemoptysis: due to metastatic non small cell lung CA CT chest shows encroachment of the pulmonary arteries bronchoscopy by Dr. Wheeler, extensive malignant tissue blood oozing in several areas Continues to have some mild hemoptysis- blood continues to be darker, scant, mixed with sputum -continue Robitussin to help patient sleep, working well (5) Metastatic cancer to lung: evidence of local spread with pleural effusion salvage chemo given on 11/25 (6) Postobstructive pneumonia: Bilat upper lobes no fever, normal WBC as above, treating with abx stopped Vanco with negative MRSA swab (7) Bony metastasis: just completed palliative radiation, has lytic bone lesions in L1, L2, L3 vertebrae, with pathologic fracture of L1 Was still in severe pain which is now resolved with increased fentanyl patch dosing -Continue fentanyl 50mcg patch, Oxycodone PRN -continue Dilaudid 1mg IV PRN for breakthrough -make sure she has Fentanyl patch at 50mcg on discharge (8) Pathologic compression fracture of spine: L1-pain control, see above (9) Pleural effusion, left: due to malignancy Dr. Wheeler with pulmonary drained 900mL on 11/24 PleurX placed on 11/27 orders placed to drain daily-continue to do so-has had 400 out daily the last few days (10) Pain due to malignant neoplasm metastatic to bone: Fentanyl patch and Oxycodone Dilaudid PRN (11) Hypertension: BPs elevated, but had not had her losartan HCTZ since admission as had lower BPs on admission -restarted losartan -Giving IV Lasix today (12) Anxiety: prn ativan (13) Hypotension: occurred after bronch resolved (14) Hypokalemia: resolved (15) Constipation: Now with small BM on 12/01 -Has had very minimal p.o. intake but this is now improving - bisacodyl suppository [place] as needed -contine senna/docusate and Miralax (16) Postmenopausal hormone replacement therapy: Continue estrogen and progesterone therapy-has tried to wean off in the past and had bad hot flashes -ok to continue but did discuss increased risk of VTE given ongoing malignancy (17) DVT prophylaxis: SCDs, BRANDON hose, no chemical means due to ongoing hemoptysis Dispo-discharge canceled for today due to worsening hypoxia-hopeful that with IV Lasix, she will be improved enough for discharge tomorrow 2 step O2 test tomorrow, gave CM Rx for rolling walker with seat. Daughter arranging for hospital bed at home. Also will get home health and PleurX teaching for at home (18) Goals of care, counseling/discussion: As per previous Hospitalist: discussed code status, hospice, poor prognosis patient wants to continue treatment, get strong enough to go through chemo patient's daughter and her sisters support her although they have more realistic outlook on prognosis patient has stated that she does not want many details, does not want to be given a time frame for prognosis patient unrealistic in saying that her goal is remission oncology, pulmonology, thoracic surgery and myself have stated that remission is not realistic large left pulmonary mass with bleeding, malignant effusion, liver and bone and brain mets the patient has also experienced altered mental status, memory loss she met with palliative care for 60 minutes on 11/26 and then two hours later denied ever seeing them, could not recall conversation when pressed about code status the patient has stated she would want everything done in a vague sense, wants to fight this but then has also stated that the situation is in God's hands, when it is her time she will go she told previous hospitalist on 11/27 that she wants her daughter Stacy to make decisions on her behalf Stacy is contact for family, she wants patient to be DNR, she truly understands futility of the situation if she would code two closest sisters also support the DNR, DNI status based on conversations with patient, it is felt that she lacks the capacity to make complex medical decisions she can state in vague sense that she wants to fight her cancer and we will honor these wishes by treating pneumonia, giving chemotherapy, pain control but given her brain mets, intermittent confusion, memory loss I feel she lacks understanding that coding her or placing her on ventilator would be futile Decisions deferred to Stacy and her family and they wish her to be DNR Subjective Patient had a rough morning and was more short of breath, found to be hypoxic. Her oxygen was raised back up to 5 L. She is still coughing up dark red blood in a lot of sputum. Denies nausea or vomiting, denies lightheadedness, no chest pain. No abdominal pain. Review of Systems Review of Systems: All systems reviewed & are unremarkable except as noted in HPI & below Physical Exam Constitutional: + thin; no acute distress ENMT: Ears: no external ear abnormality Mouth: + oropharynx abnormality (tongue a bit dry) Neck: trachea midline, no thyromegaly Respiratory: normal respiratory effort (NC in place; PleurX in place on left) Auscultation: + diminished lung sounds (left base), + crackles (Bibasilar) and + wheezes (exp wheeze left upper lung field) Cardiovascular: RRR, no murmur, no edema Extremities: no calf tenderness Gastrointestinal (Abdomen): normal bowel sounds, soft, nontender, no hepatosplenomegaly Inspection/Auscultation: + abdomen distended (mild) Musculoskeletal: Extremities: extremities normal to inspection; no cyanosis and no clubbing Skin: no rashes, warm and dry Neurologic: moves all extremities and awake; no focal motor deficits Psychiatric: Orientation: alert, oriented x 3 and cooperative Results & Data Vital Signs (Past 12 Hours) Vital Signs Temp Pulse Resp BP Pulse Ox 12/03/18 06:38 91 12/03/18 03:14 37.0 C 87 18 166/92 H 91 12/02/18 23:38 36.9 C 66 18 129/79 96 Laboratory Results 12/03/18 12/03/18 Range/Units 06:30 06:30 WBC 2.73 L (4.8-10.8) K/uL RBC 3.89 L (4.2-5.4) M/uL Hgb 11.4 L (12.0-16.0) g/dL Hct 34.2 L (37-47) % MCV 87.9 (80-100) fL MCH 29.3 (25-34) pg MCHC 33.3 (32-36) g/dL RDW Std Deviation 41.1 (36.4-46.3) fL RDW Coeff of [place] 12.8 (11.5-14.5) % Plt Count 80 L (130-400) K/uL MPV 12.1 H (7.4-10.4) fL Immature Gran % (Auto) 0.4 % Neut % (Auto) 65.9 % Lymph % (Auto) 16.1 % [place] % (Auto) 8.4 % Eos % (Auto) 7.7 % Baso % (Auto) 1.5 % Immature Gran # (Auto) 0.01 (0.00-0.02) K/uL Neut # (Auto) 1.80 (1.4-6.5) K/uL Lymph # (Auto) 0.44 L (1.2-3.4) K/uL [place] # (Auto) 0.23 (0.11-0.59) K/uL Eos # (Auto) 0.21 (0-0.5) K/uL Baso # (Auto) 0.04 (0-0.2) K/uL Toxic Granulation 1+ Sodium 140 (136-145) mmol/L Potassium 3.8 (3.5-5.1) mmol/L Chloride 102 (98-107) mmol/L Carbon Dioxide 32 (21-32) mmol/L Anion Gap 6.0 (3-11) BUN 9 (7-18) mg/dl Creatinine 0.22 L (0.6-1.2) mg/dl Est Cr Clr Drug Dosing 215.6 ml/min Est GFR ( Amer) > 150.0 Est GFR (Non-Af Amer) 135.9 BUN/Creatinine Ratio 42.3 H (10-20) Glucose 94 (70-99) mg/dl Calcium 7.7 L (8.5-10.1) mg/dl Total Bilirubin 0.9 (0.2-1) mg/dl AST 24 (15-37) U/L ALT 15 (12-78) U/L Alkaline Phosphatase 116 (45-117) U/L Total Protein 5.0 L (6.4-8.2) gm/dl Albumin 1.8 L (3.4-5.0) gm/dl Globulin 3.2 (2.5-4.0) gm/dl Albumin/Globulin Ratio 0.6 L (0.9-2) Diagnostic Findings Chest x-ray image personally reviewed by me and agree with the following report: XR chest 1V portable CLINICAL HISTORY: increased oxygen demand dyspnea COMPARISON STUDY: 12/02/2018 FINDINGS: Left-sided chest tube unchanged in position. Moderate increase in volume of a left pleural effusion. Persistent prominent pulmonary vasculature. Trace pleural fluid right lateral calcific angle. Unchanged findings of pulmonary edema. IMPRESSION: 1. Unchanged findings of pulmonary edema. 2. Mildly progressive left basilar pleural effusion. 3. Trace pleural effusion right base. PG Care Time/CCT Total # of Minutes Spent Total Time Spent with Patient: Total time spent is greater than 50% in coordination of care (as documented) at patient's floor/unit and/or counseling patient: (1) Metastatic cancer to lung Laterality: unspecified laterality Qualified Code(s): C78.00 - Secondary malignant neoplasm of unspecified lung (2) Pathologic compression fracture of spine Encounter type: initial encounter Qualified Code(s): M48.50XA - Collapsed vertebra, not elsewhere classified, site unspecified, initial encounter for fracture (3) Hypertension Hypertension type: essential hypertension Qualified Code(s): I10 - Essential (primary) hypertension (4) Constipation Constipation type: unspecified constipation type Qualified Code(s): K59.00 - Constipation, unspecified
[2018-12-03] MEDS ORDERED: FUROSEMIDE 20 MG in SYRINGE 0 ML IV ONE (08:00)
[2018-12-03] MEDS: DOCUSATE SODIUM/SENNA 50/8.6MG TAB PO SCH ×2 (08:10→19:51)
[2018-12-03] MEDS: ESTROGENS, CONJUGATED 0.625 MG TAB PO SCH (08:10)
[2018-12-03] MEDS: POLYETHYLENE (MIRALAX) 17 GM PACK PO SCH (08:10)
[2018-12-03] MEDS: CHECK FENTANYL PATCH PLACEMENT SCH ×3 (08:12→22:13)
[2018-12-03] MEDS: LOSARTAN POTASSIUM 50 MG TAB PO SCH (08:12)
[2018-12-03] MEDS: MEDROXYPROGESTERONE ACETATE 2.5 MG TAB PO SCH (08:13)
[2018-12-03] MEDS: CETIRIZINE HCL 10 MG TABLET PO SCH (08:13)
--- NOTE | 2018-12-03 08:32 | Progress Note ---
DATE: 12/03/2018 MEDICAL ONCOLOGY PROGRESS NOTE DIAGNOSES: 1. Metastatic nonsmall cell lung cancer. 2. Hemoptysis. 3. Malignant pleural effusion, status post PleurX catheter insertion. 4. Intractable nausea and vomiting. 5. Anorexia. 6. Intractable skeletal pain. SUBJECTIVE: The patient was seen and examined at bedside accompanied again by her sister. Apparently, Margaux had a rough night. She desaturated necessitating increase in oxygen demand. She denies any fevers or chills. She is ambulating a bit better. Tolerating small amounts of regular diet. Apparently, 600 mL of pleural fluid was drained yesterday. She sounds a bit more congested this morning. Hemoptysis is definitely improved. OBJECTIVE: GENERAL: A very pleasant 63-year-old female patient, in no acute distress. VITAL SIGNS: Temperature 37, pulse 87, respiratory rate 18, blood pressure 166/92. SKIN: Without rash or lesion. HEENT: Oral mucosa is dry. No buccal lesions or ulcerations. NECK: Supple. Trachea midline. HEART: Regular rate and rhythm, somewhat tachy at times. LUNGS: Coarse rhonchi heard in the posterior bases predominantly. ABDOMEN: Soft, nontender, nondistended. EXTREMITIES: No clubbing, cyanosis or edema. NEUROLOGIC: Grossly intact. LABORATORY DATA: WBC count 2730, hemoglobin 11.4, platelet count 80,000. Sodium 140, potassium 3.8, chloride 102, carbon dioxide 32, BUN 9, creatinine 0.22, albumin 1.8. IMPRESSION: 1. Acute hypoxemic respiratory failure. 2. Status post cycle 1 carboplatin, paclitaxel and bevacizumab. 3. Metastatic nonsmall cell lung cancer. 4. Hypoalbuminemia. 5. Bilateral pneumonia. 6. Malignant pleural effusion. 7. Intractable skeletal pain. PLAN: Margaux seems to have intermixed good and bad days. Today happens to be a bad day for her. She apparently desaturated overnight necessitating increase in oxygen demand. She has no complaints of pain per se and her appetite has slowly begun to improve. Still not sure if she is ready for discharge just yet. Her overall condition is somewhat precarious. Agree with current medical management, and from a hematologic perspective, she does not require transfusional support. May want to consider supplemental albumin moving forward as her serum albumin that was below 2. Thank you very much for allowing me to participate in her care.
--- NOTE | 2018-12-03 15:53 | Palliative Care Progress Note ---
Date of Service December 03, 2018 Assessment & Plan (1) Goals of care, counseling/discussion: Patient is a 63-year-old female with widely metastatic non-small cell lung cancer with mets to the spine, lung, liver, brain. Patient received chemo on 11/25-continues to have intermittent nausea and poor p.o. intake. -Goals of care-patient does not want to know prognosis, daughter named as her POA-patient is currently a DNR -Metastatic non-small cell lung cancer-mets to spine, lung, liver and brain- status post palliative XRT to spinal lesions for pain control. Pain currently being well controlled on fentanyl at 50 mcg-has not required any PRN pain medication for breakthrough pain since a single dose of Dilaudid on 12/02. -Pleural effusion-patient has a Pleurx catheter placed-drained this a.m. for increased shortness of breath -Hemoptysis-continues, hemoglobin stable at 11.4 -bronchoscopy on 11/25 showed friable tissue in the airway in the left lower lobe and left upper lobe bronchi -Hypoxia-improving, patient now on O2 at 3 L. Continue to wean O2 as tolerated. Will continue to follow and assist family with medical decision making and providing support to both patient and family. Patient and family hope for discharge tomorrow if patient remains stable. (2) Non-small cell lung cancer with metastasis: (3) Pleural effusion, left: (4) Acute hypoxemic respiratory failure: (5) Hemoptysis: Subjective Patient awake alert, no acute distress. Patient more alert on exam today. Patient's sister at bedside. Patient without any nausea on exam today, has not required any PRN Zofran since 12/01. Patient's pain well controlled on fentanyl at 50 mcg-has not required any PRN pain medication since 12/02. Patient was more short of breath this morning-O2 increased to 6 L-fluid was drained from her Pleurx with good response. Patient now on 3 L of O2 via nasal cannula.. Review of Systems Review of Systems: Patient denies fever, chills, chest pain, increased shortness of breath or abdominal pain Physical Exam Physical Exam: PE: Awake and alert, no acute distress HEENT: EOMI, hearing within normal limits Respiratory: Unlabored, on O2 at 3 L, diminished breath sounds on left CV: Regular rate, no edema Abdomen: Soft, nontender Neuro: Alert and oriented Results & Data Vital Signs (Past 12 Hours) Vital Signs Temp Pulse Resp BP Pulse Ox Pulse Ox 12/03/18 13:03 82 18 98 12/03/18 11:31 98.1 F 75 20 162/95 H 97 12/03/18 11:23 97 12/03/18 06:38 91 PG Care Time/CCT Total # of Minutes Spent Total Time Spent with Patient: Total time spent is greater than 50% in coordination of care (as documented) at patient's floor/unit and/or counseling p atient: Time Spent Attending Total time spent 25 minutes with greater than 50% of the time at bedside assessing patient's status as well is providing support to patient and family
[2018-12-03] MEDS ORDERED: SIMETHICONE 80 MG CHEW PO PRN (20:48)
--- NOTE | 2018-12-03 20:53 | Progress Note ---
DATE: 12/03/2018 Ms. Gonsalez was a little bit more short of breath today. I thought she looked better overall. Her PleurX catheter drained about 450 mL today. This is a malignant effusion. She is requiring 2 liters of O2. All in all, I think Ms. Gonsalez looks better. This PleurX catheter will stay in for a while. When the drainage goes down, we could consider a chemical pleurodesis.
[2018-12-04] MEDS: PIPERACILLIN/TAZOBACTAM 3.375 GM in DEXTROSE 5% 100 ML IV SCH (05:06)
[2018-12-04] MEDS: LOSARTAN POTASSIUM 50 MG TAB PO SCH (07:55)
[2018-12-04] MEDS: DOCUSATE SODIUM/SENNA 50/8.6MG TAB PO SCH (07:55)
[2018-12-04] MEDS: ESTROGENS, CONJUGATED 0.625 MG TAB PO SCH (07:55)
[2018-12-04] MEDS: POLYETHYLENE (MIRALAX) 17 GM PACK PO SCH (07:55)
[2018-12-04] MEDS: CETIRIZINE HCL 10 MG TABLET PO SCH (07:56)
[2018-12-04] MEDS: MEDROXYPROGESTERONE ACETATE 2.5 MG TAB PO SCH (07:56)
[2018-12-04] MEDS: CHECK FENTANYL PATCH PLACEMENT SCH (07:56)
[2018-12-04 07:59] LABS: Hematocrit (blood only) 31.4 % (37-47); Hemoglobin 10.7 g/dL (12.0-16.0); Mean Corpuscular Hgb Conc 34.1 g/dL (32-36); Mean Corpuscular Volume 85.3 fL (80-100); RDW Coefficient of Variation 12.6 % (11.5-14.5); RDW Standard Deviation 39.4 fL (36.4-46.3); Red Blood Count 3.68 M/uL (4.2-5.4); White Blood Count 1.52 K/uL (4.8-10.8)
[2018-12-04] MEDS: BISACODYL 10 MG SUPP PR PRN (08:03)
[2018-12-04 08:30] LABS: BUN Creatinine Ratio 27.4 (10-20); Blood Urea Nitrogen 6 mg/dl (7-18); Carbon Dioxide 37 mmol/L (21-32); Chloride 99 mmol/L (98-107); Creatinine Clr Calc Pharmacy 212.6 ml/min; Est GFR (African American) > 150.0; Est GFR (Non-African American) 135.9; Glucose 101 mg/dl (70-99); Potassium 3.3 mmol/L (3.5-5.1); Sodium 141 mmol/L (136-145)
[2018-12-04 08:44] LABS: Mean Platelet Volume 11.3 fL (7.4-10.4); Platelet Count 72 K/uL (130-400)
[2018-12-04 08:56] LABS: Basophils # (auto) 0.02 K/uL (0-0.2); Basophils % (auto) 1.3 %; Eosinophils # (auto) 0.08 K/uL (0-0.5); Eosinophils % (auto) 5.3 %; Giant Platelets 1+; Lymphocytes # (auto) 0.27 K/uL (1.2-3.4); Lymphocytes % (auto) 17.8 %; Monocytes # (auto) 0.33 K/uL (0.11-0.59); Monocytes % (auto) 21.7 %; Neutrophils # (auto) 0.82 K/uL (1.4-6.5); Neutrophils % (auto) 53.9 %; Toxic Granulation 2+
[2018-12-04] MEDS ORDERED: POTASSIUM CHLORIDE 20 MEQ TABCR PO ONE (10:15)
[2018-12-04] MEDS ORDERED: hydroCHLOROthiazide 25 MG TAB PO ONE (10:15)
--- NOTE | 2018-12-04 12:08 | Progress Note ---
DATE: 12/04/2018 The patient was seen today. She is ambulating in the hallway. She looks much improved. Heart rate is down. She apparently is going to be discharged soon on supplemental oxygen. I will follow her up in the office in 2 weeks with her and arrange for her PleurX to be drained daily.
--- NOTE | 2018-12-04 12:12 | Discharge Summary ---
Date of Service December 04, 2018 Admission HPI Per Admitting Provider Patient is a 63-year-old female with a past medical history of hypertension and metastatic non-small cell carcinoma of lung presents to the ER with c/o of ongoing hemoptysis. Pt just completed the radiation therapy for metastatic Pt has been coughing up blood for 2-3 weeks and it is approximately a teaspoonful each time 2-3 times a day. to the ER with bilateral ear pain and low back pain that has been going on for a few months. Patient had x-ray performed which was abnormal and underwent CT scan. CT scan showed a left upper lobe mass of right upper lobe lesion as well as increased adenopathy, liver mets, bone mets and spine mets. Patient underwent liver biopsy on 11/05-was positive for adenocarcinoma. Patient was seen by Dr. Albert-she will follow-up as an outpatient once cancer markers are completed. Patient is a lifelong smoker, has multiple family members including siblings with cancer. 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 She has 3 children ages 34-40, describes herself as single, lives alone. Patient complains of left hip pain-radiates across her back. Patient describes it as "pulling". Pain is constant, increases with certain movements, some relief with opioid pain medications. Patient reports pain has been present approximately 4 to 5 months and has been getting worse. Patient with newly diagnosed non-small cell lung cancer, She is planned to start radiation therapy to her spinal mets. Patient to follow-up with oncology once tumor markers are completed-to review chemotherapy options. Patient given information regarding setting up outpatient follow-up in the palliative care clinic-discussed role of palliative care with management of pain and symptoms due to chemo as well as advanced care planning. - Palliative encounter-discussed with patient role of palliative medicine. Gave patient information to make follow-up appointment as needed in palliative clinic. - Cancer related pain-patient with mets to nodes, liver, bone, spine-L1-L3. Pain under control with fentanyl patch and PRN oxycodone. Patient to receive XRT to lumbar spinal mets. Can follow-up in outpatient clinic for further pain control if needed - Left lung mass-positive for non-small cell lung cancer-tumor markers pending. Further plans per oncology - Postobstructive pneumonia-patient on Rocephin-will be transition to p.o. Levaquin - Current smoker-encourage smoking cessation, continue nicotine patch - Constipation-patient will need to continue her regular bowel regime while on opioids. (2) Mass of left lung: (3) Postobstructive pneumonia: (4) Lumbar back pain: (5) Pain due to malignant neoplasm metastatic to bone: Principal Diagnosis Hemoptysis, Pneumonia, Metastatic lung cancer Discharge Exam Constitutional + thin; no acute distress Eyes PERRL, conjunctivae normal, anicteric sclerae ENMT Ears: no external ear abnormality Mouth: no oropharynx abnormality and no oral mucosal abnormality Neck trachea midline, no thyromegaly Respiratory normal respiratory effort (NC in place; PleurX in place on left) Auscultation: + diminished lung sounds (left base); no crackles and no wheezes Cardiovascular RRR, no murmur, no edema Extremities: no calf tenderness Gastrointestinal (Abdomen) normal bowel sounds, soft, nontender, no hepatosplenomegaly Inspection/Auscultation: + abdomen distended (mild) Musculoskeletal Extremities: extremities normal to inspection; no cyanosis and no clubbing Skin no rashes, warm and dry Neurologic moves all extremities and awake; no focal motor deficits Psychiatric Orientation: alert, oriented x 3 and cooperative Discharge Data Allergies Allergy/AdvReac Type Severity Reaction Status Date / Time latex Allergy Unknown SKIN Verified 11/23/18 10:04 IRRITATION morphine Allergy Unknown ITCHING Verified 11/23/18 10:04 AND LUMP ON HAND strawberry Allergy Unknown HIVES Verified 11/23/18 10:04 aspirin AdvReac Unknown GI UPSET Verified 11/23/18 10:04 Consultations 11/23/18 14:17 ED Decision to Admit Stat 11/23/18 21:52 Consult Oncology Routine 11/23/18 21:53 Consult Gastroenterology Routine 11/24/18 08:41 Consult Thoracic Surgery Routine 11/24/18 09:37 Consult Pulmonology Routine 11/25/18 14:31 Consult Palliative Care Routine Procedures Performed Operation Date: 11/25/18 10:00 Actual Procedures p Bronchoscopy Radiology(Bilateral) - Srinivas Wheeler MD Operation Date: 11/27/18 11:30 <No data on this case meets the specified criteria> Ordered Studies 11/23/18 09:50 CT angio chest PE protocol Stat 11/24/18 11:35 US point of care ultrasound Routine 11/27/18 10:56 US point of care ultrasound Routine CXRx Hospital Course (1) Acute hypoxemic respiratory failure: Secondary to pneumonia, effusion, malignancy worsened over night on 11/27, placed on 9L via mask due to mouth breathing -Then was much improved, no distress, and weaned down to 3LNC On morning of 12/03, she had worsening again-chest x-ray more consistent with pulmonary edema and may be secondary to volume overload from receiving IV fluids -Gave Lasix 20 mg IV x1 and dcd IVFs Now much improved again. Only requiring 2LNC continuously as per 2 step walk test -continue to treat pneumonia with antibiotics -effusion to be drained daily with PleurX Stable for dc to home (2) Non-small cell lung cancer with metastasis: advancing quickly, d/w Dr. Albert, very aggressive cancer very poor prognosis, likely less than 2 months to live Presented with hemoptysis, pneumonia, effusion, mets to spine, lung, liver and brain received initial dose of chemotherapy on 11/25, now having side effects of profound fatigue, nausea, poor appetite--> however, improved -Next dose due on 12/15 -Can follow up with Dr. Albert, no port placement needed yet he thinks -continue antiemetics prn-gave Rx for po Zofran -Follow blood counts-slight drop in all cell lines is now stabilizing, no transfusions needed (3) Bilateral pneumonia: developed overnight on 11/27, evidence of infiltrate in right upper lobe in addition to left upper lobe on CXR on 11/27 treated with Zosyn IV, Levaquin IV and Vanco IV MRSA swab negative, stopped Vanco on 11/28 CXR on 11/28 shows improvement/clearing in right lung breathing better, less coughing, afebrile, WBC normal -received 7 days of Zosyn and 5 days of Levaquin -follow CXR as outpt, will see Dr. Wilson -Appreciate Pulm consult -finish out 3 more days of Augmentin after discharge (4) Hemoptysis: due to metastatic non small cell lung CA CT chest shows encroachment of the pulmonary arteries bronchoscopy by Dr. Wheeler, extensive malignant tissue blood oozing in several areas Continues to have some mild hemoptysis- blood continues to be darker, scant, mixed with sputum (5) Metastatic cancer to lung: evidence of local spread with pleural effusion salvage chemo given on 11/25 (6) Postobstructive pneumonia: Bilat upper lobes, improving no fever, normal WBC as above, treating with abx (7) Bony metastasis: just completed palliative radiation, has lytic bone lesions in L1, L2, L3 vertebrae, with pathologic fracture of L1 Was still in severe pain which is now resolved with increased fentanyl patch dosing -Continue fentanyl 50mcg patch, no breakthrough pain meds needed (8) Pathologic compression fracture of spine: L1-pain control, see above (9) Pleural effusion, left: due to malignancy Dr. Wheeler with pulmonary drained 900mL on 11/24 PleurX placed on 11/27 orders placed to drain daily after discharge, usually around 400mLs coming out (10) Pain due to malignant neoplasm metastatic to bone: Fentanyl patch helping for pain -on chemo (11) Hypertension: BPs elevated,now improved with restarting losartan and HCTZ (12) Anxiety: prn ativan (13) Hypotension: occurred after bronch resolved (14) Hypokalemia: replaced with po KCl (15) Constipation: Now with small BM on 12/01 and again 12/04 -Has had very minimal p.o. intake but this is now improving -continue docusate and Miralax (16) Postmenopausal hormone replacement therapy: Continue estrogen and progesterone therapy-has tried to wean off in the past and had bad hot flashes -ok to continue but did discuss increased risk of VTE given ongoing malignancy (17) DVT prophylaxis: SCDs, BRANDON hose, no chemical means due to ongoing hemoptysis Dispo-dc to home today with Home Health -0gave CM Rx for rolling walker with seat. Daughter arranging for hospital bed at home. Also will get home health and PleurX teaching for at home (18) Goals of care, counseling/discussion: As per previous Hospitalist: discussed code status, hospice, poor prognosis patient wants to continue treatment, get strong enough to go through chemo patient's daughter and her sisters support her although they have more realistic outlook on prognosis patient has stated that she does not want many details, does not want to be given a time frame for prognosis patient unrealistic in saying that her goal is remission oncology, pulmonology, thoracic surgery and myself have stated that remission is not realistic large left pulmonary mass with bleeding, malignant effusion, liver and bone and brain mets the patient has also experienced altered mental status, memory loss she met with palliative care for 60 minutes on 11/26 and then two hours later denied ever seeing them, could not recall conversation when pressed about code status the patient has stated she would want everything done in a vague sense, wants to fight this but then has also stated that the situation is in God's hands, when it is her time she will go she told previous hospitalist on 11/27 that she wants her daughter Stacy to make decisions on her behalf Stacy is contact for family, she wants patient to be DNR, she truly understands futility of the situation if she would code two closest sisters also support the DNR, DNI status based on conversations with patient, it is felt that she lacks the capacity to make complex medical decisions she can state in vague sense that she wants to fight her cancer and we will honor these wishes by treating pneumonia, giving chemotherapy, pain control but given her brain mets, intermittent confusion, memory loss I feel she lacks understanding that coding her or placing her on ventilator would be futile Decisions deferred to Stacy and her family and they wish her to be DNR Total Time Total Time Spent Total Time Spent (In Minutes): >30 min Total Time Includes: Examination of the Patient, Discharge Planning and Medication Reconciliation Discharge Plan Discharge Items Patient Disposition: Home - Home Health Services Reason For Visit: HEMOPTYSIS Discharge Diagnosis: Metastatic lung cancer, hemoptysis, intractable back pain, Pneumonia Condition: Fair Discharge Goals: Decrease discomfort, Diagnostic testing, Improve disease control, Learn about illness and Therapeutic intervention Activity: As commented below Lifting: Gradually increase as tolerated Bathing: No limitations Exercise/Sports: Gradually increase as tolerated Exercise Comment: Try to get up and walk around the house with assistance 3 times/day Driving/Machine Use Comment: No driving Non-emergency contact: Primary Care Provider and Oncologist Follow-up/Referrals: Allen Suresh III, MD [Primary Care Provider] - 12/11/18 1:50 pm (A follow up appt. has been made for you with Dr. Suresh on 12/11 at 1:50pm.) Rommel Wilson MD, FACS [Surgeon] - 12/14/18 9:15 am (A follow up appt. has been made for you with Dr. Wilson for 12/14 at 9:15am.) Diet: Regular Addtl Provider Instructions: Please finish out 3 more days of the antibiotic pill Augmentin. You can take Zofran as needed for nausea. You were started on a pain patch called Fentanyl which should be changed every 3 days. Please keep your next appointment with Dr. Albert on Dec 15. You should remain on 2L of oxygen via nasal cannula at all times. Please also follow up with your PCP within 1-2 weeks. Pleurx will be drained daily and results called to Dr. Wilson's office. Dr Wilson's office will call you about a follow up appointment. Prescriptions: New fentanyl 50 mcg/hr Patch 72 Hour 50 mcg transdermal Q3D@1230 Qty: 5 RF: 0 polyethylene glycol 3350 [Miralax] 17 gram Powder In Packet 17 g PO DAILY Qty: 30 RF: 0 amoxicillin-pot clavulanate [Augmentin] 875-125 mg tablet 1 tab PO BID Qty: 6 RF: 0 ondansetron 4 mg tablet,disintegrating 4 mg PO Q8H PRN (Reason: nausea and vomiting) Qty: 14 RF: 0 albuterol sulfate 90 mcg/actuation HFA aerosol inhaler 1 puffs INH Q6H PRN (Reason: shortness of breath or wheezing) Qty: 18 RF: 0 Continued promethazine 25 mg tablet 25 mg PO Q6H PRN (Reason: nausea and vomiting) Qty: 60 RF: 0 Prempro 0.625-2.5 mg tablet 1 tab PO QAM RF: 0 cetirizine 5 mg tablet 5 mg PO QAM RF: 0 losartan-hydrochlorothiazide 50-12.5 mg tablet 1 tab PO QAM Qty: 90 RF: 0 sennosides [Senokot] 8.6 mg Tablet 8.6 mg PO QAM Qty: 30 RF: 0 docusate sodium 100 mg Capsule 100 mg PO BID Qty: 30 RF: 0 Discontinued oxycodone 5 mg Tablet 5 mg PO Q8H PRN (Reason: pain) Qty: 15 RF: 0 Stand-Alone Forms: [facility] Discharge Orders: Discharge Order (Routine); Ordered 12/04/18 Ordered By: Matilde Hammonds Admission Data Admit Date/Time: 11/23/18 13:31 Attending Provider: Matilde Hammonds Admit Provider: Nicole Araiza Primary Care Provider: Allen Suresh III Other Providers: Nicole Araiza ; Dejan Albert V ; Rupesh Mooney ; Rommel Wilson ; Srinivas Wheeler ; Marley Martinez Service: Telemetry Medical
[2018-12-04] MEDS: fentaNYL 50 MCG/HR TDSY TD SCH (12:41)
[2018-12-04] MEDS: PROCHLORPERAZINE 10 MG in SYRINGE 8 ML IV PRN (13:24)
== END 2018-12-04 15:58 | disposition home health service (06) | DRG 166 ==
LOC: ED 08:39 → SUATTDRO 13:31 → 2W 13:31

== ENCOUNTER 2019-01-15 13:22 | Inpatient (IN) ==
[2019-01-15] MEDS ORDERED: SODIUM CHLORIDE 0.9% 1000ML 1,000 ML IV SCH (14:00)
[2019-01-15] MEDS ORDERED: OPTIRAY 320 125ml IV PRN (14:01)
[2019-01-15 14:17] LABS: Hematocrit (blood only) 31.2 % (37-47); Hemoglobin 10.3 g/dL (12.0-16.0); Immature Granulocytes # (auto) 0.03 K/uL (0.00-0.02); Immature Granulocytes % (auto) 0.3 %; Lymphocytes # (auto) 0.37 K/uL (1.2-3.4); Lymphocytes % (auto) 3.5 %; Mean Corpuscular Hemoglobin 29.4 pg (25-34); Mean Corpuscular Volume 89.1 fL (80-100); Mean Platelet Volume 9.9 fL (7.4-10.4); Monocytes # (auto) 0.11 K/uL (0.11-0.59); Neutrophils # (auto) 10.03 K/uL (1.4-6.5); Neutrophils % (auto) 95.2 %; Platelet Count 274 K/uL (130-400); RDW Coefficient of Variation 15.9 % (11.5-14.5); RDW Standard Deviation 50.7 fL (36.4-46.3); White Blood Count 10.54 K/uL (4.8-10.8)
--- NOTE | 2019-01-15 14:26 | XRay Report ---
XR chest 1V portable CLINICAL HISTORY: 63 years-old Female presenting with Dyspnea. TECHNIQUE: Portable upright AP view of the chest was obtained. COMPARISON: . FINDINGS: Left subclavian Mediport terminates at the superior cavoatrial junction. The left heart border is of scattered due to the left upper lung diffuse opacity. Persistent focal radiolucency in the left upper lung consistent with a cavitation. Persistent small to moderate loculated left pleural effusion. Rig ht lung is hyperinflated. Mild interstitial prominence in the right lung. No pneumothorax. Osseous st ructures normal. Upper abdomen normal. IMPRESSION: 1. Persistent left upper lobe collapse with focal cystic/cavitary region in the left upper lung. 2. Persistent small to moderate loculated left pleural effusion. 3. Increased interstitial prominence in the right lung could suggest developing volume overload/max estive change. No harris pulmonary edema. Electronically signed by: Augusto Rowland M.D. 01/15/2019 2:24 PM
[2019-01-15 14:28] LABS: INR 1.2 (0.9-1.1); Partial Thromboplastin Ratio 0.9; Prothrombin Time 12.6 Seconds (9.0-12.0)
[2019-01-15 14:35] LABS: Albumin Level 1.9 gm/dl (3.4-5.0); BUN Creatinine Ratio 53.5 (10-20); Blood Urea Nitrogen 18 mg/dl (7-18); Calcium 8.5 mg/dl (8.5-10.1); Carbon Dioxide 32 mmol/L (21-32); Chloride 102 mmol/L (98-107); Creatinine Clr Calc Pharmacy 180.1 ml/min; Est GFR (African American) 137.8; Est GFR (Non-African American) 118.9; Glucose 98 mg/dl (70-99); Potassium 3.8 mmol/L (3.5-5.1); Sodium 139 mmol/L (136-145)
[2019-01-15 14:41] LABS: Alanine Aminotransferase 85 U/L (12-78); Albumin Globulin Ratio 0.5 (0.9-2); Alkaline Phosphatase 172 U/L (45-117); Aspartate Aminotransferase 51 U/L (15-37); Bilirubin,Total 0.4 mg/dl (0.2-1); Globulin 3.8 gm/dl (2.5-4.0); Total Protein 5.7 gm/dl (6.4-8.2); Troponin I < 0.015 ng/ml (0-0.045)
[2019-01-15 15:38] LABS: Influenza A virus by PCR Neg for Influ A (Neg); Influenza B virus by PCR Neg for Influ B (Neg)
--- NOTE | 2019-01-15 16:12 | CT Scan Report ---
CT ANGIOGRAPHY OF THE CHEST, PULMONARY EMBOLUS PROTOCOL CLINICAL HISTORY: Dyspnea. Hemoptysis. Lung cancer. COMPARISON STUDY: Chest CT November 23, 2018. Chest radiograph performed earlier today. TECHNIQUE: Following IV administration of 120 mL of Optiray-320, helical axial images of the chest we re obtained utilizing the pulmonary embolus protocol. Maximal intensity projections and sagittal and coronal reformats were viewed on an independent 3D workstation. IV contrast was administered withou t complication. Automated exposure control was utilized for the study. A dose lowering technique wa s utilized adhering to the principles of ALARA. CT DOSE: 219.53 mGycm FINDINGS: No pulmonary emboli are identified. The heart is mildly enlarged. There is trace pericardi al fluid. There is a small loculated left pleural effusion. Since CT of November 23, 2018, there has bee n interval cavitation of the left upper lobe mass. A thick walled cavity within the left upper lobe i s now noted as shown on radiographs of January 05, 2019. Mediastinal and hilar lymphadenopathy show n on CT of November 23, 2018 has markedly diminished. Interlobular septal thickening is noted within the lungs as well as extensive multifocal airspace opacities within the lungs. This has developed since CT of November 23, 2018. There is moderate underlying emphysema. Numerous skeletal lesions are again not ed. These lesions now appear sclerotic. Several these lesions were not evident on prior CT however th is could reflect treatment related change with response. Several hepatic metastases have decreased in size since CT of November 23, 2018. Index 3 cm right hepatic lobe lesion previously measured 4.[address] No new hepatic lesions are present. A left subclavian [id number] is in place. IMPRESSION: 1. No pulmonary emboli identified. 2. Interval development of interlobular septal thickening within the lungs which favors pulmonary jony ma. However, lymphangitic carcinomatosis could appear similar. In addition, new multifocal airspace o pacities throughout the lungs which favor multifocal pneumonia. Pulmonary edema or hemorrhage are con sidered less. 3. Interval cavitation of the left upper lobe mass, possibly related to treatment response, since CT of November 23, 2018 with a thick walled left upper lobe cavity which communicates with the left upper l obe bronchus. 4. Significant interval decrease in thoracic lymphadenopathy since CT of November 23, 2018 with moderate decrease in size of hepatic metastases. Redemonstration of multifocal skeletal metastases with sever al pathologic fractures. Increase in conspicuity of several lesions may be related to treatment respo nse. 5. Small loculated left pleural effusion. Electronically signed by: Eriberto Buckley M.D. 01/15/2019 4:10 PM
[2019-01-15 16:20] LABS: Appearance Urine Clear (Clear); Bilirubin Urine Negative (Negative); Blood Urine Negative (Negative); Color Urine Yellow; Glucose Urine UA Negative (Negative); Ketones Urine Negative (Negative); Leukocyte Esterase Urine Negative (Negative); Nitrite Urine Negative (Negative); Protein Urine Negative (Negative); Specific Gravity Urine 1.041 (1.000-1.030); Urobilinogen Urine Negative (Negative); pH Urine 7.5 (4.5-7.5)
[2019-01-15] MEDS ORDERED: cefTRIAXone SODIUM 1,000 MG/50 ML BAG IV STA (16:26)
[2019-01-15] MEDS ORDERED: CEFEPIME 1,000 MG in SYRINGE 0 ML IV STA (16:27)
[2019-01-15] MEDS ORDERED: LEVOFLOXACIN/D5W 750 MG/150 ML BAG IV SCH (16:30)
[2019-01-15] MEDS ORDERED: VANCOMYCIN CONSULT ACTIVE PRN (17:59)
--- NOTE | 2019-01-15 18:17 | History & Physical Report ---
Date of Service January 15, 2019 Assessment & Plan (1) Hemoptysis: - Related to multifocal pneumonia vs. underlying lung cancer. - CT chest showed development of new multifocal airspace opacities, interlobular septal thickening concerning for pulm edema vs. lymphangitic carcinomatosis. - NPO except meds; can resume PO intake once symptoms are improving. - IV fluids at 80 cc/hr -- monitor for pulm edema. - Monitor CBC twice daily - H/H was stable in the ER. - Consult Dr. Wilson -- follows with patient in clinic. (2) Multifocal pneumonia: - Noted on CT of chest; is immunocompromised in setting of recent chemotherapy. - Will start Cefepime/Vancomycin/Azithromycin for empiric coverage - MRSA swab pending. - Lactic acid level and procalcitonin pending. - No indication for sputum culture as pt. is currently coughing up gross red blood. - Duonebs q4hr prn wheezing/SOB. (3) Non-small cell lung cancer with metastasis: - Follows with Dr. Albert, consulted as inpt. - Most recent chemotherapy on 01/14/19. - CT chest showed decrease in lymphadenopathy with decrease in hepatic metastases. Also has skeletal sai with pathological fractures. - Continue Fentanyl patch 50 mcg for pain; Oxycodone 10 mg q4hr prn pain. (4) Pathologic compression fracture of spine: - Continue Fentanyl patch with Oxycodone prn. (5) HTN (hypertension): - Will hold home HCTZ-Losartan. - Monitor BP closely. (6) Elevated LFTs: - In setting of liver metastases. - Monitor daily. (7) GERD (gastroesophageal reflux disease): - PPI as inpatient. (8) DVT prophylaxis: - SCDS; holding pharmacologic ppx in setting of acute hemoptysis. Dispo: Med/surg with tele for treatment of multifocal PNA and evaluation of hemoptysis. DNR/DNI - confirmed with patient and daughter at bedside. History of Present Illness Chief Complaint: Coughing up blood Primary Care Provider: Allen Suresh MD Mrs. Gonsalez is a 63 year old female with past medical history of non-small cell lung cancer with metastasis, HTN, GERD who presented with hemoptysis. Pt. report she has had a chronic intermittent cough but started coughing up blood at 5 am this morning. She has not been able to eat/drink today. Has chest tightness during coughing episodes and mild shortness of breath. Is nauseous, denies vomiting, abd pain, constipation or diarrhea. Denies headache, lightheadedness, URI symptoms, LE edema. Most recent chemotherapy was on 01/14/19. She follows with Dr. Albert and Dr. Wilson. ER course: CTA was negative for PE, did show opacities concerning for multifocal PNA. Will admit for further work up of hemoptysis and treatment of pneumonia. Allergies Allergy/AdvReac Type Severity Reaction Status Date / Time morphine Allergy Unknown ITCHING Verified 01/15/19 14:32 AND LUMP ON HAND strawberry Allergy Unknown HIVES Verified 01/15/19 14:32 aspirin AdvReac Unknown GI UPSET Verified 01/15/19 14:32 Home Medications Home Medications Medication Instructions Recorded Confirmed Type cetirizine 5 mg tablet 5 mg PO QAM PRN tab 10/13/18 01/15/19 History conj estrogen-medroxyprogesterone 1 tab PO QAM 10/13/18 01/15/19 History 0.625 mg-2.5 mg tablet losartan 50 mg-hydrochlorothiazide 1 tab PO QAM #90 tab 10/13/18 01/15/19 History 12.5 mg tablet docusate sodium 100 mg PO BID #30 cap 11/09/18 01/15/19 Rx promethazine 25 mg tablet 25 mg PO Q6H PRN #60 tab 11/11/18 01/15/19 Rx albuterol sulfate 1 puffs INH Q6H PRN #18 gm 12/04/18 01/15/19 Rx oxycodone 10 mg tablet 10 mg PO Q4H PRN tab 12/05/18 01/15/19 History food supplement, lactose-reduced 1 ea PO BID #6399 ml 12/07/18 01/15/19 Rx 0.04 gram-1 kcal/mL oral liquid ondansetron 4 mg disintegrating 4 mg PO Q8H PRN #60 tab 12/11/18 01/15/19 Rx tablet fentanyl 50 mcg/hr transdermal 50 mcg TRANSDERMAL Q3D@1230 #5 ea 12/17/18 01/15/19 Rx patch dexamethasone 4 mg PO UD 12/31/18 01/15/19 History omeprazole 20 mg PO DAILY PRN 12/31/18 01/15/19 History prednisone 20 mg PO QAM 12/31/18 01/15/19 History prochlorperazine maleate 10 mg PO TID PRN 12/31/18 01/15/19 History sennosides-docusate sodium [Senna 2 tab PO HS 12/31/18 01/15/19 History Plus] polyethylene glycol 3350 17 gram 17 g PO BID #30 ea 01/06/19 01/15/19 Rx oral powder packet Past Med/Surg History Medical History PHYLLIS I (cervical intraepithelial neoplasia I) Metastatic cancer to lung Bony metastasis Pleural effusion, left Non-small cell lung cancer with metastasis Pathologic compression fracture of spine Pain due to malignant neoplasm metastatic to bone Anxiety Chronic back pain GERD (gastroesophageal reflux disease) History of kidney stones IBS (irritable bowel syndrome) 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 Hypertension Port-A-Cath in place (01/05/19) Insertion of A-Port in Left Subclavian Dr. 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 Beliefs That Will Affect Care: None marital status: Single Current Living Situation: Alone current occupational status: disabled Other Information That Helps Us Care for You: No Feels Safe at Home: Yes Safety Concerns: Feels Safe At This Time Hx Alcohol Use: No Hx Substance Use: No Childhood Exposure to Second-Hand Smoke: No caffeine: Yes Physical Activity Frequency: Does not Exercise Review of Systems Review of Systems: All systems reviewed & are unremarkable except as noted in HPI & below Constitutional: + fatigue, + weakness and + anorexia; no fever and no chills Respiratory: + cough, + dyspnea, + dyspnea on exertion and + hemoptysis; no pain with cough and no wheezing Cardiovascular: + chest pain; no palpitations, no lightheadedness and no edema Gastrointestinal: no abdominal pain, no nausea and no constipation Genitourinary: no dysuria, no difficulty urinating and no hematuria Musculoskeletal: + body aches; no swelling Integumentary: no non-healing lesions Physical Exam Physical Exam: General: Chronically ill appearing female. HEENT: NC/AT; PERRLA with EOMI; [place] conjunctiva, MMM. No erythema of posterior pharynx Neck: Supple and nontender Cardiac: RRR Lungs: CTA bilaterally Abdomen: Bowel normoactive X 4; Nontender to palpation Rectal: Deferred : Deferred Back: NO spinous tenderness Extremities: Warm. No edema present Neuro: No focal weakness Skin: No rash Results & Data Vital Signs (Past 12 Hours) Vital Signs Temp Pulse Pulse Resp BP BP Pulse Ox 01/15/19 18:08 83 28 H 108/67 96 01/15/19 17:00 97 H 20 119/70 92 01/15/19 16:02 95 H 91 H 121/69 91 01/15/19 14:48 95 01/15/19 14:43 94 H 16 117/70 93 01/15/19 13:32 36.9 C 108 H 24 105/66 89 L Laboratory Results 01/15/19 01/15/19 01/15/19 Range/Units 16:11 14:30 14:05 WBC (4.8-10.8) K/uL RBC (4.2-5.4) M/uL Hgb (12.0-16.0) g/dL Hct (37-47) % MCV (80-100) fL MCH (25-34) pg MCHC (32-36) g/dL RDW Std Deviation (36.4-46.3) fL RDW Coeff of [place] (11.5-14.5) % Plt Count (130-400) K/uL MPV (7.4-10.4) fL Immature Gran % (Auto) % Neut % (Auto) % Lymph % (Auto) % [place] % (Auto) % Eos % (Auto) % Baso % (Auto) % Immature Gran # (Auto) (0.00-0.02) K/uL Neut # (Auto) (1.4-6.5) K/uL Lymph # (Auto) (1.2-3.4) K/uL [place] # (Auto) (0.11-0.59) K/uL Eos # (Auto) (0-0.5) K/uL Baso # (Auto) (0-0.2) K/uL PT (9.0-12.0) Seconds INR (0.9-1.1) APTT (21.0-31.0) Seconds PTT Ratio Sodium 139 (136-145) mmol/L Potassium 3.8 (3.5-5.1) mmol/L Chloride 102 (98-107) mmol/L Carbon Dioxide 32 (21-32) mmol/L Anion Gap 5.0 (3-11) BUN 18 (7-18) mg/dl Creatinine 0.33 L D (0.6-1.2) mg/dl Est Cr Clr Drug Dosing 180.1 ml/min Est GFR ( Amer) 137.8 Est GFR (Non-Af Amer) 118.9 BUN/Creatinine Ratio 53.5 H (10-20) Glucose 98 (70-99) mg/dl Calcium 8.5 (8.5-10.1) mg/dl Total Bilirubin 0.4 (0.2-1) mg/dl AST 51 H (15-37) U/L ALT 85 H (12-78) U/L Alkaline Phosphatase 172 H (45-117) U/L Troponin I < 0.015 (0-0.045) ng/ml Total Protein 5.7 L D (6.4-8.2) gm/dl Albumin 1.9 L (3.4-5.0) gm/dl Globulin 3.8 (2.5-4.0) gm/dl Albumin/Globulin Ratio 0.5 L (0.9-2) Urine Color Yellow Urine Appearance Clear (Clear) Urine pH 7.5 (4.5-7.5) Ur Specific [place] 1.041 H (1.000-1.030) Urine Protein Negative (Negative) Urine Glucose (UA) Negative (Negative) Urine Ketones Negative (Negative) Urine Blood Negative (Negative) Urine Nitrite Negative (Negative) Urine Bilirubin Negative (Negative) Urine Urobilinogen Negative (Negative) Ur Leukocyte Esterase Negative (Negative) Influenza Type A (PCR) Neg for Influ A (Neg) Influenza Type B (PCR) Neg for Influ B (Neg) 01/15/19 01/15/19 Range/Units 14:05 14:05 WBC 10.54 (4.8-10.8) K/uL RBC 3.50 L (4.2-5.4) M/uL Hgb 10.3 L (12.0-16.0) g/dL Hct 31.2 L (37-47) % MCV 89.1 (80-100) fL MCH 29.4 (25-34) pg MCHC 33.0 (32-36) g/dL RDW Std Deviation 50.7 H (36.4-46.3) fL RDW Coeff of [place] 15.9 H (11.5-14.5) % Plt Count 274 (130-400) K/uL MPV 9.9 (7.4-10.4) fL Immature Gran % (Auto) 0.3 % Neut % (Auto) 95.2 % Lymph % (Auto) 3.5 % [place] % (Auto) 1.0 % Eos % (Auto) 0.0 % Baso % (Auto) 0.0 % Immature Gran # (Auto) 0.03 H (0.00-0.02) K/uL Neut # (Auto) 10.03 H (1.4-6.5) K/uL Lymph # (Auto) 0.37 L (1.2-3.4) K/uL [place] # (Auto) 0.11 (0.11-0.59) K/uL Eos # (Auto) 0.00 (0-0.5) K/uL Baso # (Auto) 0.00 (0-0.2) K/uL PT 12.6 H (9.0-12.0) Seconds INR 1.2 H (0.9-1.1) APTT 24.0 (21.0-31.0) Seconds PTT Ratio 0.9 Sodium (136-145) mmol/L Potassium (3.5-5.1) mmol/L Chloride (98-107) mmol/L Carbon Dioxide (21-32) mmol/L Anion Gap (3-11) BUN (7-18) mg/dl Creatinine (0.6-1.2) mg/dl Est Cr Clr Drug Dosing ml/min Est GFR ( Amer) Est GFR (Non-Af Amer) BUN/Creatinine Ratio (10-20) Glucose (70-99) mg/dl Calcium (8.5-10.1) mg/dl Total Bilirubin (0.2-1) mg/dl AST (15-37) U/L ALT (12-78) U/L Alkaline Phosphatase (45-117) U/L Troponin I (0-0.045) ng/ml Total Protein (6.4-8.2) gm/dl Albumin (3.4-5.0) gm/dl Globulin (2.5-4.0) gm/dl Albumin/Globulin Ratio (0.9-2) Urine Color Urine Appearance (Clear) Urine pH (4.5-7.5) Ur Specific [place] (1.000-1.030) Urine Protein (Negative) Urine Glucose (UA) (Negative) Urine Ketones (Negative) Urine Blood (Negative) Urine Nitrite (Negative) Urine Bilirubin (Negative) Urine Urobilinogen (Negative) Ur Leukocyte Esterase (Negative) Influenza Type A (PCR) (Neg) Influenza Type B (PCR) (Neg) Code Status & VTE Plan Code Status DNR/DNI VTE Prophylaxis Plan VTE Prophylaxis will be ordered: Yes Supervising Physician Co-Signing Physician Notes I have seen and examined the patient with Sofia Calero PA-C and agree with exam assessment and plan. PG Care Time/CCT Total # of Minutes Spent Total Time Spent with Patient: Total time spent is greater than 50% in coordination of care (as documented) at patient's floor/unit and/or counseling patient: (1) Pathologic compression fracture of spine Encounter type: initial encounter Qualified Code(s): M48.50XA - Collapsed vertebra, not elsewhere classified, site unspecified, initial encounter for fracture
[2019-01-15] MEDS ORDERED: ALBUT/IPRATROP 3MG/0.5MG NEB 3 ML VIAL NEB PRN (19:05)
[2019-01-15] MEDS ORDERED: ONDANSETRON INJ 2 MG/ML 2 ML VIAL IV PRN (19:05)
[2019-01-15] MEDS ORDERED: OXYCODONE HCL IR 5 MG TAB (IMMEDIATE RELEASE) PO PRN (19:05)
[2019-01-15] MEDS ORDERED: ALBUTEROL HFA 8 GM INHALER INH PRN (19:05)
[2019-01-15] MEDS ORDERED: ACETAMINOPHEN 1,000 MG/100 ML VIAL IV PRN (19:05)
[2019-01-15] MEDS ORDERED: PROCHLORPERAZINE 10 MG in SYRINGE 8 ML IV PRN (19:05)
[2019-01-15] MEDS ORDERED: POLYETHYLENE (MIRALAX) 17 GM PACK PO PRN (19:05)
--- NOTE | 2019-01-15 19:29 | Emergency Department Note ---
Entered by Destiny Croft acting as a scribe for History of Present Illness General Chief complaint: Cough Stated complaint: COUGHING BLOOD Source: patient History of Present Illness Onset (ago): hour(s) 10 Location: chest Pain Consistency: + other (persistent) Maximum Pain Intensity: 4 Quality: + other (hemoptysis) Associated symptoms: + denies other symptoms (abdominal pain), + chest pain, + nausea/vomiting (vomiting) and + other (unable to eat or drink) The patient is a 63 year old female who presents to the Emergency Room with complaints of persistent hemoptysis since 10 hours ago. The patient states that she has lung cancer and last had chemo yesterday. She reports that early this morning she started coughing up blood. She reports that this in turn has caused her to vomit, but denies having hematemesis. She notes that she has not been able to eat or drink because of it. The patient complains of left sided chest pain. She notes that it felt tight for the past 2 days and has become sore. The patient notes that she is on 2L of oxygen at home at all times. The patient denies the use of blood thinners, abdominal pain, and ever having this before. Home Medications Home Medications Medication Instructions Recorded Confirmed Type cetirizine 5 mg tablet 5 mg PO QAM PRN tab 10/13/18 01/15/19 History conj estrogen-medroxyprogesterone 1 tab PO QAM 10/13/18 01/15/19 History 0.625 mg-2.5 mg tablet losartan 50 mg-hydrochlorothiazide 1 tab PO QAM #90 tab 10/13/18 01/15/19 History 12.5 mg tablet docusate sodium 100 mg PO BID #30 cap 11/09/18 01/15/19 Rx promethazine 25 mg tablet 25 mg PO Q6H PRN #60 tab 11/11/18 01/15/19 Rx albuterol sulfate 1 puffs INH Q6H PRN #18 gm 12/04/18 01/15/19 Rx oxycodone 10 mg tablet 10 mg PO Q4H PRN tab 12/05/18 01/15/19 History food supplement, lactose-reduced 1 ea PO BID #6399 ml 12/07/18 01/15/19 Rx 0.04 gram-1 kcal/mL oral liquid ondansetron 4 mg disintegrating 4 mg PO Q8H PRN #60 tab 12/11/18 01/15/19 Rx tablet fentanyl 50 mcg/hr transdermal 50 mcg TRANSDERMAL Q3D@1230 #5 ea 12/17/18 01/15/19 Rx patch dexamethasone 4 mg PO UD 12/31/18 01/15/19 History omeprazole 20 mg PO DAILY PRN 12/31/18 01/15/19 History prednisone 20 mg PO QAM 12/31/18 01/15/19 History prochlorperazine maleate 10 mg PO TID PRN 12/31/18 01/15/19 History sennosides-docusate sodium [Senna 2 tab PO HS 12/31/18 01/15/19 History Plus] polyethylene glycol 3350 17 gram 17 g PO BID #30 ea 01/06/19 01/15/19 Rx oral powder packet Allergies Allergy/AdvReac Type Severity Reaction Status Date / Time morphine Allergy Unknown ITCHING Verified 01/15/19 14:32 AND LUMP ON HAND strawberry Allergy Unknown HIVES Verified 01/15/19 14:32 aspirin AdvReac Unknown GI UPSET Verified 01/15/19 14:32 Past Med/Surg History Medical History PHYLLIS I (cervical intraepithelial neoplasia I) Metastatic cancer to lung Bony metastasis Pleural effusion, left Non-small cell lung cancer with metastasis Pathologic compression fracture of spine Pain due to malignant neoplasm metastatic to bone Anxiety Chronic back pain GERD (gastroesophageal reflux disease) History of kidney stones IBS (irritable bowel syndrome) 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 Hypertension Port-A-Cath in place (01/05/19) Insertion of A-Port in Left Subclavian Dr. 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 and A total of 10 systems reviewed and were otherwise negative Physical Exam Vital Signs Vital Signs - 24 hr 01/15/19 13:32 01/15/19 14:43 01/15/19 14:48 Temperature 36.9 C Temperature Source Oral Sepsis Recent Fever Within 48 Hours No Sepsis New/Unexplained Change in Mental Status No Sepsis Action Taken by Nursing No Action Required Pulse Rate 108 H Pulse Rate [Apical] 94 H Pulse Rhythm Regular Pulse Strength Normal Respiratory Rate 24 16 Respiratory Effort / Characteristics Non-Labored Respiratory Depth Normal Respiratory Pattern Regular Blood Pressure 105/66 Blood Pressure [Right Arm] 117/70 Blood Pressure Mean 79 Blood Pressure Mean [Right Arm] 85 Blood Pressure Position Sitting Pulse Oximetry 89 L 93 95 Oxygen Delivery Method Nasal Cannula Nasal Cannula Nasal Cannula Oxygen Flow Rate 2 2 2 01/15/19 16:02 01/15/19 17:00 Temperature Temperature Source Sepsis Recent Fever Within 48 Hours Sepsis New/Unexplained Change in Mental Status Sepsis Action Taken by Nursing Pulse Rate Pulse Rate [Apical] 95 H 97 H Pulse Rhythm Pulse Strength Respiratory Rate 91 H 20 Respiratory Effort / Characteristics Respiratory Depth Respiratory Pattern Blood Pressure Blood Pressure [Right Arm] 121/69 119/70 Blood Pressure Mean Blood Pressure Mean [Right Arm] 86 86 Blood Pressure Position Pulse Oximetry 91 92 Oxygen Delivery Method Nasal Cannula Nasal Cannula Oxygen Flow Rate 2 2 GENERAL: chronically ill appearing, disheveled, cachectic EYE EXAM: normal conjunctiva OROPHARYNX: no exudate, no erythema, lips, buccal mucosa, and tongue normal and mucous membranes are moist NECK: supple, no nuchal rigidity, no adenopathy, non-tender LUNGS: Clear to auscultation. Normal chest wall mechanics HEART: no murmurs, S1 normal and S2 normal ABDOMEN: abdomen soft, non-tender, normo-active bowel sounds, no masses, no rebound or guarding. BACK: Back is symmetrical on inspection and there is no deformity, no midline tenderness, no CVA tenderness. SKIN: no rashes and no bruising UPPER EXTREMITIES: upper extremities are grossly normal. LOWER EXTREMITIES: No pitting edema. NEURO EXAM: Normal sensorium, cranial nerves II-XII grossly intact, normal speech, no gross weakness of arms, no gross weakness of legs. Course ED COURSE: Vital signs were reviewed and showed tachycardia. The patients medical record was reviewed The above diagnostic studies were performed and reviewed. ED treatments and interventions as stated above. 1343: The patient was evaluated in room B2. A complete history and physical examination was performed. 1636: Upon reevaluation, the patient is resting comfortably. I discussed my findings with the patient and she understands and agrees with the treatment plan. Based on the patients age, coexisting illnesses, exam and lab findings the decis ion to treat as an inpatient was made. The patient remained stable while under my care. The patient will be evaluated for further management. 1706: I discussed the patient's case with Dr. Rob DIAZ Hospitalist. She will evaluate the patient for further management. Consultations Consultation #1: I discussed the patient's case with Dr. Rob DIAZ Hospitalist. She will evaluate the patient for further management. Time: 17:06 Administered Medications Ioversol (Optiray 320 125ml) 120 ml IV ONCE PRN PRN Reason: Interaction Checking Stop: 01/19/19 14:00 Last Admin: 01/15/19 14:02 Dose: 120 ml Documented by: [id number] Discontinued Medications Sodium Chloride (Nss 1000ml) 1,000 mls @ 999 mls/hr IV .Q1H1M PREM Stop: 01/15/19 15:00 Last Infusion: 01/15/19 15:30 Dose: 0 mls/hr Documented by: [id number] Admin: 01/15/19 14:29 Dose: 999 mls/hr Documented by: [id number] Levofloxacin/Dextrose (Levaquin/D5w) 750 mg in 150 mls @ 100 mls/hr IV Q24H PREM Stop: 01/29/19 16:29 Last Infusion: 01/15/19 18:35 Dose: 0 mls/hr Documented by: [id number] Admin: 01/15/19 17:02 Dose: 100 mls/hr Documented by: [id number] Ceftriaxone Sodium (Rocephin) 1,000 mg in 50 mls @ 100 mls/hr IV NOW STA Stop: 01/15/19 16:55 Last Infusion: 01/15/19 17:26 Dose: 0 mls/hr Documented by: [id number] Admin: 01/15/19 16:55 Dose: 100 mls/hr Documented by: [id number] Cefepime HCl 1,000 mg/ Syringe 11.3 mls @ 5.5 mls/min IV NOW STA; Protocol Stop: 01/15/19 16:29 Last Admin: 01/15/19 16:53 Dose: 5.5 mls/min Documented by: [id number] Medical Decision Making Differential Diagnosis Differential Diagnosis includes but is not limited to dehydration, stroke, anemia, hypoglycemia, hyponatremia, hypernatremia, urinary tract infection, pneumonia, bronchitis, sepsis, gastroenteritis, additional abdominal pathology, metabolic abnormalities and infections. Medical Records Attestation: I reviewed the patient's medical records. Home Medications Current Medication List: was personally reviewed by me Laboratory Data Attestation: I reviewed the patient's lab results. Result diagrams: 01/15/19 14:05 01/15/19 14:05 Lab Results 01/15/19 01/15/19 01/15/19 Range/Units 14:05 14:05 14:05 WBC 10.54 (4.8-10.8) K/uL RBC 3.50 L (4.2-5.4) M/uL Hgb 10.3 L (12.0-16.0) g/dL Hct 31.2 L (37-47) % MCV 89.1 (80-100) fL MCH 29.4 (25-34) pg MCHC 33.0 (32-36) g/dL RDW Std Deviation 50.7 H (36.4-46.3) fL RDW Coeff of [place] 15.9 H (11.5-14.5) % Plt Count 274 (130-400) K/uL MPV 9.9 (7.4-10.4) fL Immature Gran % (Auto) 0.3 % Neut % (Auto) 95.2 % Lymph % (Auto) 3.5 % Cottle % (Auto) 1.0 % Eos % (Auto) 0.0 % Baso % (Auto) 0.0 % Immature Gran # (Auto) 0.03 H (0.00-0.02) K/uL Neut # (Auto) 10.03 H (1.4-6.5) K/uL Lymph # (Auto) 0.37 L (1.2-3.4) K/uL Cottle # (Auto) 0.11 (0.11-0.59) K/uL Eos # (Auto) 0.00 (0-0.5) K/uL Baso # (Auto) 0.00 (0-0.2) K/uL PT 12.6 H (9.0-12.0) Seconds INR 1.2 H (0.9-1.1) APTT 24.0 (21.0-31.0) Seconds PTT Ratio 0.9 Sodium 139 (136-145) mmol/L Potassium 3.8 (3.5-5.1) mmol/L Chloride 102 (98-107) mmol/L Carbon Dioxide 32 (21-32) mmol/L Anion Gap 5.0 (3-11) BUN 18 (7-18) mg/dl Creatinine 0.33 L D (0.6-1.2) mg/dl Est Cr Clr Drug Dosing 180.1 ml/min Est GFR ( Amer) 137.8 Est GFR (Non-Af Amer) 118.9 BUN/Creatinine Ratio 53.5 H (10-20) Glucose 98 (70-99) mg/dl Calcium 8.5 (8.5-10.1) mg/dl Total Bilirubin 0.4 (0.2-1) mg/dl AST 51 H (15-37) U/L ALT 85 H (12-78) U/L Alkaline Phosphatase 172 H (45-117) U/L Troponin I < 0.015 (0-0.045) ng/ml Total Protein 5.7 L D (6.4-8.2) gm/dl Albumin 1.9 L (3.4-5.0) gm/dl Globulin 3.8 (2.5-4.0) gm/dl Albumin/Globulin Ratio 0.5 L (0.9-2) Urine Color Urine Appearance (Clear) Urine pH (4.5-7.5) Ur Specific [place] (1.000-1.030) Urine Protein (Negative) Urine Glucose (UA) (Negative) Urine Ketones (Negative) Urine Blood (Negative) Urine Nitrite (Negative) Urine Bilirubin (Negative) Urine Urobilinogen (Negative) Ur Leukocyte Esterase (Negative) Influenza Type A (PCR) (Neg) Influenza Type B (PCR) (Neg) 01/15/19 01/15/19 Range/Units 14:30 16:11 WBC (4.8-10.8) K/uL RBC (4.2-5.4) M/uL Hgb (12.0-16.0) g/dL Hct (37-47) % MCV (80-100) fL MCH (25-34) pg MCHC (32-36) g/dL RDW Std Deviation (36.4-46.3) fL RDW Coeff of [place] (11.5-14.5) % Plt Count (130-400) K/uL MPV (7.4-10.4) fL Immature Gran % (Auto) % Neut % (Auto) % Lymph % (Auto) % Cottle % (Auto) % Eos % (Auto) % Baso % (Auto) % Immature Gran # (Auto) (0.00-0.02) K/uL Neut # (Auto) (1.4-6.5) K/uL Lymph # (Auto) (1.2-3.4) K/uL Cottle # (Auto) (0.11-0.59) K/uL Eos # (Auto) (0-0.5) K/uL Baso # (Auto) (0-0.2) K/uL PT (9.0-12.0) Seconds INR (0.9-1.1) APTT (21.0-31.0) Seconds PTT Ratio Sodium (136-145) mmol/L Potassium (3.5-5.1) mmol/L Chloride (98-107) mmol/L Carbon Dioxide (21-32) mmol/L Anion Gap (3-11) BUN (7-18) mg/dl Creatinine (0.6-1.2) mg/dl Est Cr Clr Drug Dosing ml/min Est GFR ( Amer) Est GFR (Non-Af Amer) BUN/Creatinine Ratio (10-20) Glucose (70-99) mg/dl Calcium (8.5-10.1) mg/dl Total Bilirubin (0.2-1) mg/dl AST (15-37) U/L ALT (12-78) U/L Alkaline Phosphatase (45-117) U/L Troponin I (0-0.045) ng/ml Total Protein (6.4-8.2) gm/dl Albumin (3.4-5.0) gm/dl Globulin (2.5-4.0) gm/dl Albumin/Globulin Ratio (0.9-2) Urine Color Yellow Urine Appearance Clear (Clear) Urine pH 7.5 (4.5-7.5) Ur Specific [place] 1.041 H (1.000-1.030) Urine Protein Negative (Negative) Urine Glucose (UA) Negative (Negative) Urine Ketones Negative (Negative) Urine Blood Negative (Negative) Urine Nitrite Negative (Negative) Urine Bilirubin Negative (Negative) Urine Urobilinogen Negative (Negative) Ur Leukocyte Esterase Negative (Negative) Influenza Type A (PCR) Neg for Influ A (Neg) Influenza Type B (PCR) Neg for Influ B (Neg) Imaging Data Radiologist's Impression: Radiology results as stated below per my review and the radiologist's interpretation: XR chest 1V portable CLINICAL HISTORY: 63 years-old Female presenting with Dyspnea. TECHNIQUE: Portable upright AP view of the chest was obtained. COMPARISON: . FINDINGS: Left subclavian Mediport terminates at the superior cavoatrial junction. The left heart border is of scattered due to the left upper lung diffuse opacity. Persistent focal radiolucency in the left upper lung consistent with a cavi tation. Persistent small to moderate loculated left pleural effusion. Right lung is hyperinflated. Mild interstitial prominence in the right lung. No pneumothorax. Osseous structures normal. Upper abdomen normal. IMPRESSION: 1. Persistent left upper lobe collapse with focal cystic/cavitary region in the left upper lung. 2. Persistent small to moderate loculated left pleural effusion. 3. Increased interstitial prominence in the right lung could suggest developing volume overload/congestive change. No harris pulmonary edema. Electronically signed by: Augusto Rowland M.D. 01/15/2019 2:[address] ANGIOGRAPHY OF THE CHEST, PULMONARY EMBOLUS PROTOCOL CLINICAL HISTORY: Dyspnea. Hemoptysis. Lung cancer. COMPARISON STUDY: Chest CT November 23, 2018. Chest radiograph performed earlier today. TECHNIQUE: Following IV administration of 120 mL of Optiray-320, helical axial images of the chest were obtained utilizing the pulmonary embolus protocol. Max imal intensity projections and sagittal and coronal reformats were viewed on an independent 3D workstation. IV contrast was administered without complication. Automated exposure control was utilized for the study. A dose lowering technique was utilized adhering to the principles of ALARA. CT DOSE: 219.53 mGycm FINDINGS: No pulmonary emboli are identified. The heart is mildly enlarged. There is trace pericardial fluid. There is a small loculated left pleural effusion. Since CT of November 23, 2018, there has been interval cavitation of the left upper lobe mass. A thick walled cavity within the left upper lobe is now noted as shown on radiographs of January 05, 2019. Mediastinal and hilar lymphadenopathy shown on CT of November 23, 2018 has markedly diminished. Interlobular septal thickening is noted within the lungs as well as extensive multifocal airspace opacities within the lungs. This has developed since CT of November 23, 2018. There is moderate underlying emphysema. Numerous skeletal lesions are again noted. These lesions now appear sclerotic. Several these lesions were not evident on prior CT however this could reflect treatment related change with response. Several hepatic metastases have decreased in size since CT of November 23, 2018. Index 3 cm right hepatic lobe lesion previously measured 4.[address] No new hepatic lesions are present. A left subclavian [id number] is in place. IMPRESSION: 1. No pulmonary emboli identified. 2. Interval development of interlobular septal thickening within the lungs which favors pulmonary edema. However, lymphangitic carcinomatosis could appear similar. In addition, new multifocal airspace opacities throughout the lungs which favor multifocal pneumonia. Pulmonary edema or hemorrhage are considered less. 3. Interval cavitation of the left upper lobe mass, possibly related to treatment response, since CT of November 23, 2018 with a thick walled left upper lobe cavity which communicates with the left upper lobe bronchus. 4. Significant interval decrease in thoracic lymphadenopathy since CT of November 23, 2018 with moderate decrease in size of hepatic metastases. Redemonstration of multifocal skeletal metastases with several pathologic fractures. Increase in conspicuity of several lesions may be related to treatment response. 5. Small loculated left pleural effusion. Electronically signed by: Eriberto Buckley M.D. 01/15/2019 4:10 PM ECG Data Attestation: I personally reviewed and interpreted this ECG as follows: Indication: chest pain Rate (beats per minute): 95 Rhythm: sinus rhythm Findings: + other (short PA), + PAC and + T-wave inversion (anterior with ST changes in the anterolateral) Blood Pressure Blood Pressure Findings: Normal blood pressure Blood Pressure Disposition: did not require urgent referral MDM Narrative Patient is a 63-year-old female who presents the ER for coughing up blood. She has a history of stage IV lung cancer and is currently on 2 L nasal cannula. She notes that she has become more short of breath. IV was established blood wo rk was obtained showed no significant leukocytosis. Hemoglobin 10.3. INR was unremarkable. BMP was unremarkable as well. LFTs with transaminitis. Troponin was negative. UA was negative. Influenza was negative. CT of the chest shows multifocal pneumonia. Patient was given IV cefepime and IV Levaquin. She is given IV fluids. She is updated bedside. She is admitted to the hospital for multifocal pneumonia while receiving chemotherapy. Impression & Plan Multifocal pneumonia, Hemoptysis, History of recent chemotherapy Discharge Plan Visit Data *Final* Discharge Date/Time: 01/15/19 18:37 Chief Complaint: Cough Stated Complaint: COUGHING BLOOD ED Provider: Neymar Reyes Discharge Problem: Multifocal pneumonia, Hemoptysis, History of recent chemotherapy Patient Disposition: Admitted As Inpatient Discharge Instructions Interventions: ED Discharge Assessment Last Done: 01/15/19 18:37 The scribe's documentation has been prepared under my direction and personally reviewed by me in its entirety. I confirm that the note above accurately reflects all work, treatment, procedures, and medical decision making performed by me.
[2019-01-15] MEDS: SODIUM CHLORIDE 0.9% 1000ML 1,000 ML IV SCH (19:46)
[2019-01-15] MEDS ORDERED: VANCOMYCIN HCL 2,000 MG in SODIUM CHLORIDE 0.9% 500 ML IV ONE (20:00)
[2019-01-15] MEDS: fentaNYL 50 MCG/HR TDSY TD SCH (20:50)
[2019-01-15] MEDS: DOCUSATE SODIUM 100 MG CAP PO SCH ×2 (20:53→21:11)
[2019-01-15] MEDS: DOCUSATE SODIUM/SENNA 50/8.6MG TAB PO SCH (20:54)
[2019-01-16] MEDS: CHECK FENTANYL PATCH PLACEMENT SCH ×4 (00:16→22:56)
[2019-01-16] MEDS: CEFEPIME 2,000 MG in SYRINGE 7.5 ML IV SCH ×3 (00:17→17:57)
[2019-01-16 02:13] LABS: Hematocrit (blood only) 28.1 % (37-47); Hemoglobin 9.2 g/dL (12.0-16.0)
[2019-01-16] MEDS ORDERED: HEPARIN 100 UNIT/ML 5ML FLUSH FLUSH PRN (02:14)
[2019-01-16] MEDS: SODIUM CHLORIDE 0.9% 1000ML 1,000 ML IV SCH (06:18)
[2019-01-16 06:27] LABS: Hematocrit (blood only) 28.2 % (37-47); Hemoglobin 9.3 g/dL (12.0-16.0); Mean Corpuscular Hemoglobin 29.3 pg (25-34); Mean Platelet Volume 10.1 fL (7.4-10.4); Platelet Count 222 K/uL (130-400); RDW Coefficient of Variation 15.7 % (11.5-14.5); RDW Standard Deviation 50.4 fL (36.4-46.3); Red Blood Count 3.17 M/uL (4.2-5.4); White Blood Count 9.31 K/uL (4.8-10.8)
[2019-01-16 07:05] LABS: Alanine Aminotransferase 50 U/L (12-78); Albumin Level 1.6 gm/dl (3.4-5.0); Aspartate Aminotransferase 21 U/L (15-37); BUN Creatinine Ratio 59.1 (10-20); Blood Urea Nitrogen 13 mg/dl (7-18); Calcium 7.9 mg/dl (8.5-10.1); Carbon Dioxide 29 mmol/L (21-32); Chloride 104 mmol/L (98-107); Creatinine Clr Calc Pharmacy 270.1 ml/min; Est GFR (African American) > 150.0; Est GFR (Non-African American) 135.9; Glucose 80 mg/dl (70-99); Magnesium 1.7 mg/dl (1.8-2.4); Potassium 3.4 mmol/L (3.5-5.1); Sodium 139 mmol/L (136-145)
[2019-01-16 07:07] LABS: Albumin Globulin Ratio 0.5 (0.9-2); Alkaline Phosphatase 129 U/L (45-117); Bilirubin,Total 0.7 mg/dl (0.2-1); Globulin 3.4 gm/dl (2.5-4.0)
[2019-01-16] MEDS ORDERED: POTASSIUM CHLORIDE 20 MEQ TABCR PO ONE (07:22)
[2019-01-16] MEDS ORDERED: MAGNESIUM SULFATE / D5W 1 GM/100 ML BAG IV ONE (07:45)
[2019-01-16] MEDS: AZITHROMYCIN 250 MG in DEXTROSE 5% 250 ML IV SCH (07:51)
[2019-01-16] MEDS: DOCUSATE SODIUM 100 MG CAP PO SCH ×2 (07:53→20:32)
[2019-01-16] MEDS: PANTOprazole 40 MG TAB PO SCH (07:53)
[2019-01-16] MEDS ORDERED: LORazepam 0.5 MG TAB PO PRN (08:29)
[2019-01-16] MEDS: methylPREDNISolone 40 MG in SYRINGE 0 ML IV SCH ×2 (09:29→17:56)
[2019-01-16] MEDS: POTASSIUM CHLORIDE / WTR 10 MEQ/100 ML PLCT IV SCH ×2 (09:34→10:34)
[2019-01-16] MEDS: VANCOMYCIN HCL 1,250 MG in SODIUM CHLORIDE 0.9% 250 ML IV SCH ×2 (09:52→20:31)
[2019-01-16] MEDS: DRONABINOL 2.5 MG CAP PO SCH ×2 (10:08→20:38)
[2019-01-16] MEDS: MIRTAZAPINE TAB 15 MG TAB PO SCH ×2 (10:08→20:32)
--- NOTE | 2019-01-16 10:33 | Pharmacy Report ---
Pharmacy Abx Initial Consult - Date of Service January 16, 2019 - Pharmacy Dosing Scope Date of Consult: 01/15/19 Consultation requested by: Abdias LANDA Pharmacy is consulted to initiate Vancomycin IV dosing therapy, order appropriate labs and adjust drug dose/frequency. - Subjective The patient is a 63 year old F admitted on 01/15/19 17:55. - Objective Height: 5 ft 2 in Weight: 86.183 kg Vital Signs (Past 12hrs): Vital Signs Temp Pulse Pulse Pulse Resp BP Pulse Ox 01/16/19 07:51 36.6 C 103 H 17 152/85 H 88 L 01/16/19 07:42 88 01/16/19 03:58 37 C 76 18 126/74 94 01/16/19 00:56 37.0 C 84 20 131/81 92 01/16/19 00:02 78 01/15/19 23:27 37.1 C 84 18 124/75 91 Lab Results (24hrs): Laboratory Tests (24 Hours) 01/16/19 01/16/19 01/15/19 06:12 06:12 19:13 WBC 9.31 Neut # (Auto) Creatinine 0.22 L Est Cr Clr Drug Dosing 270.1 Procalcitonin 0.36 01/15/19 01/15/19 14:05 14:05 WBC 10.54 Neut # (Auto) 10.03 H Creatinine 0.33 L D Est Cr Clr Drug Dosing 180.1 Procalcitonin - Risk Factors for Resistance * Immunocompromised (chemotherapy) - Assessment & Plan Assessment 63 year old F admitted with multi-focal pneumonia and hemoptysis. Patient has lung cancer with recent chemotherapy. She is ordered Vanco + Cefepime + Zithromax IV for pneumonia. Plan Vancomycin IV * Estimated PK Parameters: Vd = 0.6 L/kg, Terrell = 0.104 hr-1, t1/2 = 6.7 hr * Loading dose: 2000 mg (23 mg/kg) * Maintenance dose: 1250 mg IV (14.5 mg/kg) every 12 hours * Goal trough level for Pneumonia: 15 to 20 mcg/mL * Trough level ordered for 01/17/19 before dose at 0800 after 2 maintenance doses. Level would not be at steady state but would help with dose adjustment if it is low. Pharmacy will continue to follow and will adjust dose/frequency as necessary. Thank you.
--- NOTE | 2019-01-16 10:40 | Hospitalist Progress Note ---
Date of Service January 16, 2019 Assessment & Plan (1) Hemoptysis: - Related to multifocal pneumonia vs. underlying lung cancer. Has ongoing hemoptysis this morning, no improvement. - CT chest showed development of new multifocal airspace opacities, interlobular septal thickening concerning for pulm edema vs. lymphangitic carcinomatosis. - Advance to clear liquid diet; d/c IV fluids to prevent pulm edema. - Monitor CBC daily -- H/H has been stable. - Consulted Dr. Wilson, appreciate input. - Will also consult pulmonary, Dr. Anderson -- pt. may require bronch for embolization in setting of bleed. (2) Multifocal pneumonia: - Noted on CT of chest; immunocompromised in setting of recent chemotherapy. - Continue Cefepime/Vancomycin/Azithromycin for empiric coverage - MRSA swab was negative. Consider de-escalating abx on 01/17 if pt. is improving. - Lactic acid level was 1.6; Procal 0.36. - Duonebs q4hrWA scheduled; Albuterol inhaler prn SOB/wheezing. (3) Radiation pneumonitis: - Concern for pneumonitis based on CT chest findings. - Will start Solu-medrol 40 mg IV q8hr. - Continue to monitor for improvement in SOB/cough. (4) Non-small cell lung cancer with metastasis: - Follows with Dr. Albert - consulted onc as inpatient. - Most recent chemotherapy on 01/14/19. - CT chest showed decrease in lymphadenopathy with decrease in hepatic metas tases. Also has skeletal sai with pathological fractures. - Continue Fentanyl patch 50 mcg & Oxycodone 10 mg q4hr prn pain. (5) Acute respiratory failure with hypoxia: - Has been requiring 2L via NC in setting of radiation pneumonitis, multifocal PNA and NSCLC. - Wean as tolerated. (6) Pathologic compression fracture of spine: - Continue Fentanyl patch with Oxycodone prn. (7) HTN (hypertension): - Holding home HCTZ-Losartan. - BP has been well controlled. (8) Elevated LFTs: - In setting of liver metastases. - Monitor daily, now trending down. (9) GERD (gastroesophageal reflux disease): - PPI daily. (10) Anemia: - Chemotherapy induced anemia -- last treatment on 01/14. - Continue to monitor CBC daily -- has been trending down, likely partially dilutional related to IV fluids. (11) Electrolyte abnormality: - K level 3.4 -- ordered KCl 10 mEq IV x 2 doses (cannot tolerate PO KCl) - Mag level 1.7 - ordered mag sulfate 1 gm IV. - Monitor levels daily. (12) Severe protein-calorie malnutrition: - Albumin 1.6 in setting of metastatic lung cancer, limited PO intake. - Encourage boost supplements with every meal. - Start Remeron 15 mg qhs. - Will also start Marinol 2.5 mg BID per family request -- this med is not covered by insurance as outpatient, will need to be d'c/ed at discharge. - Albumin 25% daily x 4 days per oncology recs. (13) DVT prophylaxis: - SCDS; hold pharmacologic ppx in setting of acute hemoptysis. Dispo: Continue treatment for multifocal PNA & radiation pneumonitis. Oncology, pulmonary and thoracic surgery all following. DNR/DNI - confirmed with patient and daughter at bedside on admission. Subjective Has ongoing hemoptysis, no improvement. Complains of nausea, no episodes of vomiting. Is short of breath both at rest and with exertion. Her daughter is present at bedside, updated with plan of care. Will advance to [facility]D and add Marinol BID dosing for appetite stimulation along with boost supplements with meals to increase caloric intake. Review of Systems Review of Systems: All systems reviewed & are unremarkable except as noted in HPI & below Constitutional: + fatigue, + weakness, + anorexia and + weight loss; no fever and no chills Respiratory: + cough, + dyspnea, + dyspnea on exertion and + hemoptysis; no wheezing Cardiovascular: no chest pain, no palpitations, no lightheadedness and no edema Gastrointestinal: no abdominal pain, no nausea and no constipation Genitourinary: no difficulty urinating Musculoskeletal: no back pain and no joint pain Integumentary: no non-healing lesions Physical Exam Physical Exam: General: Chronically ill appearing female, in mild distress. Daughter is present at bedside. HEENT: NC/AT; PERRLA with EOMI; [place] conjunctiva, MMM. No erythema of posterior pharynx Neck: Supple and nontender Cardiac: RRR Lungs: on 2L via NC; clear to auscultation throughout. Episodes of hemoptysis noted during physical exam. Abdomen: Bowel normoactive X 4; Nontender to palpation Extremities: Warm. No edema present Neuro: No focal weakness Skin: No rash Results & Data Vital Signs (Past 12 Hours) Vital Signs Temp Pulse Pulse Pulse Resp BP Pulse Ox 01/16/19 07:51 36.6 C 103 H 17 152/85 H 88 L 01/16/19 07:42 88 01/16/19 03:58 37 C 76 18 126/74 94 01/16/19 00:56 37.0 C 84 20 131/81 92 01/16/19 00:02 78 01/15/19 23:27 37.1 C 84 18 124/75 91 Laboratory Results 01/16/19 01/16/19 01/16/19 Range/Units 06:12 06:12 01:54 WBC 9.31 (4.8-10.8) K/uL RBC 3.17 L (4.2-5.4) M/uL Hgb 9.3 L 9.2 L (12.0-16.0) g/dL Hct 28.2 L 28.1 L (37-47) % MCV 89.0 (80-100) fL MCH 29.3 (25-34) pg MCHC 33.0 (32-36) g/dL RDW Std Deviation 50.4 H (36.4-46.3) fL RDW Coeff of [place] 15.7 H (11.5-14.5) % Plt Count 222 (130-400) K/uL MPV 10.1 (7.4-10.4) fL Immature Gran % (Auto) % Neut % (Auto) % Lymph % (Auto) % [place] % (Auto) % Eos % (Auto) % Baso % (Auto) % Immature Gran # (Auto) (0.00-0.02) K/uL Neut # (Auto) (1.4-6.5) K/uL Lymph # (Auto) (1.2-3.4) K/uL [place] # (Auto) (0.11-0.59) K/uL Eos # (Auto) (0-0.5) K/uL Baso # (Auto) (0-0.2) K/uL PT (9.0-12.0) Seconds INR (0.9-1.1) APTT (21.0-31.0) Seconds PTT Ratio Sodium 139 (136-145) mmol/L Potassium 3.4 L (3.5-5.1) mmol/L Chloride 104 (98-107) mmol/L Carbon Dioxide 29 (21-32) mmol/L Anion Gap 6.0 (3-11) BUN 13 (7-18) mg/dl Creatinine 0.22 L (0.6-1.2) mg/dl Est Cr Clr Drug Dosing 270.1 ml/min Est GFR ( Amer) > 150.0 Est GFR (Non-Af Amer) 135.9 BUN/Creatinine Ratio 59.1 H (10-20) Glucose 80 (70-99) mg/dl Lactate (0.4-2.0) mmol/L Calcium 7.9 L (8.5-10.1) mg/dl Magnesium 1.7 L (1.8-2.4) mg/dl Total Bilirubin 0.7 (0.2-1) mg/dl AST 21 (15-37) U/L ALT 50 (12-78) U/L Alkaline Phosphatase 129 H (45-117) U/L Troponin I (0-0.045) ng/ml Total Protein 5.0 L (6.4-8.2) gm/dl Albumin 1.6 L (3.4-5.0) gm/dl Globulin 3.4 (2.5-4.0) gm/dl Albumin/Globulin Ratio 0.5 L (0.9-2) Procalcitonin (0-0.5) ng/ml Urine Color Urine Appearance (Clear) Urine pH (4.5-7.5) Ur Specific [place] (1.000-1.030) Urine Protein (Negative) Urine Glucose (UA) (Negative) Urine Ketones (Negative) Urine Blood (Negative) Urine Nitrite (Negative) Urine Bilirubin (Negative) Urine Urobilinogen (Negative) Ur Leukocyte Esterase (Negative) Nasal Screen MRSA (PCR) (Negative) Influenza Type A (PCR) (Neg) Influenza Type B (PCR) (Neg) 01/15/19 01/15/19 01/15/19 Range/Units Unknown 19:13 19:13 WBC (4.8-10.8) K/uL RBC (4.2-5.4) M/uL Hgb (12.0-16.0) g/dL Hct (37-47) % MCV (80-100) fL MCH (25-34) pg MCHC (32-36) g/dL RDW Std Deviation (36.4-46.3) fL RDW Coeff of [place] (11.5-14.5) % Plt Count (130-400) K/uL MPV (7.4-10.4) fL Immature Gran % (Auto) % Neut % (Auto) % Lymph % (Auto) % [place] % (Auto) % Eos % (Auto) % Baso % (Auto) % Immature Gran # (Auto) (0.00-0.02) K/uL Neut # (Auto) (1.4-6.5) K/uL Lymph # (Auto) (1.2-3.4) K/uL [place] # (Auto) (0.11-0.59) K/uL Eos # (Auto) (0-0.5) K/uL Baso # (Auto) (0-0.2) K/uL PT (9.0-12.0) Seconds INR (0.9-1.1) APTT (21.0-31.0) Seconds PTT Ratio Sodium (136-145) mmol/L Potassium (3.5-5.1) mmol/L Chloride (98-107) mmol/L Carbon Dioxide (21-32) mmol/L Anion Gap (3-11) BUN (7-18) mg/dl Creatinine (0.6-1.2) mg/dl Est Cr Clr Drug Dosing ml/min Est GFR ( Amer) Est GFR (Non-Af Amer) BUN/Creatinine Ratio (10-20) Glucose (70-99) mg/dl Lactate 1.6 (0.4-2.0) mmol/L Calcium (8.5-10.1) mg/dl Magnesium (1.8-2.4) mg/dl Total Bilirubin (0.2-1) mg/dl AST (15-37) U/L ALT (12-78) U/L Alkaline Phosphatase (45-117) U/L Troponin I (0-0.045) ng/ml Total Protein (6.4-8.2) gm/dl Albumin (3.4-5.0) gm/dl Globulin (2.5-4.0) gm/dl Albumin/Globulin Ratio (0.9-2) Procalcitonin 0.36 (0-0.5) ng/ml Urine Color Urine Appearance (Clear) Urine pH (4.5-7.5) Ur Specific [place] (1.000-1.030) Urine Protein (Negative) Urine Glucose (UA) (Negative) Urine Ketones (Negative) Urine Blood (Negative) Urine Nitrite (Negative) Urine Bilirubin (Negative) Urine Urobilinogen (Negative) Ur Leukocyte Esterase (Negative) Nasal Screen MRSA (PCR) Negative (Negative) Influenza Type A (PCR) (Neg) Influenza Type B (PCR) (Neg) 01/15/19 01/15/19 01/15/19 Range/Units 16:11 14:30 14:05 WBC (4.8-10.8) K/uL RBC (4.2-5.4) M/uL Hgb (12.0-16.0) g/dL Hct (37-47) % MCV (80-100) fL MCH (25-34) pg MCHC (32-36) g/dL RDW Std Deviation (36.4-46.3) fL RDW Coeff of [place] (11.5-14.5) % Plt Count (130-400) K/uL MPV (7.4-10.4) fL Immature Gran % (Auto) % Neut % (Auto) % Lymph % (Auto) % [place] % (Auto) % Eos % (Auto) % Baso % (Auto) % Immature Gran # (Auto) (0.00-0.02) K/uL Neut # (Auto) (1.4-6.5) K/uL Lymph # (Auto) (1.2-3.4) K/uL [place] # (Auto) (0.11-0.59) K/uL Eos # (Auto) (0-0.5) K/uL Baso # (Auto) (0-0.2) K/uL PT (9.0-12.0) Seconds INR (0.9-1.1) APTT (21.0-31.0) Seconds PTT Ratio Sodium 139 (136-145) mmol/L Potassium 3.8 (3.5-5.1) mmol/L Chloride 102 (98-107) mmol/L Carbon Dioxide 32 (21-32) mmol/L Anion Gap 5.0 (3-11) BUN 18 (7-18) mg/dl Creatinine 0.33 L D (0.6-1.2) mg/dl Est Cr Clr Drug Dosing 180.1 ml/min Est GFR ( Amer) 137.8 Est GFR (Non-Af Amer) 118.9 BUN/Creatinine Ratio 53.5 H (10-20) Glucose 98 (70-99) mg/dl Lactate (0.4-2.0) mmol/L Calcium 8.5 (8.5-10.1) mg/dl Magnesium (1.8-2.4) mg/dl Total Bilirubin 0.4 (0.2-1) mg/dl AST 51 H (15-37) U/L ALT 85 H (12-78) U/L Alkaline Phosphatase 172 H (45-117) U/L Troponin I < 0.015 (0-0.045) ng/ml Total Protein 5.7 L D (6.4-8.2) gm/dl Albumin 1.9 L (3.4-5.0) gm/dl Globulin 3.8 (2.5-4.0) gm/dl Albumin/Globulin Ratio 0.5 L (0.9-2) Procalcitonin (0-0.5) ng/ml Urine Color Yellow Urine Appearance Clear (Clear) Urine pH 7.5 (4.5-7.5) Ur Specific [place] 1.041 H (1.000-1.030) Urine Protein Negative (Negative) Urine Glucose (UA) Negative (Negative) Urine Ketones Negative (Negative) Urine Blood Negative (Negative) Urine Nitrite Negative (Negative) Urine Bilirubin Negative (Negative) Urine Urobilinogen Negative (Negative) Ur Leukocyte Esterase Negative (Negative) Nasal Screen MRSA (PCR) (Negative) Influenza Type A (PCR) Neg for Influ A (Neg) Influenza Type B (PCR) Neg for Influ B (Neg) 01/15/19 01/15/19 Range/Units 14:05 14:05 WBC 10.54 (4.8-10.8) K/uL RBC 3.50 L (4.2-5.4) M/uL Hgb 10.3 L (12.0-16.0) g/dL Hct 31.2 L (37-47) % MCV 89.1 (80-100) fL MCH 29.4 (25-34) pg MCHC 33.0 (32-36) g/dL RDW Std Deviation 50.7 H (36.4-46.3) fL RDW Coeff of [place] 15.9 H (11.5-14.5) % Plt Count 274 (130-400) K/uL MPV 9.9 (7.4-10.4) fL Immature Gran % (Auto) 0.3 % Neut % (Auto) 95.2 % Lymph % (Auto) 3.5 % [place] % (Auto) 1.0 % Eos % (Auto) 0.0 % Baso % (Auto) 0.0 % Immature Gran # (Auto) 0.03 H (0.00-0.02) K/uL Neut # (Auto) 10.03 H (1.4-6.5) K/uL Lymph # (Auto) 0.37 L (1.2-3.4) K/uL [place] # (Auto) 0.11 (0.11-0.59) K/uL Eos # (Auto) 0.00 (0-0.5) K/uL Baso # (Auto) 0.00 (0-0.2) K/uL PT 12.6 H (9.0-12.0) Seconds INR 1.2 H (0.9-1.1) APTT 24.0 (21.0-31.0) Seconds PTT Ratio 0.9 Sodium (136-145) mmol/L Potassium (3.5-5.1) mmol/L Chloride (98-107) mmol/L Carbon Dioxide (21-32) mmol/L Anion Gap (3-11) BUN (7-18) mg/dl Creatinine (0.6-1.2) mg/dl Est Cr Clr Drug Dosing ml/min Est GFR ( Amer) Est GFR (Non-Af Amer) BUN/Creatinine Ratio (10-20) Glucose (70-99) mg/dl Lactate (0.4-2.0) mmol/L Calcium (8.5-10.1) mg/dl Magnesium (1.8-2.4) mg/dl Total Bilirubin (0.2-1) mg/dl AST (15-37) U/L ALT (12-78) U/L Alkaline Phosphatase (45-117) U/L Troponin I (0-0.045) ng/ml Total Protein (6.4-8.2) gm/dl Albumin (3.4-5.0) gm/dl Globulin (2.5-4.0) gm/dl Albumin/Globulin Ratio (0.9-2) Procalcitonin (0-0.5) ng/ml Urine Color Urine Appearance (Clear) Urine pH (4.5-7.5) Ur Specific [place] (1.000-1.030) Urine Protein (Negative) Urine Glucose (UA) (Negative) Urine Ketones (Negative) Urine Blood (Negative) Urine Nitrite (Negative) Urine Bilirubin (Negative) Urine Urobilinogen (Negative) Ur Leukocyte Esterase (Negative) Nasal Screen MRSA (PCR) (Negative) Influenza Type A (PCR) (Neg) Influenza Type B (PCR) (Neg) PG Care Time/CCT Total # of Minutes Spent Total Time Spent with Patient: Total time spent is greater than 50% in coordination of care (as documented) at patient's floor/unit and/or counseling patient: (1) Pathologic compression fracture of spine Encounter type: initial encounter Qualified Code(s): M48.50XA - Collapsed vertebra, not elsewhere classified, site unspecified, initial encounter for fracture
--- NOTE | 2019-01-16 11:03 | Consultation Report ---
DATE OF CONSULTATION: 01/16/2019 REASON FOR CONSULTATION: Hemoptysis and shortness of breath in a patient with a known history of metastatic lung cancer. HISTORY OF PRESENT ILLNESS: Margaux Gonsalez is a 63-year-old female who is well known to me. The patient is undergoing chemotherapy and radiation for a widely metastatic nonsmall cell lung carcinoma. She has bone metastases. She just received chemotherapy and feels "terrible." The patient has had a PleurX catheter on the left, which we removed on 12/28/2018. The patient developed hemoptysis and was admitted. I reviewed her CT scan done yesterday and compared it to a scan done back on 11/23/2018. She is improved except she does have an infiltrative pattern, which is very concerning. Her left pleural fluid and her lymphadenopathy have decreased. She does have a cavitary lesion. The infiltrative pattern is very concerning. She is mildly hypoxic. She does have some hemoptysis. PAST MEDICAL HISTORY: 1. Metastatic nonsmall cell lung carcinoma. 2. History of cigarette smoking. 3. Bony metastases with compression fractures. 4. Hypertension. 5. Liver metastases. 6. Gastroesophageal reflux disease. PAST SURGICAL HISTORY: 1. Endobronchial ultrasound with biopsy. 2. Insertion of Port-A-Cath. 3. Colonoscopy with polypectomy. 4. Bilateral tubal ligation. 5. Insertion of PleurX catheter. 6. Rhinoplasty. 7. Hemorrhoidectomy. MEDICATIONS: Please see chart. ALLERGIES: MORPHINE CAUSES PRURITUS AND STRAWBERRIES CAUSE HIVES. SOCIAL HISTORY: The patient has a large good support system. She does have a long history of cigarette smoking. She does live alone, but as stated she does have a good support system with her children and her siblings. FAMILY MEDICAL HISTORY: Multiple histories of cancers in first-degree relatives including a cholangiocarcinoma in her sister, lung cancer with cervical carcinoma and ovarian carcinoma in a sister, colorectal carcinoma and prostate carcinoma in a brother. Her children are healthy. REVIEW OF SYSTEMS: The patient was seen in the office by me about 2 weeks ago and looked very good, but then has since received chemotherapy and does not feel good. She has fatigue, weakness, anorexia. She has not been able to take p.o. well. She developed hemoptysis yesterday. She has a cough, but no fevers, no wheezing, although she has become more dyspneic on exertion and is wheezing. She denies palpitations. She has some chest pain, which is chronic. She denies nausea or vomiting or diarrhea. She does not feel well and has myalgias. She also has pain from her pathologic compression fracture in her spine. PHYSICAL EXAMINATION: GENERAL: This is a very thin female with alopecia. HEENT: Her sclerae are pale, but anicteric. NECK: Thin and supple. LUNGS: She has rhonchi with decreased breath sounds on the left, but no wheezing. She has a few rhonchi on the right. CARDIOVASCULAR: She has a regular rate and rhythm of her heart in the 90s. She has no rub. ABDOMEN: Soft, nontender. Her port site is clean. EXTREMITIES: She has no peripheral edema with good peripheral pulses. No joint effusions and no focal deficits, although she appears to be very weak. ASSESSMENT AND PLAN: Hemoptysis in a patient with widely metastatic lung cancer. The cavity is a bit concerning in her left upper lobe and it does communicate with her airway; however, at this point, I personally do not think that she is going to respond with any type of embolization, which would be difficult to do and create logistical issues. Her left main pulmonary artery is not being compressed nearly as much as it was. Her lymphadenopathy has decreased. I think we need to get her through this and she will improve. I had a very harris discussion with the patient and her daughter and stated that if she develops massive hemoptysis, there will be very little we will be able to do. We discussed embolization and I did not think personally that she would respond to this in the past because bronchoscopies and workup at that time did not reveal evidence of a bronchial arterial bleed. With a cavity that changes things, and it increases possiblibilityy that this could be bronchial artery bleeding. This would require a transfer to a tertiary care center. We may want to look into that a bit more even though I told the family I did not think that was an option. At this point, she does not have hemoptysis and she was coughing while I was in the room this morning. Her hemoglobin has been stable. She was 10.3, although she dropped down to 9.3 today. She was 9.2 earlier this morning. Her platelet count is 222,000. Continue to follow her and I would supplement her oxygen. MTDD
[2019-01-16] MEDS: ALBUT/IPRATROP 3MG/0.5MG NEB 3 ML VIAL NEB SCH ×3 (11:16→19:43)
--- NOTE | 2019-01-16 12:10 | Consultation Report ---
DATE OF CONSULTATION: 01/16/2019 MEDICAL ONCOLOGY CONSULTATION REASON FOR CONSULTATION: A 63-year-old female patient with metastatic nonsmall cell lung cancer and recent onset of hemoptysis. HISTORY OF PRESENT ILLNESS: Margaux is a very pleasant 63-year-old female well known to the [facility] service with a 2-month history of metastatic nonsmall cell lung cancer. The patient had been receiving combination carboplatin, paclitaxel and bevacizumab last administered this past . When Margaux initially presented 2 months ago with intractable back pain and bilateral otalgia, it was questionable whether a salvage chemotherapy would be reasonable considering her performance status at that time. Nonetheless, we proceeded with treatment and Margaux appeared to be doing much better. I had seen her in the clinic a couple of weeks ago and her pain was improved, appetite was slowly improving as well. Back in October, she had also had hemoptysis; however, because of her performance status, it was decided not to intervene. The hemoptysis had subsided until this admission when she has been battling with an intermittent cough and at 5:00 a.m. in the morning of admission brought up a significant amount of bright red blood. This obviously alarmed her, prompting her to visit our Emergency Room. CTA of the chest was performed and negative for pulmonary embolism and quite frankly demonstrated a treatment response, particularly with the primary lung lesion, which is now cavitated and the hepatic lesions as well as regional adenopathy, all seem to be shrinking in size. She denies any fever or chills leading up to admission. PAST MEDICAL HISTORY: Again, significant for metastatic nonsmall cell lung cancer including bone and hepatic mets, left pleural effusion, pathologic compression fracture of the spine, IBS, oxygen dependence, hypertension and status post MediPort placement. PAST SURGICAL HISTORY: Includes bronchoscopy, colonoscopy with polypectomy, liver biopsy, tubal ligation, chest tube placement, hemorrhoidectomy, lithotripsy, and rhinoplasty. MEDICATIONS: Prior to admission include cetirizine 5 mg p.o. daily, estrogen/medroxyprogesterone 0.625 mg/2.5 mg 1 tablet p.o. daily, losartan 50/12.5 mg 1 tablet p.o. daily, docusate sodium 100 mg p.o. b.i.d., promethazine 25 mg p.o. q.6 hours p.r.n., albuterol sulfate 1 puff inhaled q.6 hours p.r.n., oxycodone 10 mg p.o. q.4 hours, fentanyl patch 50 mcg transdermally q.72 hours, Zofran 4 mg p.o. q.8 hours p.r.n., dexamethasone 4 mg p.o. UD, omeprazole 20 mg p.o. daily p.r.n., prednisone 20 mg p.o. q.a.m. for appetite stimulation, Compazine 10 mg p.o. t.i.d. p.r.n., MiraLax 17 g p.o. b.i.d. and Senna Plus 2 tablets p.o. at bedtime. ALLERGIES: MORPHINE, STRAWBERRY AND ASPIRIN. SOCIAL HISTORY: The patient lives independently. Permanently disabled. She is a reformed smoker. Negative for alcohol or illicit drugs. FAMILY HISTORY: Brother suffered from colorectal cancer as well as prostate cancer. She has a sister with cervical cancer and history of ovarian as well as lung cancer, another sister with cholangiocarcinoma. REVIEW OF SYSTEMS: CONSTITUTIONAL: Again, Margaux's appetite has improved utilizing daily prednisone. She denies fevers, chills or sweats. SKIN: No overt rashes or dermatoses. HEENT: She denies headaches, lightheadedness or dizziness. No dysphagia or sore throat. LYMPHATICS: No history of lymphoproliferative disease. CARDIAC: Negative for angina or palpitations. PULMONARY: Positive for hemoptysis. Positive for shortness of breath and dyspnea on exertion. Positive for oxygen dependence. Positive for cough. GASTROINTESTINAL: Negative for abdominal pain, no nausea, vomiting, diarrhea or constipation, hematochezia or melena stools. GENITOURINARY: Negative for hematuria, dysuria, or urinary incontinence. PSYCHIATRIC: Negative for anxiety, depression or psychoses. ENDOCRINE: Negative for diabetes or thyroid disease. NEUROLOGIC: Negative for seizure, stroke, or migraine headache. MUSCULOSKELETAL: Positive for osseous metastatic disease and spinal compression fracture. HEMATOLOGIC: Positive for treatment-induced cytopenias. PHYSICAL EXAMINATION: GENERAL: Margaux is a very pleasant 63-year-old female, awake, alert and appropriate, in no acute distress. VITAL SIGNS: Temperature 36.6, pulse 103, respiratory rate 17, blood pressure 152/85. SKIN: Warm, dry, noncyanotic. Turgor is fair. HEENT: Positive for chemotherapy-induced alopecia. Atraumatic, normocephalic. Eyes: PERRLA, EOMI. Sclerae nonicteric. No conjunctival injection. Nares patent without rhinorrhea or discharge. Throat clear. Tongue midline. Mucous membranes are moist. NECK: Supple without JVD or thyromegaly. HEART: Regular rate and rhythm. LUNGS: Coarse rhonchi heard in all lung diaz. ABDOMEN: Soft, nontender, nondistended. No palpable hepatosplenomegaly. EXTREMITIES: Musculoskeletal strength and pulses are equal in all 4 quadrants. No clubbing, cyanosis or edema. NEUROLOGICAL: She is awake, alert and oriented x3. Cranial nerves II-XII are intact. No gross motor or sensory deficits are noted. LABORATORY DATA: WBC count 9310, hemoglobin 9.3, platelet count 222,000. PT 12.6 seconds, INR 1.2. Sodium 139, potassium 3.4, chloride 104, carbon dioxide 29, BUN 13, creatinine 0.22, magnesium 1.7, albumin 1.6. RADIOGRAPHIC DATA: CTA of the chest: No evidence of pulmonary emboli. Interval cavitation of the left upper lobe mass, possibly related to treatment response. Thick-walled left upper lobe cavity, which communicates with the left upper lobe bronchus. Significant interval decrease of thoracic lymphadenopathy as well as hepatic adenopathy. IMPRESSION: 1. Hemoptysis. 2. Metastatic nonsmall cell lung cancer. 3. Hypomagnesemia. 4. Hypoalbuminemia. PLAN: It is my pleasure to visit with Margaux this morning. Somewhat disheartened that Margaux had been doing quite well since beginning treatment back in late October despite having a suboptimal performance status. However, I am encouraged by the radiographic response to current treatment. I spoke to Dr. Wilson informally and he has asked Dr. Anderson to consider bronchoscopy for Margaux. It is my hope the bleeding may be coming from the cavity or perhaps the communication with the left mainstem bronchus and can be effectively cauterized. Margaux is somewhat dejected with her current circumstance. Again, I emphasized despite not being able to cure her, my goal is to extend her survival while maintaining quality. Ms. Gonsalez has had a nice several-week run not requiring hospitalization. I have encouraged Margaux to continue her fight. Would proceed with replacing her electrolytes. Additionally, I would not be against supplementing her with 25% albumin on a daily basis to get her albumin in a little better shape. Unless Margaux decides otherwise, my plan is to resume chemotherapy when she is medically/surgically stable. We will continue to follow her periodically during her inpatient stay. Thank you very much for allowing me to participate in her care. KAMILLE
--- NOTE | 2019-01-16 13:12 | Pulmonary Consultation ---
Date of Consultation January 16, 2019 Assessment & Plan (1) Severe protein-calorie malnutrition: (2) Acute respiratory failure with hypoxia: (3) Radiation pneumonitis: (4) Multifocal pneumonia: (5) Hemoptysis: Complex medical history in this unfortunate patient. She clearly has metastatic disease and has been receiving or has received palliative radiotherapy for the most part completing her treatment course. I have reviewed her record and Dr. Wheeler's assessment in early November. Hemoptysis appears to have worsened but it still appears submassive and difficult to quantitate. She is not in any respiratory distress and was sleeping comfortably. Her performance status is very poor as she appears bedridden now. P.o. intake is poor and she barely speaks above a whisper. I think there has been an interval development of mild pulmonary edema and we should treat that. Lymphatic carcinomatosis remains a possibility as well as multifocal pneumonia. There has been interval cavitation of the left upper lobe mass possibly representing treatment response and it appears to communicate with the left upper lobe bronchus. The decrease in size of the hepatic metastasic lesions and size of the thoracic lymphadenopathy would suggest treatment response and there has been no recurrence of the small loculated left pleural effusion. Would recommend currently to treat her pneumonitis as she is on excellent antibiotic coverage along with IV Solu-Medrol. I would diurese gently. The bronchoscopic evaluation performed by Dr. 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 I cannot imagine transferring this patient to a tertiary facility currently for possible interventional radiologic support i.e. embolization but I will place a call. We can repeat her bronchoscopic evaluation but I am not encouraged that that this will give additional information except for what was gleaned by Dr. Wheeler during last examination. Source of the bleeding is problematic and can be from multiple areas and would be extremely difficult to differentiate. In addition her performance status is so poor that I doubt she would tolerate the transfer and the procedure itself even if she is accepted at a tertiary institution at this juncture.Will follow. (6) Metastatic cancer to lung: Laterality: unspecified laterality Qualified Code(s): C78.00 - Secondary malignant neoplasm of unspecified lung (7) Bony metastasis: (8) Pleural effusion, left: (9) Non-small cell lung cancer with metastasis: History of Present Illness Attending Physician: Robbin A Saborio 63-year-old white female who is under the care of Dr. Martin Albert from the [facility] with a two-month history of metastatic non-small cell lung cancer. Patient has been receiving combination carboplatin, paclitaxel and bevacizumab administered last week. Patient presented with intractable back pain and bilateral otalgia with a poor performance status at that time. Decision was made to proceed with salvage chemotherapy. Though her pain was improving as well as her appetite she is exhibited hemoptysis both recently and in the past. She did bring up a significant amount of bright red blood over the past 24 hours and cannot quantitate the amount to me. He has exhibited hemoptysis in early summer. Dr. Albert felt that review of the most recent CTA suggested some treatment response because of cavitation involving the primary lung lesion and hepatic lesions as well as a decrease in the regional adenopathy size. I have been asked to see patient in consultation with the possibility of cauterization of a bleeding vessel or treatment of an active infection that may relate the hemoptysis noted. Katie saw patient earlier today spoke with him. After reviewing her CAT scan jointly we were both concerned with the size of the left upper lobe cavity and knowledge that it communicates with her left mainstem bronchus. Consideration for embolization was given and there is also the concern of the adjacent nature of the cavity and mass to the luminary artery. There was no obvious knowledge of a previous bronchial artery bleed her hemoglobin is 9.3. She is currently on supplemental oxygen. Patient was initially seen in consultation by Dr. Srinivas Wheeler on 11/24/2018 as the patient was receiving palliative radiotherapy to her spinal mets and presented with 4 days of hemoptysis and increasing cough as well as left pleural effusion. Suspected that the hemoptysis was related to the pneumonic process in the patient's left upper lobe. He pursue bronchoscopy in addition to treating with IV antibiotics. Diagnostic thoracentesis was performed as well. Hemoptysis is at that time was judged to be less than 100 cc/day. 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 There appeared to be submucosal lymphatic involvement of the malignancy in the left upper lobe and secondary brant between the left upper lobe and the left lower lobe was significantly splayed and abnormal. He felt the bleeding was emanating from the left lower lobe as well as the left upper lobe with extremely friable mucosa. Although no endobronchial lesions were seen there was suspicion of a stated earlier significant lymphatic involvement in the submucosa which led to friable areas of mucosa . Allergies Allergy/AdvReac Type Severity Reaction Status Date / Time morphine Allergy Unknown ITCHING Verified 01/15/19 14:32 AND LUMP ON HAND strawberry Allergy Unknown HIVES Verified 01/15/19 14:32 aspirin AdvReac Unknown GI UPSET Verified 01/15/19 14:32 Home Medications Home Medications Medication Instructions Recorded Confirmed Type cetirizine 5 mg tablet 5 mg PO QAM PRN tab 10/13/18 01/15/19 History conj estrogen-medroxyprogesterone 1 tab PO QAM 10/13/18 01/15/19 History 0.625 mg-2.5 mg tablet losartan 50 mg-hydrochlorothiazide 1 tab PO QAM #90 tab 10/13/18 01/15/19 History 12.5 mg tablet docusate sodium 100 mg PO BID #30 cap 11/09/18 01/15/19 Rx promethazine 25 mg tablet 25 mg PO Q6H PRN #60 tab 11/11/18 01/15/19 Rx albuterol sulfate 1 puffs INH Q6H PRN #18 gm 12/04/18 01/15/19 Rx oxycodone 10 mg tablet 10 mg PO Q4H PRN tab 12/05/18 01/15/19 History food supplement, lactose-reduced 1 ea PO BID #6399 ml 12/07/18 01/15/19 Rx 0.04 gram-1 kcal/mL oral liquid ondansetron 4 mg disintegrating 4 mg PO Q8H PRN #60 tab 12/11/18 01/15/19 Rx tablet fentanyl 50 mcg/hr transdermal 50 mcg TRANSDERMAL Q3D@1230 #5 ea 12/17/18 01/15/19 Rx patch dexamethasone 4 mg PO UD 12/31/18 01/15/19 History omeprazole 20 mg PO DAILY PRN 12/31/18 01/15/19 History prednisone 20 mg PO QAM 12/31/18 01/15/19 History prochlorperazine maleate 10 mg PO TID PRN 12/31/18 01/15/19 History sennosides-docusate sodium [Senna 2 tab PO HS 12/31/18 01/15/19 History Plus] polyethylene glycol 3350 17 gram 17 g PO BID #30 ea 01/06/19 01/15/19 Rx oral powder packet Patient History Medical History PHYLLIS I (cervical intraepithelial neoplasia I) Metastatic cancer to lung Bony metastasis Pleural effusion, left Non-small cell lung cancer with metastasis Pathologic compression fracture of spine Pain due to malignant neoplasm metastatic to bone Anxiety Chronic back pain GERD (gastroesophageal reflux disease) History of kidney stones IBS (irritable bowel syndrome) 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 Hypertension Port-A-Cath in place (01/05/19) Insertion of A-Port in Left Subclavian Dr. 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 Beliefs That Will Affect Care: None marital status: Single Current Living Situation: Alone current occupational status: disabled Other Information That Helps Us Care for You: No Feels Safe at Home: Yes Safety Concerns: Feels Safe At This Time Hx Alcohol Use: No Hx Substance Use: No Childhood Exposure to Second-Hand Smoke: No caffeine: Yes Physical Activity Frequency: Does not Exercise Review of Systems Constitutional: no problem reported Eyes: no problem reported Ear, Nose, Mouth, Throat: no problem reported Respiratory: no problem reported Cardiovascular: no problem reported Gastrointestinal: no problem reported Genitourinary: no problem reported Musculoskeletal: no problem reported Integumentary: no problem reported Neurologic: no problem reported Psychiatric: no problem reported Endocrine: no problem reported Hematologic / Lymphatic: no problem reported Allergy / Immunological: no problem reported Physical Exam Constitutional: well developed and well nourished; no acute distress Eyes: PERRL, conjunctivae normal, anicteric sclerae ENMT: external ear and nose normal, oropharynx normal Neck: trachea midline, no thyromegaly Respiratory: normal respiratory effort and + hyperresonance to percussion Auscultation: lungs clear to auscultation bilaterally and + crackles (Crackles left posterior lung base with scattered rhonchi) Cardiovascular: RRR, no murmur, no edema Palpation: normal PMI; no thrill Gastrointestinal (Abdomen): normal bowel sounds, soft, nontender, no hepatosplenomegaly Musculoskeletal: no cyanosis or clubbing, extremities motor strength 5/5 Gait: normal gait Skin: no rashes, warm and dry Neurologic: PERRL, EOMI, accommodation nl, no face palsy, no dysarthria Psychiatric: A+Ox3, euthymic affect Lymphatic: no cervical or axillary lymphadenopathy Results & Data Vital Signs (Past 12 Hours) Vital Signs Temp Pulse Pulse Pulse Resp BP BP 01/16/19 11:50 37.0 C 83 17 113/73 01/16/19 11:16 83 17 01/16/19 07:51 36.6 C 103 H 17 152/85 H 01/16/19 07:42 88 01/16/19 03:58 37 C 76 18 126/74 Pulse Ox 01/16/19 11:50 96 01/16/19 11:16 96 01/16/19 07:51 88 L 01/16/19 07:42 01/16/19 03:58 94 Laboratory Results Abnormal Labs 01/15/19 01/15/19 01/15/19 14:05 14:05 14:05 RBC 3.50 L Hgb 10.3 L Hct 31.2 L RDW Std Deviation 50.7 H RDW Coeff of [place] 15.9 H Immature Gran # (Auto) 0.03 H Neut # (Auto) 10.03 H Lymph # (Auto) 0.37 L PT 12.6 H INR 1.2 H Potassium Creatinine 0.33 L D BUN/Creatinine Ratio 53.5 H Calcium Magnesium AST 51 H ALT 85 H Alkaline Phosphatase 172 H Total Protein 5.7 L D Albumin 1.9 L Albumin/Globulin Ratio 0.5 L Ur Specific [place] 01/15/19 01/16/19 01/16/19 16:11 01:54 06:12 RBC 3.17 L Hgb 9.2 L 9.3 L Hct 28.1 L 28.2 L RDW Std Deviation 50.4 H RDW Coeff of [place] 15.7 H Immature Gran # (Auto) Neut # (Auto) Lymph # (Auto) PT INR Potassium Creatinine BUN/Creatinine Ratio Calcium Magnesium AST ALT Alkaline Phosphatase Total Protein Albumin Albumin/Globulin Ratio Ur Specific [place] 1.041 H 01/16/19 06:12 RBC Hgb Hct RDW Std Deviation RDW Coeff of [place] Immature Gran # (Auto) Neut # (Auto) Lymph # (Auto) PT INR Potassium 3.4 L Creatinine 0.22 L BUN/Creatinine Ratio 59.1 H Calcium 7.9 L Magnesium 1.7 L AST ALT Alkaline Phosphatase 129 H Total Protein 5.0 L Albumin 1.6 L Albumin/Globulin Ratio 0.5 L Ur Specific [place] Diagnostic Findings CT Scan Report Patient: ABDIRAHMAN BECKER AAdmit Date: 01/15/19 MR#: [id number]: [id number] [facility] Acct ID:[id number]: Date: 1955[facility] Zip: [place] [address] Age: 63Location: ED Sex: F Room/Bed: Att Phy:Diagnosis: COUGHING BLOOD Lisa Phy: Allen Suresh III, MDService Date: 01/15/19 Fam Phy:Interpreting Phy: Eriberto Buckley MD Admit Phy: Ordering Phy: Neymar Reyes DO cc: ~ CT ANGIOGRAPHY OF THE CHEST, PULMONARY EMBOLUS PROTOCOL CLINICAL HISTORY: Dyspnea. Hemoptysis. Lung cancer. COMPARISON STUDY: Chest CT November 23, 2018. Chest radiograph performed earlier today. TECHNIQUE: Following IV administration of 120 mL of Optiray-320, helical axial images of the chest were obtained utilizing the pulmonary embolus protocol. Ma ximal intensity projections and sagittal and coronal reformats were viewed on an independent 3D workstation. IV contrast was administered without complication. Automated exposure control was utilized for the study. A dose lowering technique was utilized adhering to the principles of ALARA. CT DOSE: 219.53 mGycm FINDINGS: No pulmonary emboli are identified. The heart is mildly enlarged. The re is trace pericardial fluid. There is a small loculated left pleural effusion. Since CT of November 23, 2018, there has been interval cavitation of the left upper lobe mass. A thick walled cavity within the left upper lobe is now noted as shown on radiographs of January 05, 2019. Mediastinal and hilar lymphadenopathy shown on CT of November 23, 2018 has markedly diminished. Interlobular septal thickening is noted within the lungs as well as extensive multifocal airspace opacities within the lungs. This has developed since CT of November 23, 2018. There is moderate underlying emphysema. Numerous skeletal lesions are again noted. These lesions now appear sclerotic. Several these lesions were not evident on prior CT however this could reflect treatment related change with response. Several hepatic metastases have decreased in size since CT of November 23, 2018. Index 3 cm right hepatic lobe lesion previously measured 4.[address] No new hepatic lesions are present. A left subclavian [place] is in place. IMPRESSION: 1. No pulmonary emboli identified. 2. Interval development of interlobular septal thickening within the lungs which favors pulmonary edema. However, lymphangitic carcinomatosis could appear similar. In addition, new multifocal airspace opacities throughout the lungs which favor multifocal pneumonia. Pulmonary edema or hemorrhage are considered less. 3. Interval cavitation of the left upper lobe mass, possibly related to treatment response, since CT of November 23, 2018 with a thick walled left upper lobe cavity which communicates with the left upper lobe bronchus. 4. Significant interval decrease in thoracic lymphadenopathy since CT of November 23, 2018 with moderate decrease in size of hepatic metastases. Redemonstration of multifocal skeletal metastases with several pathologic fractures. Increase in conspicuity of several lesions may be related to treatment response. 5. Small loculated left pleural effusion. Electronically signed by: Eriberto Buckley M.D. 01/15/2019 4:10 PM Dictated: 01/15/19 1558 Medications Administered Current Inpatient Medications Albuterol (Ventolin Hfa) 1 puffs INH Q6H PRN PRN Reason: shortness of breath or wheezing Stop: 02/14/19 19:04 Albuterol (Duoneb) 3 ml NEB Q4HWA PREM Stop: 02/15/19 11:59 Last Admin: 01/16/19 11:16 Dose: 3 ml Documented by: Docusate Sodium (Colace) 100 mg PO BID [facility] Stop: 02/14/19 20:14 Last Admin: 01/16/19 07:53 Dose: 100 mg Documented by: Dronabinol (Marinol) 2.5 mg PO BID [facility] Stop: 02/15/19 09:14 Last Admin: 01/16/19 10:08 Dose: 2.5 mg Documented by: Fentanyl (Duragesic) 50 mcg TD Q3D@2014 [facility] Stop: 01/29/19 20:14 Last Admin: 01/15/19 20:50 Dose: 50 mcg Documented by: Heparin Sodium (Porcine) (Heparin Sod 100 Unit/Ml Flush) 5 ml FLUSH PRN PRN PRN Reason: Flush Stop: 02/15/19 02:14 Cefepime HCl 2,000 mg/ Syringe 20 mls @ 5.5 mls/min IV Q8H [facility]; Protocol Stop: 01/23/19 00:59 Last Admin: 01/16/19 08:04 Dose: 5.5 mls/min Documented by: Azithromycin 250 mg/ Dextrose 252.5 mls @ 125 mls/hr IV DAILY [facility] Stop: 01/20/19 08:59 Last Infusion: 01/16/19 09:53 Dose: Infused Documented by: Prochlorperazine 10 mg/ (Syringe) 10 mls @ 5 mls/min IV Q6H PRN PRN Reason: Nausea And Vomiting Stop: 02/14/19 19:04 Acetaminophen (Ofirmev) 1,000 mg in 100 mls @ 400 mls/hr IV Q8H PRN PRN Reason: mild pian Stop: 02/14/19 19:04 Vancomycin HCl 1,250 mg/ (Sodium Chloride) 275 mls @ 125 mls/hr IV Q12H [facility]; Protocol Stop: 01/23/19 07:59 Last Infusion: 01/16/19 12:04 Dose: Infused Documented by: Methylprednisolone 40 mg/ (Syringe) 0.64 mls @ 1.5 mls/min IV Q8H [facility] Stop: 02/15/19 09:59 Last Admin: 01/16/19 09:29 Dose: 1.5 mls/min Documented by: Ioversol (Optiray 320 125ml) 120 ml IV ONCE PRN PRN Reason: Interaction Checking Stop: 01/19/19 14:00 Last Admin: 01/15/19 14:02 Dose: 120 ml Documented by: Lorazepam (Ativan) 0.5 mg PO Q4H PRN PRN Reason: Anxiety Stop: 02/15/19 08:28 Last Admin: 01/16/19 08:56 Dose: 0.5 mg Documented by: Mirtazapine (Remeron) 15 mg PO HS [facility] Stop: 02/15/19 08:59 Last Admin: 01/16/19 10:08 Dose: 15 mg Documented by: Miscellaneous (Fentanyl Patch Check Placement) 1 ea N/A QS PREM Stop: 02/15/19 00:00 Last Admin: 01/16/19 07:52 Dose: 1 ea Documented by: Miscellaneous (Fentanyl Patch Remove & Waste) 1 ea N/A Q3D@2013 [facility] Stop: 02/14/19 20:13 Last Admin: 01/15/19 20:49 Dose: 1 ea Documented by: Miscellaneous Information (Consult) 1 ea N/A UD PRN PRN Reason: Consult Stop: 02/14/19 17:58 Ondansetron HCl (Zofran) 4 mg IV Q6H PRN PRN Reason: Nausea Stop: 02/14/19 19:04 Last Admin: 01/16/19 08:09 Dose: 4 mg Documented by: Oxycodone HCl (Roxicodone Immediate Rel) 10 mg PO Q4H PRN PRN Reason: pain Stop: 01/29/19 19:04 Pantoprazole Sodium (Protonix) 40 mg PO DAILY [facility]; Protocol Stop: 02/15/19 08:59 Last Admin: 01/16/19 07:53 Dose: 40 mg Documented by: Polyethylene Glycol (Miralax Powder Packet) 17 gm PO BID PRN PRN Reason: constipation Stop: 02/14/19 19:04 Senna/Docusate Sodium (Senokot S) 2 tab PO [facility] Stop: 02/14/19 20:59 Last Admin: 01/15/19 20:54 Dose: 2 tab Documented by: PG Care Time/CCT Total # of Minutes Spent Total Time Spent with Patient: Total time spent is greater than 50% in coordination of care (as documented) at patient's floor/unit and/or counseling patient:
[2019-01-16] MEDS: ALBUMIN 25% 50 ML IV SCH (14:57)
--- NOTE | 2019-01-16 15:49 | Pulmonology Progress Note ---
Date of Service January 16, 2019 Subjective I did speak with a Dr. Mcdonald(interventional radiology at [facility] in [place]) concerning Ms Gonsalez's clinical situation. Unfortunatly embolization is a temporizing maneuver with little efficacy in this setting. It often is utilized as a temporizing maneuver in order to proceed with additional treatment or diagnostic consideration. In the setting of stage IV metastatic lung cancer with areas of multifocal pneumonia, a cavitating neoplasm, a communication between the left upper lobe bronchus and the cavity, possible pulmonary arterial invasion, and an element of CHF well as previous bronchoscopic evaluation suggesting submucosal lymphatic neoplastic involvement w/in the left tracheobronchial tree with friability-there would be little to offer in this setting to consider transfer and embolization. Even if the bleeding is from a bronchial artery erosion(most likely) that can be localized Dr. Mcdonald reinforced that that is a temporizing maneuver. It is rare that the bleeding comes from the pulmonary arterial side but that would be difficult to embolize as well and if it is from a pulmonary vein then impossible. The procedure has a significant morbidity and mortality associated with it as well. In short given patient's performance status and prognosis the patient is not felt to be a candidate for this procedure. Results & Data Vital Signs (Past 12 Hours) Vital Signs Temp Pulse Pulse Pulse Resp BP BP 01/16/19 15:01 84 20 01/16/19 15:00 36.9 C 89 16 121/77 01/16/19 11:50 37.0 C 83 17 113/73 01/16/19 11:16 83 17 01/16/19 07:51 36.6 C 103 H 17 152/85 H 01/16/19 07:42 88 01/16/19 03:58 37 C 76 18 126/74 Pulse Ox 01/16/19 15:01 93 01/16/19 15:00 94 01/16/19 11:50 96 01/16/19 11:16 96 01/16/19 07:51 88 L 01/16/19 07:42 01/16/19 03:58 94 PG Care Time/CCT Total # of Minutes Spent Total Time Spent with Patient: Total time spent is greater than 50% in coordination of care (as documented) at patient's floor/unit and/or counseling patient:
[2019-01-16] MEDS ORDERED: INFLUENZA ADMINISTRATION CHARGE ONE (20:00)
[2019-01-16] MEDS ORDERED: INFLUENZA VIRUS QUAD VACCINE 0.5 ML SYR IM ONE (20:00)
[2019-01-16] MEDS: DOCUSATE SODIUM/SENNA 50/8.6MG TAB PO SCH (20:32)
[2019-01-17] MEDS: CEFEPIME 2,000 MG in SYRINGE 7.5 ML IV SCH ×3 (01:26→18:05)
[2019-01-17] MEDS: methylPREDNISolone 40 MG in SYRINGE 0 ML IV SCH ×3 (01:27→18:05)
[2019-01-17] MEDS: ALBUT/IPRATROP 3MG/0.5MG NEB 3 ML VIAL NEB SCH ×4 (07:16→19:24)
[2019-01-17] MEDS ORDERED: VANCOMYCIN TROUGH ONE (07:30)
--- NOTE | 2019-01-17 07:55 | Pulmonology Progress Note ---
Date of Service January 17, 2019 Assessment & Plan (1) Severe protein-calorie malnutrition: (2) Acute respiratory failure with hypoxia: (3) Radiation pneumonitis: (4) Multifocal pneumonia: (5) Hemoptysis: Complex medical history in this unfortunate patient. She clearly has metastatic disease and has been receiving or has received palliative radiotherapy for the most part completing her treatment course. I have reviewed her record and Dr. Wheeler's assessment in early November. Hemoptysis appears to have worsened but it still appears submassive and difficult to quantitate. She is not in any respiratory distress and was sleeping comfortably. Her performance status is very poor as she appears bedridden now. P.o. intake is poor and she barely speaks above a whisper. I think there has been an interval development of mild pulmonary edema and we should treat that. Lymphatic c arcinomatosis remains a possibility as well as multifocal pneumonia. There has been interval cavitation of the left upper lobe mass possibly representing treatment response and it appears to communicate with the left upper lobe bronchus. The decrease in size of the hepatic metastasic lesions and size of the thoracic lymphadenopathy would suggest treatment response and there has been no recurrence of the small loculated left pleural effusion. Would recommend currently to treat her pneumonitis as she is on excellent antibiotic coverage along with IV Solu-Medrol. I would diurese gently. The bronchoscopic evaluation performed by Dr. 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 I cannot imagine transferring this patient to a tertiary facility currently for possible interventional radiologic support i.e. embolization but I will place a call. We can repeat her bronchoscopic evaluation but I am not encouraged that that this will give additional information except for what was gleaned by Dr. Wheeler during last examination. Source of the bleeding is problematic and can be from multiple areas and would be extremely difficult to differentiate. In addition her performance status is so poor that I doubt she would tolerate the transfer and the procedure itself even if she is accepted at a tertiary institution at this juncture.Will follow. We will continue triple IV antibiotics at this juncture though suspect IV vancomycin can be discontinued if sputum comes back without MRSA. We will add a gentle diuretic and try to avoid patient developing intravascular volume depletion given her level of hypoalbuminemia and protein malnutrition. Hold on transfer to [facility] as patient deemed not a candidate for embolization at this juncture . May need repeat bronchoscopy if hemoptysis persists will defer to pulmonary medicine this week . (6) Metastatic cancer to lung: Laterality: unspecified laterality Qualified Code(s): C78.00 - Secondary malignant neoplasm of unspecified lung (7) Bony metastasis: (8) Pleural effusion, left: (9) Non-small cell lung cancer with metastasis: Subjective I did speak with a Dr. Mcdonald(interventional radiology at [facility] in [place]) concerning Ms Becker's clinical situation. Unfortunatly embolization is a temporizing maneuver with little efficacy in this setting. It often is utilized as a temporizing maneuver in order to proceed with additional treatment or diagnostic consideration. In the setting of stage IV metastatic lung cancer with areas of multifocal pneumonia, a cavitating neoplasm, a comm unication between the left upper lobe bronchus and the cavity, possible pulmonary arterial invasion, and an element of CHF well as previous bronchoscopic evaluation suggesting submucosal lymphatic neoplastic involvement w/in the left tracheobronchial tree with friability-there would be little to offer in this setting to consider transfer and embolization. Even if the bleeding is from a bronchial artery erosion(most likely) that can be localized Dr. Mcdonald reinforced that that is a temporizing maneuver. It is rare that the bleeding comes from the pulmonary arterial side but that would be difficult to embolize as well and if it is from a pulmonary vein then impossible. The procedure has a significant morbidity and mortality associated with it as well. In short given patient's performance status and prognosis the patient is not felt to be a candidate for this procedure. The patient today was resting comfortably and exhibiting no signs of respiratory distress. Over the past 24 hours she has had minimal hemoptysis [id number] to 20 cc of dark blood and some bright red blood with sputum admixture. I did relay to her my conversation with Interventional Radiology at [facility] yesterday that it was not felt that she would be candidate for possible embolization at this juncture thus no need for transfer. She seemed relieved excepting. Review of Systems Review of Systems: All systems reviewed & are unremarkable except as noted in HPI & below Constitutional: no problem reported Eyes: no problem reported Ear, Nose, Mouth, Throat: no problem reported Respiratory: no problem reported Cardiovascular: no problem reported Gastrointestinal: no problem reported Genitourinary: no problem reported Musculoskeletal: no problem reported Integumentary: no problem reported Neurologic: no problem reported Psychiatric: no problem reported Endocrine: no problem reported Hematologic / Lymphatic: no problem reported Allergy / Immunological: no problem reported Physical Exam Constitutional: well developed and well nourished; no acute distress Eyes: PERRL, conjunctivae normal, anicteric sclerae ENMT: external ear and nose normal, oropharynx normal Neck: trachea midline, no thyromegaly Respiratory: normal respiratory effort and + hyperresonance to percussion Auscultation: lungs clear to auscultation bilaterally and + crackles (Crackles left posterior lung base with scattered rhonchi) Cardiovascular: RRR, no murmur, no edema Palpation: normal PMI; no thrill Gastrointestinal (Abdomen): normal bowel sounds, soft, nontender, no hepatosplenomegaly Musculoskeletal: no cyanosis or clubbing, extremities motor strength 5/5 Gait: normal gait Skin: no rashes, warm and dry Neurologic: PERRL, EOMI, accommodation nl, no face palsy, no dysarthria Psychiatric: A+Ox3, euthymic affect Lymphatic: no cervical or axillary lymphadenopathy Results & Data Vital Signs (Past 12 Hours) Vital Signs Temp Pulse Pulse Resp BP Pulse Ox 01/17/19 07:36 36.6 C 82 17 153/76 H 96 01/17/19 07:17 76 20 96 01/17/19 07:12 72 01/17/19 04:37 36.7 C 74 18 124/81 98 01/16/19 23:47 36.8 C 73 18 104/68 96 01/16/19 23:12 74 Laboratory Results Abnormal Labs 01/15/19 01/15/19 01/15/19 14:05 14:05 14:05 RBC 3.50 L Hgb 10.3 L Hct 31.2 L RDW Std Deviation 50.7 H RDW Coeff of [place] 15.9 H Immature Gran # (Auto) 0.03 H Neut # (Auto) 10.03 H Lymph # (Auto) 0.37 L PT 12.6 H INR 1.2 H Potassium Creatinine 0.33 L D BUN/Creatinine Ratio 53.5 H Calcium Magnesium AST 51 H ALT 85 H Alkaline Phosphatase 172 H Total Protein 5.7 L D Albumin 1.9 L Albumin/Globulin Ratio 0.5 L Ur Specific [place] 09/01/16/19 01/16/19 16:11 01:54 06:12 RBC 3.17 L Hgb 9.2 L 9.3 L Hct 28.1 L 28.2 L RDW Std Deviation 50.4 H RDW Coeff of [place] 15.7 H Immature Gran # (Auto) Neut # (Auto) Lymph # (Auto) PT INR Potassium Creatinine BUN/Creatinine Ratio Calcium Magnesium AST ALT Alkaline Phosphatase Total Protein Albumin Albumin/Globulin Ratio Ur Specific [place] 1.041 H 01/16/19 06:12 RBC Hgb Hct RDW Std Deviation RDW Coeff of [place] Immature Gran # (Auto) Neut # (Auto) Lymph # (Auto) PT INR Potassium 3.4 L Creatinine 0.22 L BUN/Creatinine Ratio 59.1 H Calcium 7.9 L Magnesium 1.7 L AST ALT Alkaline Phosphatase 129 H Total Protein 5.0 L Albumin 1.6 L Albumin/Globulin Ratio 0.5 L Ur Specific [place] Diagnostic Findings Patient: ABDIRAHMAN BECKER AAdmit Date: 01/15/19 MR#: [id number]: [address] [facility] Acct ID:[id number]: Date: 1955[facility] Zip: [place] [address] Age: 63Location: ED Sex: F Room/Bed: Att Phy:Diagnosis: COUGHING BLOOD Lisa Phy: Allen Suresh, III, MDService Date: 01/15/19 Fam Phy:Interpreting Phy: Eriberto Buckley MD Admit Phy: Ordering Phy: Neymar Reyes DO cc: ~ CT ANGIOGRAPHY OF THE CHEST, PULMONARY EMBOLUS PROTOCOL CLINICAL HISTORY: Dyspnea. Hemoptysis. Lung cancer. COMPARISON STUDY: Chest CT November 23, 2018. Chest radiograph performed earlier today. TECHNIQUE: Following IV administration of 120 mL of Optiray-320, helical axial images of the chest were obtained utilizing the pulmonary embolus protocol. Maximal intensity projections and sagittal and coronal reformats were viewed on an independent 3D workstation. IV contrast was administered without complication. Automated exposure control was utilized for the study. A dose lowering technique was utilized adhering to the principles of ALARA. CT DOSE: 219.53 mGycm FINDINGS: No pulmonary emboli are identified. The heart is mildly enlarged. There is trace pericardial fluid. There is a small loculated left pleural effusion. Since CT of November 23, 2018, there has been interval cavitation of the left upper lobe mass. A thick walled cavity within the left upper lobe is now noted as shown on radiographs of January 05, 2019. Mediastinal and hilar lymphadenopathy shown on CT of November 23, 2018 has markedly diminished. Interlobular septal thickening is noted within the lungs as well as extensive multifocal airspace opacities within the lungs. This has developed since CT of November 23, 2018. There is moderate underlying emphysema. Numerous skeletal lesions are again noted. These lesions now appear sclerotic. Several these lesions were not evident on prior CT however this could reflect treatment related change with response. Several hepatic metastases have decreased in size since CT of November 23, 2018. Index 3 cm right hepatic lobe lesion previously measured 4.[address] No new hepatic lesions are present. A left subclavian [id number] is in place. IMPRESSION: 1. No pulmonary emboli identified. 2. Interval development of interlobular septal thickening within the lungs which favors pulmonary edema. However, lymphangitic carcinomatosis could appear similar. In addition, new multifocal airspace opacities throughout the lungs which favor multifocal pneumonia. Pulmonary edema or hemorrhage are considered less. 3. Interval cavitation of the left upper lobe mass, possibly related to treatment response, since CT of November 23, 2018 with a thick walled left upper lobe cavity which communicates with the left upper lobe bronchus. 4. Significant interval decrease in thoracic lymphadenopathy since CT of November 23, 2018 with moderate decrease in size of hepatic metastases. Redemonstration of multifocal skeletal metastases with several pathologic fractures. Increase in conspicuity of several lesions may be related to treatment response. 5. Small loculated left pleural effusion. Electronically signed by: Eriberto Buckley M.D. 01/15/2019 4:10 PM Dictated: 01/15/19 1553 Transcribed: 01/15/19 1553 Medications Administered Current Inpatient Medications Albuterol (Ventolin Hfa) 1 puffs INH Q6H PRN PRN Reason: shortness of breath or wheezing Stop: 02/14/19 19:04 Albuterol (Duoneb) 3 ml NEB Q4HWA [facility] Stop: 02/15/19 11:59 Last Admin: 01/17/19 07:16 Dose: 3 ml Documented by: Docusate Sodium (Colace) 100 mg PO BID [facility] Stop: 02/14/19 20:14 Last Admin: 01/16/19 20:32 Dose: 100 mg Documented by: Dronabinol (Marinol) 2.5 mg PO BID [facility] Stop: 02/15/19 09:14 Last Admin: 01/16/19 20:38 Dose: 2.5 mg Documented by: Fentanyl (Duragesic) 50 mcg TD Q3D@2014 [facility] Stop: 01/29/19 20:14 Last Admin: 01/15/19 20:50 Dose: 50 mcg Documented by: Heparin Sodium (Porcine) (Heparin Sod 100 Unit/Ml Flush) 5 ml FLUSH PRN PRN PRN Reason: Flush Stop: 02/15/19 02:14 Cefepime HCl 2,000 mg/ Syringe 20 mls @ 5.5 mls/min IV Q8H [facility]; Protocol Stop: 01/23/19 00:59 Last Admin: 01/17/19 01:26 Dose: 5.5 mls/min Documented by: Azithromycin 250 mg/ Dextrose 252.5 mls @ 125 mls/hr IV DAILY [facility] Stop: 01/20/19 08:59 Last Infusion: 01/16/19 09:53 Dose: Infused Documented by: Prochlorperazine 10 mg/ (Syringe) 10 mls @ 5 mls/min IV Q6H PRN PRN Reason: Nausea And Vomiting Stop: 02/14/19 19:04 Acetaminophen (Ofirmev) 1,000 mg in 100 mls @ 400 mls/hr IV Q8H PRN PRN Reason: mild pian Stop: 02/14/19 19:04 Vancomycin HCl 1,250 mg/ (Sodium Chloride) 275 mls @ 125 mls/hr IV Q12H [facility]; Protocol Stop: 01/23/19 07:59 Last Infusion: 01/16/19 22:55 Dose: Infused Documented by: Methylprednisolone 40 mg/ (Syringe) 0.64 mls @ 1.5 mls/min IV Q8H [facility] Stop: 02/15/19 09:59 Last Admin: 01/17/19 01:27 Dose: 1.5 mls/min Documented by: Albumin Human (Albumin 25%) 50 mls @ 50 mls/hr IV DAILY [facility] Stop: 01/20/19 14:14 Last Infusion: 01/16/19 15:57 Dose: Infused Documented by: Ioversol (Optiray 320 125ml) 120 ml IV ONCE PRN PRN Reason: Interaction Checking Stop: 01/19/19 14:00 Last Admin: 01/15/19 14:02 Dose: 120 ml Documented by: Lorazepam (Ativan) 0.5 mg PO Q4H PRN PRN Reason: Anxiety Stop: 02/15/19 08:28 Last Admin: 01/16/19 08:56 Dose: 0.5 mg Documented by: Mirtazapine (Remeron) 15 mg PO [facility] Stop: 02/15/19 08:59 Last Admin: 01/16/19 20:32 Dose: 15 mg Documented by: Miscellaneous (Fentanyl Patch Check Placement) 1 ea N/A QS [facility] Stop: 02/15/19 00:00 Last Admin: 01/16/19 22:56 Dose: 1 ea Documented by: Miscellaneous (Fentanyl Patch Remove & Waste) 1 ea N/A Q3D@2013 [facility] Stop: 02/14/19 20:13 Last Admin: 01/15/19 20:49 Dose: 1 ea Documented by: Miscellaneous Information (Consult) 1 ea N/A UD PRN PRN Reason: Consult Stop: 02/14/19 17:58 Ondansetron HCl (Zofran) 4 mg IV Q6H PRN PRN Reason: Nausea Stop: 02/14/19 19:04 Last Admin: 01/16/19 08:09 Dose: 4 mg Documented by: Oxycodone HCl (Roxicodone Immediate Rel) 10 mg PO Q4H PRN PRN Reason: pain Stop: 01/29/19 19:04 Pantoprazole Sodium (Protonix) 40 mg PO DAILY [facility]; Protocol Stop: 02/15/19 08:59 Last Admin: 01/16/19 07:53 Dose: 40 mg Documented by: Polyethylene Glycol (Miralax Powder Packet) 17 gm PO BID PRN PRN Reason: constipation Stop: 02/14/19 19:04 Senna/Docusate Sodium (Senokot S) 2 tab PO [facility] Stop: 02/14/19 20:59 Last Admin: 01/16/19 20:32 Dose: 2 tab Documented by: PG Care Time/CCT Total # of Minutes Spent Total Time Spent with Patient: Total time spent is greater than 50% in coordination of care (as documented) at patient's floor/unit and/or counseling patient:
[2019-01-17 08:20] LABS: Hematocrit (blood only) 27.9 % (37-47); Hemoglobin 9.2 g/dL (12.0-16.0); Mean Platelet Volume 10.8 fL (7.4-10.4); Platelet Count 248 K/uL (130-400); RDW Coefficient of Variation 15.8 % (11.5-14.5); RDW Standard Deviation 50.9 fL (36.4-46.3); Red Blood Count 3.17 M/uL (4.2-5.4); White Blood Count 7.71 K/uL (4.8-10.8)
[2019-01-17 08:47] LABS: BUN Creatinine Ratio 44.7 (10-20); Calcium 8.9 mg/dl (8.5-10.1); Creatinine Clr Calc Pharmacy 132.1 ml/min; Est GFR (African American) 139.2; Est GFR (Non-African American) 120.1; Magnesium 2.3 mg/dl (1.8-2.4); Potassium 3.9 mmol/L (3.5-5.1)
[2019-01-17 08:50] LABS: Albumin Globulin Ratio 0.5 (0.9-2); Bilirubin,Total 0.5 mg/dl (0.2-1); Globulin 3.8 gm/dl (2.5-4.0); Total Protein 5.8 gm/dl (6.4-8.2)
[2019-01-17] MEDS ORDERED: POTASSIUM CHLORIDE 20 MEQ TABCR PO SCH (09:00)
[2019-01-17] MEDS: DRONABINOL 2.5 MG CAP PO SCH ×2 (09:02→20:26)
[2019-01-17] MEDS: FUROSEMIDE 20 MG TAB PO SCH (09:02)
[2019-01-17] MEDS: PANTOprazole 40 MG TAB PO SCH (09:03)
[2019-01-17] MEDS: DOCUSATE SODIUM 100 MG CAP PO SCH ×2 (09:04→20:26)
[2019-01-17] MEDS: AZITHROMYCIN 250 MG in DEXTROSE 5% 250 ML IV SCH (09:04)
[2019-01-17] MEDS: VANCOMYCIN HCL 1,250 MG in SODIUM CHLORIDE 0.9% 250 ML IV SCH (09:04)
[2019-01-17] MEDS: CHECK FENTANYL PATCH PLACEMENT SCH ×3 (09:05→23:52)
[2019-01-17] MEDS: ALBUMIN 25% 50 ML IV SCH (09:16)
--- NOTE | 2019-01-17 09:57 | Hospitalist Progress Note ---
Date of Service January 17, 2019 Assessment & Plan (1) Hemoptysis: - Related to multifocal pneumonia and lung cancer. Has ongoing hemoptysis, no improvement. - CT chest showed development of new multifocal airspace opacities, interlobular septal thickening concerning for pulm edema vs. lymphangitic carcinomatosis. - Monitor CBC daily; H/H has been stable. - Consulted Dr. Wilson, appreciate input. - Consulted Dr. Anderson with pulmonary; he discussed transfer to [facility] for bronch, pt. is not a candidate for procedure at this time. Will continue to follow, appreciate input. (2) Multifocal pneumonia: - Noted on CT of chest; immunocompromised in setting of recent chemotherapy. - Continue Cefepime/Azithromycin for empiric coverage - MRSA swab was negative, will d/c Vancomycin today. - Also on IV steroids for radiation pneumonitis. - Lactic acid level was 1.6; Procal 0.36. - Duonebs q4hrWA scheduled; Albuterol inhaler prn. (3) Radiation pneumonitis: - Concern for pneumonitis based on CT chest findings. - Solu-medrol 40 mg IV q8hr. (4) Non-small cell lung cancer with metastasis: - Follows with Dr. Albert - consulted onc as inpatient. - Most recent chemotherapy on 01/14/19. - CT chest showed decrease in lymphadenopathy with decrease in hepatic metastases. Also has skeletal metastasis with pathological fractures. - Continue Fentanyl patch 50 mcg & Oxycodone 10 mg q4hr prn pain. - Patient and her family would like to continue treatment at this time; they are encouraged by CT results showing improvement following initiation of chemotherapy. (5) Pulmonary edema: - Concern for pulm edema noted on chest imaging at admission; CXR pending on 01/18 in the morning. - Start Lasix 20 mg IV daily per pulmonary service. - Monitor net I/Os and daily weights. (6) Acute respiratory failure with hypoxia: - Requiring 2L via NC in setting of radiation pneumonitis, multifocal PNA, pulmonary edema and NSCLC. - Will need walking test prior to discharge if pt. continues to require O2 via NC. (7) Pathologic compression fracture of spine: - Continue Fentanyl patch with Oxycodone prn. (8) HTN (hypertension): - Holding home HCTZ-Losartan. - Has been normotensive, random episodes of HTN noted -- starting Lasix 20 mg IV for pulm edema, will continue to hold home BP med. (9) Elevated LFTs: - In setting of liver metastases. - Monitor daily, stable. (10) GERD (gastroesophageal reflux disease): - PPI daily. (11) Anemia: - Chemotherapy induced anemia -- last treatment on 01/14. - Continue to monitor CBC daily -- has been stable. (12) Electrolyte abnormality: - K level 3.9 -- started K 20 mEq BID in setting of daily Lasix (both per pulmonary service) - Mag level 2.3 - no replacement required. - Monitor levels daily. (13) Severe protein-calorie malnutrition: - Albumin was 1.6 in setting of metastatic lung cancer, limited PO intake. - Boost supplements with every meal. - Started Remeron 15 mg qhs. - Also started Marinol 2.5 mg BID per family request -- this med is not covered by insurance as outpatient, will need to be d'c/ed at discharge. - Albumin 25% daily x 4 days per oncology recs -- level improved over last 24 hours. (14) DVT prophylaxis: - SCDS; hold pharmacologic ppx in setting of acute hemoptysis. Dispo: Continue treatment for multifocal PNA, pulm edema & radiation pneumonitis. Oncology, pulmonary and thoracic surgery all following. DNR/DNI - confirmed with patient and daughter at bedside on admission. Subjective Pt. has ongoing hemoptysis this morning. Does have increased appetite -- had scrambled eggs and chocolate boost supplement for breakfast. She slept throughout most of the night, appears comfortable. Pulmonary following -- pt. is not a candidate for transfer to tertiary care for bronch with embolization. Thoracic surgery and oncology also following. Review of Systems Review of Systems: All systems reviewed & are unremarkable except as noted in HPI & below Constitutional: + fatigue, + weakness and + anorexia; no fever and no chills Respiratory: + cough and + hemoptysis; no dyspnea, no dyspnea on exertion and no wheezing Cardiovascular: no chest pain, no palpitations and no edema Gastrointestinal: no abdominal pain and no nausea Genitourinary: no difficulty urinating Musculoskeletal: no back pain and no joint pain Integumentary: no non-healing lesions Physical Exam Physical Exam: General: Chronically ill appearing female, mild distress. HEENT: NC/AT; PERRLA with EOMI; [place] conjunctiva, MMM. No erythema of posterior pharynx Neck: Supple and nontender Cardiac: RRR Lungs: on 2L via NC; acute episodes of coughing and hemoptysis noted during exam. Clear to auscultation in upper lung diaz. Abdomen: Bowel normoactive X 4; Nontender to palpation Extremities: Warm. No edema present Neuro: No focal weakness Skin: No rash Results & Data Vital Signs (Past 12 Hours) Vital Signs Temp Pulse Pulse Resp BP Pulse Ox 01/17/19 07:36 36.6 C 82 17 153/76 H 96 01/17/19 07:17 76 20 96 01/17/19 07:12 72 01/17/19 04:37 36.7 C 74 18 124/81 98 01/16/19 23:47 36.8 C 73 18 104/68 96 01/16/19 23:12 74 Laboratory Results 01/17/19 01/17/19 01/17/19 Range/Units 07:58 07:58 07:58 WBC 7.71 (4.8-10.8) K/uL RBC 3.17 L (4.2-5.4) M/uL Hgb 9.2 L (12.0-16.0) g/dL Hct 27.9 L (37-47) % MCV 88.0 (80-100) fL MCH 29.0 (25-34) pg MCHC 33.0 (32-36) g/dL RDW Std Deviation 50.9 H (36.4-46.3) fL RDW Coeff of [place] 15.8 H (11.5-14.5) % Plt Count 248 (130-400) K/uL MPV 10.8 H (7.4-10.4) fL Sodium 139 (136-145) mmol/L Potassium 3.9 (3.5-5.1) mmol/L Chloride 104 (98-107) mmol/L Carbon Dioxide 30 (21-32) mmol/L Anion Gap 6.0 (3-11) BUN 14 (7-18) mg/dl Creatinine 0.32 L (0.6-1.2) mg/dl Est Cr Clr Drug Dosing 132.1 ml/min Est GFR ( Amer) 139.2 Est GFR (Non-Af Amer) 120.1 BUN/Creatinine Ratio 44.7 H (10-20) Glucose 162 H (70-99) mg/dl Calcium 8.9 (8.5-10.1) mg/dl Magnesium 2.3 (1.8-2.4) mg/dl Total Bilirubin 0.5 (0.2-1) mg/dl AST 15 (15-37) U/L ALT 36 (12-78) U/L Alkaline Phosphatase 134 H (45-117) U/L Total Protein 5.8 L (6.4-8.2) gm/dl Albumin 2.0 L (3.4-5.0) gm/dl Globulin 3.8 (2.5-4.0) gm/dl Albumin/Globulin Ratio 0.5 L (0.9-2) Vancomycin Trough 8.9 (See Comment) mcg/ml PG Care Time/CCT Total # of Minutes Spent Total Time Spent with Patient: Total time spent is greater than 50% in coordination of care (as documented) at patient's floor/unit and/or counseling patient: (1) Pathologic compression fracture of spine Encounter type: initial encounter Qualified Code(s): M48.50XA - Collapsed vertebra, not elsewhere classified, site unspecified, initial encounter for fracture
--- NOTE | 2019-01-17 10:12 | Progress Note ---
DATE: 01/17/2019 The patient is seen today. She feels better. She actually sounds better on auscultation, but she has upper airway rhonchi and quite loud noises actually and she is coughing up dark blood. Dr. Anderson's help yesterday was greatly appreciated in exploring the option of immobilization and I agree with the assessment that this is not going add much to this. I have discussed this with the patient and her family and explained that she could exsanguinated from this at this point. Having said that, we do have a cavitary lesion in left upper lobe to deal with. She has had a radiographic response. I am hopeful that some of what we are seeing will respond to steroids and antibiotics.
[2019-01-17] MEDS: POTASSIUM CHLORIDE 20 MEQ/15 ML UDC PO SCH ×2 (10:42→20:26)
--- NOTE | 2019-01-17 13:06 | Progress Note ---
DATE: 01/17/2019 DIAGNOSES: 1. Hemoptysis. 2. Multifocal pneumonia. 3. Radiation-induced pneumonitis. 4. Metastatic nonsmall cell lung cancer. 5. Pulmonary edema. 6. Acute respiratory failure with hypoxia. SUBJECTIVE: Margaux was seen and examined at bedside this morning. I reviewed the java developer consultant's notes and discussed directly with Margaux. At this point, I am of the mindset that Margaux is a salvageable at least to the point of gaining further life quality for whatever time she has left. She fully understands that her disease is terminal, but radiographic evidence points to heading towards remission. Unfortunately, hemoptysis has been problematic since diagnosis. If Margaux is willing to get her transferred to a tertiary center, to consider embolization of the lung bleed. Otherwise, her pain seems to be well controlled. Until this admission was marked improvement in her overall performance status. She is receiving empiric antibiotics for which I agree. Nursing reports no overnight difficulties. PHYSICAL EXAMINATION: GENERAL: Very pleasant 63-year-old female in no acute distress. VITAL SIGNS: Temperature 36.6, pulse 82, respiratory rate 17, blood pressure 153/76. SKIN: Without rash or lesion. HEENT: Oral mucosa without erythema or ulceration. HEART: Regular rate and rhythm. LUNGS: Rhonchi is present but certainly less coarse in all lung diaz. I appreciated no wheezing or blunting otherwise. ABDOMEN: Soft, nontender, nondistended. EXTREMITIES: No clubbing, cyanosis or edema. NEUROLOGICAL: Grossly intact. LABORATORY DATA: WBC count 7710, hemoglobin 9.2, platelet count 248,000. Sodium 139, potassium 3.9, chloride 104, carbon dioxide 30, creatinine 0.32, BUN 14, albumin 2.0. IMPRESSION: 1. Hemoptysis. 2. Metastatic nonsmall cell lung cancer. 3. Hypomagnesemia. 4. Hypoalbuminemia. PLAN: Margaux was seen and examined this morning once again. Her mental outlook is a little bit better than it was yesterday. Her mood was quite depressed and Margaux was on the verge of giving up. I tried to rebuild some confidence in regards to where she is at clinically which is considerably better from where she was at diagnosis. Obviously, this hemoptysis is a challenge, but if there is something interventional either can be done to allow her to continue treatment uninterrupted. I believe we could gain some more meaningful time for Margaux. I appreciate the hospitalist service adding albumin which reflected in her level today. She is due to receive her next treatment on and hopefully can be discharged by that time if not transfer to a tertiary center. According to Margaux, hemoptysis is a little bit more improved. She is not seeing bright red blood per se, but more a darkish-colored sputum. Agree with medical management otherwise. We will continue to follow along with you during her hospital stay.
[2019-01-17] MEDS: DOCUSATE SODIUM/SENNA 50/8.6MG TAB PO SCH (20:26)
[2019-01-17] MEDS: MIRTAZAPINE TAB 15 MG TAB PO SCH (22:12)
[2019-01-18] MEDS: methylPREDNISolone 40 MG in SYRINGE 0 ML IV SCH ×3 (02:05→19:03)
[2019-01-18] MEDS: CEFEPIME 2,000 MG in SYRINGE 7.5 ML IV SCH ×3 (02:05→17:08)
[2019-01-18 05:34] LABS: Hematocrit (blood only) 24.5 % (37-47); Mean Corpuscular Hemoglobin 28.8 pg (25-34); Mean Corpuscular Hgb Conc 32.7 g/dL (32-36); Mean Corpuscular Volume 88.1 fL (80-100); Mean Platelet Volume 10.5 fL (7.4-10.4); Platelet Count 210 K/uL (130-400); RDW Coefficient of Variation 15.9 % (11.5-14.5); RDW Standard Deviation 50.8 fL (36.4-46.3); Red Blood Count 2.78 M/uL (4.2-5.4); White Blood Count 8.12 K/uL (4.8-10.8)
[2019-01-18 06:07] LABS: Albumin Globulin Ratio 0.6 (0.9-2); Albumin Level 1.9 gm/dl (3.4-5.0); BUN Creatinine Ratio 65.4 (10-20); Bilirubin,Total 0.4 mg/dl (0.2-1); Calcium 8.3 mg/dl (8.5-10.1); Creatinine Clr Calc Pharmacy 140.9 ml/min; Est GFR (African American) 142.2; Est GFR (Non-African American) 122.7; Globulin 3.4 gm/dl (2.5-4.0); Potassium 4.7 mmol/L (3.5-5.1); Total Protein 5.3 gm/dl (6.4-8.2)
[2019-01-18] MEDS: ALBUT/IPRATROP 3MG/0.5MG NEB 3 ML VIAL NEB SCH ×4 (07:19→18:58)
--- NOTE | 2019-01-18 08:15 | XRay Report ---
XR chest 1V portable HISTORY: multifocal pneumonia/hemoptysis COMPARISON: Chest CT 01/15/2019. FINDINGS: Left subclavian Port-A-Cath terminates at the superior cavoatrial junction. This remains un changed. The heart is stable in size. Progressive airspace opacities within the left lung with a left upper lobe cavitary focus. Small left pleural effusion persists. Interstitial thickening and a patch y right lower lobe airspace opacity have progressed. IMPRESSION: 1. Interval progression of the left lung and right lower lobe airspace opacities. 2. Left upper lobe cavitary lesion persists. 3. Interval progression of the interstitial thickening which may represent developing congestive eubanks ge. Electronically signed by: Cesar Bolivar M.D. 01/18/2019 8:13 AM
[2019-01-18] MEDS: POTASSIUM CHLORIDE 20 MEQ/15 ML UDC PO SCH ×2 (08:53→20:25)
[2019-01-18] MEDS: PANTOprazole 40 MG TAB PO SCH (08:54)
[2019-01-18] MEDS: FUROSEMIDE 20 MG TAB PO SCH (08:54)
[2019-01-18] MEDS: DOCUSATE SODIUM 100 MG CAP PO SCH ×2 (08:54→20:25)
[2019-01-18] MEDS: CHECK FENTANYL PATCH PLACEMENT SCH ×2 (08:55→16:24)
[2019-01-18] MEDS: DRONABINOL 2.5 MG CAP PO SCH ×2 (09:13→20:33)
[2019-01-18] MEDS: ALBUMIN 25% 50 ML IV SCH (09:16)
[2019-01-18] MEDS: AZITHROMYCIN 250 MG in DEXTROSE 5% 250 ML IV SCH (10:21)
--- NOTE | 2019-01-18 13:27 | Pulmonology Progress Note ---
Date of Service January 18, 2019 Assessment & Plan (1) Acute respiratory failure with hypoxia: (2) Radiation pneumonitis: (3) Multifocal pneumonia: (4) Hemoptysis: Still having hemoptysis. Has decreased in intensity and frequency. Chest x-ray although looks worse today. Patient was able to ambulate without any complaints prior to examination. Patient and patient's daughter were made aware regarding discussion Dr. Anderson had with intensive radiologist from [place]. We will continue with steroids. Cough suppressant. Oxygen supplementation. Further bronchoscopy will not be of any benefit given we already know what the hemoptysis is coming from. Daughter and patient were made aware of the current situation and what to expect. Comfort measures highly recommended. (5) Metastatic cancer to lung: Laterality: unspecified laterality Qualified Code(s): C78.00 - Secondary malignant neoplasm of unspecified lung (6) Bony metastasis: (7) Non-small cell lung cancer with metastasis: Subjective Patient seen and examined at bedside. No acute distress, no adverse events overnight. Cough is decreased in intensity. Patient still bringing up blood-tinged phlegm especially after using the flutter valve. Denies any chest pain, no nausea or vomiting. Tolerating diet. Patient was walking around in the corridor with daughter without any distress. Case was discussed with daughter in detail regarding the talk which Dr. Anderson had with the interventional radiologist. Case discussed with Dr. Wilson. Review of Systems Review of Systems: All systems reviewed & are unremarkable except as noted in HPI & below Physical Exam Physical Exam: Constitutional: No acute distress, cachectic HEENT: EOMI, PERRLA Respiratory system: Decreased air entry bilaterally, no wheeze, yes bilateral rhonchi, minimal bilateral crackles CVS: S1-S2 positive, no murmurs or gallops, tachycardia Abdomen: Soft, nontender, nondistended, positive bowel sounds x4 Extremities: +2 pulses bilaterally radialis/ dorsalis pedis, no edema, no cyanosis Neuro: Awake alert oriented x3 Psych: Normal mood and affect Lymphatic: no cervical or axillary lymphadenopathy Results & Data Vital Signs (Past 12 Hours) Vital Signs Temp Pulse Pulse Pulse Resp BP Pulse Ox 01/18/19 12:19 36.8 C 84 18 128/84 100 01/18/19 11:23 84 16 94 01/18/19 08:00 86 01/18/19 07:29 37.0 C 75 16 120/72 92 01/18/19 07:20 73 16 98 01/18/19 04:28 36.8 C 72 16 132/77 95 Laboratory Results 01/18/19 05:17 01/18/19 05:17 Hemoglobin gradually trending down. Went down to 8 from 9.2. Diagnostic Findings Chest x-ray from today shows worsening left-sided infiltrates. Left-sided pleural effusion still present. PG Care Time/CCT Total # of Minutes Spent Total Time Spent with Patient: Total time spent is greater than 50% in coordination of care (as documented) at patient's floor/unit and/or counseling patient:
--- NOTE | 2019-01-18 17:01 | Progress Note ---
DATE: 01/18/2019 Margaux was seen today on 01/18/2019. She looks better and feels better and was walking in the hallway. Unfortunately, she continues to have hemoptysis of dark red blood. Her left lung has rhonchi and is quite rhonchorous actually. Her x-ray shows more consolidation on the left. I have discussed this case with Dr. Manjarrez from Pulmonary. I agree with Dr. Albert, she has responded to chemotherapy; however, the hemoptysis is going to be difficult for us to address if it were to increase.
[2019-01-18] MEDS: ONDANSETRON 4 MG TAB PO SCH (17:08)
[2019-01-18] MEDS: fentaNYL 50 MCG/HR TDSY TD SCH (20:23)
[2019-01-18] MEDS: DOCUSATE SODIUM/SENNA 50/8.6MG TAB PO SCH (20:25)
[2019-01-18] MEDS: MIRTAZAPINE TAB 15 MG TAB PO SCH (20:26)
--- NOTE | 2019-01-18 22:40 | Hospitalist Progress Note ---
Date of Service January 18, 2019 Assessment & Plan (1) Hemoptysis: - Related to multifocal pneumonia and metastatic lung cancer cancer. Has ongoing hemoptysis, no improvement. - Appreciate pulmonology, oncology and thoracic surgery input. - Consulted Dr. Anderson with pulmonary; he discussed transfer to [facility] for bronch, pt. is not a candidate for procedure at this time. - Hgb decreased to 8.0 today therefore continued stay to monitor for need for transfusions. Will get FOB to r/o GI cause. (2) Multifocal pneumonia: - Noted on CT of chest; immunocompromised in setting of recent chemotherapy. - Day 3 Cefepime/Azithromycin for empiric coverage - Also on IV steroids for radiation pneumonitis. - Lactic acid level was 1.6; Procal 0.36. - Duonebs q4hrWA scheduled; Albuterol inhaler prn. (3) Radiation pneumonitis: - Concern for pneumonitis based on CT chest findings. - Solu-medrol 40 mg IV q8hr. (4) Non-small cell lung cancer with metastasis: - Appreciate heme/onc consult. Patient known to palliative care from last admission in November. - Most recent palliative chemotherapy on 01/14/19 - Continue Fentanyl patch 50 mcg & Oxycodone 10 mg q4hr prn pain. - Patient and her family would like to continue treatment at this time; they are encouraged by CT results showing improvement following initiation of chemotherapy. (5) Pulmonary edema: - Concern for pulm edema noted on chest imaging at admission; CXR pending on 01/18 in the morning. - Continue Lasix 20 mg IV daily however given increasing BUN I suspect she is more intravascularly deplete at this time. - Monitor net I/Os and daily weights. (6) Acute respiratory failure with hypoxia: - 2L via NC secondary to radiation pneumonitis, multifocal PNA, pulmonary edema and NSCLC. - Will need walking test prior to discharge if pt. continues to require O2 via NC. (7) Pathologic compression fracture of spine: - Continue Fentanyl patch with Oxycodone prn - Pain well controlled currently (8) HTN (hypertension): - Stable off home meds while on lasix IV 20mg daily (9) Elevated LFTs: - In setting of liver metastases. - Monitor daily, stable. (10) GERD (gastroesophageal reflux disease): - PPI daily. (11) Anemia: - secondary to chemo, hemoptysis, assess for GI bleed with FOB - decreased Hgb to 8.0 (12) Electrolyte abnormality: - Hold further potassium supplementation given trend upwards - Mag level 2.3 - no replacement required. - Monitor levels daily (13) Severe protein-calorie malnutrition: - Albumin was 1.6 in setting of metastatic lung cancer, limited PO intake. - Boost supplements with every meal. - Started Remeron 15 mg qhs. - Also started Marinol 2.5 mg BID per family request -- this med is not covered by insurance as outpatient, will need to be d'c/ed at discharge. - Albumin 25% daily x 4 days per oncology recs although I am unclear of any proven benefit from this. - PREM ondansetron prior to meals. Will switch to metoclopramide if still not helping. (14) DVT prophylaxis: - SCDS; hold pharmacologic ppx in setting of acute hemoptysis. DNR/DNI - confirmed on admission with patient and daughter Dispo: Continue treatment for multifocal PNA, pulm edema & radiation pneumonitis. Oncology, pulmonary and thoracic surgery all following. Subjective Patient reports no new issues at this time. Onoging cough. She feels she is improving. Main concern is ongoing nausea with eating and decreased taste while on chemotherapy. Review of Systems Review of Systems: All systems reviewed & are unremarkable except as noted in HPI & below Physical Exam Constitutional: + ill appearing and + cachectic; no acute distress Eyes: PERRL, conjunctivae normal, anicteric sclerae ENMT: Mouth: + dry oral mucous membranes Neck: trachea midline Respiratory: normal respiratory effort; no respiratory distress, no labored breathing and does not use accessory muscles Auscultation: + rhonchi (bibasal L > R); no diminished lung sounds Cardiovascular: RRR, no murmur, no edema Gastrointestinal (Abdomen): normal bowel sounds, soft, nontender, no hepatosplenomegaly Musculoskeletal: no cyanosis or clubbing, extremities motor strength 5/5 Gait: normal gait Skin: no rashes, warm and dry Neurologic: moves all extremities and awake Speech / Cognition: normal speech Motor/Sensory: no sensory deficit Psychiatric: A+Ox3, euthymic affect Results & Data Vital Signs (Past 12 Hours) Vital Signs Temp Pulse Pulse Pulse Resp BP Pulse Ox 01/18/19 19:21 99.1 F 86 18 135/79 97 01/18/19 19:00 92 H 16 97 01/18/19 16:29 73 01/18/19 15:59 82 18 91 01/18/19 15:57 98.2 F 82 18 131/78 96 01/18/19 12:19 98.2 F 84 18 128/84 100 01/18/19 11:23 84 16 94 PG Care Time/CCT Total # of Minutes Spent Total Time Spent with Patient: Total time spent is greater than 50% in coordination of care (as documented) at patient's floor/unit and/or counseling patient: (1) Pathologic compression fracture of spine Encounter type: initial encounter Qualified Code(s): M48.50XA - Collapsed vertebra, not elsewhere classified, site unspecified, initial encounter for fracture
[2019-01-19] MEDS: methylPREDNISolone 40 MG in SYRINGE 0 ML IV SCH ×3 (01:09→18:07)
[2019-01-19] MEDS: CHECK FENTANYL PATCH PLACEMENT SCH ×3 (01:09→16:32)
[2019-01-19] MEDS: CEFEPIME 2,000 MG in SYRINGE 7.5 ML IV SCH ×3 (01:09→16:32)
[2019-01-19 06:24] LABS: Hematocrit (blood only) 26.6 % (37-47); Hemoglobin 8.8 g/dL (12.0-16.0); Mean Corpuscular Hemoglobin 29.1 pg (25-34); Mean Corpuscular Hgb Conc 33.1 g/dL (32-36); Mean Corpuscular Volume 88.1 fL (80-100); Mean Platelet Volume 10.7 fL (7.4-10.4); Platelet Count 223 K/uL (130-400); RDW Coefficient of Variation 15.9 % (11.5-14.5); RDW Standard Deviation 50.6 fL (36.4-46.3); Red Blood Count 3.02 M/uL (4.2-5.4); White Blood Count 6.48 K/uL (4.8-10.8)
[2019-01-19 06:56] LABS: Albumin Level 2.2 gm/dl (3.4-5.0); BUN Creatinine Ratio 54.1 (10-20); Calcium 8.5 mg/dl (8.5-10.1); Creatinine Clr Calc Pharmacy 117.4 ml/min; Est GFR (African American) 133.9; Est GFR (Non-African American) 115.6; Magnesium 2.1 mg/dl (1.8-2.4); Potassium 5.1 mmol/L (3.5-5.1)
[2019-01-19 06:58] LABS: Albumin Globulin Ratio 0.6 (0.9-2); Bilirubin,Total 0.5 mg/dl (0.2-1); Globulin 3.7 gm/dl (2.5-4.0); Total Protein 5.9 gm/dl (6.4-8.2)
[2019-01-19] MEDS: ALBUT/IPRATROP 3MG/0.5MG NEB 3 ML VIAL NEB SCH ×4 (07:08→19:12)
--- NOTE | 2019-01-19 07:31 | XRay Report ---
XR chest 1V portable CLINICAL HISTORY: Abnormal chest x-ray. Pulmonary consolidation. COMPARISON STUDY: 01/18/2019 FINDINGS: The cardiac and mediastinal contours remain stable. There is a left-sided A-Port catheter. There is persistent extensive left lung parenchymal consolidation with possible upper lung zone pulmo nary cavitation. There are persistent but improving interstitial right lung opacities. A small left p leural effusion is suspected[ IMPRESSION: 1. Persistent left lung pulmonary consolidation with a suspected associated pleural effusion 2. Suspected cavitary left upper lobe lesion 3. Slight improvement in the right lung interstitial opacities Electronically signed by: Dayo Terrazas M.D. 01/19/2019 7:30 AM
[2019-01-19] MEDS: DRONABINOL 2.5 MG CAP PO SCH ×2 (08:28→20:54)
[2019-01-19] MEDS: FUROSEMIDE 20 MG TAB PO SCH (08:28)
[2019-01-19] MEDS: PANTOprazole 40 MG TAB PO SCH (08:29)
[2019-01-19] MEDS: ONDANSETRON 4 MG TAB PO SCH ×3 (08:29→16:32)
[2019-01-19] MEDS: DOCUSATE SODIUM 100 MG CAP PO SCH ×2 (08:29→20:54)
[2019-01-19] MEDS: AZITHROMYCIN 250 MG in DEXTROSE 5% 250 ML IV SCH (08:49)
[2019-01-19] MEDS: ALBUMIN 25% 50 ML IV SCH (08:50)
--- NOTE | 2019-01-19 08:55 | Pulmonology Progress Note ---
Date of Service January 19, 2019 Assessment & Plan (1) Hemoptysis: Patient continues with hemoptysis but states it seems to be improving slightly. Chest x-ray continues to show consolidation and cavitary lesion Patient been seen and evaluated by thoracic surgery No utility in interventional radiology. This was discussed with patient and daughter yesterday Daughter aware that worsening hemoptysis could have catastrophic results No options other than supportive care Continue to reinforce comfort measures for patient (2) Multifocal pneumonia: Procalcitonin 01/15/2019 was negative Patient is empirically been treated with antibiotics Sputum samples collected 11/07/2018 and 01/17/2019 showed normal alvino Pleural fluid collected 11/24/2018- for microbiology but positive for metastatic adenocarcinoma Admitted 01/15/19 and empirically started on Vanco, Azithromycin, and Cefepime Negative for influenza A&B MRSA screening was negative. Vanco discontinued. Day #5 Azithromycin and Cefipime (3) Acute and chronic respiratory failure: Multifocal secondary to radiation pneumonitis, lung malignancy, possible bifocal pneumonia Patient with known lung malignancy requiring supplemental oxygen at home Typically uses 2 L/min via nasal cannula Able to ambulate hallways without significant respiratory distress Continue to encourage ambulation Aside from ongoing hemoptysis, patient is close to baseline. (4) Non-small cell lung cancer with metastasis: Follows with Dr. Albert Most recent chemotherapy 01/14/2019 with carboplatin, paclitaxel and bevacizumab Left subclavian a-port placed 01/05/2019 Status post XRT to spine for pain control * She received 9 of a 10 planned fractions of therapy. Patient declined further treatment. She received 2700 cGy. Further management per oncology Thank you for including us in the care of this patient. Please refer to Dr. Manjarrez's addendum for further recommendations. Supervising Physician Co-Signing Physician Notes I saw and evaluated the patient with Froylan Brush, and agree with findings and plan as documented in the note. Patient clinically doing better. There is improvement in radiographic finding compared to yesterday. Still having hemoptysis but it has been decreasing amount. States that it is about a teaspoon total in last for 5 hours. Hemoglobin is stable. Daughter understands the prognosis. Patient to be made as comfortable as possible. Can start tapering of steroids as of tomorrow. Continue with a course of antibiotics. No further pulmonary interventions. Subjective Attending: Dr. Manjarrez Patient seen and examined at bedside. Patient is in bed at the time. She reports that her hemoptysis continues but is less than yesterday. She reports that she is having small clots less than the size of a dime. She reports her cough is improved. No chest pain or tightness. Patient does continue to ambulate in the hallways with supplemental O2 without significant difficulty. She has no nausea or vomiting. She denies fever, chills, sweats, night sweats. Aside from generalized weakness, she has no acute complaints. Patient was able to complete most of her her breakfast including [place] toast. Review of Systems Review of Systems: All systems reviewed & are unremarkable except as noted in HPI & below Physical Exam Physical Exam: GENERAL : No acute distress EYES: No icterus, gaze conjugate NOSE: No evidence of epistaxis MOUTH: No lesions or candidiasis NECK: Supple. No evidence of stridor LUNGS: Decreased breath sounds bilaterally. Patient does have cough with deep inspiration. No mucus production during exam. Patient does have crackles at the bases left worse than right. No appreciation of rhonchi or bronchospasm on my exam HEART: Regular, rate controlled ABDOMEN: Soft, NT, ND, BS Present. No rebound tenderness or guarding with examination. EXTREMITIES: +1 bilateral LE edema, pedal pulses intact and equal bilaterally. Feet are warm. NEURO: A&OX3 Results & Data Vital Signs (Past 12 Hours) Vital Signs Temp Pulse Pulse Resp BP BP Pulse Ox 01/19/19 07:46 36.7 C 92 H 18 154/83 H 93 01/19/19 07:10 85 18 94 01/19/19 07:07 88 01/19/19 04:14 36.9 C 72 16 155/92 H 98 01/18/19 23:38 75 Laboratory Results 01/19/19 06:03 01/19/19 06:03 Diagnostic Findings XR chest 1V portable CLINICAL HISTORY: Abnormal chest x-ray. Pulmonary consolidation. COMPARISON STUDY: 01/18/2019 FINDINGS: The cardiac and mediastinal contours remain stable. There is a left- sided A-Port catheter. There is persistent extensive left lung parenchymal consolidation with possible upper lung zone pulmonary cavitation. There are persistent but improving interstitial right lung opacities. A small left pleural effusion is suspected IMPRESSION: 1. Persistent left lung pulmonary consolidation with a suspected associated pleural effusion 2. Suspected cavitary left upper lobe lesion 3. Slight improvement in the right lung interstitial opacities Electronically signed by: Dayo Terrazas M.D. 01/19/2019 7:30 AM PG Care Time/CCT Total # of Minutes Spent Total Time Spent with Patient: Total time spent is greater than 50% in coordination of care (as documented) at patient's floor/unit and/or counseling patient: 30
[2019-01-19] MEDS ORDERED: GUAIFENESIN/CODEINE 200MG/20MG 10ML UDC PO PRN (12:44)
--- NOTE | 2019-01-19 14:50 | Progress Note ---
DATE: 01/19/2019 The patient is seen today. She is having less hemoptysis and her x-ray does look a bit better. I reviewed her CT scan again and the left upper lobe has largely been replaced by this cavitary lesion, but there is no venous outflow. Unfortunately, this large cavity communicates with the airway. I am hopeful that her hemoptysis simply slows and stops, which would be by far and away the best thing. I believe this cavity is going to cause a problem in the future though. MTDD
[2019-01-19] MEDS: MIRTAZAPINE TAB 15 MG TAB PO SCH (20:54)
[2019-01-19] MEDS: DOCUSATE SODIUM/SENNA 50/8.6MG TAB PO SCH (20:54)
[2019-01-19] MEDS ORDERED: PROCHLORPERAZINE MALEATE 10 MG TAB PO PRN (22:13)
--- NOTE | 2019-01-19 22:13 | Hospitalist Progress Note ---
Date of Service January 19, 2019 Assessment & Plan (1) Nausea: Consult palliative - patient already known to palliative from last admission Will stop IV prochlorperazine -> switch back to oral with aim of d/c home. Recommend discontinuing compazine prior to any trial of metoclopramide given s evere interaction with possible NMS. Stop lasix to avoid dry mucus membranes -> BUN increasing, hypovolemic on exam (2) Severe protein-calorie malnutrition: Boost supplements with every meal. Started Remeron 15 mg qhs and marinol (d/c on discharge as not covered by insurance). d/c albumin with aim for discharge tomorrow (3) Hemoptysis: Discussed with pulmonology team. Improving Cough suppressant to avoid excessive pressures causing a re-bleed Appreciate pulmonology, oncology and thoracic surgery input - no further procedural intervention to stop hemoptysis available Hgb stable - no anemia symptoms to suggest need for transfusion Likely to re-occur (4) Multifocal pneumonia: Day 4 (full days) cefepime/azithromycin - last dose tomorrow as per pulm recommendations for 5 day course Switch IV solu-medrol to prednisone with aim of d/c tomorrow. Continue nebulizer treatments (5) Radiation pneumonitis: Concern for pneumonitis based on CT chest findings. Will switch to tapering dose of prednisone with aim of d/c tomorrow. (6) Non-small cell lung cancer with metastasis: Appreciate heme/onc consult. Patient known to palliative care from last admission in November. Most recent palliative chemotherapy on 01/14/19 Continue Fentanyl patch 50 mcg & Oxycodone 10 mg q4hr prn pain. Consult palliative regarding ongoing goals of care and nutrition as above (7) Pulmonary edema: with malignant pleural effusions. d/c lasix as intravascularly deplete on exam, pulmonary edema appears resolved on CXR. Likely to have reoccurence of pulmonary edema and pleural effusions from hypoalbuminemia and malignancy. Progressive consolidation on serial CXRs rather than effusion more recently. Prior left pleurx in November removed due to minimal drainage. weight clearly not accurate, no output recorded for I&Os (8) Acute respiratory failure with hypoxia: - 2L via NC secondary to radiation pneumonitis, multifocal PNA, pulmonary edema and NSCLC. - Will need walking test prior to discharge if pt. continues to require O2 via NC. (9) Pathologic compression fracture of spine: - Continue Fentanyl patch with Oxycodone prn - Pain well controlled currently - consider bisphosphonates/denosumab as outpatient (10) HTN (hypertension): - Stable off home meds. Continue to monitor now also off lasix (11) Elevated LFTs: - In setting of liver metastases - no need for continuous labs (12) GERD (gastroesophageal reflux disease): - PPI daily. (13) Anemia: - secondary to chemo, hemoptysis, assess for GI bleed with FOB pending - Stabalized around 8-9 (14) Electrolyte abnormality: - Stopped potassium supplementation, required while on lasix - Mag level 2.1 - no replacement required. - Monitor levels daily while inpatient (15) DVT prophylaxis: SCDS; holding pharmacologic ppx in setting of acute hemoptysis. DNR/DNI - confirmed on admission with patient and daughter Dispo: Aim for home tomorrow if patient stable on oral medications. Subjective Patient seen walking the hallways without significant shortness of breath while on O2. Reports no new issues at this time. Ongoing cough with hemoptysis. She feels she is improving. Feels the [facility] ondansetron has been helpful with nausea but is still affecting her appetite. Review of Systems Review of Systems: All systems reviewed & are unremarkable except as noted in HPI & below Physical Exam Constitutional: + ill appearing and + cachectic; no acute distress Eyes: normal pupil size ENMT: Mouth: + dry oral mucous membranes Neck: trachea midline Respiratory: normal respiratory effort; no respiratory distress, no labored breathing and does not use accessory muscles Cardiovascular: Extremities: + edema (trace b/l) Gastrointestinal (Abdomen): Percussion/Palpation: abdomen soft; abdomen nontender Musculoskeletal: no cyanosis or clubbing, extremities motor strength 5/5 Gait: normal gait Skin: no rashes, warm and dry Neurologic: moves all extremities and awake Speech / Cognition: normal speech Motor/Sensory: no sensory deficit Psychiatric: A+Ox3, euthymic affect (appears to be in a more positive mood today) Results & Data Vital Signs (Past 12 Hours) Vital Signs Temp Pulse Pulse Pulse Resp BP BP 01/19/19 19:25 98.6 F 80 16 133/80 01/19/19 19:15 106 H 16 01/19/19 15:59 97.7 F 77 18 109/71 01/19/19 15:31 74 01/19/19 15:08 75 20 01/19/19 12:01 98.8 F 75 20 127/73 Pulse Ox 01/19/19 19:25 100 01/19/19 19:15 96 01/19/19 15:59 96 01/19/19 15:31 01/19/19 15:08 98 01/19/19 12:01 95 PG Care Time/CCT Total # of Minutes Spent Total Time Spent with Patient: Total time spent is greater than 50% in coordination of care (as documented) at patient's floor/unit and/or counseling patient: (1) Pathologic compression fracture of spine Encounter type: initial encounter Qualified Code(s): M48.50XA - Collapsed vertebra, not elsewhere classified, site unspecified, initial encounter for fracture
[2019-01-20] MEDS: CHECK FENTANYL PATCH PLACEMENT SCH ×3 (00:23→15:34)
[2019-01-20] MEDS: CEFEPIME 2,000 MG in SYRINGE 7.5 ML IV SCH ×2 (00:24→09:04)
[2019-01-20 05:48] LABS: Hematocrit (blood only) 26.6 % (37-47); Hemoglobin 8.5 g/dL (12.0-16.0); Mean Corpuscular Hemoglobin 28.9 pg (25-34); Mean Corpuscular Volume 90.5 fL (80-100); Mean Platelet Volume 10.8 fL (7.4-10.4); Platelet Count 196 K/uL (130-400); RDW Coefficient of Variation 15.9 % (11.5-14.5); Red Blood Count 2.94 M/uL (4.2-5.4); White Blood Count 5.53 K/uL (4.8-10.8)
[2019-01-20 06:46] LABS: BUN Creatinine Ratio 64.8 (10-20); Creatinine Clr Calc Pharmacy 132.1 ml/min; Est GFR (African American) 139.2; Est GFR (Non-African American) 120.1; Potassium 3.8 mmol/L (3.5-5.1)
[2019-01-20] MEDS: ALBUT/IPRATROP 3MG/0.5MG NEB 3 ML VIAL NEB SCH ×3 (07:12→15:21)
--- NOTE | 2019-01-20 08:15 | Palliative Care Consultation ---
Date of Consultation January 20, 2019 Assessment & Plan (1) Goals of care, counseling/discussion: This is a 63 year old female patient who is known to the Palliative Care Service presented to the hospital this admission with hemoptysis and nausea. 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 The Patient underwent liver biopsy on 11/05-was positive for adenocarcinoma of the lung as her primary. On her admission in November, she was seen by Dr. Wilson who performed thoracentesis, bronchoscopy, and Pleur-X catheter placement, which has since been removed on December 28. Unfortunately, hemoptysis has been a big symptom since her diagnosis. She recently had a chest CT that showed a decrease in her lymphadenopathy and decrease in hepatic metastases. The patient appears to be improving and even was walking in the hallway yesterday. Per Oncology, she appears to be a candidate for salvageable chemotherapy, knowing; however, her prognosis is overall poor. The patients most recent chemotherapy was 01/14/19. Patient was started on chemotherapy while inpatient yesterday 11/25. She received carboplatin, Bevacizumab, and paclitaxel. She tolerated well so far. Patient has been experiencing back pain from the metastatic disease as well, she is now on fentanyl patch. Given patient's extensive and incurable disease, palliative care is consulted to discuss goals and help provide symptom management. -I met with the patient in room 281-2. The patient stated she did not sleep well last night. -She states that her appetite has improved and I witnessed her eat > 75% of her breakfast. -The patient currently denies nausea, hemoptysis and vomiting. Her bedside trash can had visible scant amount of hemoptysis. -The patient does not remember meeting with our team on her last admission. -It appears her plan is to possibly be discharged today. -The patient plans to continue with aggressive treatment as tolerated. -She did say that is is scary to her, talking about what happens if she continues to decline and not respond to treatments. She would like to talk to her daughter about this at home. -I did state that it may be beneficial to follow up with Dr. Martinez on an outpatient palliative setting while she continues to pursue aggressive treatment. She would like me to discuss this with her daughter, Stacy. -From an optimized pain/symptom management plan for her discharge, I would continue with the Fentanyl 50 mcg TD x3 days and continue to have Oxycodone IR 10 mg po Q4 PRN for breakthrough. She has not used any -Her appetite has improved, but she is on Marinol which will be DC on discharge. She does have Remeron at bedtime that can be affected. -Regarding intermittent nausea, the patient was on Zofran 4mg po Q6 PRN last admission and tolerated this well. If not responding to Zofran, would recommend Metoclopramide 10 mg po Q6 PRN. If possible, I would avoid Compazine and Phenergan with this patient since she is going home and will be at risk of increased falls with these medications. -I did talk to the patients daughterStacy on the phone and discussed the above. Advised the plan is for her to return home and she would like to be notified when she is ready for discharge. -Pt daughterStacy is receptive to the patient having Palliative Care services as an outpatient on discharge to assist with symptom and pain manageme nt. Advised that I would notify the nurse navigator to arrange. She was thankful. -Overall, the patient is showing some positive response to chemotherapy, but overall has a poor prognosis. -Palliative care will continue to provide symptom and pain management, as well as continue to guide and support difficult decision making as the need arises. Patient does not have a POLST form, would be beneficial to complete one as an outpatient. -PPS: 40% (2) Non-small cell lung cancer with metastasis: (3) Severe protein-calorie malnutrition: (4) Acute respiratory failure with hypoxia: (5) Hemoptysis: (6) Multifocal pneumonia: History of Present Illness Reason for Consultation: Symptom management/goals of care Requesting Physician: Dr. Jesus Villatoro Attending Physician: Jesus Villatoro MD History of Present Illness This is a 63 year old female patient who is known to the Palliative Care Service presented to the hospital this admission with hemoptysis and nausea. 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 The Patient underwent liver biopsy on 11/05-was positive for adenocarcinoma of the lung as her primary. On her admission in November, she was seen by Dr. Wilson who performed thoracentesis, bronchoscopy, and Pleur-X catheter placement, which has since been removed on December 28. Unfortunately, hemoptysis has been a big symptom since her diagnosis. She recently had a chest CT that showed a decrease in her lymphadenopathy and decrease in hepatic metastases. The patient appears to be improving and even was walking in the hallway yesterday. Per Oncology, she appears to be a candidate for salvageable chemotherapy, knowing; however, her prognosis is overall poor. The patients most recent chemotherapy was 01/14/19. Patient was started on chemotherapy while inpatient yesterday 11/25. She received carboplatin, Bevacizumab, and paclitaxel. She tolerated well so far. Patient has been experiencing back pain from the metastatic disease as well, she is now on fentanyl patch. Given patient's extensive and incurable disease, palliative care is consulted to discuss goals and help provide symptom management. Please see A/P for further details. Thank you kindly for involving the palliative care team with this patient. Allergies Allergy/AdvReac Type Severity Reaction Status Date / Time morphine Allergy Unknown ITCHING Verified 01/15/19 14:32 AND LUMP ON HAND strawberry Allergy Unknown HIVES Verified 01/15/19 14:32 aspirin AdvReac Unknown GI UPSET Verified 01/15/19 14:32 Home Medications Home Medications Medication Instructions Recorded Confirmed Type cetirizine 5 mg tablet 5 mg PO QAM PRN tab 10/13/18 01/15/19 History conj estrogen-medroxyprogesterone 1 tab PO QAM 10/13/18 01/15/19 History 0.625 mg-2.5 mg tablet docusate sodium 100 mg PO BID #30 cap 11/09/18 01/15/19 Rx promethazine 25 mg tablet 25 mg PO Q6H PRN #60 tab 11/11/18 01/15/19 Rx albuterol sulfate 1 puffs INH Q6H PRN #18 gm 12/04/18 01/15/19 Rx oxycodone 10 mg tablet 10 mg PO Q4H PRN tab 12/05/18 01/15/19 History food supplement, lactose-reduced 1 ea PO BID #6399 ml 12/07/18 01/15/19 Rx 0.04 gram-1 kcal/mL oral liquid ondansetron 4 mg disintegrating 4 mg PO Q8H PRN #60 tab 12/11/18 01/15/19 Rx tablet fentanyl 50 mcg/hr transdermal 50 mcg TRANSDERMAL Q3D@1230 #5 ea 12/17/18 01/15/19 Rx patch dexamethasone 4 mg PO UD 12/31/18 01/15/19 History prochlorperazine maleate 10 mg PO TID PRN 12/31/18 01/15/19 History sennosides-docusate sodium [Senna 2 tab PO HS 12/31/18 01/15/19 History Plus] polyethylene glycol 3350 17 gram 17 g PO BID #30 ea 01/06/19 01/15/19 Rx oral powder packet codeine-guaifenesin [Guaifenesin 10 ml PO Q6H PRN #118 ml 01/20/19 Rx AC] mirtazapine 15 mg PO HS #30 tab 01/20/19 Rx omeprazole 20 mg PO DAILY #0 tab 01/20/19 01/15/19 Rx ondansetron HCl 4 mg PO TIDM #90 tab 01/20/19 Rx prednisone See Rx Instructions .ROUTE 01/20/19 Rx .COMPLEX #30 tab Patient History Medical History PHYLLIS I (cervical intraepithelial neoplasia I) Metastatic cancer to lung Bony metastasis Pleural effusion, left Non-small cell lung cancer with metastasis Pathologic compression fracture of spine Pain due to malignant neoplasm metastatic to bone Anxiety Chronic back pain GERD (gastroesophageal reflux disease) History of kidney stones Hypertension IBS (irritable bowel syndrome) 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 Port-A-Cath in place (01/05/19) Insertion of A-Port in Left Subclavian Dr. Mooney 01-05-19 Surgical History History of bronchoscopy History of colonoscopy w/ polypectomy History of hemorrhoidectomy History of lithotripsy History of liver biopsy History of rhinoplasty History of tubal ligation Hx of chest tube placement removed Family History Brother Colon cancer Prostate cancer Colorectal cancer Sister Cervical cancer History of kidney cancer Ovarian cancer Lung cancer Family/Other Breast cancer Sister Cholangiocarcinoma Social History Preferred Language: Italian Communication Ability: Effective Dip Filler Required: No Beliefs That Will Affect Care: None marital status: Single Current Living Situation: Alone current occupational status: disabled Feels Safe at Home: Yes Hx Alcohol Use: No Hx Substance Use: No Childhood Exposure to Second-Hand Smoke: No caffeine: Yes Physical Activity Frequency: Does not Exercise Physical Exam Constitutional: + thin, + cachectic and comfortable Respiratory: normal respiratory effort; does not use accessory muscles Auscultation: + diminished lung sounds Cardiovascular: Rate/Rhythm: regular rate and regular rhythm Heart Sounds: normal S1 and normal S2 Extremities: + edema (trace bilateral pedal) Gastrointestinal (Abdomen): normal bowel sounds, soft, nontender, no hepatosplenomegaly Skin: no rashes, warm and dry normal turgor Psychiatric: A+Ox3, euthymic affect (forgetfull regarding complex medical situation) Lymphatic: no cervical or axillary lymphadenopathy Results & Data Vital Signs (Past 12 Hours) Vital Signs Temp Pulse Pulse Resp BP BP Pulse Ox 01/20/19 07:42 36.9 C 77 18 131/79 93 01/20/19 07:14 70 18 96 01/20/19 04:24 36.4 C L 70 17 139/76 96 01/19/19 23:40 36.6 C 76 20 154/83 H 96 01/19/19 23:00 72 PG Care Time/CCT Total # of Minutes Spent Total Time Spent with Patient: Total time spent is greater than 50% in coordination of care (as documented) at patient's floor/unit and/or counseling patient: 70 Time Spent Midlevel Total time spent 70 minutes with > 50% of that time spent assessing the patient, providing symptom and pain management, and collaborating with IDT
[2019-01-20] MEDS ORDERED: predniSONE 20 MG TAB PO SCH (09:00)
[2019-01-20] MEDS: DOCUSATE SODIUM 100 MG CAP PO SCH (09:03)
[2019-01-20] MEDS: ONDANSETRON 4 MG TAB PO SCH ×2 (09:04→12:21)
[2019-01-20] MEDS: PANTOprazole 40 MG TAB PO SCH (09:04)
[2019-01-20] MEDS: DRONABINOL 2.5 MG CAP PO SCH (09:20)
--- NOTE | 2019-01-20 11:48 | Pulmonology Progress Note ---
Date of Service January 20, 2019 Assessment & Plan (1) Hemoptysis: Medium to dark brown sputum suggests old blood. No bright red blood with cough Patient seen and evaluated by thoracic surgery and being followed No utility in interventional radiology. This was discussed with patient and yasmin larsonhter Daughter aware that worsening hemoptysis could have catastrophic results No options other than supportive care Continue to reinforce comfort measures for patient Palliative care consult has been placed (2) Multifocal pneumonia: Procalcitonin 01/15/2019 was negative Patient is empirically been treated with antibiotics Sputum samples collected 11/07/2018 and 01/17/2019 showed normal alvino Pleural fluid collected 11/24/2018- for microbiology but positive for metastatic adenocarcinoma Admitted 01/15/19 and empirically started on Vanco, Azithromycin, and Cefepime Negative for influenza A&B MRSA screening was negative. Vanco discontinued. Day #5 Azithromycin and Cefipime Discontinue antibiotics and follow (3) Acute and chronic respiratory failure: Multifocal secondary to radiation pneumonitis, lung malignancy, possible bifocal pneumonia Patient with known lung malignancy requiring supplemental oxygen at home Typically uses 2 L/min via nasal cannula Walked 3 laps yesterday in the hallway with supplemental O2 with no significant shortness of breath Continue to encourage ambulation Aside from ongoing hemoptysis, patient is close to baseline. (4) Non-small cell lung cancer with metastasis: Follows with Dr. Albert Most recent chemotherapy 01/14/2019 with carboplatin, paclitaxel and bevacizumab Left subclavian a-port placed 01/05/2019 Status post XRT to spine for pain control * She received 9 of a 10 planned fractions of therapy. Patient declined further treatment. She received 2700 cGy. Further management per oncology Thank you for including us in the care of this patient. We will sign off at this time. Please feel free to reconsult as needed Please refer to Dr. Manjarrez's addendum for further recommendations. Supervising Physician Co-Signing Physician Notes I saw and evaluated the patient with Froylan Brush, and agree with findings and p lelia as documented in the note. Patient still has occasional hemoptysis which is dark blood. Denies any chest pain. Able to walk in the corridor with oxygen. Cough is decreased in intensity. Can taper prednisone off over the next 7 to 10 days. Discontinue antibiotics. No further intervention from pulmonary perspective. Palliative care. I have spent more than 50% of this 30 minute encounter in counseling and/or coordination of care with patient. Subjective Attending: Dr. Manjarrez Is a 63-year-old female with malignancy presented with hemoptysis. She continues with some coughing up of blood which appears to be blood-tinged mucus versus some clots. Appearance of blood is medium to dark brown suggesting old blood. There is no evidence of bright red blood or frothy sputum. Patient denies any chest pain or tightness. She has no nausea or vomiting. She has no fever. She denies any new complaints Review of Systems Review of Systems: All systems reviewed & are unremarkable except as noted in HPI & below Physical Exam Physical Exam: GENERAL : No acute distress EYES: No icterus, gaze conjugate NOSE: No evidence of epistaxis MOUTH: No lesions or candidiasis NECK: Supple LUNGS: Decreased air entry bilaterally, generally CTA B/L, no wheezes, rales or rhonchi. Breath sounds equal at the bases. He does appear to be some "alveoli popping" with deep inspiration HEART: Regular, rate controlled ABDOMEN: Soft, NT, ND, BS Present EXTREMITIES: No LE edema today, pedal pulses intact and equal bilaterally NEURO: A&OX3 Results & Data Vital Signs (Past 12 Hours) Vital Signs Temp Pulse Resp BP Pulse Ox 01/20/19 11:28 37.3 C 79 17 112/72 98 01/20/19 11:11 74 18 96 01/20/19 07:42 36.9 C 77 18 131/79 93 01/20/19 07:14 70 18 96 01/20/19 04:24 36.4 C L 70 17 139/76 96 Laboratory Results 01/20/19 05:22 01/20/19 05:22 Diagnostic Findings XR chest 1V portable CLINICAL HISTORY: Abnormal chest x-ray. Pulmonary consolidation. COMPARISON STUDY: 01/18/2019 FINDINGS: The cardiac and mediastinal contours remain stable. There is a left- sided A-Port catheter. There is persistent extensive left lung parenchymal consolidation with possible upper lung zone pulmonary cavitation. There are persistent but improving interstitial right lung opacities. A small left pleural effusion is suspected IMPRESSION: 1. Persistent left lung pulmonary consolidation with a suspected associated pleural effusion 2. Suspected cavitary left upper lobe lesion 3. Slight improvement in the right lung interstitial opacities Electronically signed by: Dayo Terrazas M.D. 01/19/2019 7:30 AM PG Care Time/CCT Total # of Minutes Spent Total Time Spent with Patient: Total time spent is greater than 50% in coordination of care (as documented) at patient's floor/unit and/or counseling patient: 20 minutes
--- NOTE | 2019-01-20 17:06 | Discharge Summary ---
Date of Service January 20, 2019 Admission HPI Per Admitting Provider Mrs. Gonsalez is a 63 year old female with past medical history of non-small cell lung cancer with metastasis, HTN, GERD who presented with hemoptysis. Pt. report she has had a chronic intermittent cough but started coughing up blood at 5 am this morning. She has not been able to eat/drink today. Has chest tightness during coughing episodes and mild shortness of breath. Is nauseous, denies vomiting, abd pain, constipation or diarrhea. Denies headache, lightheadedness, URI symptoms, LE edema. Most recent chemotherapy was on 01/14/19. She follows with Dr. Albert and Dr. Wilson. ER course: CTA was negative for PE, did show opacities concerning for multifocal PNA. Will admit for further work up of hemoptysis and treatment of pneumonia. Admission Exam Per Admitting Provider General: Chronically ill appearing female. HEENT: NC/AT; PERRLA with EOMI; [place] conjunctiva, MMM. No erythema of posterior pharynx Neck: Supple and nontender Cardiac: RRR Lungs: CTA bilaterally Abdomen: Bowel normoactive X 4; Nontender to palpation Rectal: Deferred : Deferred Back: NO spinous tenderness Extremities: Warm. No edema present Neuro: No focal weakness Skin: No rash Principal Diagnosis Hemoptysis Healthcare acquired multifocal pneumonia Radiation pneumonitis Non-small cell lung cancer with cavitating lesion on left lung and metastasis Malignant pleural effusion Pulmonary edema Pathological vertebral fracture Anemia due to hemoptysis Acute on chronic hypoxic respiratory failure Discharge Exam Constitutional + ill appearing and + cachectic; no acute distress Eyes normal pupil size ENMT Mouth: + dry oral mucous membranes Neck trachea midline Respiratory normal respiratory effort; no respiratory distress, no labored breathing and does not use accessory muscles Auscultation: + diminished lung sounds (left sided) and + rhonchi (bibasal L > R) Cardiovascular Rate/Rhythm: regular rate and regular rhythm Heart Sounds: no murmur Extremities: + edema (trace b/l) Gastrointestinal (Abdomen) normal bowel sounds, soft, nontender, no hepatosplenomegaly Percussion/Palpation: abdomen soft; abdomen nontender Musculoskeletal no cyanosis or clubbing, extremities motor strength 5/5 Gait: normal gait Skin no rashes, warm and dry Neurologic moves all extremities and awake Speech / Cognition: normal speech Motor/Sensory: no sensory deficit Psychiatric A+Ox3, euthymic affect Discharge Data Allergies Allergy/AdvReac Type Severity Reaction Status Date / Time morphine Allergy Unknown ITCHING Verified 01/15/19 14:32 AND LUMP ON HAND strawberry Allergy Unknown HIVES Verified 01/15/19 14:32 aspirin AdvReac Unknown GI UPSET Verified 01/15/19 14:32 Consultations 01/15/19 16:36 ED Decision to Admit Stat 01/15/19 17:57 Consult Oncology Routine Consult Thoracic Surgery Routine 01/16/19 10:15 Consult Pulmonology Routine 01/19/19 18:26 Consult Palliative Care Routine Ordered Studies 01/15/19 13:55 CT angio chest PE protocol Stat Hospital Course (1) Nausea: Continue compazine and ondansetron (2) Hemoptysis: Discussed with pulmonology team. Improving Cough suppressant to avoid excessive pressures causing a re-bleed Appreciate pulmonology, oncology and thoracic surgery input - no further procedural intervention to stop hemoptysis available Likely to re-occur (3) Severe protein-calorie malnutrition: Boost supplements with every meal. Started Remeron 15 mg qhs and marinol (d/c on discharge as not covered by insurance). (4) Multifocal pneumonia: as per pulm recommendations - finished 5 day course (cefepime + azithromycin) (5) Radiation pneumonitis: Tapering course of prednisone (received IV methylprednisone as inpatient) (6) Non-small cell lung cancer with metastasis: Appreciate heme/onc consult. Patient known to palliative care from last admission in November. Continue Fentanyl patch 50 mcg & Oxycodone 10 mg q4hr prn pain. Patient to follow up tomorrow regarding further chemotherapy treatments (7) Pulmonary edema: with malignant pleural effusions. d/c lasix as intravascularly deplete on exam, pulmonary edema appears resolved on CXR. Likely to have reoccurence of pulmonary edema and pleural effusions from hypoalbuminemia and malignancy. (8) Acute respiratory failure with hypoxia: back to baseline (9) Pathologic compression fracture of spine: - Continue Fentanyl patch with Oxycodone prn - Pain well controlled currently - consider bisphosphonates/denosumab as outpatient (10) HTN (hypertension): - Stable off home meds, will d/c on discharge (11) Elevated LFTs: - In setting of liver metastases - no need for continuous labs (12) GERD (gastroesophageal reflux disease): - PPI daily. (13) Anemia: - secondary to chemo, hemoptysis, assess for GI bleed with FOB pending - Stabilized around 8-9 Total Time Total Time Spent Total Time Spent (In Minutes): 35 Total Time Includes: Examination of the Patient, Discharge Planning, Medication Reconciliation and Communication With Other Providers Discharge Plan Discharge Items Patient Disposition: Home - Self-Care Reason For Visit: COUGHING UP BLOOD Discharge Diagnosis: Hemoptysis Healthcare acquired multifocal pneumonia Radiation pneumonitis Non-small cell lung cancer with cavitating lesion on left lung and metastasis Malignant pleural effusion Pulmonary edema Pathological vertebral fracture Anemia due to hemoptysis Acute on chronic hypoxic respiratory failure Condition on Discharge: Fair Activity: Resume your previous activity Non-emergency contact: Oncologist Call non-emergency contact if: you have any medication questions and your symptoms worsen Follow-up/Referrals: Allen Suresh III, MD [Primary Care Provider] - 01/27/19 10:45 am (Please, follow up with Dr. Suresh on FridayJanuary 27 at 10:45 am. *If you need to change this appointment, call the office at [phone].) Dejan Albert DO [Physician] - 01/21/19 10:00 am (Please, follow up at [facility] TOMORROW, January 21 at 10:00 am. *If you need to change this appointment, call the office at [phone].) Marley Martinez MD [Physician] - 01/21/19 11:00 am (Please, follow up with Dr. Martinez at [facility] tomorrow, after your infusion. *If you have any questions, call the office at [phone].) Diet: Regular Addtl Attending Provider Instructions: You were diagnosed with the above medical conditions. For this you were treated with IV steroids and antibiotics. You have finished the full antibiotic course so no further antibiotics have been prescribed. You will follow up tomorrow with oncology regarding further treatment for your l angelika cancer. You have been started on Zofran regularly prior to meals to help with nausea. You were started on cough suppressant medication to reduce amount of coughing in order to reduce likelihood of recurrent bleeding You were started on mirtazepine at night to help with increasing your appetite You will be discharged on a tapering course of prednisone - recommend taking omeprazole regularly while on this medication. Stop blood pressure medication as below as you blood pressure has been normal off this medication, likely no longer need this due to your weight loss. Pending Studies at Discharge: No Stand-Alone Forms: [facility] Medications and DC Order Prescriptions: New ondansetron HCl 4 mg Tablet 4 mg PO TIDM Qty: 90 RF: 0 mirtazapine 15 mg Tablet 15 mg PO HS Qty: 30 RF: 0 prednisone 10 mg tablet See Rx Instructions .ROUTE .COMPLEX Qty: 30 RF: 0 codeine-guaifenesin [Guaifenesin AC] 10-100 mg/5 mL liquid 10 ml PO Q6H PRN (Reason: cough) Qty: 118 RF: 0 Continued promethazine 25 mg tablet 25 mg PO Q6H PRN (Reason: nausea and vomiting) Qty: 60 RF: 0 fentanyl 50 mcg/hr patch 72 hour 50 mcg transdermal Q3D@1230 Qty: 5 RF: 0 polyethylene glycol 3350 [Miralax] 17 gram powder in packet 17 g PO BID Qty: 30 RF: 5 Boost 0.04 gram- 1 kcal/mL liquid 1 ea PO BID Qty: 6399 RF: 5 Prempro 0.625-2.5 mg tablet 1 tab PO QAM RF: 0 cetirizine 5 mg tablet 5 mg PO QAM PRN (Reason: allergies) RF: 0 oxycodone 10 mg tablet 10 mg PO Q4H PRN (Reason: pain) RF: 0 ondansetron 4 mg tablet,disintegrating 4 mg PO Q8H PRN (Reason: nausea and vomiting) Qty: 60 RF: 5 albuterol sulfate 90 mcg/actuation HFA aerosol inhaler 1 puffs INH Q6H PRN (Reason: shortness of breath or wheezing) Qty: 18 RF: 0 sennosides-docusate sodium [Senna Plus] 8.6-50 mg Tablet 2 tab PO HS RF: 0 prochlorperazine maleate 10 mg Tablet 10 mg PO TID PRN (Reason: Nausea) RF: 0 dexamethasone 4 mg Tablet 4 mg PO UD RF: 0 docusate sodium 100 mg Capsule 100 mg PO BID Qty: 30 RF: 0 Changed omeprazole 20 mg Tablet,Delayed Release (Dr/Ec) 20 mg PO DAILY Qty: 0 RF: 0 Discontinued losartan-hydrochlorothiazide 50-12.5 mg tablet 1 tab PO QAM Qty: 90 RF: 0 prednisone 10 mg Tablet 20 mg PO QAM RF: 0 Discharge Orders: Discharge Order (Routine); Ordered 01/20/19 Ordered By: Jesus Villatoro Admission Data Admit Date/Time: 01/15/19 17:55 Attending Provider: Jesus Villatoro Admit Provider: Sofia Calero Primary Care Provider: Allen Suresh III Other Providers: Nicole Araiza ; Rommel Wilson ; Dejan Albert V ; Zunilda Weiner ; Marley Martinez ; Ramesh Anderson Other Interventions: Discharge Summary Assessment (RN) Last Done: 01/20/19 17:18 DC Date/Time DO NOT enter until pt leaves facility: 01/20/19 18:29
--- NOTE | 2019-01-20 20:07 | Progress Note ---
DATE: 01/20/2019 The patient apparently is being discharged. She continues to have hemoptysis. She has rhonchi on the left side, but her chest x-ray has improved over the last few days. She continues to have congestion in the left lung field and has been coughing up dark blood. With the patient being discharged, I will follow her up in the office. This large cavity were in the place of her left upper lobe is going to present a problem because it is connected to the left mainstem bronchus. I will follow her up in the office. KAMILLE
== END 2019-01-20 18:29 | disposition home or self-care (01) | DRG 180 ==
LOC: ED 13:22 → 2N 17:55 → SUATTDRO 17:55 → 2N 18:37

== ENCOUNTER 2019-02-05 09:14 | Inpatient (IN) ==
[2019-02-05] MEDS ORDERED: ONDANSETRON INJ 2 MG/ML 2 ML VIAL IV STA (09:48)
[2019-02-05] MEDS ORDERED: SODIUM CHLORIDE 0.9% 1000ML 500 ML IV ONE (09:50)
[2019-02-05] MEDS ORDERED: SODIUM CHLORIDE 0.9% 1000ML 1,000 ML IV SCH (10:00)
--- NOTE | 2019-02-05 10:58 | XRay Report ---
XR chest 1V portable CLINICAL HISTORY: weakness dyspnea COMPARISON STUDY: 01/28/2019 FINDINGS: Central catheter remains in the superior vena cava at the junction with right atrium. Persistent consolidative effusion type changes left lung base. Increased pleural thickening left pulm onary apex unchanged. Right lung remain generally clear. Increased prominence of pulmonary vasculature is present. IMPRESSION: 1. Developing pulmonary venous congestion. 2. Slight increase in parenchymal and pleural changes left hemithorax. This does not represent a urmila r change compared to the prior study. . The above report was generated using voice recognition software. It may contain grammatical, syntax or spelling errors. Electronically signed by: Modesto Narayanan M.D. 02/05/2019 10:57 AM
[2019-02-05 10:59] LABS: Hematocrit (blood only) 26.8 % (37-47); Hemoglobin 8.7 g/dL (12.0-16.0); Mean Corpuscular Hemoglobin 29.7 pg (25-34); Mean Corpuscular Hgb Conc 32.5 g/dL (32-36); Mean Corpuscular Volume 91.5 fL (80-100); Nucleated RBC # (auto) 0.02 K/uL (0-0); Nucleated RBC % (auto) 0.7 %; Platelet Count 254 K/uL (130-400); RDW Standard Deviation 58.9 fL (36.4-46.3); Red Blood Count 2.93 M/uL (4.2-5.4); White Blood Count 2.14 K/uL (4.8-10.8)
--- NOTE | 2019-02-05 11:00 | XRay Report ---
XR KUB/Abdomen 1 view CLINICAL HISTORY: lung CA, vomiting nausea COMPARISON STUDY: 12/21/2018 FINDINGS: Unchanged opacification left lung base. Nonobstructive bowel pattern. No secondary evidence for free air. Mild compression deformity superior endplate L2 considered chronic and unchanged. IMPRESSION: Nonobstructive bowel pattern. Unchanged consolidative process left lung base. The above report was generated using voice recognition software. It may contain grammatical, syntax or spelling errors. Electronically signed by: Modesto Narayanan M.D. 02/05/2019 10:59 AM
[2019-02-05 11:17] LABS: Alanine Aminotransferase 24 U/L (12-78); Aspartate Aminotransferase 17 U/L (15-37); BUN Creatinine Ratio 44.2 (10-20); Blood Urea Nitrogen 16 mg/dl (7-18); Calcium 8.3 mg/dl (8.5-10.1); Carbon Dioxide 34 mmol/L (21-32); Chloride 100 mmol/L (98-107); Est GFR (African American) 132.7; Est GFR (Non-African American) 114.5; Glucose 125 mg/dl (70-99); Potassium 4.3 mmol/L (3.5-5.1); Sodium 137 mmol/L (136-145)
[2019-02-05 11:19] LABS: Albumin Globulin Ratio 0.5 (0.9-2); Alkaline Phosphatase 103 U/L (45-117); Bilirubin,Total 0.6 mg/dl (0.2-1); Globulin 3.7 gm/dl (2.5-4.0); Total Protein 5.7 gm/dl (6.4-8.2)
[2019-02-05 11:24] LABS: Anisocytosis Present; Basophils # (auto) 0.01 K/uL (0-0.2); Basophils % (auto) 0.5 %; Giant Platelets 1+; Immature Granulocytes # (auto) 0.02 K/uL (0.00-0.02); Immature Granulocytes % (auto) 0.9 %; Lymphocytes # (auto) 0.18 K/uL (1.2-3.4); Lymphocytes % (auto) 8.4 %; Monocytes # (auto) 0.28 K/uL (0.11-0.59); Monocytes % (auto) 13.1 %; Neutrophils # (auto) 1.65 K/uL (1.4-6.5); Neutrophils % (auto) 77.1 %; Toxic Granulation 2+
--- NOTE | 2019-02-05 12:44 | History & Physical Report ---
Date of Service February 05, 2019 Assessment & Plan (1) Weakness: (2) Vomiting: (3) Acute dehydration: (4) Goals of care, counseling/discussion: (5) Pleural effusion, malignant: (6) Nausea: (7) Acute and chronic respiratory failure: (8) Anemia: (9) Severe protein-calorie malnutrition: (10) Radiation pneumonitis: (11) History of recent chemotherapy: (12) Elevated LFTs: (13) GERD (gastroesophageal reflux disease): (14) HTN (hypertension): (15) Bony metastasis: (16) Pleural effusion, left: (17) Non-small cell lung cancer with metastasis: (18) Pathologic compression fracture of spine: (19) Pain due to malignant neoplasm metastatic to bone: Patient will be admitted under observation to the medical floor. Continue home medications. Continue Duragesic patch and oxycodone for pain control. Consult hematology oncology. Consult pulmonary. DuoNeb breathing treatment as needed basis per protocol. Consult palliative care. Case management for discharge planning. Continue with DVT and GI prophylaxis. CODE STATUS DNR/DNI. History of Present Illness Chief Complaint: Generalized weakness Primary Care Provider: Allen Suresh MD The patient is 63-year-old female with history of metastatic lung cancer currently on chemotherapy being followed up by oncologist. She is complaining of generalized weakness, fatigue and chronic pain getting worse for last 5 days. It appears that patient's family is not able to take care of her at home. The patient has nausea /occasional vomiting and decreased oral intake. She will be admitted observation for further evaluation and management. In the emergency room she was started on IV fluids. Currently the patient states that her pain is under control. Allergies Allergy/AdvReac Type Severity Reaction Status Date / Time morphine Allergy Unknown ITCHING Verified 02/05/19 09:51 AND LUMP ON HAND strawberry Allergy Unknown HIVES Verified 02/05/19 09:51 aspirin AdvReac Unknown GI UPSET Verified 02/05/19 09:51 Home Medications Home Medications Medication Instructions Recorded Confirmed Type cetirizine 5 mg tablet 5 mg PO QAM PRN tab 10/13/18 02/05/19 History conj estrogen-medroxyprogesterone 1 tab PO QAM 10/13/18 02/05/19 History 0.625 mg-2.5 mg tablet promethazine 25 mg tablet 25 mg PO Q6H PRN #60 tab 07/24/19 10/18/19 Rx oxycodone 10 mg tablet 10 mg PO Q4H PRN tab 12/05/18 02/05/19 History food supplement, lactose-reduced 1 ea PO BID #6399 ml 12/07/18 02/05/19 Rx 0.04 gram-1 kcal/mL oral liquid ondansetron 4 mg disintegrating 4 mg PO Q8H PRN #60 tab 12/11/18 02/05/19 Rx tablet dexamethasone [Decadron] 4 mg PO UD 12/31/18 02/05/19 History prochlorperazine maleate 10 mg PO TID PRN 12/31/18 02/05/19 History [Compazine] sennosides-docusate sodium [Senna 2 tab PO HS 12/31/18 02/05/19 History Plus] polyethylene glycol 3350 17 gram 17 g PO BID #30 ea 01/06/19 02/05/19 Rx oral powder packet codeine-guaifenesin [Guaifenesin 10 ml PO Q6H PRN #118 ml 01/20/19 02/05/19 Rx AC] omeprazole 20 mg PO DAILY #0 tab 01/20/19 02/05/19 Rx albuterol sulfate [Ventolin HFA] 1 puffs INH Q6H PRN 02/05/19 02/05/19 History docusate sodium [Colace] 100 mg PO BID 02/05/19 02/05/19 History fentanyl [Duragesic] 50 mcg TRANSDERMAL Q3D@1230 02/05/19 02/05/19 History mirtazapine [Remeron] 15 mg PO HS 02/05/19 02/05/19 History ondansetron HCl [Zofran] 4 mg PO TIDM 02/05/19 02/05/19 History Past Med/Surg History Medical History PHYLLIS I (cervical intraepithelial neoplasia I) Metastatic cancer to lung Bony metastasis Pleural effusion, left Non-small cell lung cancer with metastasis Pathologic compression fracture of spine Pain due to malignant neoplasm metastatic to bone Anxiety Chronic back pain GERD (gastroesophageal reflux disease) History of kidney stones Hypertension IBS (irritable bowel syndrome) 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 Port-A-Cath in place (01/05/19) Insertion of A-Port in Left Subclavian Dr. Mooney 01-05-19 Surgical History History of bronchoscopy History of colonoscopy w/ polypectomy History of hemorrhoidectomy History of lithotripsy History of liver biopsy History of rhinoplasty History of tubal ligation Hx of chest tube placement removed Family History Brother Colon cancer Prostate cancer Colorectal cancer Sister Cervical cancer History of kidney cancer Ovarian cancer Lung cancer Family/Other Breast cancer Sister Cholangiocarcinoma Social History Preferred Language: Malagasy Communication Ability: Effective [employer] Required: No Beliefs That Will Affect Care: None marital status: Single Current Living Situation: Alone current occupational status: disabled Feels Safe at Home: Yes Smoking Status: Current every day smoker (HAS SMOKED FOR 47 YEARS) Tobacco Type: cigarettes ; Cigarettes Per Day: 10 ; Second Hand Exposure: No ; Hx Alcohol Use: No Hx Substance Use: No Childhood Exposure to Second-Hand Smoke: No caffeine: Yes Physical Activity Frequency: Does not Exercise Review of Systems Review of Systems: All systems reviewed & are unremarkable except as noted in HPI & below Constitutional: + fatigue, + malaise, + weakness, + anorexia and + weight loss Respiratory: + cough Musculoskeletal: + back pain and + body aches Physical Exam Physical Exam: EYES: No icterus, gaze conjugate NOSE: No evidence of epistaxis MOUTH: No lesions or candidiasis, mucosa moist NECK: Supple HEART: Regular, rate controlled ABDOMEN: Soft, NT, ND, BS Present EXTREMITIES: No LE edema, pedal pulses intact NEURO: A&OX3 Constitutional: + ill appearing, + thin, + frail appearing, + lethargic and + malnourished alopecia+ Respiratory: + dullness to percussion and + cough Auscultation: + diminished lung sounds and + rhonchi Results & Data Vital Signs (Past 12 Hours) Vital Signs Temp Pulse Resp BP Pulse Ox 02/05/19 11:26 95 02/05/19 11:00 94 H 24 139/83 95 02/05/19 10:30 94 H 24 152/99 H 02/05/19 09:56 99 H 28 H 130/73 91 02/05/19 09:21 98.8 F 101 H 22 148/88 H 94 Laboratory Results 02/05/19 10:31 02/05/19 10:31 02/05/19 02/05/19 Range/Units 10:31 10:31 WBC 2.14 L (4.8-10.8) K/uL RBC 2.93 L (4.2-5.4) M/uL Hgb 8.7 L (12.0-16.0) g/dL Hct 26.8 L (37-47) % MCV 91.5 (80-100) fL MCH 29.7 (25-34) pg MCHC 32.5 (32-36) g/dL RDW Std Deviation 58.9 H (36.4-46.3) fL RDW Coeff of [place] 18.0 H (11.5-14.5) % Plt Count 254 (130-400) K/uL MPV 10.0 (7.4-10.4) fL Immature Gran % (Auto) 0.9 % Neut % (Auto) 77.1 % Lymph % (Auto) 8.4 % [place] % (Auto) 13.1 % Eos % (Auto) 0.0 % Baso % (Auto) 0.5 % Immature Gran # (Auto) 0.02 (0.00-0.02) K/uL Neut # (Auto) 1.65 (1.4-6.5) K/uL Lymph # (Auto) 0.18 L (1.2-3.4) K/uL [place] # (Auto) 0.28 (0.11-0.59) K/uL Eos # (Auto) 0.00 (0-0.5) K/uL Baso # (Auto) 0.01 (0-0.2) K/uL Absolute Nucleated RBC 0.02 H (0-0) K/uL Nucleated RBC % (auto) 0.7 % Toxic Granulation 2+ Giant Platelets 1+ Anisocytosis Present Sodium 137 (136-145) mmol/L Potassium 4.3 (3.5-5.1) mmol/L Chloride 100 (98-107) mmol/L Carbon Dioxide 34 H (21-32) mmol/L Anion Gap 3.0 (3-11) BUN 16 (7-18) mg/dl Creatinine 0.37 L (0.6-1.2) mg/dl Est Cr Clr Drug Dosing Not Reportable Est GFR ( Amer) 132.7 Est GFR (Non-Af Amer) 114.5 BUN/Creatinine Ratio 44.2 H (10-20) Glucose 125 H (70-99) mg/dl Calcium 8.3 L (8.5-10.1) mg/dl Total Bilirubin 0.6 (0.2-1) mg/dl AST 17 (15-37) U/L ALT 24 (12-78) U/L Alkaline Phosphatase 103 (45-117) U/L Total Protein 5.7 L (6.4-8.2) gm/dl Albumin 2.0 L (3.4-5.0) gm/dl Globulin 3.7 (2.5-4.0) gm/dl Albumin/Globulin Ratio 0.5 L (0.9-2) Diagnostic Findings [place], [place] [phone] XRay Report Patient: ABDIRAHMAN BECKER AAdmit Date: 02/05/19 MR#: [id number]: [id number] [facility] Acct ID:[id number]: Date: 1955[facility] Zip: [place] [address] Age: 63Location: ED Sex: F Room/Bed: Att Phy:Diagnosis: WEAK, THROWING UP, CURRENT RAD ONC PATIENT Lisa Phy: Allen Suresh, III, MDService Date: 02/05/19 Fam Phy:Interpreting Phy: Modesto Narayanan MD Admit Phy: Ordering Phy: Anastasia Barraza M.D. cc: ~ XR chest 1V portable CLINICAL HISTORY: weakness dyspnea COMPARISON STUDY: 01/28/2019 FINDINGS: Central catheter remains in the superior vena cava at the junction with right atrium. Persistent consolidative effusion type changes left lung base. Increased pleural thickening left pulmonary apex unchanged. Right lung remain generally clear. Increased prominence of pulmonary vasculature is present. IMPRESSION: 1. Developing pulmonary venous congestion. 2. Slight increase in parenchymal and pleural changes left hemithorax. This does not represent a major change compared to the prior study. .CLINICAL HISTORY: lung CA, vomiting nausea COMPARISON STUDY: 12/21/2018 FINDINGS: Unchanged opacification left lung base. Nonobstructive bowel pattern. No secondary evidence for free air. Mild compression deformity superior endplate L2 considered chronic and unchanged. IMPRESSION: Nonobstructive bowel pattern. Unchanged consolidative process left lung base. Code Status & VTE Plan VTE Prophylaxis Plan VTE Prophylaxis will be ordered: Yes PG Care Time/CCT Total # of Minutes Spent Total Time Spent with Patient: Total time spent is greater than 50% in coordination of care (as documented) at patient's floor/unit and/or counseling patient: 60 min (1) Vomiting Nausea presence: unspecified Vomiting Intractability: unspecified Vomiting type: unspecified Qualified Code(s): R11.10 - Vomiting, unspecified (2) Pathologic compression fracture of spine Encounter type: initial encounter Qualified Code(s): M48.50XA - Collapsed vertebra, not elsewhere classified, site unspecified, initial encounter for fracture
[2019-02-05] MEDS ORDERED: MAGNESIUM HYDROXIDE SUSP 30 ML UDC PO PRN (13:44)
[2019-02-05] MEDS ORDERED: ALUMINUM/MAGNESIUM SUSP 30 ML UDC PO PRN (13:44)
[2019-02-05] MEDS ORDERED: dexAMETHasone 4 MG TAB PO SCH (13:44)
[2019-02-05] MEDS ORDERED: ENOXAPARIN INJ 40 MG/0.4 ML SYR SQ SCH (13:44)
[2019-02-05] MEDS ORDERED: ALBUTEROL HFA 8 GM INHALER INH PRN (13:44)
[2019-02-05] MEDS ORDERED: ZOLPIDEM TARTRATE 5 MG TAB PO PRN (13:44)
[2019-02-05] MEDS ORDERED: CETIRIZINE HCL 10 MG TABLET PO PRN (13:44)
[2019-02-05] MEDS ORDERED: ONDANSETRON 4 MG OD TAB PO PRN (13:44)
[2019-02-05] MEDS ORDERED: PROCHLORPERAZINE MALEATE 10 MG TAB PO PRN (13:44)
[2019-02-05] MEDS ORDERED: PROMETHAZINE HCL 25 MG TAB PO PRN (13:44)
[2019-02-05] MEDS: SODIUM CHLORIDE 0.9% 1000ML 1,000 ML IV SCH (14:46)
--- NOTE | 2019-02-05 15:55 | Palliative Care Progress Note ---
Date of Service February 05, 2019 Subjective Consult received, chart reviewed. Patient just admitted today, she is known to our service. Patient is tired, nauseated, severely weak and cachectic. Patient stated, "I just don't know if this is all worth it... taking chemo and being so sick." She declines wanting to speak about it further right now. We will see patient on Friday. Formal consult to follow. Results & Data Vital Signs (Past 12 Hours) Vital Signs Temp Pulse Pulse Resp BP BP Pulse Ox 02/05/19 13:50 37.3 C 88 16 136/84 96 02/05/19 13:45 37.3 C 88 16 136/84 96 02/05/19 13:24 80 20 134/74 93 02/05/19 12:30 83 21 138/78 96 02/05/19 12:18 84 23 133/78 95 02/05/19 12:00 86 22 133/78 95 02/05/19 11:30 90 19 120/77 96 02/05/19 11:26 95 02/05/19 11:00 94 H 24 139/83 95 02/05/19 10:30 94 H 24 152/99 H 02/05/19 09:56 99 H 28 H 130/73 91 02/05/19 09:21 37.1 C 101 H 22 148/88 H 94 PG Care Time/CCT Total # of Minutes Spent Total Time Spent with Patient: Total time spent is greater than 50% in coordination of care (as documented) at patient's floor/unit and/or counseling patient:
[2019-02-05] MEDS ORDERED: fentaNYL 50 MCG/HR TDSY TD SCH (16:00)
[2019-02-05] MEDS: CHECK FENTANYL PATCH PLACEMENT SCH (16:57)
[2019-02-05] MEDS: HEPARIN SOD 5,000 UNIT/0.5 ML VIAL SQ SCH (17:00)
[2019-02-05] MEDS: ONDANSETRON 4 MG TAB PO SCH (17:01)
--- NOTE | 2019-02-05 17:18 | Emergency Department Note ---
Entered by Ashu Eden acting as a scribe for Anastasia Barraza MD History of Present Illness General Chief complaint: Weakness Stated complaint: WEAK, THROWING UP, CURRENT RAD ONC PATIENT Source: patient and other (duct layer) History of Present Illness Onset (ago): day(s) (several) Location: left and right Pain Consistency: + constant Quality: + other (lethargy) Associated symptoms: + cough, + nausea/vomiting and + other (+constant sleeping; +not taking in enough fluids); no fever/chills and no headaches The patient is a 63 year old female, with past medical history of lung cancer with metastasis, who presents to the Emergency Room with complaints of constant lethargy over the past several days, according to the patient's duct layer. The duct layer states the patient has been sick, has had no energy, been sleeping all day, and not taking in enough fluids over the past few days. The duct layer also notes the patient has been vomiting any fluid she takes in. The duct layer denies that the patient has a fever. The duct layer also notes the patient's last chemo treatment was 8 days ago, and she states the patient got blood work done yesterday but are still awaiting results. The patient reports she is tired, but she denies being in any pain right now. The patient denies a headache. The patient states that her vomit has been clear, and she notes she has had a consta nt cough recently. Home Medications Home Medications Medication Instructions Recorded Confirmed Type cetirizine 5 mg tablet 5 mg PO QAM PRN tab 10/13/18 02/05/19 History conj estrogen-medroxyprogesterone 1 tab PO QAM 10/13/18 02/05/19 History 0.625 mg-2.5 mg tablet promethazine 25 mg tablet 25 mg PO Q6H PRN #60 tab 11/11/18 02/05/19 Rx oxycodone 10 mg tablet 10 mg PO Q4H PRN tab 12/05/18 02/05/19 History food supplement, lactose-reduced 1 ea PO BID #6399 ml 12/07/18 02/05/19 Rx 0.04 gram-1 kcal/mL oral liquid ondansetron 4 mg disintegrating 4 mg PO Q8H PRN #60 tab 12/11/18 02/05/19 Rx tablet dexamethasone [Decadron] 4 mg PO UD 12/31/18 02/05/19 History prochlorperazine maleate 10 mg PO TID PRN 12/31/18 02/05/19 History [Compazine] sennosides-docusate sodium [Senna 2 tab PO HS 12/31/18 02/05/19 History Plus] polyethylene glycol 3350 17 gram 17 g PO BID #30 ea 01/06/19 02/05/19 Rx oral powder packet codeine-guaifenesin [Guaifenesin 10 ml PO Q6H PRN #118 ml 01/20/19 02/05/19 Rx AC] omeprazole 20 mg PO DAILY #0 tab 01/20/19 02/05/19 Rx albuterol sulfate [Ventolin HFA] 1 puffs INH Q6H PRN 02/05/19 02/05/19 History docusate sodium [Colace] 100 mg PO BID 02/05/19 02/05/19 History fentanyl [Duragesic] 50 mcg TRANSDERMAL Q3D@1230 02/05/19 02/05/19 History mirtazapine [Remeron] 15 mg PO HS 02/05/19 02/05/19 History ondansetron HCl [Zofran] 4 mg PO TIDM 02/05/19 02/05/19 History Allergies Allergy/AdvReac Type Severity Reaction Status Date / Time morphine Allergy Unknown ITCHING Verified 02/05/19 09:51 AND LUMP ON HAND strawberry Allergy Unknown HIVES Verified 02/05/19 09:51 aspirin AdvReac Unknown GI UPSET Verified 02/05/19 09:51 Past Med/Surg History Medical History PHYLLIS I (cervical intraepithelial neoplasia I) Metastatic cancer to lung Bony metastasis Pleural effusion, left Non-small cell lung cancer with metastasis Pathologic compression fracture of spine Pain due to malignant neoplasm metastatic to bone Anxiety Chronic back pain GERD (gastroesophageal reflux disease) History of kidney stones Hypertension IBS (irritable bowel syndrome) 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 Port-A-Cath in place (01/05/19) Insertion of A-Port in Left Subclavian Dr. Mooney 01-05-19 Surgical History History of bronchoscopy History of colonoscopy w/ polypectomy History of hemorrhoidectomy History of lithotripsy History of liver biopsy History of rhinoplasty History of tubal ligation Hx of chest tube placement removed Family History Brother Colon cancer Prostate cancer Colorectal cancer Sister Cervical cancer History of kidney cancer Ovarian cancer Lung cancer Family/Other Breast cancer Sister Cholangiocarcinoma Social History Preferred Language: Greek Communication Ability: Effective Quality Assurance Qa Lab Analyst Required: No Beliefs That Will Affect Care: None marital status: Single Current Living Situation: Alone current occupational status: disabled Feels Safe at Home: Yes Smoking Status: Former smoker Tobacco Type: cigarettes ; Cigarettes Per Day: 10 ; Second Hand Exposure: Yes ; Hx Alcohol Use: No Hx Substance Use: No Childhood Exposure to Second-Hand Smoke: No caffeine: Yes Physical Activity Frequency: Does not Exercise Review of Systems See HPI for pertinent positives & negatives. and A total of 10 systems reviewed and were otherwise negative Physical Exam Vital Signs Vital Signs - 24 hr 02/05/19 11:00 02/05/19 11:26 02/05/19 11:30 Pulse Rate 94 H 90 Pulse Rate from SpO2 Sensor 93 H 90 Respiratory Rate 24 19 Blood Pressure 139/83 120/77 Blood Pressure Mean 101 91 Pulse Oximetry 95 95 96 Oxygen Delivery Method Room Air 02/05/19 12:00 02/05/19 12:18 Pulse Rate 86 84 Pulse Rate from SpO2 Sensor 84 84 Respiratory Rate 22 23 Blood Pressure 133/78 133/78 Blood Pressure Mean 96 96 Pulse Oximetry 95 95 Oxygen Delivery Method Vital signs reviewed. General: Chronically ill-appearing, slightly cachectic, and in no significant distress. HEENT: No scleral icterus, PERRLA, neck supple. Atraumatic. Dry mucous membranes. Cardiovascular: Slightly tachycardic, regular rhythm, no extra sounds. Pulmonary: Diminished left basilar lung sounds, normal work of breathing. Abdomen: Soft, nontender, nondistended, positive bowel sounds. Musculoskeletal: Atraumatic, mild peripheral edema. Rectal: Normal external mucosa, guaiac negative brown stool. Neurologic: Patient somnolent but arousable. Answers simple questions with one- word answers. Skin: Warm, dry, no rash Course 0943: Past medical records reviewed. The patient was evaluated in room B5. A complete history and physical exam was performed. 1140: I discussed the patient's case with the patient's daughter. 1158: I reviewed the patient's case with Dr. Oconnor-Hospitalist [facility]. Dr. Oconnor will evaluate the patient for further management. Consultations Consultation #1: I reviewed the patient's case with Dr. Oconnor[facility]. Dr. Oconnor will evaluate the patient for further management. Time: 11:58 Administered Medications Cetirizine HCl (Zyrtec) 5 mg PO QAM PRN PRN Reason: allergies Last Admin: 02/06/19 08:55 Dose: 5 mg Documented by: [id number] Docusate Sodium (Colace) 100 mg PO BID PREM Stop: 03/07/19 20:59 Last Admin: 02/06/19 08:56 Dose: 100 mg Documented by: [id number] Admin: 02/05/19 20:56 Dose: Not Given Documented by: [id number] Fentanyl (Duragesic) 50 mcg TD Q3D@1230 PREM Stop: 02/19/19 15:59 Last Admin: 02/05/19 16:57 Dose: 50 mcg Documented by: [id number] Guaifenesin (Robitussin Sugar Free) 200 mg PO Q6H PRN PRN Reason: Cough Stop: 03/07/19 20:14 Last Admin: 02/06/19 08:00 Dose: 200 mg Documented by: [id number] Admin: 02/05/19 21:04 Dose: 200 mg Documented by: [id number] Mirtazapine (Remeron) 15 mg PO HS PREM Stop: 03/07/19 20:59 Last Admin: 02/05/19 20:56 Dose: 15 mg Documented by: [id number] Miscellaneous (Order Awaiting Action) 1 ea N/A QS PREM Stop: 03/08/19 07:59 Last Admin: 02/06/19 08:00 Dose: Not Given Documented by: [id number] Miscellaneous (Fentanyl Patch Check Placement) 1 ea N/A QS PREM Stop: 03/07/19 15:59 Last Admin: 02/06/19 08:00 Dose: 1 ea Documented by: [id number] Admin: 02/06/19 00:16 Dose: 1 ea Documented by: [id number] Admin: 02/05/19 16:57 Dose: 1 ea Documented by: [id number] Miscellaneous (Fentanyl Patch Remove & Waste) 1 ea N/A Q3D PREM Stop: 03/07/19 15:59 Last Admin: 02/05/19 16:57 Dose: 1 ea Documented by: [id number] Cosigned by: [id number] Ondansetron HCl (Zofran Tab) 4 mg PO TIDM PREM Stop: 03/07/19 16:59 Last Admin: 02/06/19 08:02 Dose: 4 mg Documented by: [id number] Admin: 02/05/19 17:01 Dose: Not Given Documented by: [id number] Pantoprazole Sodium (Protonix) 20 mg PO DAILY PREM Stop: 03/08/19 08:59 Last Admin: 02/06/19 08:01 Dose: 20 mg Documented by: [id number] Polyethylene Glycol (Miralax Powder Packet) 17 gm PO BID PREM Stop: 03/07/19 20:59 Last Admin: 02/06/19 08:56 Dose: 17 gm Documented by: [id number] Admin: 02/05/19 20:52 Dose: 17 gm Documented by: [id number] Promethazine HCl (Phenergan) 25 mg PO Q6H PRN PRN Reason: nausea and vomiting Stop: 03/07/19 13:43 Last Admin: 02/05/19 15:03 Dose: 25 mg Documented by: [id number] Senna/Docusate Sodium (Senokot S) 2 tab PO HS PREM Stop: 03/07/19 20:59 Last Admin: 02/05/19 20:56 Dose: 2 tab Documented by: [id number] Discontinued Medications Heparin Sodium (Porcine) (Heparin Sodium (Porcine)) 5,000 units SQ Q12 PREM Stop: 03/07/19 16:59 Last Admin: 02/06/19 08:56 Dose: Not Given Documented by: [id number] Admin: 02/05/19 17:00 Dose: Not Given Documented by: [id number] Sodium Chloride (Nss 1000ml) 500 mls @ 999 mls/hr IV .Q31M ONE Stop: 02/05/19 10:20 Last Infusion: 02/05/19 12:56 Dose: 0 mls/hr Documented by: [id number] Admin: 02/05/19 10:20 Dose: 999 mls/hr Documented by: [id number] Sodium Chloride (Nss 1000ml) 1,000 mls @ 125 mls/hr IV .Q8H PREM Stop: 03/07/19 09:59 Last Infusion: 02/05/19 14:05 Dose: 0 mls/hr Documented by: [id number] Admin: 02/05/19 10:46 Dose: 125 mls/hr Documented by: [id number] Sodium Chloride (Nss 1000ml) 1,000 mls @ 50 mls/hr IV .Q20H PREM Stop: 03/07/19 13:43 Last Infusion: 02/06/19 09:01 Dose: 50 mls/hr Documented by: [id number] Admin: 02/06/19 04:50 Dose: 50 mls/hr Documented by: [id number] Infusion: 02/06/19 04:50 Dose: 50 mls/hr Documented by: [id number] Admin: 02/05/19 14:46 Dose: 50 mls/hr Documented by: [id number] Ondansetron HCl (Zofran) 4 mg IV NOW STA Stop: 02/05/19 09:49 Last Admin: 02/05/19 10:20 Dose: 4 mg Documented by: [id number] Medical Decision Making Differential Diagnosis Differential diagnosis: Etiologies such as metabolic, infection, hypo/hyperglycemia, electrolyte abnormalities, cardiac sources, intracerebral event, toxicologic, neurologic, as well as others were entertained. Medical Records Attestation: I reviewed the patient's medical records. Home Medications Current Medication List: was personally reviewed by me Laboratory Data Attestation: I reviewed the patient's lab results. Result diagrams: 02/06/19 06:56 02/06/19 06:56 Lab Results 02/05/19 02/05/19 Range/Units 10:31 10:31 WBC 2.14 L (4.8-10.8) K/uL RBC 2.93 L (4.2-5.4) M/uL Hgb 8.7 L (12.0-16.0) g/dL Hct 26.8 L (37-47) % MCV 91.5 (80-100) fL MCH 29.7 (25-34) pg MCHC 32.5 (32-36) g/dL RDW Std Deviation 58.9 H (36.4-46.3) fL RDW Coeff of [place] 18.0 H (11.5-14.5) % Plt Count 254 (130-400) K/uL MPV 10.0 (7.4-10.4) fL Immature Gran % (Auto) 0.9 % Neut % (Auto) 77.1 % Lymph % (Auto) 8.4 % [place] % (Auto) 13.1 % Eos % (Auto) 0.0 % Baso % (Auto) 0.5 % Immature Gran # (Auto) 0.02 (0.00-0.02) K/uL Neut # (Auto) 1.65 (1.4-6.5) K/uL Lymph # (Auto) 0.18 L (1.2-3.4) K/uL [place] # (Auto) 0.28 (0.11-0.59) K/uL Eos # (Auto) 0.00 (0-0.5) K/uL Baso # (Auto) 0.01 (0-0.2) K/uL Absolute Nucleated RBC 0.02 H (0-0) K/uL Nucleated RBC % (auto) 0.7 % Toxic Granulation 2+ Giant Platelets 1+ Anisocytosis Present Sodium 137 (136-145) mmol/L Potassium 4.3 (3.5-5.1) mmol/L Chloride 100 (98-107) mmol/L Carbon Dioxide 34 H (21-32) mmol/L Anion Gap 3.0 (3-11) BUN 16 (7-18) mg/dl Creatinine 0.37 L (0.6-1.2) mg/dl Est Cr Clr Drug Dosing Not Reportable Est GFR ( Amer) 132.7 Est GFR (Non-Af Amer) 114.5 BUN/Creatinine Ratio 44.2 H (10-20) Glucose 125 H (70-99) mg/dl Calcium 8.3 L (8.5-10.1) mg/dl Total Bilirubin 0.6 (0.2-1) mg/dl AST 17 (15-37) U/L ALT 24 (12-78) U/L Alkaline Phosphatase 103 (45-117) U/L Total Protein 5.7 L (6.4-8.2) gm/dl Albumin 2.0 L (3.4-5.0) gm/dl Globulin 3.7 (2.5-4.0) gm/dl Albumin/Globulin Ratio 0.5 L (0.9-2) Imaging Data Radiologist's Impression: Radiology results as stated below per my review and the radiologist's interpretation: XR chest 1V portable CLINICAL HISTORY: weakness dyspnea COMPARISON STUDY: 01/28/2019 FINDINGS: Central catheter remains in the superior vena cava at the junction with right atrium. Persistent consolidative effusion type changes left lung base. Increased pleural thickening left pulmonary apex unchanged. Right lung remain generally clear. Increased prominence of pulmonary vasculature is present. IMPRESSION: 1. Developing pulmonary venous congestion. 2. Slight increase in parenchymal and pleural changes left hemithorax. This does not represent a major change compared to the prior study. . The above report was generated using voice recognition software. It may contain grammatical, syntax or spelling errors. Electronically signed by: Modesto Narayanan M.D. 02/05/2019 10:57 AM XR KUB/Abdomen 1 view CLINICAL HISTORY: lung CA, vomiting nausea COMPARISON STUDY: 12/21/2018 FINDINGS: Unchanged opacification left lung base. Nonobstructive bowel pattern. No secondary evidence for free air. Mild compression deformity superior endplate L2 considered chronic and unchanged. IMPRESSION: Nonobstructive bowel pattern. Unchanged consolidative process left lung base. The above report was generated using voice recognition software. It may contain grammatical, syntax or spelling errors. Electronically signed by: Modesto Narayanan M.D. 02/05/2019 10:59 AM ECG Data Attestation: I personally reviewed and interpreted this ECG as follows: Indication: weakness Rate (beats per minute): 94 Rhythm: sinus rhythm Findings: + other (short [place] interval, rightward axis, likely previous anterior infarct) and + T-wave inversion (anteriorly ) Blood Pressure Blood Pressure Findings: Elevated blood pressure Blood Pressure Disposition: elevated BP felt to be situational MDM Narrative This patient was evaluated and appeared to be in no significant distress. Patient is cachectic and weak. She is somnolent but arousable. Laboratory work was obtained and reveals a hemoglobin of 8.7, slightly lower than her most recent. Rectal exam was performed and reveals guaiac negative stool. Patient was hydrated with normal saline solution. Patient's daughter is fearful she has not been able to maintain oral hydration or adequate food consumption. Patient will be evaluated by the hospitalist service for continued management. Patient will likely require case management intervention. Impression & Plan Weakness, Vomiting, Acute dehydration Discharge Plan Visit Data *Final* Discharge Date/Time: 02/05/19 13:24 Chief Complaint: Weakness Stated Complaint: WEAK, THROWING UP, CURRENT RAD ONC PATIENT ED Provider: Anastasia Barraza Discharge Problem: Weakness, Vomiting, Acute dehydration Patient Disposition: Being Evaluated by Hospitalist Discharge Instructions Interventions: ED Discharge Assessment Last Done: 02/05/19 13:24 Discharge Problem: Vomiting Qualifiers: Vomiting type: unspecified Vomiting Intractability: unspecified Nausea presence: unspecified Qualified Code(s): R11.10 - Vomiting, unspecified The scribe's documentation has been prepared under my direction and personally reviewed by me in its entirety. I confirm that the note above accurately reflects all work, treatment, procedures, and medical decision making performed by me.
[2019-02-05] MEDS ORDERED: Nursing to Pharmacy Communication ONE ×3 (17:31→17:37)
[2019-02-05] MEDS: POLYETHYLENE (MIRALAX) 17 GM PACK PO SCH (20:52)
[2019-02-05] MEDS: MIRTAZAPINE TAB 15 MG TAB PO SCH (20:56)
[2019-02-05] MEDS: DOCUSATE SODIUM/SENNA 50/8.6MG TAB PO SCH (20:56)
[2019-02-05] MEDS: DOCUSATE SODIUM 100 MG CAP PO SCH (20:56)
[2019-02-05] MEDS ORDERED: NON-FORMULARY MEDICATION (Food Supplemt, Lactose-Reduced [Boost] 1 EA) PO SCH (21:00)
[2019-02-05] MEDS: guaiFENesin SUGAR FREE 200 MG/10 ML UDC PO PRN (21:04)
[2019-02-06] MEDS: CHECK FENTANYL PATCH PLACEMENT SCH ×3 (00:16→15:18)
[2019-02-06] MEDS: SODIUM CHLORIDE 0.9% 1000ML 1,000 ML IV SCH (04:50)
[2019-02-06 07:29] LABS: Hematocrit (blood only) 26.2 % (37-47); Hemoglobin 8.4 g/dL (12.0-16.0); Mean Corpuscular Hemoglobin 29.3 pg (25-34); Mean Corpuscular Hgb Conc 32.1 g/dL (32-36); Mean Corpuscular Volume 91.3 fL (80-100); Mean Platelet Volume 9.9 fL (7.4-10.4); Platelet Count 294 K/uL (130-400); RDW Coefficient of Variation 18.1 % (11.5-14.5); RDW Standard Deviation 59.5 fL (36.4-46.3); Red Blood Count 2.87 M/uL (4.2-5.4); White Blood Count 2.76 K/uL (4.8-10.8)
[2019-02-06] MEDS: guaiFENesin SUGAR FREE 200 MG/10 ML UDC PO PRN (08:00)
[2019-02-06] MEDS: ONDANSETRON 4 MG TAB PO SCH ×3 (08:02→16:06)
[2019-02-06 08:09] LABS: BUN Creatinine Ratio 74.6 (10-20); Blood Urea Nitrogen 16 mg/dl (7-18); Calcium 8.4 mg/dl (8.5-10.1); Carbon Dioxide 31 mmol/L (21-32); Chloride 102 mmol/L (98-107); Creatinine Clr Calc Pharmacy 185.5 ml/min; Est GFR (African American) > 150.0; Glucose 68 mg/dl (70-99); Potassium 4.1 mmol/L (3.5-5.1); Sodium 139 mmol/L (136-145)
[2019-02-06] MEDS: DOCUSATE SODIUM 100 MG CAP PO SCH ×2 (08:56→20:29)
[2019-02-06] MEDS: POLYETHYLENE (MIRALAX) 17 GM PACK PO SCH ×2 (08:56→20:29)
[2019-02-06] MEDS: HEPARIN SOD 5,000 UNIT/0.5 ML VIAL SQ SCH (08:56)
[2019-02-06] MEDS ORDERED: PANTOprazole 40 MG TAB PO SCH (09:00)
[2019-02-06] MEDS ORDERED: GUAIFENESIN/CODEINE 200MG/20MG 10ML UDC PO SCH (12:00)
[2019-02-06] MEDS: FAMOTIDINE 20 MG in SYRINGE 3 ML IV SCH (13:21)
[2019-02-06] MEDS: GUAIFENESIN/CODEINE 200MG/20MG 10ML UDC PO SCH ×2 (14:09→18:25)
[2019-02-06] MEDS: ACETAMINOPHEN 325 MG TAB PO PRN (15:17)
--- NOTE | 2019-02-06 16:00 | Consultation Report ---
DATE OF CONSULTATION: 02/06/2019 HEMATOLOGY CONSULTATION REASON FOR CONSULTATION: Declining performance status of a 63-year-old female with metastatic non-small cell lung cancer. HISTORY OF PRESENT ILLNESS: Margaux is a pleasant but unfortunate 63-year-old female patient well known to [facility], currently under my care with metastatic nonsmall cell lung cancer, originally diagnosed in mid October. Margaux has had several admissions over the past couple of weeks into a month or so from symptoms related to chemotherapy as well as hemoptysis, which has been problematic intermittently since the diagnosis. However, she returns to [facility] complaining of generalized weakness, fatigue and chest wall pain specifically. Margaux has been receiving combination carboplatin, paclitaxel and Avastin in weekly fashion, for the most part had been responding from a radiographic standpoint. However, chemo has not been without struggle in particular with maintaining her nutritional status, not to mention the intermittent episodes of hemoptysis resulting in hospitalization. The patient actually had a PleurX catheter at one point. The fact that Margaux is still with us is nothing short of amazing as when she presented in October, she was close to . She clearly is uncomfortable and quite cachectic in appearance. Her albumin is slightly above 2, it is more than obvious that she is not maintaining herself nutritionally. Her main complaint for me at the bedside was the left-sided chest wall pain that was palpable on examination. She is presently being maintained with a 50 mcg fentanyl patch. PAST MEDICAL HISTORY: Metastatic nonsmall cell lung cancer, SIN1, GERD, history of renal lithiasis, hypertension, irritable bowel syndrome, malignant left pleural effusion, bony metastatic disease. PAST SURGICAL HISTORY: Includes bronchoscopy, colonoscopy, polypectomy, hemorrhoidectomy, lithotripsy, liver biopsy, rhinoplasty, tubal ligation and a chest tube placement and removal. MEDICATIONS: Prior to admission include cetirizine 5 mg p.o. q.a.m., conjugated estrogen/medroxyprogesterone 1 tablet p.o. q.a.m., promethazine 25 mg p.o. q.6 hours at bedtime, oxycodone 10 mg p.o. q.4 hours p.r.n., Zofran 4 mg p.o. q.8 hours p.r.n., dexamethasone 4 mg p.o. u.d., Compazine 10 mg p.o. t.i.d. p.r.n., senna 2 tablets p.o. at bedtime, MiraLax 17 g p.o. b.i.d., Hycodan 5-10 mL p.o. q.6 hours p.r.n., omeprazole 20 mg p.o. daily, albuterol sulfate 1 puff inhaled q.6 hours, Colace 100 mg p.o. b.i.d., fentanyl 50 mcg transdermal q.72 hours, Remeron 15 mg p.o. at bedtime. ALLERGIES: MORPHINE, STRAWBERRY AND ASPIRIN. SOCIAL HISTORY: The patient is disabled, lives independently. She was a tobacco smoker. Negative for alcohol or illicit drugs. FAMILY HISTORY: Brother suffered from colorectal and prostate cancer. Sister suffered with cervical cancer, ovarian cancer and lung cancer. Breast cancer with other family members and a sister with cholangiocarcinoma. REVIEW OF SYSTEMS: As per HPI, most notably for anorexia, cachexia, generalized weakness, intractable skeletal pain. GENERAL: Negative for fevers, chills or sweats. SKIN: No rashes or lesions. No history of dermatoses. HEENT: Negative for headaches, no lightheadedness or dizziness. No visual or hearing deficits. No sinus symptoms, sore throat or dysphagia. LYMPHATICS: No history of lymphadenopathy or lymphoproliferative disease. CARDIAC: No history of coronary artery disease. No current angina or palpitations. PULMONARY: Negative for COPD. Positive for cough, positive for history of hemoptysis. Positive for episodes of shortness of breath. GASTROINTESTINAL: Negative for abdominal pain. Positive for occasional nausea and vomiting. Negative for diarrhea or constipation at present. No hematochezia or melena stools. GENITOURINARY: No hematuria, dysuria or urinary incontinence. PSYCHIATRIC: Negative for anxiety, depression or psychoses. ENDOCRINE: Negative for diabetes or thyroid disease. MUSCULOSKELETAL: Negative for arthralgias or myalgias. HEMATOLOGIC: Cytopenias attributable to ongoing treatment. NEUROLOGIC: Negative for seizure, stroke, or migraine headache. PHYSICAL EXAMINATION: GENERAL: A cachectic-appearing 63-year-old female in no acute distress but certainly uncomfortable at bedside. VITAL SIGNS: Temperature 37.6, pulse 102, respiratory rate 16, blood pressure 145/88. SKIN: Warm, dry without petechia, rash or ecchymosis. Turgor is poor. HEENT: Head is atraumatic, normocephalic. Alopecia is noted. Eyes: PERRLA, EOMI. Sclerae nonicteric. No conjunctival injection. Nares are patent without rhinorrhea or discharge. Throat clear. Tongue midline. Mucous membranes are moist. NECK: Supple. HEART: Regular rate and rhythm. LUNGS: Clear to auscultation bilaterally. ABDOMEN: Soft, nontender, nondistended. EXTREMITIES: No clubbing, cyanosis or edema. NEUROLOGICAL: She is grossly intact. Cranial nerves are intact as well. LABORATORY DATA: WBC count 2760, hemoglobin 8.4, platelet count 294,000. Sodium 139, potassium 4.1, chloride 102, carbon dioxide 31, creatinine 0.21, BUN 16. RADIOGRAPHIC DATA: Chest x-ray done on admission reveals developing pulmonary venous congestion, slight increase in parenchymal pleural changes in the left hemithorax, which is not a major change compared to her prior chest x-ray. IMPRESSION: 1. Failure to thrive. 2. Intractable skeletal pain (left chest wall). 3. Anorexia. 4. Cytopenias attributable to chemotherapy. 5. Metastatic nonsmall cell lung cancer. PLAN: I saw Margaux this afternoon at bedside. She clearly is heading downhill from a clinical perspective. She is clearly not maintaining her protein balance as she continues to lose weight. She is profoundly weak, battling with chronic skeletal pain, particularly her ribs. She states it hurts exponentially when she coughs and sometimes the coughing becomes so severe that she becomes acutely short of breath. I spoke to Margaux's daughter, Stacy, after I examined Margaux. I have suggested suspending any further chemotherapy at this point. She is at risk of dying in hospital but certainly if she does not improve her nutritional status, she will most likely in the next couple of weeks. Despite the fact that we were seeing favorable results radiographically, we're at the point where chemotherapy may do more harm than good and might actually expedite her . Would focus on symptomatic care, particularly better pain control, see if we can work on her nutrition and strengthening overall. We will continue to follow her periodically during her hospitalization. Otherwise, ensure that outpatient followup is scheduled. Thank you very much for allowing me to participate in her care. If you have any questions or concerns, feel free to contact me at any time. KAMILLE
[2019-02-06] MEDS ORDERED: OPTIRAY 320 125ml IV PRN (16:37)
--- NOTE | 2019-02-06 16:48 | CT Scan Report ---
CT angio chest PE protocol CT DOSE: 235.32 mGy.cm HISTORY: Pain PE, PNA, pulmonary edema TECHNIQUE: Multiaxial CT images of the chest were performed following the intravenous administration of contrast to evaluate the pulmonary arteries. Maximal intensity projection images were also obtaine d. A dose lowering technique was utilized adhering to the principles of ALARA. COMPARISON STUDY: 01/15/2019 FINDINGS: Unchanged exam. No evidence for pulmonary emboli. The pulmonary vasculature enhances approp riately. Of additional findings are unchanged including a necrotic lesion of the left upper lobe as well as di ffuse bilateral parenchymal infiltrative change. Loculated left basilar effusion is unaltered. Skeletal lesions are unchanged. IMPRESSION: 1. No evidence of pulmonary. Embolus 2. This study is otherwise unchanged compared to prior study of 01/15/2019 The above report was generated using voice recognition software. It may contain grammatical, syntax or spelling errors. Electronically signed by: Modesto Narayanan M.D. 02/06/2019 4:46 PM
--- NOTE | 2019-02-06 19:22 | Hospitalist Progress Note ---
Date of Service February 06, 2019 Assessment & Plan (1) Chemotherapy adverse reaction: Patient extremely weak, cachectic and coughing up yellow sputum. Procalcitonin negative and CT scan unchanged - will defer any treatment for pneumonia at this time and given rebounding from when she was admitted without antibiotics I suspect this is all chemotherapy induced. Sputum sample pending. (2) Goals of care, counseling/discussion: Palliative to see on Friday to help with symptom management. (3) Chronic respiratory failure: Continue O2 to aim sats > 90%. On home O2 2L NC (4) Weakness: Chemotherapy induced as above (5) Vomiting: Ondansetron and Phenergan PRN. (6) Pleural effusion, malignant: No change from prior therefore will defer any thoracic surgery consult at this time (7) Severe protein-calorie malnutrition: Appreciate nutrition consult. Patient having problems with larger food today as recovering from chemotherapy therefore will switch to minced and moist food. Consult speech for re-evaluation. (8) History of recent chemotherapy: cause of current hospitalization (9) GERD (gastroesophageal reflux disease): Continue IV famotidine to reduce risk of aspiration pneumonitis given ongoing vomiting (10) HTN (hypertension): d/c antihypertensives last admission. Will continue to monitor BP (11) Bony metastasis: Home pain management appears to be adequate with fentanyl and oxycodone (12) Non-small cell lung cancer with metastasis: Appreciate oncology review. Discussed with Dr Albert. Planning on holding off further chemotherapy for a month. (13) Pancytopenia due to antineoplastic chemotherapy: Continue to monitor for rebound of blood counts (14) DVT prophylaxis: Patient refusing heparin and will discontinue this anyway given recent history of hemoptysis. SCDs (15) Discharge planning issues: PT/OT when patient improved from coughing Subjective Patient seen this morning. Coughing up significant amounts of sputum at bedside. Having problems eating due to significant sputum production and asking for cough syrup previously prescribed. She tells me she is not sure that going through chemotherapy is worth this. No fever. BM normal for patient. No abdominal pain. Very lethargic for 2-3 days leading up to admission and very tired. Review of Systems Review of Systems: All systems reviewed & are unremarkable except as noted in HPI & below Physical Exam Constitutional: + ill appearing and + cachectic; no acute distress Eyes: normal pupil size ENMT: external ear and nose normal, oropharynx normal Neck: trachea midline Respiratory: normal respiratory effort and + cough; no respiratory distress Auscultation: + breath sounds absent (left sided) and + rales (b/l) Cardiovascular: RRR, no murmur, no edema Gastrointestinal (Abdomen): Inspection/Auscultation: normal bowel sounds; abdomen not distended Percussion/Palpation: abdomen soft; abdomen nontender Skin: no rashes, warm and dry Neurologic: moves all extremities (generalized weakness) and awake; no focal motor deficits Psychiatric: A+Ox3, euthymic affect Results & Data Vital Signs (Past 12 Hours) Vital Signs Temp Pulse Resp BP Pulse Ox 02/06/19 19:02 98.6 F 90 16 117/77 92 02/06/19 15:00 99.7 F H 102 H 16 145/88 H 90 02/06/19 11:16 98.8 F 90 18 116/79 93 PG Care Time/CCT Total # of Minutes Spent Total Time Spent with Patient: Total time spent is greater than 50% in coordination of care (as documented) at patient's floor/unit and/or counseling patient: (1) Chronic respiratory failure Respiratory failure complication: hypoxia Qualified Code(s): J96.11 - Chronic respiratory failure with hypoxia (2) Chemotherapy adverse reaction Encounter type: subsequent encounter Qualified Code(s): T45.1X5D - Adverse effect of antineoplastic and immunosuppressive drugs, subsequent encounter (3) GERD (gastroesophageal reflux disease) Esophagitis presence: without esophagitis Qualified Code(s): K21.9 - Gastro- esophageal reflux disease without esophagitis (4) HTN (hypertension) Hypertension type: essential hypertension Qualified Code(s): I10 - Essential (primary) hypertension (5) Vomiting Nausea presence: unspecified Vomiting Intractability: unspecified Vomiting type: unspecified Qualified Code(s): R11.10 - Vomiting, unspecified
[2019-02-06] MEDS: MIRTAZAPINE TAB 15 MG TAB PO SCH (20:29)
[2019-02-06] MEDS: DOCUSATE SODIUM/SENNA 50/8.6MG TAB PO SCH (20:30)
[2019-02-07] MEDS: CHECK FENTANYL PATCH PLACEMENT SCH ×3 (00:05→15:04)
[2019-02-07] MEDS: GUAIFENESIN/CODEINE 200MG/20MG 10ML UDC PO SCH ×4 (00:06→11:03)
[2019-02-07 07:45] LABS: Hematocrit (blood only) 29.1 % (37-47); Hemoglobin 9.4 g/dL (12.0-16.0); Mean Corpuscular Hemoglobin 29.4 pg (25-34); Mean Corpuscular Hgb Conc 32.3 g/dL (32-36); Mean Corpuscular Volume 90.9 fL (80-100); Mean Platelet Volume 10.1 fL (7.4-10.4); Platelet Count 346 K/uL (130-400); RDW Coefficient of Variation 18.1 % (11.5-14.5); RDW Standard Deviation 58.6 fL (36.4-46.3); White Blood Count 6.49 K/uL (4.8-10.8)
[2019-02-07] MEDS: DOCUSATE SODIUM 100 MG CAP PO SCH ×2 (07:53→21:28)
[2019-02-07] MEDS: ONDANSETRON 4 MG TAB PO SCH ×3 (07:53→16:15)
[2019-02-07] MEDS: ACETAMINOPHEN 325 MG TAB PO PRN (07:53)
[2019-02-07] MEDS: POLYETHYLENE (MIRALAX) 17 GM PACK PO SCH ×2 (07:54→22:27)
[2019-02-07 08:27] LABS: Albumin Level 1.9 gm/dl (3.4-5.0); BUN Creatinine Ratio 52.9 (10-20); Calcium 8.7 mg/dl (8.5-10.1); Creatinine Clr Calc Pharmacy 144.9 ml/min; Est GFR (African American) 147.2; Magnesium 1.7 mg/dl (1.8-2.4); Potassium 3.9 mmol/L (3.5-5.1)
[2019-02-07] MEDS: FAMOTIDINE 20 MG in SYRINGE 3 ML IV SCH (08:28)
[2019-02-07 08:30] LABS: Albumin Globulin Ratio 0.5 (0.9-2); Bilirubin,Total 0.6 mg/dl (0.2-1); Globulin 3.6 gm/dl (2.5-4.0); Phosphorus 2.8 mg/dl (2.5-4.9); Total Protein 5.5 gm/dl (6.4-8.2)
[2019-02-07 08:42] LABS: Basophils # (auto) 0.01 K/uL (0-0.2); Basophils % (auto) 0.2 %; Dohle Bodies 2+; Immature Granulocytes # (auto) 0.01 K/uL (0.00-0.02); Immature Granulocytes % (auto) 0.2 %; Lymphocytes # (auto) 0.52 K/uL (1.2-3.4); Monocytes # (auto) 0.44 K/uL (0.11-0.59); Monocytes % (auto) 6.8 %; Neutrophils # (auto) 5.51 K/uL (1.4-6.5); Neutrophils % (auto) 84.8 %; Toxic Granulation 1+
--- NOTE | 2019-02-07 10:39 | Progress Note ---
DATE: 02/07/2019 DIAGNOSES: 1. Failure to thrive/failing performance status. 2. Intractable skeletal pain (left chest wall). 3. Anorexia. 4. Cytopenias attributable to chemotherapy. 5. Metastatic nonsmall cell lung cancer. SUBJECTIVE: Margaux was seen and examined at bedside. Unfortunately, very little improvement clinically, however, her pain seems to be a bit better controlled. She relates nausea throughout the night brought on by a cough and abnormal taste and olfactory stimulation seems to spontaneously make her nauseated. Again, I spoke to Margaux's daughter and emphasized the need to back off chemotherapy at this point. Despite her responding radiographically, toxicities are mounting up and her nutritional status is tenuous. Nursing reports no overnight difficulties otherwise. PHYSICAL EXAMINATION: GENERAL: She is a very cachectic appearing 63-year-old female patient, awake, alert and appropriate. VITAL SIGNS: Temperature 36.6, pulse 97, respiratory rate 18, blood pressure 141/93. SKIN: Turgor is quite poor, pale and noncyanotic otherwise. HEENT: Oral mucosa is dry without buccal lesions or ulcerations. HEART: Borderline tachycardic but regular. LUNGS: High pitched expiratory wheeze heard in the left lung field predominantly. ABDOMEN: Soft, nontender, nondistended. EXTREMITIES: No clubbing, cyanosis or edema. NEUROLOGIC: Grossly intact. LABORATORY DATA: WBC count 6490, hemoglobin 9.4, platelet count 346,000. Sodium 138, potassium 3.9, chloride 99, carbon dioxide 33, creatinine 0.27, BUN 15, albumin 1.9. IMPRESSION: 1. Failing performance status/failure to thrive. 2. Intractable skeletal pain (left chest wall) 3. Anorexia. 4. Severe hypoalbuminemia. 5. Cytopenias attributable to chemotherapy. 6. Metastatic nonsmall cell lung cancer. PLAN: Margaux was seen and examined this morning again. Perhaps daily albumin would be reasonable moving forward, continue to give her antiemetics and perhaps start her on an appetite stimulant. Again, discussed the notion of suspending further chemotherapy for the foreseeable future. I discussed this with Margaux's daughter Stacy. Both seem to be on board with this approach. I believe Margaux understands if we push aggressively with chemotherapy, would most likely expedite her and not prolong her life. Agree with medical management otherwise. Thank you for allowing me to participate in her care. I will continue to follow her periodically during hospitalization. KAMILLE
[2019-02-07] MEDS ORDERED: GUAIFENESIN/CODEINE 200MG/20MG 10ML UDC PO PRN (15:14)
--- NOTE | 2019-02-07 18:13 | Pulmonary Consultation ---
Date of Consultation February 07, 2019 Assessment & Plan (1) Chronic respiratory failure: Impression: 63-year-old female with advanced non-small cell lung carcinoma with malignant pleural effusion. She is well-known to our service from prior admissions and presents with weakness fatigue and chronic pain. She previously was treated with a Pleurx catheter which was removed by Dr. Wilson. Repeat CT scan shows persistent malignant pleural effusion. Recommendations: 1. Malignant pleural effusion: I reviewed the CT scans. The effusion is certainly there and does not appear significantly changed from about 3 weeks ago. The patient states that her current symptoms do not feel like she did when she presented with the malignant effusion is not really having a lot in the way of shortness of breath her symptoms largely focus on pain. We certainly could proceed with a thoracentesis and consider repeat Pleurx catheter placement however given her frail state and plans on pursuing palliative care I would hold off for now. I did discuss with Margaux the option of repeating her thoracentesis and she would like to hold off for now. I think this is a reasonable approach. She is not a candidate for aggressive management the only indication for repeat pleural procedures would be to palliate symptoms of which the patient is not complaining of much currently. I would strongly favor complete palliation at this point consideration for hospice 2. Advanced non-small cell lung cancer: Appreciate Dr. Albert's note. Plans are to suspend any additional chemotherapy as the patient is too weak to tolerate it. Palliative care is being involved with the patient and would agree with a palliative approach. 3. Acute on chronic hypoxemic respiratory failure: Secondary to lung cancer, malignant pleural effusion, atelectasis of the lung. Continue supplemental oxygen. 4. We will continue to follow. Respiratory failure complication: hypoxia Qualified Code(s): J96.11 - Chronic respiratory failure with hypoxia (2) Pleural effusion, malignant: (3) Severe protein-calorie malnutrition: (4) Hemoptysis: History of Present Illness Attending Physician: Jesus Villatoro MD History of Present Illness Asked by Dr. Kiana Smalls to evaluate this patient well-known to the pulmonary service. Briefly the patient is a 63-year-old female who was diagnosed in October with metastatic non-small cell lung carcinoma. She is frequently been in and out of the hospital. We initially met her when she presented with a malignant pleural effusion. She underwent Pleurx catheter placement. She followed up with thoracic surgery in the outpatient clinic and drainage decreased and the Pleurx catheter was removed. She had been receiving paclitaxel, Avastin, and carboplatin and had had somewhat of a radiographic response versus stabilization however her nutritional status remains poor and she appears much more frail than when I saw her last. She presented to the emergency room with generalized weakness, pain issues, and inability to be cared for at home. Follow-up imaging demonstrated a persistent effusion. She is not coughing any more blood than usual. She states this current symptom complex does not feel like when she had her pleural effusion. She does not report significant tightness or chest pain on that side. Allergies Allergy/AdvReac Type Severity Reaction Status Date / Time morphine Allergy Unknown ITCHING Verified 02/05/19 09:51 AND LUMP ON HAND strawberry Allergy Unknown HIVES Verified 02/05/19 09:51 aspirin AdvReac Unknown GI UPSET Verified 02/05/19 09:51 Home Medications Home Medications Medication Instructions Recorded Confirmed Type cetirizine 5 mg tablet 5 mg PO QAM PRN tab 10/13/18 02/05/19 History conj estrogen-medroxyprogesterone 1 tab PO QAM 10/13/18 02/05/19 History 0.625 mg-2.5 mg tablet promethazine 25 mg tablet 25 mg PO Q6H PRN #60 tab 11/11/18 02/05/19 Rx oxycodone 10 mg tablet 10 mg PO Q4H PRN tab 12/05/18 02/05/19 History food supplement, lactose-reduced 1 ea PO BID #6399 ml 12/07/18 02/05/19 Rx 0.04 gram-1 kcal/mL oral liquid ondansetron 4 mg disintegrating 4 mg PO Q8H PRN #60 tab 12/11/18 02/05/19 Rx tablet dexamethasone [Decadron] 4 mg PO UD 12/31/18 02/05/19 History prochlorperazine maleate 10 mg PO TID PRN 12/31/18 02/05/19 History [Compazine] sennosides-docusate sodium [Senna 2 tab PO HS 12/31/18 02/05/19 History Plus] polyethylene glycol 3350 17 gram 17 g PO BID #30 ea 01/06/19 02/05/19 Rx oral powder packet codeine-guaifenesin [Guaifenesin 10 ml PO Q6H PRN #118 ml 01/20/19 02/05/19 Rx AC] omeprazole 20 mg PO DAILY #0 tab 01/20/19 02/05/19 Rx albuterol sulfate [Ventolin HFA] 1 puffs INH Q6H PRN 02/05/19 02/05/19 History docusate sodium [Colace] 100 mg PO BID 02/05/19 02/05/19 History fentanyl [Duragesic] 50 mcg TRANSDERMAL Q3D@1230 02/05/19 02/05/19 History mirtazapine [Remeron] 15 mg PO HS 02/05/19 02/05/19 History ondansetron HCl [Zofran] 4 mg PO TIDM 02/05/19 02/05/19 History Patient History Medical History PHYLLIS I (cervical intraepithelial neoplasia I) Metastatic cancer to lung Bony metastasis Pleural effusion, left Non-small cell lung cancer with metastasis Pathologic compression fracture of spine Pain due to malignant neoplasm metastatic to bone Anxiety Chronic back pain GERD (gastroesophageal reflux disease) History of kidney stones Hypertension IBS (irritable bowel syndrome) 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 Port-A-Cath in place (01/05/19) Insertion of A-Port in Left Subclavian Dr. Mooney 01-05-19 Surgical History History of bronchoscopy History of colonoscopy w/ polypectomy History of hemorrhoidectomy History of lithotripsy History of liver biopsy History of rhinoplasty History of tubal ligation Hx of chest tube placement removed Family History Brother Colon cancer Prostate cancer Colorectal cancer Sister Cervical cancer History of kidney cancer Ovarian cancer Lung cancer Family/Other Breast cancer Sister Cholangiocarcinoma Social History Preferred Language: Indonesian Communication Ability: Effective Leather Flesher Required: No Beliefs That Will Affect Care: None marital status: Single Current Living Situation: Alone current occupational status: disabled Other Information That Helps Us Care for You: No Feels Safe at Home: Yes Safety Concerns: Feels Safe At This Time Smoking Status: Former smoker Tobacco Type: cigarettes ; Cigarettes Per Day: 10 ; Smoking End Date: November 2018 (when diagnosed with cancer). ; Second Hand Exposure: Yes ; Hx Alcohol Use: No Hx Substance Use: No Childhood Exposure to Second-Hand Smoke: No caffeine: Yes Physical Activity Frequency: Does not Exercise Review of Systems 2 Review of Systems: See H&P. I have no changes Physical Exam Constitutional: + cachectic and + frail appearing Eyes: PERRL, conjunctivae normal, anicteric sclerae Neck: trachea midline, no thyromegaly Respiratory: Diminished breath sounds on the left with dullness to percussion. Coarse breath sounds on the right. Cardiovascular: Rate/Rhythm: + tachycardic Heart Sounds: normal S1 and normal S2; no murmur Gastrointestinal (Abdomen): normal bowel sounds, soft, nontender, no hepatosplenomegaly Skin: no rashes, warm and dry Results & Data Vital Signs (Past 12 Hours) Vital Signs Temp Pulse Resp BP Pulse Ox 02/07/19 15:08 87 18 128/81 92 02/07/19 07:50 36.6 C 97 H 18 141/93 H 95 Laboratory Results 02/07/19 07:03 02/07/19 07:[address] of the chest independently reviewed from 02/06/2019 and compared to prior CT from 01/15/2019. There is a persistent left-sided pleural effusion. The previously noted airspace opacity appears improved. A large cavitary upper lung lesion is essentially the same. The adenopathy may have shown some progression PG Care Time/CCT Total # of Minutes Spent Total Time Spent with Patient: Total time spent is greater than 50% in coordination of care (as documented) at patient's floor/unit and/or counseling p atient:
--- NOTE | 2019-02-07 19:47 | Hospitalist Progress Note ---
Date of Service February 07, 2019 Assessment & Plan (1) Chemotherapy adverse reaction: Patient extremely weak, cachectic and coughing up yellow sputum. Codeine cough syrup making her tired therefore requesting this is prescribed PRN. Procalcitonin negative and CT scan unchanged - will defer any treatment for pneumonia at this time and given rebounding from when she was admitted without antibiotics I suspect this is all chemotherapy induced. Discussed scans with Dr Wilson who will see tomorrow regarding malignant pleural effusion as he feels patient may benefit from pleurx. Sputum sample - moderate GNB, few GPC, moderate WBCs. If develops pneumonia would need to cover for pseudomonas (2) Goals of care, counseling/discussion: Palliative to see on Friday to help with symptom management. (3) Chronic respiratory failure: Continue O2 to aim sats > 90%. On home O2 2L NC (4) Weakness: (5) Vomiting: Ondansetron and Phenaphen PRN. (6) Pleural effusion, malignant: Discussed with Dr Wilson who felt this has increased therefore ill place formal consult to discuss possibility of Pleurx (7) Severe protein-calorie malnutrition: Appreciate nutrition consult. Patient having problems with larger food today as recovering from chemotherapy therefore will switch to minced and moist food. Consult speech for re-evaluation. (8) History of recent chemotherapy: Discussed with Dr Albert 02/06 and felt presentation consistent with chemot herapy (9) GERD (gastroesophageal reflux disease): Continue IV famotidine until taking good oral intake (10) HTN (hypertension): D/C anti-hypertensives last admission due to hypotension. Continue off antihypertensives. (11) Bony metastasis: Continue fentanyl and oxycodone. (12) Non-small cell lung cancer with metastasis: Appreciate oncology consult. Planning on holding off further chemotherapy for a month. (13) Pathologic compression fracture of spine: Pain management as above (14) Pancytopenia due to antineoplastic chemotherapy: Improving along with patient symptoms, continue to monitor CBC (15) DVT prophylaxis: No chemical prophylaxis due to high risk of life threatening hemoptysis on previous admissions Continue SCDs (16) Discharge planning issues: PT/OT Patient wishes to return home on discharge. Not yet strong enough to be discharged. Subjective Patient seen while lying in bed this morning. She feels better than the previous day and blood counts are improving. Does feel sedated every time she gets cough syrup and asking to make this PRN rather than regular. Continues to have a cough but no hemoptysis. Appetite still poor. No chest pain. Review of Systems Review of Systems: All systems reviewed & are unremarkable except as noted in HPI & below Physical Exam Constitutional: + ill appearing and + cachectic; no acute distress Eyes: normal pupil size ENMT: external ear and nose normal, oropharynx normal Neck: trachea midline Respiratory: normal respiratory effort and + cough; no respiratory distress Auscultation: + rales (b/l) Cardiovascular: RRR, no murmur, no edema Gastrointestinal (Abdomen): Inspection/Auscultation: normal bowel sounds; abdomen not distended Percussion/Palpation: abdomen soft; abdomen nontender Musculoskeletal: Calves SNT Skin: no rashes, warm and dry Neurologic: moves all extremities (generalized weakness) and awake; no focal motor deficits Psychiatric: A+Ox3, euthymic affect Results & Data Vital Signs (Past 12 Hours) Vital Signs Temp Pulse Pulse Resp BP Pulse Ox 02/07/19 18:57 98.8 F 89 19 145/84 H 84 L 02/07/19 15:08 87 18 128/81 92 02/07/19 07:50 97.9 F 97 H 18 141/93 H 95 PG Care Time/CCT Total # of Minutes Spent Total Time Spent with Patient: Total time spent is greater than 50% in coordination of care (as documented) at patient's floor/unit and/or counseling patient: (1) Chronic respiratory failure Respiratory failure complication: hypoxia Qualified Code(s): J96.11 - Chronic respiratory failure with hypoxia (2) Pathologic compression fracture of spine Encounter type: initial encounter Qualified Code(s): M48.50XA - Collapsed vertebra, not elsewhere classified, site unspecified, initial encounter for fracture (3) Chemotherapy adverse reaction Encounter type: subsequent encounter Qualified Code(s): T45.1X5D - Adverse effect of antineoplastic and immunosuppressive drugs, subsequent encounter (4) GERD (gastroesophageal reflux disease) Esophagitis presence: esophagitis presence not specified Qualified Code(s): K21.9 - Gastro-esophageal reflux disease without esophagitis (5) HTN (hypertension) Hypertension type: essential hypertension Qualified Code(s): I10 - Essential (primary) hypertension (6) Vomiting Nausea presence: unspecified Vomiting Intractability: unspecified Vomiting type: unspecified Qualified Code(s): R11.10 - Vomiting, unspecified
[2019-02-07] MEDS: ALBUT/IPRATROP 3MG/0.5MG NEB 3 ML VIAL NEB SCH ×2 (20:22→23:04)
--- NOTE | 2019-02-07 20:30 | XRay Report ---
XR chest 1V portable HISTORY: hypoxia COMPARISON: Chest 02/05/2019. FINDINGS: A large left upper lobe cavitary lesion is again noted. Left subclavian Port-A-Cath termina lis at the SVC. The heart remains stable. Pathologic right rib fractures are again noted. Slight prog ression of the interstitial thickening within the right lung which may represent congestive change. S mall left pleural effusion persists. IMPRESSION: 1. Redemonstration of the large left upper lobe cavitary lesion. 2. Progressive right lung interstitial thickening which may represent developing congestive change. Electronically signed by: Cesar Bolivar M.D. 02/07/2019 8:28 PM
[2019-02-07 20:51] LABS: Base Excess ABG 9.5 mEq/L (-9-1.8); HCO3 ABG 36 mmol/L (19-24); Oxygen Saturation ABG 95.5 % (90-95); PCO2 ABG 58 mmHg (35-46); PO2 ABG 83 mm/Hg (80-95); pH ABG 7.41 (7.35-7.45)
[2019-02-07 20:52] LABS: Allen Test POS (Pos)
[2019-02-07 20:53] LABS: Hematocrit (blood only) 29.6 % (37-47); Hemoglobin 9.2 g/dL (12.0-16.0); Mean Corpuscular Hemoglobin 28.5 pg (25-34); Mean Corpuscular Volume 91.6 fL (80-100); Mean Platelet Volume 10.3 fL (7.4-10.4); Platelet Count 400 K/uL (130-400); RDW Coefficient of Variation 18.2 % (11.5-14.5); Red Blood Count 3.23 M/uL (4.2-5.4); White Blood Count 10.55 K/uL (4.8-10.8)
[2019-02-07] MEDS ORDERED: OPTIRAY 320 125ml IV PRN (21:07)
[2019-02-07 21:09] LABS: Albumin Level 1.9 gm/dl (3.4-5.0); BUN Creatinine Ratio 53.6 (10-20); Calcium 8.6 mg/dl (8.5-10.1); Creatinine Clr Calc Pharmacy 122.3 ml/min; Est GFR (African American) 139.2; Est GFR (Non-African American) 120.1
[2019-02-07 21:13] LABS: Albumin Globulin Ratio 0.5 (0.9-2); Bilirubin,Total 0.5 mg/dl (0.2-1); Globulin 3.9 gm/dl (2.5-4.0); Total Protein 5.8 gm/dl (6.4-8.2)
[2019-02-07 21:23] LABS: Mean Corpuscular Hgb Conc 31.1 g/dL (32-36)
[2019-02-07] MEDS: MIRTAZAPINE TAB 15 MG TAB PO SCH (21:28)
[2019-02-07] MEDS: DOCUSATE SODIUM/SENNA 50/8.6MG TAB PO SCH (21:28)
[2019-02-07 21:29] LABS: Basophils # (auto) 0.01 K/uL (0-0.2); Basophils % (auto) 0.1 %; Immature Granulocytes # (auto) 0.06 K/uL (0.00-0.02); Immature Granulocytes % (auto) 0.6 %; Lymphocytes # (auto) 1.67 K/uL (1.2-3.4); Lymphocytes % (auto) 15.8 %; Monocytes # (auto) 0.55 K/uL (0.11-0.59); Monocytes % (auto) 5.2 %; Neutrophils # (auto) 8.26 K/uL (1.4-6.5); Neutrophils % (auto) 78.3 %
--- NOTE | 2019-02-07 21:31 | CT Scan Report ---
CHEST CTA for PULMONARY ARTERIES CT DOSE: 239.95 mGy.cm HISTORY: Atypical chest pain. TECHNIQUE: Multiaxial CT images of the chest were performed following the intravenous administration of contrast to evaluate the pulmonary arteries. Maximal intensity projection images were also obtaine d. A dose lowering technique was utilized adhering to the principles of ALARA. COMPARISON STUDY: Chest CTA 02/06/2019. FINDINGS: No evidence for an aortic dissection. The heart is normal in size. Attenuated but patent le ft upper lobe pulmonary arteries. Motion artifact results in suboptimal evaluation of the right upper lobe segmental and subsegmental pulmonary arteries. However, no definite filling defects within the remaining right pulmonary arteries to suggest pulmonary embolus. Left subclavian Port-A-Cath terminat es in the distal SVC. Extensive osteoblastic metastatic disease is again noted. Hypodense hepatic les ions are also unchanged in favor metastatic disease. Small right pleural effusion and a loculated mod erate to large left hydropneumothorax is again noted. The gas component within this hydropneumothorax has slightly progressed. Small to moderate pericardial effusion, unchanged. Diffuse esophageal wall thickening persists. Large thick-walled left upper lobe cavitary lesion is again noted. This demonstr ates direct communication with a left upper lobe bronchus. There is now complete collapse of the resi dual left lung which has progressed in the interval. Emphysema. Right apical densities, unchanged. Pr ogressive interstitial thickening and patchy airspace opacities within the right mid to lower lung zo ne. There is direct communication of the large cavitary lesion with the pleural space best seen on im age 89. This likely accounts for the progressive gas component. Therefore, this essentially represen ts a bronchopleural fistula. There is mucoid material within the trachea and mainstem bronchi. Theref ore, the right mid to lower lung zone airspace opacities favor aspiration. IMPRESSION: 1. No definite evidence for pulmonary embolus with limitations as described above. 2. Small right pleural effusion and a moderate to large loculated left hydropneumothorax are similar in size. The gas component within the left hydropneumothorax has progressed and is consistent with a bronchopleural fistula from the large left upper lobe cavitary mass. 3. Progressive interstitial thickening and patchy airspace opacities within the right mid to lower ernestina ng zone. This could be due to an aspiration pneumonitis. 4. Metastatic disease is again noted. 5. Complete collapse of the residual left lung which has also progressed in the interval. 6. Small to moderate pleural effusion, unchanged. Electronically signed by: Cesar Bolivar M.D. 02/07/2019 9:30 PM
[2019-02-07] MEDS ORDERED: ACETYLCYSTEINE 20% INHAL SOLN ***DISPENSED BY RESP. INH ONE (21:59)
[2019-02-07] MEDS ORDERED: ALBUMIN 25% 50 ML with FUROSEMIDE 40 MG IV ONE (21:59)
[2019-02-07] MEDS: BENZONATATE 100 MG CAPSULE PO PRN (23:45)
[2019-02-08] MEDS ORDERED: VANCOMYCIN HCL 750 MG in SODIUM CHLORIDE 0.9% 500 ML IV ONE (00:48)
[2019-02-08] MEDS ORDERED: VANCOMYCIN CONSULT ACTIVE PRN ×2 (00:48)
[2019-02-08] MEDS ORDERED: PIPERACILLIN/TAZOBACTAM 4.5 GM in DEXTROSE 5% 100 ML IV STA (00:48)
[2019-02-08] MEDS ORDERED: PIPERACILL/TAZOBAC CONSULT ACTIVE PRN (00:48)
[2019-02-08] MEDS: CHECK FENTANYL PATCH PLACEMENT SCH ×3 (00:50→16:19)
[2019-02-08] MEDS ORDERED: PIPERACILLIN/TAZOBACTAM 3.375 GM in DEXTROSE 5% 100 ML IV ONE (01:00)
[2019-02-08] MEDS ORDERED: VANCOMYCIN HCL 1,000 MG in SODIUM CHLORIDE 0.9% 250 ML IV ONE (01:00)
[2019-02-08] MEDS ORDERED: VANCOMYCIN HCL 750 MG in SODIUM CHLORIDE 0.9% 500 ML IV SCH (01:00)
[2019-02-08] MEDS: ALBUT/IPRATROP 3MG/0.5MG NEB 3 ML VIAL NEB SCH ×6 (03:34→23:15)
[2019-02-08] MEDS: PIPERACILLIN/TAZOBACTAM 3.375 GM in DEXTROSE 5% 100 ML IV SCH ×3 (05:40→21:53)
[2019-02-08 07:00] LABS: Hematocrit (blood only) 26.8 % (37-47); Hemoglobin 8.5 g/dL (12.0-16.0); Mean Corpuscular Hemoglobin 29.1 pg (25-34); Mean Corpuscular Hgb Conc 31.7 g/dL (32-36); Mean Corpuscular Volume 91.8 fL (80-100); Mean Platelet Volume 10.4 fL (7.4-10.4); Platelet Count 325 K/uL (130-400); RDW Coefficient of Variation 18.3 % (11.5-14.5); RDW Standard Deviation 60.4 fL (36.4-46.3); Red Blood Count 2.92 M/uL (4.2-5.4)
[2019-02-08 07:33] LABS: Albumin Globulin Ratio 0.6 (0.9-2); BUN Creatinine Ratio 37.1 (10-20); Bilirubin,Total 0.7 mg/dl (0.2-1); Calcium 8.3 mg/dl (8.5-10.1); Creatinine Clr Calc Pharmacy 102.5 ml/min; Est GFR (African American) 131.6; Est GFR (Non-African American) 113.5; Globulin 3.6 gm/dl (2.5-4.0); Potassium 3.3 mmol/L (3.5-5.1); Total Protein 5.6 gm/dl (6.4-8.2)
[2019-02-08] MEDS ORDERED: Nursing to Pharmacy Communication ONE (07:40)
[2019-02-08] MEDS ORDERED: fentaNYL 50 MCG/HR TDSY TD SCH (08:00)
[2019-02-08 08:35] LABS: Anisocytosis Present; Basophils # (auto) 0.01 K/uL (0-0.2); Basophils % (auto) 0.1 %; Eosinophils # (auto) 0.01 K/uL (0-0.5); Eosinophils % (auto) 0.1 %; Immature Granulocytes # (auto) 0.02 K/uL (0.00-0.02); Immature Granulocytes % (auto) 0.2 %; Lymphocytes % (auto) 9.8 %; Monocytes # (auto) 0.37 K/uL (0.11-0.59); Monocytes % (auto) 4.5 %; Neutrophils # (auto) 6.99 K/uL (1.4-6.5); Neutrophils % (auto) 85.3 %; Toxic Granulation 2+
[2019-02-08] MEDS: ONDANSETRON 4 MG TAB PO SCH ×3 (08:41→16:27)
[2019-02-08] MEDS: DOCUSATE SODIUM 100 MG CAP PO SCH ×2 (08:42→20:19)
[2019-02-08] MEDS: BENZONATATE 100 MG CAPSULE PO PRN (08:42)
[2019-02-08] MEDS: DRONABINOL 2.5 MG CAP PO SCH ×3 (08:42→16:27)
[2019-02-08] MEDS: FAMOTIDINE 20 MG in SYRINGE 3 ML IV SCH (08:42)
[2019-02-08] MEDS: POLYETHYLENE (MIRALAX) 17 GM PACK PO SCH ×2 (08:42→20:19)
--- NOTE | 2019-02-08 08:56 | XRay Report ---
XR chest 1V portable CLINICAL HISTORY: thoracentesis. Lung cancer. COMPARISON STUDY: Chest radiograph and chest CT February 07, 2019. FINDINGS: A left subclavian [id number]-e-Vbdb is in place. A cavitary left upper lobe mass is again noted . A loculated left hydropneumothorax is again noted. The amount of pleural fluid is diminished while the amount of pleural fluid has increased. This suggest a trapped left lung. Mixed interstitial and a lveolar opacities within the right lung are noted. Cardiomediastinal silhouette is stable. IMPRESSION: Status post left thoracentesis with redemonstration of a left hydropneumothorax with int erval decrease in pleural fluid with increase in pleural gas which suggests a trapped left lung. Electronically signed by: Eriberto Buckley M.D. 02/08/2019 8:55 AM
--- NOTE | 2019-02-08 09:23 | Progress Note ---
DATE: 02/08/2019 DIAGNOSES: 1. Failure to thrive/failing performance status. 2. Intractable left chest wall pain. 3. Anorexia. 4. Cytopenias attributable to chemotherapy. 5. Metastatic nonsmall cell lung cancer. SUBJECTIVE: The patient was seen and examined this morning at bedside. She was transferred down to telemetry unit overnight, now on oxygen nonrebreather. The patient is definitely more comfortable. Apparently, there was fear that she had developed pulmonary embolus and thus CTA of the chest was performed, which may have uncovered the etiology of her pain. There is a small right pleural effusion and moderate to large loculated left hydropneumothorax on the left. Gas component within the left hydropneumothorax has progressed consistent with bronchial pleural fistula, believed to have originated from the large left upper lobe cavitary mass. Progressive interstitial thickening and airspace opacities are also seen. The patient reports no fever or chills overnight. Her appetite remains poor. We will start her on a stimulant today. She has no complaints of discomfort with the exception of the left shoulder. OBJECTIVE: GENERAL: Pleasant 63-year-old cachectic appearing female, in no acute distress. VITAL SIGNS: Temperature 36.4, pulse 106, respiratory rate 20, blood pressure 128/79. SKIN: Warm, dry, noncyanotic. HEENT: Oral mucosa without erythema or ulceration. HEART: Tachy, but regular. LUNGS: Coarse rhonchi heard in the upper left lung diaz. ABDOMEN: Soft, nontender, nondistended. EXTREMITIES: No clubbing, cyanosis or edema. NEUROLOGIC: Grossly intact. LABORATORY DATA: WBC count 8200, hemoglobin 8.5, platelet count 325,000. Sodium 139, potassium 3.3, chloride 98, carbon dioxide 38, creatinine 0.38, BUN 14, albumin 2. IMPRESSION: 1. Intractable left chest wall pain. 2. Failing performance status/failure to thrive. 3. Anorexia. 4. Severe hypoalbuminemia. 5. Cytopenias attributable to chemotherapy. 6. Metastatic nonsmall cell lung cancer. PLAN: Again the patient was transferred down to telemetry overnight. She looks a little bit better this morning. I understand Dr. Wilson was vice here and may take her for a thoracentesis later on. CTA of the chest reveals a left hydropneumothorax, which I believe Dr. Wilson would like to drain. Need to work on the patient's nutritional status and strength overall. Again, we will delay any further chemotherapy until she is medically stable. Again discussed this with her daughter and the patient yesterday. They are both on board with the plan. I have nothing further to add, but we will continue to follow the patient during her hospital stay.
--- NOTE | 2019-02-08 09:32 | Pharmacy Report ---
Pharmacy Abx Dose Short Note - Date of Service February 08, 2019 - Assessment & Plan Assessment * 63 year old F receiving VANCOMCIN + ZOSYN for treatment of pneumonia with risk factors for resistant organism (recent hospitalization, chemotherapy) * Patient has h/o lung CA w/ mets, including malignant pleural effusion * Sputum cx is growing gram negative rods * BLCXs and pleural fluid cx pending * Procal 0.95 --> 1.42 * Non-neutropenic on today's labs. * Afebrile, + tachycardia, non-hypotensive, sat mid-90% on 5L Oxymask * Patient is cachectic w/ severe protein calorie malnutrition. SCr 0.38, baseline appears to be ~0.3. Uncertain what true renal clearance may be Plan Vancomycin * 1000mg (~23mg/kg)n IV x 1 given this AM * Maint dose: 600mg (~14.2mg/kg) IV Q 12 hrs * Goal trough level for pulm infxn : 15 to 20 mcg/mL * Will check trough level w/ 3rd dose as pt's true renal clearance difficult to estimate * P'kinetic estimates: CrCl ~60-80cc/min; Vd 0.7L/kg, half-life ~10-12 hrs Zosyn * eCrCl > 20, BMI < 35, continue 3.375gm ext-infusion Q 8 hrs Pharmacy will continue to follow and will adjust dose/frequency as necessary. Thank you.
--- NOTE | 2019-02-08 10:01 | Operative Report ---
DATE OF OPERATION: 02/08/2019 PREOPERATIVE DIAGNOSIS: Malignant left pleural effusion. POSTOPERATIVE DIAGNOSIS: Malignant left pleural effusion. PROCEDURE: Left thoracentesis under ultrasound guidance. ANESTHESIA: Local. SURGEON: Rommel Wilson MD. TELEPHONE ORDER DISPATCHER: ANA Cortez DESCRIPTION OF PROCEDURE: With the patient in upright position leaning forward on a bedside table with a pillow, her left chest was evaluated. She has some complicated appearing fluid in her chest. I marked a spot which would take this directly into this and then prepped and draped in usual sterile fashion. After appropriate timeout had been called, a 25-gauge needle and 1% Xylocaine were used to raise a skin wheal, skin and subcutaneous tissues, intercostal muscles. A large bore needle went through this into the pleural cavity and we got free flowing fluid. A guidewire was inserted and the needle removed. Triple lumen catheter slid in and we removed the guidewire. We had no bleeding. Approximately 450 mL of a yellowish fluid was drained. It was sent to the lab for culture. She tolerated it very well. We started getting air adequately and then I removed the catheter. She may have a trapped lung. She did have some reexpansion pain with minimal cough. Chest x-ray is pending. I removed the catheter and I placed an antimicrobial dressing. She tolerated it quite well. I attest to the content of the Intraoperative Record and any orders documented therein. Any exception s are noted below.
--- NOTE | 2019-02-08 10:07 | Consultation Report ---
DATE OF CONSULTATION: 02/08/2019 REASON FOR CONSULTATION: Followup for metastatic lung cancer. HISTORY OF PRESENT ILLNESS: Margaux is a 63-year-old female who is well known to me who has a locally aggressive fqo-wabqe-raeh lung carcinoma with metastases to her bone. She has stage IV disease. I was asked to see her today to evaluate her for her ongoing metastatic lung cancer. She has had a very large cancer in the left upper lobe, had metastases to her spine which was treated with radiation therapy. She had chemotherapy and radiation and now has a space in her left upper lobe where she has had necrosis of the tumor itself. She is undergoing chemotherapy under the direction of Dr. Dejan Albert, and she has a history of a left malignant pleural effusion which was treated with a thoracentesis and a PleurX catheter. She presents now after chemotherapy and she is feeling weak. She is also hypoxic. She is on 5 liters with saturations in the low 90s. She did have hemoptysis on her last admission, does not really have hemoptysis now. She is quite frail and it is understood that she is going to succumb to her cancer. The question would be if she can get some palliation from her ongoing treatment. I was asked to evaluate her for her pleural effusion. Dr. Rafael Wheeler from pulmonary evaluated her yesterday and held off on thoracentesis or consideration of a PleurX catheter given the fact that her symptoms did not warrant it. However, she got worse last night, had to be moved to telemetry unit, and was quite short of breath with a cough. There was no hemoptysis, however. I discussed this with Dr. Albert today and we elected to proceed with a thoracentesis. PAST MEDICAL HISTORY: See above. MEDICATIONS: See chart. The rest of her exam has really not changed. She is a thin, cachectic female who is awake and alert. She states she feels much better today than she did yesterday. Her white count yesterday was 6490. We are going to proceed with a thoracentesis today. [facility]
--- NOTE | 2019-02-08 10:49 | Palliative Care Consultation ---
Date of Consultation February 08, 2019 Assessment & Plan (1) Goals of care, counseling/discussion: This is a 63 year old female patient who is known to the Palliative Care Service presented to the hospital this admission with generalized weakness, fatigue and worsening pain that has been progressively getting worse over the past 5 days. 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 The Patient underwent liver biopsy on 11/05-was positive for adenocarcinoma of the lung as her primary. On her admission in November, she was seen by Dr. Wilson who performed thoracentesis, bronchoscopy, and Pleur-X catheter placement, which has since bee n removed on December 28. Hemoptysis has been overall a big symptom that she reports; however, has had less this admission. She has been followed by Oncology and she was receiving salvageable chemotherapy, knowing; however, her prognosis is overall poor. Unfortunately, this admission, she was advised that chemotherapy needed to be stopped due to her poor cachectic state for at least one month's time. This admission, the patient was seen by Dr. Wilson and, this morning, a thoracentesis was performed with removing 450mL from the left pleural space. Given patient's extensive and incurable disease, palliative care is consulted to discuss goals and help provide symptom management. -I met with the patient in room 205. She reports that I do look familiar to her but was unable to recall the service. -We have had a challenging time discussing her prognosis as the patient becomes agitated and says " I know I am dying, I know what Hospice is", and requests to stop the conversation overall. -Today, her niece, a fire control technician b was in the room during my visit. -We talked about her breathing, which she said feels improved since her thoracentesis. -I asked her to describe her day at home and she stated that she is alone at home for most of the day until her sisters are finished with work, but she did state that she is 'scared that I wont be able to breathe and nobody is there'. I validated her concerns and talked about Hospice and its services, along with additional private care at home vs nursing facility with hospice. -The patient was very quiet with her eyes closed for most of the visit, but did respond that she was listening to the conversation. -From previous admission, end of life was a very scary topic for this patient and has been overall private with all discussions involving her daughter, Stacy. -Today, I asked if I could talk with Stacy on the phone and she agreed that I could. -From a symptom and pain management standpoint, she states that her pain is in her upper left arm and her left rib cage, all bone related. She currently is taking Fentanyl 50 mcg TD Q3days for pain which has been effective. She has been receiving Tylenol for breakthrough pain; however, prior admissions and at home she has taken Oxycodone for breakthrough which I support at this time as well due to the nature of her pain. I ordered Oxy IR 5mg PO Q4 PRN so we could monitor the appropriateness of her Fentanyl patch dose. She describes her pain in her left upper arm and left rib cage. -I spoke with the patient's daughter, Stacy, outside of the room and talked about her current condition, fragility and decreased reserve. -Multiple family dynamics were made known, which include mental health of all 3 siblings, which could contribute to some of the patients resistance to transitioning to full comfort measures. -I provided the patient some verbage to use with her mother indicating transitioning to hospice, which she was going to do later today. -The patients son, Naman, was going to visit the patient later this afternoon. I suggested a family meeting with the family together, but the daughter declined this. -I expressed I do think the patient is entering the last stage of her life, and anticipate her life expectancy is weeks to a few months at best, she understood, but stated "she has pulled through this before" -The patient has had minimal to no substantial food intake over the past 5 days. The daughter discussed a feeding tube to 'buy more time'. we discussed at length the benefits vs risks of a feeding tube at this time and I think there are more risks vs benefits. I offered literature about hospice, end of life and decision making but the daughter declined. -Overall, the patients prognosis is poor and based on the increased dyspnea and cachectic presentation, she may be entering the early phase of active end-of-life with likely weeks to a month or two of life expectancy. -Palliative care will continue to provide symptom and pain management, as well as continue to guide and support difficult decision making as the need arises. Patient does not have a POLST form, would be beneficial to complete one as an outpatient. -PPS: 20% (2) Pleural effusion, malignant: (3) Chronic respiratory failure: Respiratory failure complication: hypoxia Qualified Code(s): J96.11 - Chronic respiratory failure with hypoxia (4) Pancytopenia due to antineoplastic chemotherapy: (5) Severe protein-calorie malnutrition: Supervising Physician Co-Signing Physician Notes Chart reviewed, Dr. Albert's consult seen, patient seen and examined. Collaborated with SUSANNA Booth PE: Patient awake and alert, on O2 via oxygen mask, patient states her breathing has improved after her thoracentesis HEENT: EOMI, hearing within normal limits, alopecia Respiratory: Rare breath sounds on left, diminished on right CV: Tachycardic, no edema Abdomen: Soft, nontender Patient did take a few sips of thin liquid at bedside-did cough after each sip, likely aspiration, may be due to weakness. May consider Decadron for appetite stimulant if Marinol is not effective, Decadron is also helpful with bone pain Agree with above note, assessment and plan as per SUSANNA Booth. Will continue to follow and assist patient and family with medical decision making. History of Present Illness Reason for Consultation: Goals of Care Requesting Physician: Dr. Lopez Attending Physician: Robbin Cruz History of Present Illness This is a 63 year old female patient who is known to the Palliative Care Service presented to the hospital this admission with generalized weakness, fatigue and worsening pain that has been progressively getting worse over the past 5 days. 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 The Patient underwent liver biopsy on 11/05-was positive for adenocarcinoma of the lung as her primary. On her admission in November, she was seen by Dr. Wilson who performed thoracentesis, bronchoscopy, and Pleur-X catheter placement, which has since been removed on December 28. Hemoptysis has been overall a big symptom that she reports; however, has had less this admissi on. She has been followed by Oncology and she was receiving salvageable chemotherapy, knowing; however, her prognosis is overall poor. Unfortunately, this admission, she was advised that chemotherapy needed to be stopped due to her poor cachectic state for at least one month's time. She was seen by Pulmonary and a thoracentesis was performed today with 450mL removed from the left pleural space with relief noted by the patient. Given patient's extensive and incurable disease, palliative care is consulted to discuss goals and help provide symptom management. Please see Assessment and Plan portion of this chart for additional details. Thank you kindly for involving us again with this patient for continuity and to assist during this difficult transition. Allergies Allergy/AdvReac Type Severity Reaction Status Date / Time morphine Allergy Unknown ITCHING Verified 02/05/19 09:51 AND LUMP ON HAND strawberry Allergy Unknown HIVES Verified 02/05/19 09:51 heparin (porcine) AdvReac Severe Life Verified 02/07/19 19:47 threatening hemoptysis aspirin AdvReac Unknown GI UPSET Verified 02/05/19 09:51 Home Medications Home Medications Medication Instructions Recorded Confirmed Type cetirizine 5 mg tablet 5 mg PO QAM PRN tab 10/13/18 02/05/19 History conj estrogen-medroxyprogesterone 1 tab PO QAM 10/13/18 02/05/19 History 0.625 mg-2.5 mg tablet promethazine 25 mg tablet 25 mg PO Q6H PRN #60 tab 11/11/18 02/05/19 Rx oxycodone 10 mg tablet 10 mg PO Q4H PRN tab 12/05/18 02/05/19 History food supplement, lactose-reduced 1 ea PO BID #6399 ml 12/07/18 02/05/19 Rx 0.04 gram-1 kcal/mL oral liquid ondansetron 4 mg disintegrating 4 mg PO Q8H PRN #60 tab 12/11/18 02/05/19 Rx tablet dexamethasone [Decadron] 4 mg PO UD 12/31/18 02/05/19 History prochlorperazine maleate 10 mg PO TID PRN 12/31/18 02/05/19 History [Compazine] sennosides-docusate sodium [Senna 2 tab PO HS 12/31/18 02/05/19 History Plus] polyethylene glycol 3350 17 gram 17 g PO BID #30 ea 01/06/19 02/05/19 Rx oral powder packet codeine-guaifenesin [Guaifenesin 10 ml PO Q6H PRN #118 ml 01/20/19 02/05/19 Rx AC] omeprazole 20 mg PO DAILY #0 tab 01/20/19 02/05/19 Rx albuterol sulfate [Ventolin HFA] 1 puffs INH Q6H PRN 02/05/19 02/05/19 History docusate sodium [Colace] 100 mg PO BID 02/05/19 02/05/19 History fentanyl [Duragesic] 50 mcg TRANSDERMAL Q3D@1230 02/05/19 02/05/19 History mirtazapine [Remeron] 15 mg PO HS 02/05/19 02/05/19 History ondansetron HCl [Zofran] 4 mg PO TIDM 02/05/19 02/05/19 History Patient History Medical History PHYLLIS I (cervical intraepithelial neoplasia I) Metastatic cancer to lung Bony metastasis Pleural effusion, left Non-small cell lung cancer with metastasis Pathologic compression fracture of spine Pain due to malignant neoplasm metastatic to bone Anxiety Chronic back pain GERD (gastroesophageal reflux disease) History of kidney stones Hypertension IBS (irritable bowel syndrome) 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 Port-A-Cath in place (01/05/19) Insertion of A-Port in Left Subclavian Dr. Mooney 01-05-19 Surgical History History of bronchoscopy History of colonoscopy w/ polypectomy History of hemorrhoidectomy History of lithotripsy History of liver biopsy History of rhinoplasty History of tubal ligation Hx of chest tube placement removed Family History Brother Colon cancer Prostate cancer Colorectal cancer Sister Cervical cancer History of kidney cancer Ovarian cancer Lung cancer Family/Other Breast cancer Sister Cholangiocarcinoma Social History Preferred Language: Tajik Communication Ability: Unable Radio Interference Expert Required: No Beliefs That Will Affect Care: None marital status: Single Current Living Situation: Alone current occupational status: disabled Other Information That Helps Us Care for You: No Feels Safe at Home: Yes Safety Concerns: Feels Safe At This Time Smoking Status: Former smoker Tobacco Type: cigarettes ; Cigarettes Per Day: 10 ; Smoking End Date: November 2018 (when diagnosed with cancer). ; Second Hand Exposure: Yes ; Hx Alcohol Use: No Hx Substance Use: No Childhood Exposure to Second-Hand Smoke: No caffeine: Yes Physical Activity Frequency: Does not Exercise Review of Systems Review of Systems: General: Pt states her breathing feels 'improved' but still is having left upper arm pain and left mid chest pain described to be in the rib regions HEENT: Pt denies dysphagia, FABIAN, dizziness visual changes CV: Pt denies CP, palpitations Resp: + SOB with activity GI: Pt denies abdominal pain, N/V/D : Pt denies dysuria Psych: Pt denies anxiety, depression Physical Exam Constitutional: + ill appearing, + thin, + cachectic and + in distress Eyes: PERRL, conjunctivae normal, anicteric sclerae Neck: trachea midline, no thyromegaly Respiratory: + respiratory distress, + uses accessory muscles and symmetric chest movement Auscultation: + diminished lung sounds Cardiovascular: Heart Sounds: + murmur Extremities: no edema Gastrointestinal (Abdomen): normal bowel sounds, soft, nontender, no hepatosplenomegaly Skin: + dry skin and + pallor erythema noted on bony prominences on back . Psychiatric: Orientation: alert and oriented x 3 Mood: + irritable mood Insight: + limited insight Judgement: + limited judgement Results & Data Vital Signs (Past 12 Hours) Vital Signs Temp Pulse Pulse Resp BP BP Pulse Ox 02/08/19 07:36 36.4 C L 106 H 20 128/79 95 02/08/19 07:07 103 H 20 97 02/08/19 03:43 36.6 C 110 H 26 H 162/98 H 97 02/08/19 03:36 101 H 18 97 02/08/19 00:37 80 02/07/19 23:12 36.6 C 105 H 27 H 136/93 99 02/07/19 23:05 106 H 18 94 PG Care Time/CCT Total # of Minutes Spent Total Time Spent with Patient: Total time spent is greater than 50% in coordination of care (as documented) at patient's floor/unit and/or counseling patient: 70 Time Spent Midlevel Total time spent 70 minutes with > 50% of that time spent assessing the patient, discussing end of life symptom management and pain management.
[2019-02-08] MEDS ORDERED: OXYCODONE HCL 10 MG TABCR (OXYCONTIN) PO STA (11:17)
[2019-02-08] MEDS: ACETAMINOPHEN 325 MG TAB PO PRN (11:30)
--- NOTE | 2019-02-08 11:34 | Pulmonology Progress Note ---
Date of Service February 08, 2019 Assessment & Plan (1) Chronic respiratory failure: Impression: 63-year-old female with advanced non-small cell lung carcinoma with malignant pleural effusion. She is well-known to our service from prior admissions and presents with weakness fatigue and chronic pain. She previously was treated with a Pleurx catheter which was removed by Dr. Wilson. Repeat CT scan shows persistent malignant pleural effusion. Recommendations: 1. Patient had evidence of left-sided pleural effusion. This was tapped today by Dr. Wilson. He removed approximately 450 mL's of pleural fluid. Patient notes improvement in her dyspnea status post thoracentesis. She did previously have a Pleurx catheter and I am not quite certain why the catheter was removed. I will defer further pleural procedures to thoracic surgery on this case. I do not see any role for bronchoscopy in this case. I do not see any obvious mucous plug on the chest imaging. She does have small areas of atelectasis on the CT scan. I would recommend CoughAssist 3 times a day and flutter valve as tolerated. Much of her therapy would likely be limited due to the patient's pain and discomfort. I strongly would recommend a more palliative approach to this patient. 2. Advanced non-small cell lung cancer: Appreciate Dr. Albert's note. Plans are to suspend any additional chemotherapy as the patient is too weak to tolerate it. Palliative care is being involved with the patient and would agree with a palliative approach. 3. Acute on chronic hypoxemic respiratory failure: Secondary to lung cancer, malignant pleural effusion, atelectasis of the lung. Continue supplemental oxygen. 4. Patient sputum is growing gram-negative rods. She does have an elevated procalcitonin. Recommend continued antibiotics for 7 days total. Would obtain MRSA screen and discontinue the vancomycin if the mrsa screen is negative. 5. At this time, pulmonary will sign off. Please do not hesitate to call us with questions. Thank you for allowing us to partake in the care of this patient. Respiratory failure complication: hypoxia Qualified Code(s): J96.11 - Chronic respiratory failure with hypoxia (2) Pleural effusion, malignant: (3) Severe protein-calorie malnutrition: (4) Hemoptysis: Subjective Patient appears to be resting in her bed. She says she is tired and does not appear to be very interested in having conversation. She did have a thoracentesis today on the left side and notes significant improvement in her dyspnea. She is currently on 3 L of oxygen saturating at 95%. She does endorse pain in her chest on deep breaths. She denies any nausea at present. Review of Systems Review of Systems: All systems reviewed & are unremarkable except as noted in HPI & below Physical Exam Constitutional: + cachectic and + frail appearing Eyes: PERRL, conjunctivae normal, anicteric sclerae Neck: trachea midline, no thyromegaly Respiratory: + tachypneic Rhonchi on the right Cardiovascular: Rate/Rhythm: + tachycardic Heart Sounds: normal S1 and normal S2; no murmur Gastrointestinal (Abdomen): normal bowel sounds, soft, nontender, no hepatosplenomegaly Skin: no rashes, warm and dry Results & Data Vital Signs (Past 12 Hours) Vital Signs Temp Pulse Pulse Resp BP Pulse Ox 02/08/19 11:29 98.2 F 104 H 16 132/86 95 02/08/19 11:08 98 H 24 97 02/08/19 07:36 97.5 F L 106 H 20 128/79 95 02/08/19 07:07 103 H 20 97 02/08/19 03:43 97.9 F 110 H 26 H 162/98 H 97 02/08/19 03:36 101 H 18 97 02/08/19 00:37 80 PG Care Time/CCT Total # of Minutes Spent Total Time Spent with Patient: Total time spent is greater than 50% in coordination of care (as documented) at patient's floor/unit and/or counseling patient:
[2019-02-08] MEDS ORDERED: OXYCODONE HCL IR 5 MG TAB (IMMEDIATE RELEASE) PO PRN (11:41)
[2019-02-08] MEDS: VANCOMYCIN HCL IV SCH (14:10)
[2019-02-08] MEDS: SODIUM CHLORIDE 0.9% IV SCH (14:10)
[2019-02-08] MEDS: MIRTAZAPINE TAB 15 MG TAB PO SCH (20:14)
[2019-02-08] MEDS: DOCUSATE SODIUM/SENNA 50/8.6MG TAB PO SCH (20:19)
--- NOTE | 2019-02-08 22:54 | Hospitalist Progress Note ---
Date of Service February 08, 2019 Assessment & Plan (1) Chemotherapy adverse reaction: Patient extremely weak, cachectic. Patient no longer is coughing up sputum. She appears to be improving in regards to her breathing after thoracocenthesis. However, overall patient appears to be in the early stages of dying. Marinol was ordered. Procalcitonin is positive Patient is on zosyn and vanco. Awaiting MRSA. Sputum sample pending. (2) Goals of care, counseling/discussion: Palliative to see on Friday to help with symptom management. (3) Chronic respiratory failure: Continue O2 to aim sats > 90%. On home O2 2L NC (4) Weakness: Chemotherapy induced as above (5) Vomiting: Ondansetron and Phenergan PRN. (6) Pleural effusion, malignant: No change from prior therefore will defer any thoracic surgery consult at this time (7) Severe protein-calorie malnutrition: Appreciate nutrition consult. Patient having problems with larger food today as recovering from chemotherapy therefore will switch to minced and moist food. Consult speech for re-evaluation. (8) History of recent chemotherapy: cause of current hospitalization (9) GERD (gastroesophageal reflux disease): Continue IV famotidine to reduce risk of aspiration pneumonitis given ongoing vomiting (10) HTN (hypertension): d/c antihypertensives last admission. Will continue to monitor BP (11) Bony metastasis: Home pain management appears to be adequate with fentanyl and oxycodone (12) Non-small cell lung cancer with metastasis: Appreciate oncology review. Discussed with Dr Albert. Planning on holding off further chemotherapy for a month. (13) Pancytopenia due to antineoplastic chemotherapy: Continue to monitor for rebound of blood counts (14) DVT prophylaxis: Patient refusing heparin and will discontinue this anyway given recent history of hemoptysis. SCDs (15) Discharge planning issues: PT/OT Unsure if patient can be discharged home as this appears to be unsafe. May need home hospice however, family is not in agreement with this as of yet. Though daughter does show understanding that patient is nearing the end. Subjective 63 yo female reports no new symptoms. She does not appear to be very hungry. She reports that she remembers me vaguely from the time I was her hospitalist when her cancer was initialliy diagnosed. She states she is comfortable and wants to rest. Review of Systems Review of Systems: All systems reviewed & are unremarkable except as noted in HPI & below Physical Exam Physical Exam: Constitutional: + cachectic; no acute distress Eyes: normal pupil size ENMT: external ear and nose normal, oropharynx normal Neck: trachea midline Respiratory: normal respiratory effort; no respiratory distress; Auscul tation: rales Cardiovascular: RRR, no murmur, no edema Gastrointestinal (Abdomen): Inspection/Auscultation: normal bowel sounds; abdomen not distended Percussion/Palpation: abdomen soft; abdomen nontender Skin: no rashes, warm and dry Neurologic: moves all extremities (generalized weakness) and awake; no focal motor deficits Psychiatric: A+Ox3, euthymic affect Results & Data Vital Signs (Past 12 Hours) Vital Signs Temp Pulse Pulse Resp BP Pulse Ox 02/08/19 19:40 36.6 C 95 H 19 113/67 95 02/08/19 19:16 94 H 22 96 02/08/19 16:00 94 H 02/08/19 15:37 36.7 C 103 H 24 114/69 94 02/08/19 15:09 89 20 96 02/08/19 11:29 36.8 C 104 H 16 132/86 95 02/08/19 11:08 98 H 24 97 PG Care Time/CCT Total # of Minutes Spent Total Time Spent with Patient: Total time spent is greater than 50% in coordination of care (as documented) at patient's floor/unit and/or counseling patient: (1) Chronic respiratory failure Respiratory failure complication: hypoxia Qualified Code(s): J96.11 - Chronic respiratory failure with hypoxia (2) Chemotherapy adverse reaction Encounter type: subsequent encounter Qualified Code(s): T45.1X5D - Adverse effect of antineoplastic and immunosuppressive drugs, subsequent encounter (3) GERD (gastroesophageal reflux disease) Esophagitis presence: without esophagitis Qualified Code(s): K21.9 - Gastro- esophageal reflux disease without esophagitis (4) HTN (hypertension) Hypertension type: essential hypertension Qualified Code(s): I10 - Essential (primary) hypertension (5) Vomiting Nausea presence: unspecified Vomiting Intractability: unspecified Vomiting type: unspecified Qualified Code(s): R11.10 - Vomiting, unspecified
[2019-02-09] MEDS: CHECK FENTANYL PATCH PLACEMENT SCH ×2 (00:34→08:39)
[2019-02-09] MEDS: VANCOMYCIN HCL IV SCH (01:36)
[2019-02-09] MEDS: SODIUM CHLORIDE 0.9% IV SCH (01:36)
[2019-02-09] MEDS: ALBUT/IPRATROP 3MG/0.5MG NEB 3 ML VIAL NEB SCH ×3 (02:48→10:51)
[2019-02-09] MEDS: PIPERACILLIN/TAZOBACTAM 3.375 GM in DEXTROSE 5% 100 ML IV SCH (05:20)
[2019-02-09 06:01] LABS: Hematocrit (blood only) 30.1 % (37-47); Hemoglobin 9.4 g/dL (12.0-16.0); Mean Corpuscular Hemoglobin 28.4 pg (25-34); Mean Corpuscular Hgb Conc 31.2 g/dL (32-36); Mean Corpuscular Volume 90.9 fL (80-100); Mean Platelet Volume 9.9 fL (7.4-10.4); Platelet Count 370 K/uL (130-400); RDW Coefficient of Variation 18.4 % (11.5-14.5); Red Blood Count 3.31 M/uL (4.2-5.4); White Blood Count 11.76 K/uL (4.8-10.8)
[2019-02-09 06:14] LABS: Calcium 8.3 mg/dl (8.5-10.1); Creatinine Clr Calc Pharmacy 96.3 ml/min; Est GFR (African American) 132.7; Est GFR (Non-African American) 114.5; Potassium 3.4 mmol/L (3.5-5.1)
[2019-02-09 06:34] LABS: Basophils # (auto) 0.04 K/uL (0-0.2); Basophils % (auto) 0.3 %; Dohle Bodies 1+; Eosinophils # (auto) 0.01 K/uL (0-0.5); Eosinophils % (auto) 0.1 %; Hypochromasia Present; Immature Granulocytes # (auto) 0.12 K/uL (0.00-0.02); Lymphocytes # (auto) 1.91 K/uL (1.2-3.4); Lymphocytes % (auto) 16.2 %; Monocytes # (auto) 0.94 K/uL (0.11-0.59); Neutrophils # (auto) 8.74 K/uL (1.4-6.5); Neutrophils % (auto) 74.4 %; Polychromasia 1+; Toxic Granulation 2+
--- NOTE | 2019-02-09 07:12 | XRay Report ---
XR chest 1V portable CLINICAL HISTORY: effusion pleural effusion COMPARISON STUDY: 02/08/2019 FINDINGS: Unchanged exam. Central catheter remains in superior vena cava. Unchanged left hydropneumot horax. Unchanged opacification left pulmonary apex. Stable infiltrative changes right base. IMPRESSION: Unchanged left hydropneumothorax. Unchanged right basilar infiltrative process. No up e from the prior study. The above report was generated using voice recognition software. It may contain grammatical, syntax or spelling errors. Electronically signed by: Modesto Narayanan M.D. 02/09/2019 7:11 AM
[2019-02-09] MEDS: FAMOTIDINE 20 MG in SYRINGE 3 ML IV SCH (08:38)
[2019-02-09] MEDS: POLYETHYLENE (MIRALAX) 17 GM PACK PO SCH (08:39)
[2019-02-09] MEDS: DOCUSATE SODIUM 100 MG CAP PO SCH (08:39)
[2019-02-09] MEDS: DRONABINOL 2.5 MG CAP PO SCH ×3 (08:39→13:37)
[2019-02-09] MEDS: ONDANSETRON 4 MG TAB PO SCH ×2 (08:39→11:54)
[2019-02-09] MEDS ORDERED: POTASSIUM CHLORIDE 20 MEQ TABCR PO SCH (09:00)
--- NOTE | 2019-02-09 10:02 | History & Physical Report ---
Date of Service February 09, 2019 History of Present Illness Primary Care Provider: Allen Suresh MD Allergies Allergy/AdvReac Type Severity Reaction Status Date / Time morphine Allergy Unknown ITCHING Verified 02/05/19 09:51 AND LUMP ON HAND strawberry Allergy Unknown HIVES Verified 02/05/19 09:51 heparin (porcine) AdvReac Severe Life Verified 02/07/19 19:47 threatening hemoptysis aspirin AdvReac Unknown GI UPSET Verified 02/05/19 09:51 Home Medications Home Medications Medication Instructions Recorded Confirmed Type cetirizine 5 mg tablet 5 mg PO QAM PRN tab 10/13/18 02/05/19 History conj estrogen-medroxyprogesterone 1 tab PO QAM 10/13/18 02/05/19 History 0.625 mg-2.5 mg tablet promethazine 25 mg tablet 25 mg PO Q6H PRN #60 tab 11/11/18 02/05/19 Rx oxycodone 10 mg tablet 10 mg PO Q4H PRN tab 12/05/18 02/05/19 History food supplement, lactose-reduced 1 ea PO BID #6399 ml 12/07/18 02/05/19 Rx 0.04 gram-1 kcal/mL oral liquid ondansetron 4 mg disintegrating 4 mg PO Q8H PRN #60 tab 12/11/18 02/05/19 Rx tablet dexamethasone [Decadron] 4 mg PO UD 12/31/18 02/05/19 History prochlorperazine maleate 10 mg PO TID PRN 12/31/18 02/05/19 History [Compazine] sennosides-docusate sodium [Senna 2 tab PO HS 12/31/18 02/05/19 History Plus] polyethylene glycol 3350 17 gram 17 g PO BID #30 ea 01/06/19 02/05/19 Rx oral powder packet codeine-guaifenesin [Guaifenesin 10 ml PO Q6H PRN #118 ml 01/20/19 02/05/19 Rx AC] omeprazole 20 mg PO DAILY #0 tab 01/20/19 02/05/19 Rx albuterol sulfate [Ventolin HFA] 1 puffs INH Q6H PRN 02/05/19 02/05/19 History docusate sodium [Colace] 100 mg PO BID 02/05/19 02/05/19 History fentanyl [Duragesic] 50 mcg TRANSDERMAL Q3D@1230 02/05/19 02/05/19 History mirtazapine [Remeron] 15 mg PO HS 02/05/19 02/05/19 History ondansetron HCl [Zofran] 4 mg PO TIDM 02/05/19 02/05/19 History Past Med/Surg History Medical History PHYLLIS I (cervical intraepithelial neoplasia I) Metastatic cancer to lung Bony metastasis Pleural effusion, left Non-small cell lung cancer with metastasis Pathologic compression fracture of spine Pain due to malignant neoplasm metastatic to bone Anxiety Chronic back pain GERD (gastroesophageal reflux disease) History of kidney stones Hypertension IBS (irritable bowel syndrome) 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 Port-A-Cath in place (01/05/19) Insertion of A-Port in Left Subclavian Dr. 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 ; Second Hand Exposure: Yes ; Hx Alcohol Use: No Hx Substance Use: No Childhood Exposure to Second-Hand Smoke: No caffeine: Yes Physical Activity Frequency: Does not Exercise Review of Systems Constitutional: + fatigue, + malaise, + weakness, + anorexia and + weight loss Ear, Nose, Mouth, Throat: + facial pain and + dental caries; no sinus pain/pressure, no halitosis, no loose teeth and no bleeding gums Respiratory: + cough Gastrointestinal: + heartburn, + nausea and + excessive flatulence Musculoskeletal: + back pain and + body aches Results & Data Vital Signs (Past 12 Hours) Vital Signs Temp Pulse Resp BP BP Pulse Ox 02/09/19 06:59 113 H 22 92 02/09/19 06:55 36.6 C 119 H 28 H 142/93 H 90 02/09/19 04:10 36.8 C 103 H 20 115/69 95 02/09/19 02:50 100 H 20 96 02/08/19 23:58 37 C 113 H 20 138/81 90 02/08/19 23:17 101 H 20 95 Code Status & VTE Plan VTE Prophylaxis Plan VTE Prophylaxis will be ordered: Yes PG Care Time/CCT Total # of Minutes Spent Total Time Spent with Patient: Total time spent is greater than 50% in coordination of care (as documented) at patient's floor/unit and/or counseling patient:
--- NOTE | 2019-02-09 10:06 | History & Physical Report ---
Date of Service February 09, 2019 Assessment & Plan (1) Bony metastasis: i don't type much becausd i plkay video games and i have carpal tunnel (2) Radiation pneumonitis: (3) Multifocal pneumonia: (4) Metastatic cancer to lung: (5) Nausea: History of Present Illness Primary Care Provider: Allen Suresh MD Allergies Allergy/AdvReac Type Severity Reaction Status Date / Time morphine Allergy Unknown ITCHING Verified 02/05/19 09:51 AND LUMP ON HAND strawberry Allergy Unknown HIVES Verified 02/05/19 09:51 heparin (porcine) AdvReac Severe Life Verified 02/07/19 19:47 threatening hemoptysis aspirin AdvReac Unknown GI UPSET Verified 02/05/19 09:51 Home Medications Home Medications Medication Instructions Recorded Confirmed Type cetirizine 5 mg tablet 5 mg PO QAM PRN tab 10/13/18 02/05/19 History conj estrogen-medroxyprogesterone 1 tab PO QAM 10/13/18 02/05/19 History 0.625 mg-2.5 mg tablet promethazine 25 mg tablet 25 mg PO Q6H PRN #60 tab 11/11/18 02/05/19 Rx oxycodone 10 mg tablet 10 mg PO Q4H PRN tab 12/05/18 02/05/19 History food supplement, lactose-reduced 1 ea PO BID #6399 ml 12/07/18 02/05/19 Rx 0.04 gram-1 kcal/mL oral liquid ondansetron 4 mg disintegrating 4 mg PO Q8H PRN #60 tab 12/11/18 02/05/19 Rx tablet dexamethasone [Decadron] 4 mg PO UD 12/31/18 02/05/19 History prochlorperazine maleate 10 mg PO TID PRN 12/31/18 02/05/19 History [Compazine] sennosides-docusate sodium [Senna 2 tab PO HS 12/31/18 02/05/19 History Plus] polyethylene glycol 3350 17 gram 17 g PO BID #30 ea 01/06/19 02/05/19 Rx oral powder packet codeine-guaifenesin [Guaifenesin 10 ml PO Q6H PRN #118 ml 01/20/19 02/05/19 Rx AC] omeprazole 20 mg PO DAILY #0 tab 01/20/19 02/05/19 Rx albuterol sulfate [Ventolin HFA] 1 puffs INH Q6H PRN 02/05/19 02/05/19 History docusate sodium [Colace] 100 mg PO BID 02/05/19 02/05/19 History fentanyl [Duragesic] 50 mcg TRANSDERMAL Q3D@1230 02/05/19 02/05/19 History mirtazapine [Remeron] 15 mg PO HS 02/05/19 02/05/19 History ondansetron HCl [Zofran] 4 mg PO TIDM 02/05/19 02/05/19 History Past Med/Surg History Medical History PHYLLIS I (cervical intraepithelial neoplasia I) Metastatic cancer to lung Bony metastasis Pleural effusion, left Non-small cell lung cancer with metastasis Pathologic compression fracture of spine Pain due to malignant neoplasm metastatic to bone Anxiety Chronic back pain GERD (gastroesophageal reflux disease) History of kidney stones Hypertension IBS (irritable bowel syndrome) 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 Port-A-Cath in place (01/05/19) Insertion of A-Port in Left Subclavian Dr. 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 ; Second Hand Exposure: Yes ; Hx Alcohol Use: No Hx Substance Use: No Childhood Exposure to Second-Hand Smoke: No caffeine: Yes Physical Activity Frequency: Does not Exercise Immunizations: smallpox Review of Systems Review of Systems: HEENT: Head - normocephalic and atraumatic. Pupils are equal, round, and reactive to light. Extraocular eye muscles are intact and sclera are anicteric. Ears - bilaterally patent canals with noninjected tympanic membranes and no evidence of hemotympanum. Nose - moist nasal mucosa without discharge. Mouth - moist buccal mucosa. Oropharynx is nonerythematous and there is no tonsillar exudate or edema noted. Neck: Supple; no JVD, nuchal rigidity, cervical lymphadenopathy, or auscultated bruits. Heart: Regular rate and rhythm. There is a normal S1 and S2 with no murmurs, clicks, or gallops appreciated. Lungs: Clear to auscultation bilaterally with no wheezes, rales, or rhonchi. Abdomen: Soft, completely nontender, nondistended, with good bowel sounds. There are no palpable pulsatile masses or hepatosplenomegaly. There is no guarding, rigidity, or rebound noted. Extremities: No evidence of cyanosis, clubbing, or edema. There are easily palpable peripheral pulses. Neuro:The patient is awake and alert, oriented to day, time, and place. Muscle strength is 5/5 in all 4 extremities. The patient has equal morphologist strength and equal pedal push and pull. There are no cerebellar signs. GENERAL: Non-toxic in appearance. INTEGUMENTARY: Warm, dry, and [place]. HEAD: Normocephalic. EYES: without scleral icterus or trauma. ENT/OROPHARYNX: clear and moist. LYMPHADENOPATHY/NECK: Is supple without lymphadenopathy or meningismus. RESPIRATORY: Lungs clear and equal. CARDIOVASCULAR: Regular rate and rhythm. GI/ABDOMEN: Soft and nontender. No organomegaly or pulsatile mass. No rebound or guarding. Normal bowel sounds. EXTREMITIES: Warm and well perfused. BACK: No CVA tenderness. NEUROLOGICAL: Intact without focal deficits. PSYCHIATRIC: normal affect. MUSCULOSKELETAL: Normally developed with good muscle tone. Constitutional: + fatigue, + malaise, + weakness, + anorexia and + weight loss Ear, Nose, Mouth, Throat: + facial pain and + dental caries; no nasal trauma, no sinus pain/pressure, no halitosis, no loose teeth and no bleeding gums Respiratory: + cough Musculoskeletal: + back pain and + body aches Physical Exam Physical Exam: GENERAL: Non-toxic in appearance. INTEGUMENTARY: Warm, dry, and [place]. HEAD: Normocephalic. EYES: without scleral icterus or trauma. ENT/OROPHARYNX: clear and moist. LYMPHADENOPATHY/NECK: Is supple without lymphadenopathy or meningismus. RESPIRATORY: Lungs clear and equal. CARDIOVASCULAR: Regular rate and rhythm. GI/ABDOMEN: Soft and nontender. No organomegaly or pulsatile mass. No rebound or guarding. Normal bowel sounds. EXTREMITIES: Warm and well perfused. BACK: No CVA tenderness. NEUROLOGICAL: Intact without focal deficits. PSYCHIATRIC: normal affect. MUSCULOSKELETAL: Normally developed with good muscle tone. Gastrointestinal (Abdomen): Inspection/Auscultation: + caput medusae present (no one uses this, it's dumb); no abdominal surgical scar Percussion/Palpation: + abdomen tender Results & Data Vital Signs (Past 12 Hours) Vital Signs Temp Pulse Resp BP BP Pulse Ox 02/09/19 06:59 113 H 22 92 02/09/19 06:55 36.6 C 119 H 28 H 142/93 H 90 02/09/19 04:10 36.8 C 103 H 20 115/69 95 02/09/19 02:50 100 H 20 96 02/08/19 23:58 37 C 113 H 20 138/81 90 02/08/19 23:17 101 H 20 95 Laboratory Results Abnormal lab results 02/08/19 02/09/19 02/09/19 Range/Units 11:40 05:40 05:40 WBC 11.76 H (4.8-10.8) K/uL RBC 3.31 L (4.2-5.4) M/uL Hgb 9.4 L (12.0-16.0) g/dL Hct 30.1 L (37-47) % MCHC 31.2 L (32-36) g/dL RDW Std Deviation 61.0 H (36.4-46.3) fL RDW Coeff of [place] 18.4 H (11.5-14.5) % Immature Gran # (Auto) 0.12 H (0.00-0.02) K/uL Neut # (Auto) 8.74 H (1.4-6.5) K/uL [place] # (Auto) 0.94 H (0.11-0.59) K/uL Potassium 3.4 L (3.5-5.1) mmol/L Carbon Dioxide 38 H (21-32) mmol/L Creatinine 0.37 L (0.6-1.2) mg/dl BUN/Creatinine Ratio 46.0 H (10-20) Glucose 122 H (70-99) mg/dl POC Glucose 154 H (70-99) Calcium 8.3 L (8.5-10.1) mg/dl Lab Results 02/05/19 02/05/19 02/06/19 Range/Units 10:31 10:31 06:56 WBC 2.14 L 2.76 L (4.8-10.8) K/uL RBC 2.93 L 2.87 L (4.2-5.4) M/uL Hgb 8.7 L 8.4 L (12.0-16.0) g/dL Hct 26.8 L 26.2 L (37-47) % MCV 91.5 91.3 (80-100) fL MCH 29.7 29.3 (25-34) pg MCHC 32.5 32.1 (32-36) g/dL RDW Std Deviation 58.9 H 59.5 H (36.4-46.3) fL RDW Coeff of [place] 18.0 H 18.1 H (11.5-14.5) % Plt Count 254 294 (130-400) K/uL MPV 10.0 9.9 (7.4-10.4) fL Immature Gran % (Auto) 0.9 % Neut % (Auto) 77.1 % Lymph % (Auto) 8.4 % [place] % (Auto) 13.1 % Eos % (Auto) 0.0 % Baso % (Auto) 0.5 % Immature Gran # (Auto) 0.02 (0.00-0.02) K/uL Neut # (Auto) 1.65 (1.4-6.5) K/uL Lymph # (Auto) 0.18 L (1.2-3.4) K/uL [place] # (Auto) 0.28 (0.11-0.59) K/uL Eos # (Auto) 0.00 (0-0.5) K/uL Baso # (Auto) 0.01 (0-0.2) K/uL Absolute Nucleated RBC 0.02 H (0-0) K/uL Nucleated RBC % (auto) 0.7 % Hyposegmented Neuts Toxic Granulation 2+ Dohle Bodies Giant Platelets 1+ Polychromasia Hypochromasia Anisocytosis Present ABG pH (7.35-7.45) ABG pCO2 (35-46) mmHg ABG pO2 (80-95) mm/Hg ABG HCO3 (19-24) mmol/L ABG O2 Saturation (90-95) % ABG Base Excess (-9-1.8) mEq/L Cosme Test (Pos) Barometric Pressure mm/Hg Oxygen Given Sodium 137 (136-145) mmol/L Potassium 4.3 (3.5-5.1) mmol/L Chloride 100 (98-107) mmol/L Carbon Dioxide 34 H (21-32) mmol/L Anion Gap 3.0 (3-11) BUN 16 (7-18) mg/dl Creatinine 0.37 L (0.6-1.2) mg/dl Est Cr Clr Drug Dosing Not Reportable Est GFR ( Amer) 132.7 Est GFR (Non-Af Amer) 114.5 BUN/Creatinine Ratio 44.2 H (10-20) Glucose 125 H (70-99) mg/dl POC Glucose (70-99) Calcium 8.3 L (8.5-10.1) mg/dl Phosphorus (2.5-4.9) mg/dl Magnesium (1.8-2.4) mg/dl Total Bilirubin 0.6 (0.2-1) mg/dl AST 17 (15-37) U/L ALT 24 (12-78) U/L Alkaline Phosphatase 103 (45-117) U/L Total Protein 5.7 L (6.4-8.2) gm/dl Albumin 2.0 L (3.4-5.0) gm/dl Globulin 3.7 (2.5-4.0) gm/dl Albumin/Globulin Ratio 0.5 L (0.9-2) Procalcitonin (0-0.5) ng/ml Nasal Screen MRSA (PCR) (Negative) 02/06/19 02/06/19 02/07/19 Range/Units 06:56 12:03 07:03 WBC 6.49 (4.8-10.8) K/uL RBC 3.20 L (4.2-5.4) M/uL Hgb 9.4 L (12.0-16.0) g/dL Hct 29.1 L (37-47) % MCV 90.9 (80-100) fL MCH 29.4 (25-34) pg MCHC 32.3 (32-36) g/dL RDW Std Deviation 58.6 H (36.4-46.3) fL RDW Coeff of [place] 18.1 H (11.5-14.5) % Plt Count 346 (130-400) K/uL MPV 10.1 (7.4-10.4) fL Immature Gran % (Auto) 0.2 % Neut % (Auto) 84.8 % Lymph % (Auto) 8.0 % [place] % (Auto) 6.8 % Eos % (Auto) 0.0 % Baso % (Auto) 0.2 % Immature Gran # (Auto) 0.01 (0.00-0.02) K/uL Neut # (Auto) 5.51 (1.4-6.5) K/uL Lymph # (Auto) 0.52 L (1.2-3.4) K/uL [place] # (Auto) 0.44 (0.11-0.59) K/uL Eos # (Auto) 0.00 (0-0.5) K/uL Baso # (Auto) 0.01 (0-0.2) K/uL Absolute Nucleated RBC (0-0) K/uL Nucleated RBC % (auto) % Hyposegmented Neuts 2+ Toxic Granulation 1+ Dohle Bodies 2+ Giant Platelets Polychromasia Hypochromasia Anisocytosis ABG pH (7.35-7.45) ABG pCO2 (35-46) mmHg ABG pO2 (80-95) mm/Hg ABG HCO3 (19-24) mmol/L ABG O2 Saturation (90-95) % ABG Base Excess (-9-1.8) mEq/L Cosme Test (Pos) Barometric Pressure mm/Hg Oxygen Given Sodium 139 (136-145) mmol/L Potassium 4.1 (3.5-5.1) mmol/L Chloride 102 (98-107) mmol/L Carbon Dioxide 31 (21-32) mmol/L Anion Gap 7.0 (3-11) BUN 16 (7-18) mg/dl Creatinine 0.21 L (0.6-1.2) mg/dl Est Cr Clr Drug Dosing 185.5 Est GFR ( Amer) > 150.0 Est GFR (Non-Af Amer) 138.0 BUN/Creatinine Ratio 74.6 H (10-20) Glucose 68 L (70-99) mg/dl POC Glucose (70-99) Calcium 8.4 L (8.5-10.1) mg/dl Phosphorus (2.5-4.9) mg/dl Magnesium (1.8-2.4) mg/dl Total Bilirubin (0.2-1) mg/dl AST (15-37) U/L ALT (12-78) U/L Alkaline Phosphatase (45-117) U/L Total Protein (6.4-8.2) gm/dl Albumin (3.4-5.0) gm/dl Globulin (2.5-4.0) gm/dl Albumin/Globulin Ratio (0.9-2) Procalcitonin 0.47 (0-0.5) ng/ml Nasal Screen MRSA (PCR) (Negative) 02/07/19 02/07/19 02/07/19 Range/Units 07:03 20:31 20:31 WBC (4.8-10.8) K/uL RBC (4.2-5.4) M/uL Hgb (12.0-16.0) g/dL Hct (37-47) % MCV (80-100) fL MCH (25-34) pg MCHC (32-36) g/dL RDW Std Deviation (36.4-46.3) fL RDW Coeff of [place] (11.5-14.5) % Plt Count (130-400) K/uL MPV (7.4-10.4) fL Immature Gran % (Auto) % Neut % (Auto) % Lymph % (Auto) % [place] % (Auto) % Eos % (Auto) % Baso % (Auto) % Immature Gran # (Auto) (0.00-0.02) K/uL Neut # (Auto) (1.4-6.5) K/uL Lymph # (Auto) (1.2-3.4) K/uL [place] # (Auto) (0.11-0.59) K/uL Eos # (Auto) (0-0.5) K/uL Baso # (Auto) (0-0.2) K/uL Absolute Nucleated RBC (0-0) K/uL Nucleated RBC % (auto) % Hyposegmented Neuts Toxic Granulation Dohle Bodies Giant Platelets Polychromasia Hypochromasia Anisocytosis ABG pH (7.35-7.45) ABG pCO2 (35-46) mmHg ABG pO2 (80-95) mm/Hg ABG HCO3 (19-24) mmol/L ABG O2 Saturation (90-95) % ABG Base Excess (-9-1.8) mEq/L Cosme Test (Pos) Barometric Pressure mm/Hg Oxygen Given Sodium 138 138 (136-145) mmol/L Potassium 3.9 4.0 (3.5-5.1) mmol/L Chloride 99 100 (98-107) mmol/L Carbon Dioxide 33 H 34 H (21-32) mmol/L Anion Gap 6.0 4.0 (3-11) BUN 15 17 (7-18) mg/dl Creatinine 0.27 L 0.32 L (0.6-1.2) mg/dl Est Cr Clr Drug Dosing 144.9 122.3 Est GFR ( Amer) 147.2 139.2 Est GFR (Non-Af Amer) 127.0 120.1 BUN/Creatinine Ratio 52.9 H 53.6 H (10-20) Glucose 122 H 133 H (70-99) mg/dl POC Glucose (70-99) Calcium 8.7 8.6 (8.5-10.1) mg/dl Phosphorus 2.8 (2.5-4.9) mg/dl Magnesium 1.7 L (1.8-2.4) mg/dl Total Bilirubin 0.6 0.5 (0.2-1) mg/dl AST 9 L 11 L (15-37) U/L ALT 15 13 (12-78) U/L Alkaline Phosphatase 105 109 (45-117) U/L Total Protein 5.5 L 5.8 L (6.4-8.2) gm/dl Albumin 1.9 L 1.9 L (3.4-5.0) gm/dl Globulin 3.6 3.9 (2.5-4.0) gm/dl Albumin/Globulin Ratio 0.5 L 0.5 L (0.9-2) Procalcitonin 0.95 H (0-0.5) ng/ml Nasal Screen MRSA (PCR) (Negative) 02/07/19 02/07/19 02/08/19 Range/Units 20:32 20:32 06:30 WBC 10.55 8.20 (4.8-10.8) K/uL RBC 3.23 L 2.92 L (4.2-5.4) M/uL Hgb 9.2 L 8.5 L (12.0-16.0) g/dL Hct 29.6 L 26.8 L (37-47) % MCV 91.6 91.8 (80-100) fL MCH 28.5 29.1 (25-34) pg MCHC 31.1 L 31.7 L (32-36) g/dL RDW Std Deviation 60.0 H 60.4 H (36.4-46.3) fL RDW Coeff of [place] 18.2 H 18.3 H (11.5-14.5) % Plt Count 400 325 (130-400) K/uL MPV 10.3 10.4 (7.4-10.4) fL Immature Gran % (Auto) 0.6 0.2 % Neut % (Auto) 78.3 85.3 % Lymph % (Auto) 15.8 9.8 % [place] % (Auto) 5.2 4.5 % Eos % (Auto) 0.0 0.1 % Baso % (Auto) 0.1 0.1 % Immature Gran # (Auto) 0.06 H 0.02 (0.00-0.02) K/uL Neut # (Auto) 8.26 H 6.99 H (1.4-6.5) K/uL Lymph # (Auto) 1.67 0.80 L (1.2-3.4) K/uL [place] # (Auto) 0.55 0.37 (0.11-0.59) K/uL Eos # (Auto) 0.00 0.01 (0-0.5) K/uL Baso # (Auto) 0.01 0.01 (0-0.2) K/uL Absolute Nucleated RBC (0-0) K/uL Nucleated RBC % (auto) % Hyposegmented Neuts Toxic Granulation 2+ Dohle Bodies Giant Platelets Polychromasia Hypochromasia Anisocytosis Present ABG pH 7.41 (7.35-7.45) ABG pCO2 58 H (35-46) mmHg ABG pO2 83 (80-95) mm/Hg ABG HCO3 36 H (19-24) mmol/L ABG O2 Saturation 95.5 H (90-95) % ABG Base Excess 9.5 H (-9-1.8) mEq/L Cosme Test POS (Pos) Barometric Pressure 731.7 mm/Hg Oxygen Given 8L O2 Sodium (136-145) mmol/L Potassium (3.5-5.1) mmol/L Chloride (98-107) mmol/L Carbon Dioxide (21-32) mmol/L Anion Gap (3-11) BUN (7-18) mg/dl Creatinine (0.6-1.2) mg/dl Est Cr Clr Drug Dosing Est GFR ( Amer) Est GFR (Non-Af Amer) BUN/Creatinine Ratio (10-20) Glucose (70-99) mg/dl POC Glucose (70-99) Calcium (8.5-10.1) mg/dl Phosphorus (2.5-4.9) mg/dl Magnesium (1.8-2.4) mg/dl Total Bilirubin (0.2-1) mg/dl AST (15-37) U/L ALT (12-78) U/L Alkaline Phosphatase (45-117) U/L Total Protein (6.4-8.2) gm/dl Albumin (3.4-5.0) gm/dl Globulin (2.5-4.0) gm/dl Albumin/Globulin Ratio (0.9-2) Procalcitonin (0-0.5) ng/ml Nasal Screen MRSA (PCR) (Negative) 02/08/19 02/08/19 02/08/19 Range/Units 06:30 06:30 07:46 WBC (4.8-10.8) K/uL RBC (4.2-5.4) M/uL Hgb (12.0-16.0) g/dL Hct (37-47) % MCV (80-100) fL MCH (25-34) pg MCHC (32-36) g/dL RDW Std Deviation (36.4-46.3) fL RDW Coeff of [place] (11.5-14.5) % Plt Count (130-400) K/uL MPV (7.4-10.4) fL Immature Gran % (Auto) % Neut % (Auto) % Lymph % (Auto) % [place] % (Auto) % Eos % (Auto) % Baso % (Auto) % Immature Gran # (Auto) (0.00-0.02) K/uL Neut # (Auto) (1.4-6.5) K/uL Lymph # (Auto) (1.2-3.4) K/uL [place] # (Auto) (0.11-0.59) K/uL Eos # (Auto) (0-0.5) K/uL Baso # (Auto) (0-0.2) K/uL Absolute Nucleated RBC (0-0) K/uL Nucleated RBC % (auto) % Hyposegmented Neuts Toxic Granulation Dohle Bodies Giant Platelets Polychromasia Hypochromasia Anisocytosis ABG pH (7.35-7.45) ABG pCO2 (35-46) mmHg ABG pO2 (80-95) mm/Hg ABG HCO3 (19-24) mmol/L ABG O2 Saturation (90-95) % ABG Base Excess (-9-1.8) mEq/L Cosme Test (Pos) Barometric Pressure mm/Hg Oxygen Given Sodium 139 (136-145) mmol/L Potassium 3.3 L D (3.5-5.1) mmol/L Chloride 98 (98-107) mmol/L Carbon Dioxide 38 H (21-32) mmol/L Anion Gap 3.0 (3-11) BUN 14 (7-18) mg/dl Creatinine 0.38 L (0.6-1.2) mg/dl Est Cr Clr Drug Dosing 102.5 Est GFR ( Amer) 131.6 Est GFR (Non-Af Amer) 113.5 BUN/Creatinine Ratio 37.1 H (10-20) Glucose 127 H (70-99) mg/dl POC Glucose 190 H (70-99) Calcium 8.3 L (8.5-10.1) mg/dl Phosphorus (2.5-4.9) mg/dl Magnesium (1.8-2.4) mg/dl Total Bilirubin 0.7 (0.2-1) mg/dl AST 7 L (15-37) U/L ALT 12 (12-78) U/L Alkaline Phosphatase 100 (45-117) U/L Total Protein 5.6 L (6.4-8.2) gm/dl Albumin 2.0 L (3.4-5.0) gm/dl Globulin 3.6 (2.5-4.0) gm/dl Albumin/Globulin Ratio 0.6 L (0.9-2) Procalcitonin 1.42 H (0-0.5) ng/ml Nasal Screen MRSA (PCR) (Negative) 02/08/19 02/08/19 02/09/19 Range/Units 11:40 14:33 05:40 WBC 11.76 H (4.8-10.8) K/uL RBC 3.31 L (4.2-5.4) M/uL Hgb 9.4 L (12.0-16.0) g/dL Hct 30.1 L (37-47) % MCV 90.9 (80-100) fL MCH 28.4 (25-34) pg MCHC 31.2 L (32-36) g/dL RDW Std Deviation 61.0 H (36.4-46.3) fL RDW Coeff of [place] 18.4 H (11.5-14.5) % Plt Count 370 (130-400) K/uL MPV 9.9 (7.4-10.4) fL Immature Gran % (Auto) 1.0 % Neut % (Auto) 74.4 % Lymph % (Auto) 16.2 % [place] % (Auto) 8.0 % Eos % (Auto) 0.1 % Baso % (Auto) 0.3 % Immature Gran # (Auto) 0.12 H (0.00-0.02) K/uL Neut # (Auto) 8.74 H (1.4-6.5) K/uL Lymph # (Auto) 1.91 (1.2-3.4) K/uL [place] # (Auto) 0.94 H (0.11-0.59) K/uL Eos # (Auto) 0.01 (0-0.5) K/uL Baso # (Auto) 0.04 (0-0.2) K/uL Absolute Nucleated RBC (0-0) K/uL Nucleated RBC % (auto) % Hyposegmented Neuts Toxic Granulation 2+ Dohle Bodies 1+ Giant Platelets Polychromasia 1+ Hypochromasia Present Anisocytosis ABG pH (7.35-7.45) ABG pCO2 (35-46) mmHg ABG pO2 (80-95) mm/Hg ABG HCO3 (19-24) mmol/L ABG O2 Saturation (90-95) % ABG Base Excess (-9-1.8) mEq/L Cosme Test (Pos) Barometric Pressure mm/Hg Oxygen Given Sodium (136-145) mmol/L Potassium (3.5-5.1) mmol/L Chloride (98-107) mmol/L Carbon Dioxide (21-32) mmol/L Anion Gap (3-11) BUN (7-18) mg/dl Creatinine (0.6-1.2) mg/dl Est Cr Clr Drug Dosing Est GFR ( Amer) Est GFR (Non-Af Amer) BUN/Creatinine Ratio (10-20) Glucose (70-99) mg/dl POC Glucose 154 H (70-99) Calcium (8.5-10.1) mg/dl Phosphorus (2.5-4.9) mg/dl Magnesium (1.8-2.4) mg/dl Total Bilirubin (0.2-1) mg/dl AST (15-37) U/L ALT (12-78) U/L Alkaline Phosphatase (45-117) U/L Total Protein (6.4-8.2) gm/dl Albumin (3.4-5.0) gm/dl Globulin (2.5-4.0) gm/dl Albumin/Globulin Ratio (0.9-2) Procalcitonin (0-0.5) ng/ml Nasal Screen MRSA (PCR) Negative (Negative) 02/09/19 Range/Units 05:40 WBC (4.8-10.8) K/uL RBC (4.2-5.4) M/uL Hgb (12.0-16.0) g/dL Hct (37-47) % MCV (80-100) fL MCH (25-34) pg MCHC (32-36) g/dL RDW Std Deviation (36.4-46.3) fL RDW Coeff of [place] (11.5-14.5) % Plt Count (130-400) K/uL MPV (7.4-10.4) fL Immature Gran % (Auto) % Neut % (Auto) % Lymph % (Auto) % [place] % (Auto) % Eos % (Auto) % Baso % (Auto) % Immature Gran # (Auto) (0.00-0.02) K/uL Neut # (Auto) (1.4-6.5) K/uL Lymph # (Auto) (1.2-3.4) K/uL [place] # (Auto) (0.11-0.59) K/uL Eos # (Auto) (0-0.5) K/uL Baso # (Auto) (0-0.2) K/uL Absolute Nucleated RBC (0-0) K/uL Nucleated RBC % (auto) % Hyposegmented Neuts Toxic Granulation Dohle Bodies Giant Platelets Polychromasia Hypochromasia Anisocytosis ABG pH (7.35-7.45) ABG pCO2 (35-46) mmHg ABG pO2 (80-95) mm/Hg ABG HCO3 (19-24) mmol/L ABG O2 Saturation (90-95) % ABG Base Excess (-9-1.8) mEq/L Cosme Test (Pos) Barometric Pressure mm/Hg Oxygen Given Sodium 140 (136-145) mmol/L Potassium 3.4 L (3.5-5.1) mmol/L Chloride 99 (98-107) mmol/L Carbon Dioxide 38 H (21-32) mmol/L Anion Gap 3.0 (3-11) BUN 17 (7-18) mg/dl Creatinine 0.37 L (0.6-1.2) mg/dl Est Cr Clr Drug Dosing 96.3 Est GFR ( Amer) 132.7 Est GFR (Non-Af Amer) 114.5 BUN/Creatinine Ratio 46.0 H (10-20) Glucose 122 H (70-99) mg/dl POC Glucose (70-99) Calcium 8.3 L (8.5-10.1) mg/dl Phosphorus (2.5-4.9) mg/dl Magnesium (1.8-2.4) mg/dl Total Bilirubin (0.2-1) mg/dl AST (15-37) U/L ALT (12-78) U/L Alkaline Phosphatase (45-117) U/L Total Protein (6.4-8.2) gm/dl Albumin (3.4-5.0) gm/dl Globulin (2.5-4.0) gm/dl Albumin/Globulin Ratio (0.9-2) Procalcitonin (0-0.5) ng/ml Nasal Screen MRSA (PCR) (Negative) 02/09/19 02/09/19 02/08/19 Range/Units 05:40 05:40 14:33 WBC 11.76 H (4.8-10.8) K/uL RBC 3.31 L (4.2-5.4) M/uL Hgb 9.4 L (12.0-16.0) g/dL Hct 30.1 L (37-47) % MCV 90.9 (80-100) fL MCH 28.4 (25-34) pg MCHC 31.2 L (32-36) g/dL RDW Std Deviation 61.0 H (36.4-46.3) fL RDW Coeff of [place] 18.4 H (11.5-14.5) % Plt Count 370 (130-400) K/uL MPV 9.9 (7.4-10.4) fL Immature Gran % (Auto) 1.0 % Neut % (Auto) 74.4 % Lymph % (Auto) 16.2 % [place] % (Auto) 8.0 % Eos % (Auto) 0.1 % Baso % (Auto) 0.3 % Immature Gran # (Auto) 0.12 H (0.00-0.02) K/uL Neut # (Auto) 8.74 H (1.4-6.5) K/uL Lymph # (Auto) 1.91 (1.2-3.4) K/uL [place] # (Auto) 0.94 H (0.11-0.59) K/uL Eos # (Auto) 0.01 (0-0.5) K/uL Baso # (Auto) 0.04 (0-0.2) K/uL Toxic Granulation 2+ Dohle Bodies 1+ Polychromasia 1+ Hypochromasia Present Sodium 140 (136-145) mmol/L Potassium 3.4 L (3.5-5.1) mmol/L Chloride 99 (98-107) mmol/L Carbon Dioxide 38 H (21-32) mmol/L Anion Gap 3.0 (3-11) BUN 17 (7-18) mg/dl Creatinine 0.37 L (0.6-1.2) mg/dl Est Cr Clr Drug Dosing 96.3 ml/min Est GFR ( Amer) 132.7 Est GFR (Non-Af Amer) 114.5 BUN/Creatinine Ratio 46.0 H (10-20) Glucose 122 H (70-99) mg/dl POC Glucose (70-99) Calcium 8.3 L (8.5-10.1) mg/dl Nasal Screen MRSA (PCR) Negative (Negative) 02/08/19 Range/Units 11:40 WBC (4.8-10.8) K/uL RBC (4.2-5.4) M/uL Hgb (12.0-16.0) g/dL Hct (37-47) % MCV (80-100) fL MCH (25-34) pg MCHC (32-36) g/dL RDW Std Deviation (36.4-46.3) fL RDW Coeff of [place] (11.5-14.5) % Plt Count (130-400) K/uL MPV (7.4-10.4) fL Immature Gran % (Auto) % Neut % (Auto) % Lymph % (Auto) % [place] % (Auto) % Eos % (Auto) % Baso % (Auto) % Immature Gran # (Auto) (0.00-0.02) K/uL Neut # (Auto) (1.4-6.5) K/uL Lymph # (Auto) (1.2-3.4) K/uL [place] # (Auto) (0.11-0.59) K/uL Eos # (Auto) (0-0.5) K/uL Baso # (Auto) (0-0.2) K/uL Toxic Granulation Dohle Bodies Polychromasia Hypochromasia Sodium (136-145) mmol/L Potassium (3.5-5.1) mmol/L Chloride (98-107) mmol/L Carbon Dioxide (21-32) mmol/L Anion Gap (3-11) BUN (7-18) mg/dl Creatinine (0.6-1.2) mg/dl Est Cr Clr Drug Dosing ml/min Est GFR ( Amer) Est GFR (Non-Af Amer) BUN/Creatinine Ratio (10-20) Glucose (70-99) mg/dl POC Glucose 154 H (70-99) Calcium (8.5-10.1) mg/dl Nasal Screen MRSA (PCR) (Negative) Diagnostic Findings XR chest 1V portable CLINICAL HISTORY: effusion pleural effusion COMPARISON STUDY: 02/08/2019 FINDINGS: Unchanged exam. Central catheter remains in superior vena cava. Unch anged left hydropneumothorax. Unchanged opacification left pulmonary apex. Stable infiltrative changes right base. IMPRESSION: Unchanged left hydropneumothorax. Unchanged right basilar infiltrative process. No change from the prior study. Medications Administered Home Medications Medication Instructions Recorded Confirmed Last Taken cetirizine 5 mg tablet 5 mg PO QAM PRN tab 10/13/18 02/05/19 11/02/18 conj estrogen-medroxyprogesterone 1 tab PO QAM 10/13/18 02/05/19 02/04/19 0.625 mg-2.5 mg tablet promethazine 25 mg tablet 25 mg PO Q6H PRN #60 tab 11/11/18 02/05/19 01/04/19 21:00 oxycodone 10 mg tablet 10 mg PO Q4H PRN tab 12/05/18 02/05/19 Unknown food supplement, lactose-reduced 1 ea PO BID #[id number] ml 12/07/18 02/05/19 02/04/19 0.04 gram-1 kcal/mL oral liquid ondansetron 4 mg disintegrating 4 mg PO Q8H PRN #60 tab 12/11/18 02/05/19 01/05/19 06:30 tablet dexamethasone [Decadron] 4 mg PO UD 12/31/18 02/05/19 01/05/19 06:30 prochlorperazine maleate 10 mg PO TID PRN 12/31/18 02/05/19 Unknown [Compazine] sennosides-docusate sodium [Senna 2 tab PO HS 12/31/18 02/05/19 02/04/19 Plus] polyethylene glycol 3350 17 gram 17 g PO BID #30 ea 01/06/19 02/05/19 02/04/19 oral powder packet codeine-guaifenesin [Guaifenesin 10 ml PO Q6H PRN #118 ml 01/20/19 02/05/19 Unknown AC] omeprazole 20 mg PO DAILY #0 tab 01/20/19 02/05/19 02/04/19 albuterol sulfate [Ventolin HFA] 1 puffs INH Q6H PRN 02/05/19 02/05/19 Unknown docusate sodium [Colace] 100 mg PO BID 02/05/19 02/05/19 02/04/19 fentanyl [Duragesic] 50 mcg TRANSDERMAL Q3D@1230 02/05/19 02/05/19 Unknown mirtazapine [Remeron] 15 mg PO HS 02/05/19 02/05/19 02/04/19 ondansetron HCl [Zofran] 4 mg PO TIDM 02/05/19 02/05/19 02/04/19 Active Medications Generic Name Dose Route Start Last Admin Trade Name Freq PRN Reason Stop Dose Admin Acetaminophen 650 mg 02/05/19 13:44 02/08/19 11:30 Tylenol PO 03/07/19 13:43 650 mg Q4H PRN Administration pain/fever Albuterol 3 ml 02/07/19 20:30 02/09/19 06:59 Duoneb NEB 03/09/19 20:29 3 ml Q4R PREM Administration Benzonatate 100 mg 02/05/19 20:12 02/08/19 08:42 Tessalon Perle PO 03/07/19 20:11 100 mg Q8H PRN Administration Cough Cetirizine HCl 5 mg 02/05/19 13:44 02/06/19 08:55 Zyrtec PO 5 mg QAM PRN Administration allergies Docusate Sodium 100 mg 02/05/19 21:00 02/09/19 08:39 Colace PO 03/07/19 20:59 Not Given BID PREM Dronabinol 5 mg 02/08/19 08:00 02/09/19 08:39 Marinol PO 03/10/19 07:59 Not Given TIDM PREM Fentanyl 50 mcg 02/08/19 08:00 02/08/19 08:41 Duragesic TD 02/22/19 07:59 50 mcg Q3D@0800 PREM Administration Famotidine 20 mg/ Syringe 5 mls @ 2.5 mls/min 02/06/19 12:45 02/09/19 08:38 IV 03/08/19 12:44 2.5 mls/min QAM PREM Administration Piperacillin Sod/Tazobactam 115 mls @ 28.75 mls/hr 02/08/19 06:00 02/09/19 09:23 Sod 3.375 gm/ Dextrose IV 02/15/19 05:59 Infused Q8H PREM Infusion Protocol Vancomycin HCl 600 mg/ Sodium 262 mls @ 125 mls/hr 02/08/19 14:00 02/09/19 04:09 Chloride IV 02/15/19 13:59 Infused Q12H PREM Infusion Protocol Ioversol 80 ml 02/06/19 16:37 02/06/19 16:39 Optiray 320 125ml IV 02/10/19 16:36 80 ml ONCE PRN Administration Interaction Checking Ioversol 95 ml 02/07/19 21:07 02/07/19 21:07 Optiray 320 125ml IV 02/11/19 21:06 95 ml ONCE PRN Administration Interaction Checking Mirtazapine 15 mg 02/05/19 21:00 02/08/19 20:14 Remeron PO 03/07/19 20:59 15 mg HS PREM Administration Miscellaneous 1 ea 02/06/19 08:00 02/09/19 08:39 Order Awaiting Action N/A 03/08/19 07:59 Not Given QS PREM Miscellaneous 1 ea 02/05/19 16:00 02/09/19 08:39 Fentanyl Patch Check Placement N/A 03/07/19 15:59 1 ea QS PREM Administration Miscellaneous 1 ea 02/08/19 07:59 02/08/19 08:41 Fentanyl Patch Remove & Waste N/A 03/10/19 07:58 1 ea Q3D PREM Administration Ondansetron HCl 4 mg 02/05/19 17:00 02/09/19 08:39 Zofran Tab PO 03/07/19 16:59 Not Given TIDM PREM Polyethylene Glycol 17 gm 02/05/19 21:00 02/09/19 08:39 Miralax Powder Packet PO 03/07/19 20:59 Not Given BID PREM Potassium Chloride 20 meq 02/09/19 09:00 02/09/19 08:39 Klor-Con M20 PO 03/11/19 08:59 Not Given TID PREM Promethazine HCl 25 mg 02/05/19 13:44 02/05/19 15:03 Phenergan PO 03/07/19 13:43 25 mg Q6H PRN Administration nausea and vomiting Senna/Docusate Sodium 2 tab 02/05/19 21:00 02/08/19 20:19 Senokot S PO 03/07/19 20:59 2 tab HS PREM Administration Code Status & VTE Plan VTE Prophylaxis Plan VTE Prophylaxis will be ordered: Yes PG Care Time/CCT Total # of Minutes Spent Total Time Spent with Patient: Total time spent is greater than 50% in coordination of care (as documented) at patient's floor/unit and/or counseling patient: (1) Metastatic cancer to lung Laterality: unspecified laterality Qualified Code(s): C78.00 - Secondary malignant neoplasm of unspecified lung
[2019-02-09] MEDS ORDERED: LIDOCAINE HCL 2% (LOCAL) INJ 50 ML VIAL ONE (11:57)
[2019-02-09] MEDS ORDERED: POTASSIUM CHLORIDE PWD 20 MEQ PACK PO SCH (12:00)
--- NOTE | 2019-02-09 12:26 | Death Summary ---
Date of Service February 09, 2019 Pronouncement Note Date and Time of Date of : 02/09/19 Time of : 12:09 Contributing Factors (1) Bony metastasis: (2) Radiation pneumonitis: (3) Multifocal pneumonia: (4) Metastatic cancer to lung: (5) Nausea: Summary Additional details: 63 yo female with history of advanced non small cell lung cancer. Patient spontaneously developed hemoptysis as Ramin Clark was walking in the room. A large clot came out of her mouth. She immediately became unresponsive. Code purple was called Suctioned was initiated, but patient did not recover. Confirmed that patient was a DNR No pulses were obtained, no spontaneously breathing movements or breath sounds heard. No response from chest rubbing. No heart sounds noted on auscultation. PEA noted on tele monitor. Patient was pronounced at 12:09 Additional Data Confirmation of : no pulse, no respirations, no heart sounds and pupils fixed and dilated Family: contacted (Called Stacy at work.) Attending/PCP notified?: Yes Attending physician: Robbin Cruz Was code activated?: No Autopsy requested?: No cone examiner notified?: No Organ bank notified?: No Advance directives: Yes (Patient was a DNR/DNI)
[2019-02-09] MEDS ORDERED: VANCOMYCIN TROUGH ONE (13:30)
--- NOTE | 2019-02-09 14:34 | Pharmacy Report ---
ED Pharmacist Progress Note - ED Pharmacist Progress Note Date of Service:: February 09, 2019 Notes:: Two marinol 2.5mg capsules destroyed in central pharmacy.
== END 2019-02-09 19:15 | disposition expired | DRG 180 ==
LOC: ED 09:14 → 2W 09:14 → SUATTDRO 12:30 → 2W 13:24 → SUATTDRO 02-06 11:47 → 2E 02-07 21:54